=== PATIENT | female | born 1980 | race Caucasian/White ===

== ENCOUNTER → 2018-08-11 | Outpatient (CLI) | payer MEDICARE, OTHER ==
[~2018-08-11] MED LIST: ABILIFY10 MG PO; BENADRYL25 M1 PO; BENZTROPINE MESY2 MG PO; BYSTOLIC10 MG PO; BYSTOLIC5 MG PO; CARAFATE1 GM/10 ML PO; CLEOCIN HCL300 MG PO; CLONAZEPAM1 MG PO; COGENTIN1 MG/1 ML PO; DEXILANT60 MG PO; DIVALPROEX SOD250 MG; EFFEXOR XR150 MG PO; FENTANYL CITRATE/PF 100MCG/2 ML INJ ONE; FUROSEMIDE; GEODON80 MG PO; HALOPERIDOL1 MG PO; KLONOPIN1 MG PO; LACTATED RINGER'S 1,000 ML ONE; LAMICTAL XR200 MG PO; LATUDA40 MG PO; MIDAZOLAM HCL 5 MG/ML VIAL ONE; NAPROXEN250 MG PO; PANTOPRAZOLE SO40 MG PO; PREMARIN0.625 MG PO; PROPOFOL IV EMULSION 10 MG/ML 20 ML VIAL ONE; PROPRANOLOL HCL40 MG PO; PROVENTIL17 GM IH; PROZAC20 MG PO; REMERON30 MG PO; SODIUM CHLORIDE 0.9% 100 ML 100 ML ONE; TEMAZEPAM30 MG PO; THORAZINE; THORAZINE25 MG PO; TRAZODONE HCL300 MG PO; TRAZODONE HCL50 MG PO; TRILEPTAL300 MG PO; VITAMIN B PO; Z ATROVENT IH; Z LAMICTAL PO; Z.0.CYMBALTA60 MG PO; Z.0.GEODON20 MG PO; Z.0.KLONOPIN2 MG PO; Z.0.RESTORIL30 MG PO; Z.1.AMOXICILLIN500 M; [UNRECOGNIZED DRUG - OTHER] PO
--- NOTE | 2018-08-11 14:26 | Diagnostic Imaging Report ---
TECHNIQUE: Magnetic resonance imaging of the RIGHT SHOULDER was performed WITHOUT injected contrast. HISTORY: Sprain, limited motion COMPARISON: None available. FINDINGS: Some minimal artifacts due to partially limits evaluation. MUSCLES AND TENDONS: Rotator Cuff: Tendons: Supraspinatus and Infraspinatus: Focal low-grade articular sided partial-thickness tear of the anterior supraspinatus. No high-grade tear or complete tendon retraction. Teres Minor: Intact Subscapularis: Intact Muscles: No focal muscle atrophy. Biceps Tendon: The long head of the biceps tendon is intact and within the intertubercular groove. GLENOHUMERAL JOINT: Glenoid Labrum: Attenuation and complex tearing of the posterior superior labrum. Trace amount of fluid partially undercutting the labral-osseous junction at the posterior inferior glenoid. Articular Cartilage: Intermediate to high-grade erosion of the superior glenoid cartilage. Joint Fluid: No effusion. ACROMIOCLAVICULAR JOINT: Mild hypertrophic degenerative changes of the acromioclavicular joint. Synovitis and trace effusion. BONE: The acromion is unremarkable. The bone marrow signal is heterogeneous, compatible with red marrow conversion, no specific evidence of a focal bone marrow replacing abnormality. No acute fracture. SOFT TISSUES: Moderate volume of fluid and synovitis within the subacromial/subdeltoid bursa. IMPRESSION: 1. Subacromial/subdeltoid bursitis. 2. Acromioclavicular and glenohumeral degenerative changes, including degenerative tearing of the labrum. 3. Low-grade articular sided partial-thickness tearing of the supraspinatus tendon. Signed by: Dr. Edinson Walton D.O., M.M.M. on 08/11/2018 2:23 PM
--- NOTE | 2018-08-11 14:29 | Diagnostic Imaging Report ---
EXAMINATION: MRI of the lumbar spine without contrast HISTORY: Low back pain for last 3 years COMPARISON: Lumbar spine MRI and 09/13/2017 TECHNIQUE: Sagittal T1, T2, STIR; axial T2 and proton density. FINDINGS: It is assumed that there are 5 lumbar vertebrae. Curvature/Alignment: Normal lordosis. Vertebrae: No evidence of recent fracture, infection, or neoplasm. Conus: Normal, terminating at L1 Cauda equina: Unremarkable. Lower thoracic: Unremarkable. Paraspinal soft tissues: Unremarkable. Degenerative changes: L1-L2: Unremarkable. L2-L3: Unremarkable. L3-L4: Unremarkable. L4-L5: Persistent minimal disc bulge and facet arthrosis without stenosis. L5-S1: Unchanged tiny central disc protrusion with annular fissure and mild facet arthrosis. No stenoses. IMPRESSION: Unchanged minimal degenerative changes at L4-5 and L5-S1 without spinal canal or foraminal stenoses. No evidence of nerve root compression. Signed by: Dr. Jazmin Mike M.D. on 08/11/2018 2:25 PM
== END ==
LOC: OR 11:36
PROVIDERS: ATTEND Family Medicine Sports Medicine
DX: S43.491A Other sprain of right shoulder joint, initial encounter (principal); M75.41 Impingement syndrome of right shoulder; M47.27 Other spondylosis with radiculopathy, lumbosacral region
CPT/HCPCS: 72148; 73221; J2250; J2704; J7120

== ENCOUNTER → 2019-03-08 | Outpatient (CLI) | payer OTHER ==
[~2019-03-08] MED LIST changes: +LIDOCAINE HCL 2% LOCAL INJ 5 ML SDV VIAL INJ ONE; +MIDAZOLAM HCL 2 MG/2 ML VIAL ONE; -MIDAZOLAM HCL 5 MG/ML VIAL ONE; -PROPOFOL IV EMULSION 10 MG/ML 20 ML VIAL ONE; +PROPOFOL IV EMULSION 10 MG/ML 50 ML VIAL ONE; -SODIUM CHLORIDE 0.9% 100 ML 100 ML ONE
--- NOTE | 2019-03-08 15:10 | Diagnostic Imaging Report ---
TECHNIQUE: Magnetic resonance imaging of the RIGHT KNEE was performed WITHOUT injected contrast. HISTORY: EFFUSION/PAIN/CONTUSION/SPRAIN , fall, twisted, pain COMPARISON: None available. FINDINGS: LIGAMENTS AND TENDONS: ACL: Intact, minimal intrasubstance degeneration of the distal ligament. PCL: Intact Collateral ligaments: Intact Iliotibial band: Unremarkable Popliteal tendon: Intact Extensor mechanism: Intact JOINT: Menisci: Medial: Intrasubstance degeneration of the anterior horn near the tibial insertion. Lateral: Intact Articular Cartilage: Medial Compartment: No focal defect. Lateral Compartment: No focal defect. Patellofemoral Compartment: No focal defect. Joint Fluid: Trace effusion and minimally distended lobulated Carranza's cyst. BONES: No focal or infiltrative bone marrow replacing abnormality. No acute fracture. SOFT TISSUES: Mild medial and lateral nonspecific superficial soft tissue edema. IMPRESSION: 1. Trace effusion and minimally distended Carranza's cyst. 2. No acute internal derangement. Signed by: Dr. Edinson Walton D.O., M.M.M. on 03/08/2019 3:07 PM
--- NOTE | 2019-03-08 15:53 | Diagnostic Imaging Report ---
TECHNIQUE: Magnetic resonance imaging of the RIGHT ANKLE was performed WITHOUT injected contrast. Motion artifact partially limits sensitivity and specificity of the exam. HISTORY: EFFUSION/PAIN/CONTUSION/SPRAIN , fall COMPARISON: None available. FINDINGS: LIGAMENTS: Medial Complex: Intact Lateral Complex: Intact, including the tibiofibular ligaments. TENDONS: Medial: Intact Lateral: Complex partial tearing of the distal peroneus brevis tendon. Anterior: Intact Achilles: Intact BONES: No focal or infiltrative bone marrow replacing abnormality. No acute fracture or osteonecrosis. Varus configuration of the foot. Small plantar and moderate dorsal calcaneal enthesophytes. Focal edema within the lateral aspect of the lateral malleolus with a central subtle irregular linear hypointensity. JOINTS: Cartilage: No focal defect involving the tibiotalar joint. Other: Trace subtalar effusion. SOFT TISSUES: Moderate nonspecific superficial soft tissue edema, most notably the medial aspect of the ankle and the lateral aspect of the ankle. IMPRESSION: 1. Nondisplaced, incomplete, fracture of the lateral malleolus with adjacent bone marrow contusion. 2. Moderate nonspecific soft tissue edema. 3. Degenerative partial tearing of the distal peroneus brevis tendon. Signed by: Dr. Edinson Walton D.O., M.M.M. on 03/08/2019 3:50 PM
== END ==
LOC: MRI 02-13 13:40
PROVIDERS: ATTEND Family Medicine Sports Medicine
DX: M25.561 Pain in right knee (principal); M25.461 Effusion, right knee; S80.01XA Contusion of right knee, initial encounter; S83.8X1A Sprain of other specified parts of right knee, initial encounter; S93.421A Sprain of deltoid ligament of right ankle, initial encounter; S93.411A Sprain of calcaneofibular ligament of right ankle, initial encounter
CPT/HCPCS: 73721 ×2; J2001; J2250; J2704; J7121

== ENCOUNTER → 2019-03-16 | Day surgery (SDC) | payer MEDICARE, OTHER ==
[2019-03-15 16:48] LABS: BASOPHILS % 0.5 % (0.0-1.0); EOSINOPHILS # (AUTO) 0.1 (0.0-0.4); EOSINOPHILS % 1.7 % (0.0-6.0); HEMATOCRIT 33.1 % (34.2-44.1); HEMOGLOBIN 10.7 g/dL (12.0-16.0); LYMPHOCYTES % 26.1 % (18.0-39.1); MEAN CORPUSCULAR HEMOGLOBIN 30.5 pg (28-32); MEAN CORPUSCULAR HGB CONC 32.3 g/dL (31-35); MEAN CORPUSCULAR VOLUME 94.3 fL (81-99); MONOCYTES # (AUTO) 0.6 (0.2-0.8); MONOCYTES % 8.3 % (4.4-11.3); NEUTROPHILS # (AUTO) 4.8 (2.1-6.9); PLATELET COUNT 292 x10e3/uL (140-360); RED BLOOD COUNT 3.51 x10e6/uL (3.6-5.1); RED CELL DISTRIBUTION WIDTH 13.2 % (11.7-14.4)
[2019-03-15 17:05] LABS: ANION GAP 13.6 mmol/L (8-16); BLOOD UREA NITROGEN 6 mg/dL (7-26); BUN/CREATININE RATIO 7 (6-25); CALCIUM 9.1 mg/dL (8.4-10.2); CARBON DIOXIDE 27 mmol/L (22-29); CHLORIDE 103 mmol/L (98-107); CREATININE, SERUM 0.82 mg/dL (0.57-1.11); EST GLOMERULAR FILTRATION RATE > 60 ML/MIN (60-); GLUCOSE 89 mg/dL (74-118); POTASSIUM 3.6 mmol/L (3.5-5.1); SODIUM 140 mmol/L (136-145)
[~2019-03-16] MED LIST changes: +BUPIVACAINE HCL 0.5% INJ 30 ML VIAL INJ ONE; +CEFAZOLIN SOD 1 GM/NS 50ML 50 ML IV ONE; +DEXAMETHASONE SOD PHOS INJ 4 MG/ML VIAL ONE; +GEODON60 MG PO; +HYDROMORPHONE 2MG/ML 2 MG/ML ML ONE; -LACTATED RINGER'S 1,000 ML ONE; +LASIX20 MG PO; +METOCLOPRAMIDE HCL 10 MG/2ML VIAL ONE; +MORPHINE SULFATE INJ 4 MG/ML INJ 1ML ONE; +ONDANSETRON HCL INJ 2MG/ML 2ML 2 MG/ML VIAL ONE; +PROPOFOL IV EMULSION 10 MG/ML 20 ML VIAL ONE; -PROPOFOL IV EMULSION 10 MG/ML 50 ML VIAL ONE; +SEVOFLURANE INHAL SOLN 250 ML PEN BTL ONE; +TEGRETOL200 MG PO; +TYLENOL WITH C1 EACH PO
--- OUTSIDE RECORDS SUMMARY | 2019-03-16 05:10 | XMS REPORT | Clinical Summary ---
Author Author [facility] Organization [facility] Address Unknown Phone Unavailable Care Team Providers Care Feeder Catcher Tobacco Name Role Phone Davon Villalobos MD PCP Allergies Comments Active Allergy Reactions Severity Noted Date Sumatriptan Succinate Palpitations Low 11/10/2016 Iodine Anaphylaxis High 10/12/2018 Nsaids (Non-Steroidal 08/24/2018 Anti-Inflammatory Drug) Sumatriptan Palpitations Low 09/17/2015 Tolmetin Hives 11/10/2016 Ketorolac Hives 11/10/2016 Pt has tolerated morphine before per Tramadol Anaphylaxis High 09/17/2015 Makes migraine worse Zolmitriptan Other (See 05/10/2017 Comments) Medications End Date Status Medication Sig Dispensed Refills Start Date Active pantoprazole (PROTONIX) TK 1 T PO 0 40 MG EC tablet BID 6 Active FLUoxetine (PROzac) 20 MG Take 20 mg by 0 capsule mouth daily. Active PREMARIN 0.625 mg tablet TK 1 T PO QD 10 7 Active clonAZEPAM (KlonoPIN) 1 Take 1 mg by 0 MG tablet mouth 3 (three) times a day as needed for seizures. Active traZODone (DESYREL) 100 Take by mouth 0 MG tablet nightly. Active ziprasidone (GEODON) 80 Take 120 mg 0 MG capsule by mouth nightly. Active ibuprofen (ADVIL,MOTRIN) Take 1 tablet 30 tablet 0 600 MG tablet (600 mg 8 total) by mouth every 6 (six) hours as needed for mild pain for up to 30 doses. Active ipratropium-albuterol Take 3 mL by 0 (DUO-NEB) 0.5-2.5 mg/3 mL nebulization nebulizer every 6 (six) hours as needed for wheezing. Active levalbuterol (XOPENEX) Take 1 ampule 0 1.25 mg/3 mL nebulizer by solution nebulization every 8 (eight) hours. 01/26/2019 Discontinued OXcarbazepine (TRILEPTAL) Take 600 mg 0 600 MG tablet by mouth 2 (two) times a day. 05/05/2018 promethazine (PHENERGAN) Take 1 tablet 24 tablet 0 25 MG tablet (25 mg total) 8 by mouth every 6 (six) hours as needed for nausea or vomiting for up to 3 days. 07/13/2018 promethazine (PHENERGAN) Take 1 tablet 6 tablet 0 25 MG tablet (25 mg total) 8 by mouth every 6 (six) hours as needed for nausea or vomiting for up to 30 days. 07/16/2018 acetaminophen-codeine Take 1-2 15 tablet 0 (TYLENOL WITH CODEINE #3) tablets by 8 300-30 mg per tablet mouth every 6 (six) hours as needed for moderate pain for up to 10 days. 08/05/2018 methocarbamol (ROBAXIN) Take 1 tablet 20 tablet 0 500 MG tablet (500 mg 8 total) by mouth 2 (two) times a day for 30 days. 09/08/2018 acetaminophen-codeine Take 1-2 15 tablet 0 (TYLENOL WITH CODEINE #3) tablets by 8 300-30 mg per tablet mouth every 6 (six) hours as needed for moderate pain for up to 15 days. 09/29/2018 ciprofloxacin (CIPRO) 500 Take 1 tablet 14 tablet 0 MG tablet (500 mg 8 total) by mouth 2 (two) times a day for 7 days. 09/22/2018 Discontinued phenazopyridine Take 1 tablet 6 tablet 0 (PYRIDIUM) 200 MG tablet (200 mg 8 total) by mouth 3 (three) times a day for 3 days. 10/02/2018 cephalexin (KEFLEX) 500 Take 1 40 capsule 0 MG capsule capsule (500 8 mg total) by mouth 4 (four) times a day for 10 days. 09/25/2018 phenazopyridine Take 1 tablet 6 tablet 0 (PYRIDIUM) 200 MG tablet (200 mg 8 total) by mouth 3 (three) times a day for 3 days. 10/19/2018 clindamycin (CLEOCIN) 150 Take 2 42 capsule 0 MG capsule capsules (300 9 mg total) by mouth 3 (three) times a day for 7 days. 11/13/2018 methocarbamol (ROBAXIN) Take 1 tablet 20 tablet 0 500 MG tablet (500 mg 9 total) by mouth 2 (two) times a day for 10 days. 01/28/2019 Discontinued methocarbamol (ROBAXIN) Take 1 tablet 20 tablet 0 500 MG tablet (500 mg 9 total) by mouth 2 (two) times a day for 30 days. 01/05/2019 clindamycin (CLEOCIN HCL) Take 1 30 capsule 0 300 MG capsule capsule (300 9 mg total) by mouth 3 (three) times a day for 10 days. 01/08/2019 dicyclomine (BENTYL) 20 Take 1 tablet 20 tablet 0 mg tablet (20 mg total) 9 by mouth every 6 (six) hours for 5 days. 01/08/2019 promethazine (PHENERGAN) Take 1 tablet 20 tablet 0 25 MG tablet (25 mg total) 9 by mouth every 6 (six) hours as needed for nausea or vomiting for up to 5 days. 01/28/2019 Discontinued doxycycline (VIBRAMYCIN) Take 1 20 capsule 0 100 MG capsule capsule (100 9 mg total) by mouth 2 (two) times a day for 10 days. 01/28/2019 Discontinued oseltamivir (TAMIFLU) 75 Take 1 10 capsule 0 MG capsule capsule (75 9 mg total) by mouth every 12 (twelve) hours for 5 days. 01/28/2019 Discontinued predniSONE (DELTASONE) 50 Take 1 tablet 4 tablet 0 mg tablet (50 mg total) 9 by mouth daily for 4 days. 02/02/2019 codeine-guaifenesin Take 5 mL by 118 mL 0 (GUAIFENESIN AC) 10-100 mouth 4 9 mg/5 mL liquid (four) times a day as needed for cough for up to 5 days. 02/01/2019 predniSONE (DELTASONE) 20 Take 2 8 tablet 0 mg tablet tablets (40 9 mg total) by mouth daily for 4 days. 02/02/2019 acetaminophen-codeine Take 1 tablet 14 tablet 0 (TYLENOL WITH CODEINE #3) by mouth 9 300-30 mg per tablet every 4 (four) hours as needed for moderate pain for up to 5 days. 03/07/2019 fluticasone Inhale 1 30 each 0 furoate-vilanterol (BREO inhalations 9 ELLIPTA) 100-25 mcg/dose once daily blister with device for 30 days. powder for inhalation 02/10/2019 methylPREDNISolone follow 21 tablet 0 (MEDROL, TACHO,) 4 mg package 9 tablet directions 02/10/2019 levoFLOXacin (LEVAQUIN) Take 1 tablet 5 tablet 0 750 MG tablet (750 mg 9 total) by mouth daily for 5 days. 02/05/2019 Discontinued guaiFENesin (ROBITUSSIN) Take 10 mL 473 mL 0 100 mg/5 mL syrup (200 mg 9 total) by mouth 3 (three) times a day as needed for cough for up to 10 days. 02/10/2019 HYDROcodone-acetaminophen Take 1 tablet 15 tablet 0 (NORCO) 5-325 mg per by mouth 9 tablet every 8 (eight) hours as needed for moderate pain for up to 5 days. Max Daily Amount: 3 tablets 02/15/2019 guaiFENesin (ROBITUSSIN) Take 10 mL 473 mL 0 100 mg/5 mL syrup (200 mg 9 total) by mouth 3 (three) times a day as needed for cough for up to 10 days. 02/22/2019 clindamycin (CLEOCIN HCL) Take 1 21 capsule 0 300 MG capsule capsule (300 9 mg total) by mouth 3 (three) times a day for 7 days. 03/11/2019 predniSONE (DELTASONE) 20 Take 2 10 tablet 0 mg tablet tablets (40 9 mg total) by mouth daily for 5 days. 03/11/2019 acetaminophen-codeine Take 1 tablet 12 tablet 0 (TYLENOL WITH CODEINE #3) by mouth 9 300-30 mg per tablet every 6 (six) hours as needed for moderate pain for up to 5 days. 03/13/2019 sulfamethoxazole-trimetho Take 1 tablet 14 tablet 0 prim (BACTRIM DS) 800-160 by mouth 2 9 mg per tablet (two) times a day for 7 days. smx-tmp DS (BACTRIM) 800-160 mg tabs (1tab q12 D10) Active Problems Problem Noted Date Exacerbation of asthma 01/25/2019 Intractable headache 05/14/2017 Chronic pain of left knee 11/10/2016 Resolved Problems Problem Noted Date Resolved Date Shortness of breath 02/04/2019 02/05/2019 Encounters Care Team Description Date Type Specialty Gabriel Dotson MD COPD exacerbation (HCC) (Primary Dx); Shortness of breath; Pleurisy 03/06/2019 Emergency Emergency Medicine Ziyad Maria DO Bilateral lower extremity edema (Primary Dx) 03/01/2019 Emergency Emergency Medicine - 03/02/2019 Zehra Fung MD Costochondritis (Primary Dx); Drug-seeking behavior; Malingering 02/25/2019 Emergency Emergency Medicine - 02/26/2019 Gabriel Barth MD Flank pain (Primary Dx); Drug-seeking behavior 02/21/2019 Emergency Emergency Medicine - 02/22/2019 Danny Dotson DO Eloped from emergency department (Primary Dx) 02/17/2019 Emergency Emergency Medicine Ziyad Maria DO Reichl, Erik Andrew, MD Abscess of axilla (Primary Dx) 02/15/2019 Emergency Emergency Medicine BenniePastor lema Jr., MD Contusion of right foot, initial encounter (Primary Dx); Sprain of right ankle, unspecified ligament, initial encounter 02/13/2019 Emergency Emergency Medicine Edvin Palacios MD Neela, Rekha Srinivas, MD Abouelseoud, Tanseem Hamad Mohamed A, MD Shortness of breath (Primary Dx); Moderate persistent asthma with exacerbation 02/04/2019 Emergency General Internal Medicine - 02/05/2019 Gabriel Barth MD Eloped from emergency department (Primary Dx) 01/31/2019 Emergency Emergency Medicine Sukumar Alvarez MD Abouelseoud, Tanseem Hamad Mohamed A, MD Bavare, Arusha Amod, MD Exacerbation of asthma, unspecified asthma severity, unspecified whether persistent (Primary Dx); Multifocal pneumonia; SOB (shortness of breath); Chronic pain of left knee 01/25/2019 [facility] General Internal Medicine - Encounter 01/28/2019 Pastor Avery Jr., MD Fever, unspecified fever cause (Primary Dx); Cough; Viral illness; Bronchitis 01/21/2019 Emergency Emergency Medicine Dorian Espinal Jr., MD Sprain of right ankle, unspecified ligament, initial encounter (Primary Dx) 01/12/2019 Emergency Emergency Medicine Orlando Schulz MD Generalized abdominal pain (Primary Dx) 01/05/2019 Emergency Emergency Medicine Masoud Moreno MD Gastroenteritis (Primary Dx) 01/03/2019 Emergency Emergency Medicine Miles Minor MD Contusion of hip and thigh, left, subsequent encounter (Primary Dx); Back contusion, left, initial encounter 12/27/2018 Emergency Emergency Medicine 12/27/2018 Travel Larisa Sifuentes MD Contusion of hip, unspecified laterality, initial encounter (Primary Dx); Hip sprain, left, initial encounter; Abrasion; Cellulitis, unspecified cellulitis site 12/26/2018 Emergency Emergency Medicine 12/26/2018 Travel Dorian Espinal Jr., MD Back strain, initial encounter (Primary Dx) 11/03/2018 Emergency Emergency Medicine Sukumar Alvarez MD Dacryocystitis, acute, right (Primary Dx) 10/12/2018 Emergency Emergency Medicine Zehra Fung MD Pyelonephritis (Primary Dx) 09/23/2018 Emergency Emergency Medicine 09/23/2018 Travel Gabriel Barth MD Urinary retention (Primary Dx) 09/22/2018 Emergency Emergency Medicine Ziyad Maria DO Flank pain (Primary Dx) 09/20/2018 Emergency Emergency Medicine Elías Vang II, [facility] Larisa Sifuentes MD Contusion of left foot, initial encounter (Primary Dx) 08/30/2018 Emergency Emergency Medicine 08/30/2018 Emergency Emergency Medicine Larisa Sifuentes MD Chest pain, unspecified type (Primary Dx); Dyspnea, unspecified type 08/25/2018 Emergency Emergency Medicine Zehra Fung MD Left flank pain, chronic (Primary Dx) 08/24/2018 Emergency Emergency Medicine Dorian Espinal Jr., MD Acute left lower quadrant pain (Primary Dx) 08/21/2018 Emergency Emergency Medicine Sukumar Alvarez MD Abdominal pain, unspecified abdominal location (Primary Dx) 08/08/2018 Emergency Emergency Medicine Zehra Fung MD Fall, initial encounter (Primary Dx); Hematoma of frontal scalp, initial encounter 07/10/2018 Emergency Emergency Medicine Lc Parry, Fall, initial encounter (Primary Dx); Shoulder strain, right, initial encounter 07/06/2018 Emergency Emergency Medicine Fernando Gutierrez MD Flank pain (Primary Dx); Bilateral back pain, unspecified back location, unspecified chronicity 07/05/2018 Emergency Emergency Medicine - 07/06/2018 Gabriel Dotson MD Dysuria (Primary Dx) 06/12/2018 Emergency Emergency Medicine - 06/13/2018 Fernando Gutierrez MD Left ankle pain, unspecified chronicity (Primary Dx) 05/16/2018 Emergency Emergency Medicine Ziyad Maria DO Left foot pain (Primary Dx) 05/03/2018 Emergency Emergency Medicine - 05/04/2018 Elías Vang II, FNP Nwachukwu, Ernest Chukwuemeka Jr., MD Foot pain, left (Primary Dx) 05/01/2018 Emergency Emergency Medicine - 05/02/2018 Sukumar Alvarez MD Post-op pain (Primary Dx) 05/01/2018 Emergency Emergency Medicine Sukumar Alvarez MD Post-operative pain (Primary Dx) 04/30/2018 Emergency Emergency Medicine Elías Vang II, FNP Zhang, Zhou, MD Foot sprain, left, initial encounter (Primary Dx) 03/31/2018 Emergency Emergency Medicine after 03/15/2018 Immunizations Name Dates Previously Given Next Due Pneumococcal 01/27/2019 Polysaccharide Family History Medical History Relation Name Comments Stroke Father Liver disease Mother Heart disease Paternal Grandmother Relation Name Status Comments Father Mother Paternal Grandmother Social History Date Tobacco Use Types Packs/Day Years Used Current Every Day Smoker Cigarettes 0.25 Smokeless Tobacco: Never Used Alcohol Use Drinks/Week oz/Week Comments No Sex Assigned at Date Recorded Not on file Industry Job Start Date Occupation Not on file Not on file Not on file Travel End Travel History Travel Start No recent travel history available. Last Filed Vital Signs Time Taken Vital Sign Reading 03/06/2019 8:12 AM CDT Blood Pressure 120/79 03/06/2019 9:12 AM CDT Pulse 88 03/06/2019 8:12 AM CDT Temperature 36.2 C (97.1 F) 03/06/2019 9:12 AM CDT Respiratory Rate 18 03/06/2019 9:16 AM CDT Oxygen Saturation 100% - Inhaled Oxygen - Concentration 03/06/2019 8:15 AM CDT Weight 108 kg (238 lb) 03/06/2019 8:15 AM CDT Height 170.2 cm (5' 7") 03/06/2019 8:15 AM CDT Body Mass Index 37.28 Plan of Treatment Health Maintenance Due Date Last Done Comments INFLUENZA VACCINE 04/26/2019 Procedures Comments Procedure Name Priority Date/Time Associated Diagnosis VENOUS BLOOD GAS STAT 03/06/2019 8:51 AM CDT ESTIMATED GFR STAT 03/06/2019 8:51 AM CDT B NATRIURETIC PEPTIDE STAT 03/06/2019 8:51 AM CDT TROPONIN STAT 03/06/2019 8:51 AM CDT COMPREHENSIVE METABOLIC STAT 03/06/2019 PANEL 8:51 AM CDT HC COMPLETE BLD COUNT STAT 03/06/2019 W/AUTO DIFF 8:51 AM CDT XR CHEST 1 VW STAT 03/06/2019 8:43 AM CDT ECG ED PRELIMINARY Routine 03/06/2019 INTERPRETATION 8:25 AM CDT ECG 12-LEAD STAT 03/06/2019 8:13 AM CDT ESTIMATED GFR STAT 03/01/2019 11:09 PM CDT PARTIAL THROMBOPLASTIN STAT 03/01/2019 TIME (PTT) 11:09 PM CDT PROTHROMBIN TIME WITH INR STAT 03/01/2019 11:09 PM CDT B NATRIURETIC PEPTIDE STAT 03/01/2019 11:09 PM CDT COMPREHENSIVE METABOLIC STAT 03/01/2019 PANEL 11:09 PM CDT HC COMPLETE BLD COUNT STAT 03/01/2019 W/AUTO DIFF 11:09 PM CDT US DUPLEX VENOUS LOWER STAT 03/01/2019 EXTREMITY BILATERAL 10:43 PM CDT ECG 12-LEAD STAT 02/25/2019 9:53 PM CDT XR CHEST 2 VW STAT 02/25/2019 9:51 PM CDT ESTIMATED GFR STAT 02/25/2019 9:33 PM CDT B NATRIURETIC PEPTIDE STAT 02/25/2019 9:33 PM CDT TROPONIN STAT 02/25/2019 9:33 PM CDT COMPREHENSIVE METABOLIC STAT 02/25/2019 PANEL 9:33 PM CDT HC COMPLETE BLD COUNT STAT 02/25/2019 W/AUTO DIFF 9:33 PM CDT ECG ED PRELIMINARY Routine 02/25/2019 INTERPRETATION 9:27 PM CDT HCG QUALITATIVE, SERUM STAT 02/21/2019 SCREEN 11:15 PM CDT ESTIMATED GFR STAT 02/21/2019 11:15 PM CDT LIPASE LEVEL STAT 02/21/2019 11:15 PM CDT COMPREHENSIVE METABOLIC STAT 02/21/2019 PANEL 11:15 PM CDT HC COMPLETE BLD COUNT STAT 02/21/2019 W/AUTO DIFF 11:15 PM CDT URINALYSIS SCREEN AND STAT 02/21/2019 MICROSCOPY, WITH REFLEX 10:38 PM CDT TO CULTURE URINE CULTURE STAT 02/21/2019 10:[address] RENAL STONE PROTOCOL STAT 02/21/2019 10:35 PM CDT INCISION AND DRAINAGE Routine 02/15/2019 7:43 PM CDT XR FOOT 3+ VW RIGHT STAT 02/13/2019 5:54 PM CDT XR ANKLE 3+ VW RIGHT STAT 02/13/2019 5:54 PM CDT POC GLUCOSE Routine 02/05/2019 6:06 AM CDT LACTIC ACID LEVEL, SEPSIS Routine 02/05/2019 - NOW AND REPEAT 2X EVERY 3:22 AM CDT 3 HOURS ESTIMATED GFR Routine 02/05/2019 3:22 AM CDT BASIC METABOLIC PANEL Routine 02/05/2019 3:22 AM CDT HC COMPLETE BLD COUNT Routine 02/05/2019 W/AUTO DIFF 3:22 AM CDT RESPIRATORY PATHOGEN Routine 02/05/2019 PANEL 12:11 AM CDT TROPONIN Timed 02/04/2019 11:33 PM CDT LACTIC ACID LEVEL, SEPSIS Timed 02/04/2019 - NOW AND REPEAT 2X EVERY 11:33 PM CDT 3 HOURS POC GLUCOSE Routine 02/04/2019 8:09 PM CDT TROPONIN Timed 02/04/2019 7:09 PM CDT LACTIC ACID LEVEL, SEPSIS Timed 02/04/2019 - NOW AND REPEAT 2X EVERY 7:09 PM CDT 3 HOURS URINE CULTURE Routine 02/04/2019 5:00 PM CDT GRAM STAIN Routine 02/04/2019 5:00 PM CDT URINALYSIS SCREEN AND Routine 02/04/2019 MICROSCOPY, WITH REFLEX 4:47 PM CDT TO CULTURE HCG QUALITATIVE, URINE Routine 02/04/2019 SCREEN 4:47 PM CDT XR CHEST 1 VW PORTABLE STAT 02/04/2019 3:47 PM CDT ESTIMATED GFR STAT 02/04/2019 3:40 PM CDT B NATRIURETIC PEPTIDE STAT 02/04/2019 3:40 PM CDT TROPONIN STAT 02/04/2019 3:40 PM CDT LIPASE LEVEL STAT 02/04/2019 3:40 PM CDT LACTIC ACID LEVEL, SEPSIS STAT 02/04/2019 - NOW AND REPEAT 2X EVERY 3:40 PM CDT 3 HOURS HEPATIC FUNCTION PANEL STAT 02/04/2019 3:40 PM CDT BASIC METABOLIC PANEL STAT 02/04/2019 3:40 PM CDT HC COMPLETE BLD COUNT STAT 02/04/2019 W/AUTO DIFF 3:40 PM CDT BLOOD CULTURE, AEROBIC & Routine 02/04/2019 ANAEROBIC 3:40 PM CDT BLOOD CULTURE, AEROBIC & Routine 02/04/2019 ANAEROBIC 3:30 PM CDT ECG 12-LEAD STAT 02/04/2019 3:26 PM CDT ECG ED PRELIMINARY Routine 02/04/2019 INTERPRETATION 3:15 PM CDT POC GLUCOSE Routine 01/28/2019 10:56 AM CDT POC GLUCOSE Routine 01/28/2019 6:15 AM CDT ESTIMATED GFR Routine 01/28/2019 5:18 AM CDT BASIC METABOLIC PANEL Routine 01/28/2019 5:18 AM CDT HC COMPLETE BLD COUNT Routine 01/28/2019 W/AUTO DIFF 5:18 AM CDT POC GLUCOSE Routine 01/27/2019 8:23 PM CDT POC GLUCOSE Routine 01/27/2019 4:13 PM CDT POC GLUCOSE Routine 01/27/2019 11:31 AM CDT POC GLUCOSE Routine 01/27/2019 6:15 AM CDT ESTIMATED GFR Routine 01/27/2019 5:49 AM CDT BASIC METABOLIC PANEL Routine 01/27/2019 5:49 AM CDT PROTHROMBIN TIME WITH INR Routine 01/27/2019 5:49 AM CDT HC COMPLETE BLD COUNT Routine 01/27/2019 W/AUTO DIFF 5:49 AM CDT POC GLUCOSE Routine 01/26/2019 8:42 PM CDT POC GLUCOSE Routine 01/26/2019 7:16 PM CDT POC GLUCOSE Routine 01/26/2019 4:52 PM CDT POC GLUCOSE Routine 01/26/2019 11:45 AM CDT HEMOGLOBIN A1C Routine 01/26/2019 6:56 AM CDT TROPONIN Timed 01/26/2019 6:56 AM CDT TROPONIN Timed 01/26/2019 3:08 AM CDT ESTIMATED GFR STAT 01/25/2019 10:33 PM CDT B NATRIURETIC PEPTIDE STAT 01/25/2019 10:33 PM CDT TROPONIN STAT 01/25/2019 10:33 PM CDT HC COMPLETE BLD COUNT STAT 01/25/2019 W/AUTO DIFF 10:33 PM CDT BASIC METABOLIC PANEL STAT 01/25/2019 10:33 PM CDT XR CHEST 1 VW PORTABLE STAT 01/25/2019 10:25 PM CDT OK CRITICAL CARE, E/M Routine 01/25/2019 30-74 MINUTES 9:40 PM CDT GRAM STAIN Routine 01/21/2019 8:23 AM CDT URINE CULTURE Routine 01/21/2019 8:23 AM CDT STREP SCREEN CULTURE STAT 01/21/2019 8:00 AM CDT HCG QUALITATIVE, URINE Routine 01/21/2019 SCREEN 7:59 AM CDT URINALYSIS SCREEN AND Routine 01/21/2019 MICROSCOPY, WITH REFLEX 7:59 AM CDT TO CULTURE GROUP A STREP, RAPID Routine 01/21/2019 ANTIGEN 7:31 AM CDT ESTIMATED GFR STAT 01/21/2019 7:15 AM CDT CBC HEMOGRAM STAT 01/21/2019 7:15 AM CDT BASIC METABOLIC PANEL STAT 01/21/2019 7:15 AM CDT XR CHEST 2 VW STAT 01/21/2019 6:11 AM CDT RESPIRATORY PATHOGEN Routine 01/21/2019 PANEL 5:30 AM CDT INFLUENZA ANTIGEN TEST, Routine 01/21/2019 REFLEX NEGATIVE TO RPP 5:30 AM CDT XR ANKLE 3+ VW RIGHT STAT 01/12/2019 7:22 PM CDT XR FOOT 3+ VW RIGHT STAT 01/12/2019 7:[address] ABDOMEN PELVIS WO STAT 01/03/2019 CONTRAST 5:54 PM CDT RESPIRATORY PATHOGEN Routine 01/03/2019 PANEL 4:42 PM CDT INFLUENZA ANTIGEN TEST, Routine 01/03/2019 REFLEX NEGATIVE TO RPP 4:42 PM CDT GRAM STAIN Routine 01/03/2019 4:36 PM CDT URINE CULTURE Routine 01/03/2019 4:36 PM CDT ESTIMATED GFR STAT 01/03/2019 3:20 PM CDT HCG QUALITATIVE, SERUM STAT 01/03/2019 SCREEN 3:20 PM CDT LIPASE LEVEL STAT 01/03/2019 3:20 PM CDT HEPATIC FUNCTION PANEL STAT 01/03/2019 3:20 PM CDT BASIC METABOLIC PANEL STAT 01/03/2019 3:20 PM CDT HC COMPLETE BLD COUNT STAT 01/03/2019 W/AUTO DIFF 3:20 PM CDT URINALYSIS SCREEN AND Routine 01/03/2019 MICROSCOPY, WITH REFLEX 2:11 PM CDT TO CULTURE HCG QUALITATIVE, URINE Routine 01/03/2019 SCREEN 2:11 PM CDT XR HIPS BILATERAL AP STAT 12/26/2018 LATERAL W AP PELVIS 9:50 AM CDT URINALYSIS SCREEN AND STAT 09/23/2018 MICROSCOPY, WITH REFLEX 1:40 AM TWISTER TENDER TO CULTURE GRAM STAIN STAT 09/23/2018 1:40 AM TWISTER TENDER URINE CULTURE STAT 09/23/2018 1:40 AM TWISTER TENDER ESTIMATED GFR STAT 09/23/2018 1:30 AM TWISTER TENDER COMPREHENSIVE METABOLIC STAT 09/23/2018 PANEL 1:30 AM TWISTER TENDER HC COMPLETE BLD COUNT STAT 09/23/2018 W/AUTO DIFF 1:30 AM TWISTER TENDER LACTIC ACID LEVEL, SEPSIS Timed 09/22/2018 - NOW AND REPEAT 2X EVERY 3:56 AM TWISTER TENDER 3 HOURS XR CHEST 1 VW PORTABLE STAT 09/22/2018 3:[address] ABDOMEN PELVIS W STAT 09/22/2018 CONTRAST 2:27 AM TWISTER TENDER BLOOD CULTURE, AEROBIC & Routine 09/22/2018 ANAEROBIC 2:13 AM TWISTER TENDER BLOOD CULTURE, AEROBIC & Routine 09/22/2018 ANAEROBIC 2:04 AM TWISTER TENDER HCG QUALITATIVE, URINE STAT 09/22/2018 SCREEN 1:27 AM TWISTER TENDER URINALYSIS SCREEN AND STAT 09/22/2018 MICROSCOPY, WITH REFLEX 1:27 AM TWISTER TENDER TO CULTURE URINE CULTURE STAT 09/22/2018 1:27 AM TWISTER TENDER ESTIMATED GFR STAT 09/22/2018 1:14 AM TWISTER TENDER LIPASE LEVEL STAT 09/22/2018 1:14 AM TWISTER TENDER LACTIC ACID LEVEL, SEPSIS STAT 09/22/2018 - NOW AND REPEAT 2X EVERY 1:14 AM TWISTER TENDER 3 HOURS COMPREHENSIVE METABOLIC STAT 09/22/2018 PANEL 1:14 AM TWISTER TENDER PARTIAL THROMBOPLASTIN STAT 09/22/2018 TIME (PTT) 1:14 AM TWISTER TENDER PROTHROMBIN TIME WITH INR STAT 09/22/2018 1:14 AM TWISTER TENDER HC COMPLETE BLD COUNT STAT 09/22/2018 W/AUTO DIFF 1:14 AM TWISTER TENDER ESTIMATED GFR STAT 09/20/2018 6:08 PM TWISTER TENDER LIPASE LEVEL STAT 09/20/2018 6:08 PM TWISTER TENDER COMPREHENSIVE METABOLIC STAT 09/20/2018 PANEL 6:08 PM TWISTER TENDER HC COMPLETE BLD COUNT STAT 09/20/2018 W/AUTO DIFF 6:08 PM TWISTER TENDER XR FOOT 3+ VW LEFT STAT 08/30/2018 8:50 PM TWISTER TENDER ECG ED PRELIMINARY Routine 08/25/2018 INTERPRETATION 12:54 PM TWISTER TENDER XR CHEST 2 VW STAT 08/25/2018 11:58 AM TWISTER TENDER ESTIMATED GFR STAT 08/25/2018 11:42 AM TWISTER TENDER B NATRIURETIC PEPTIDE STAT 08/25/2018 11:42 AM TWISTER TENDER TROPONIN STAT 08/25/2018 11:42 AM TWISTER TENDER COMPREHENSIVE METABOLIC STAT 08/25/2018 PANEL 11:42 AM TWISTER TENDER HC COMPLETE BLD COUNT STAT 08/25/2018 W/AUTO DIFF 11:42 AM TWISTER TENDER ECG 12-LEAD STAT 08/25/2018 11:[address] RENAL STONE PROTOCOL STAT 08/24/2018 3:11 AM TWISTER TENDER HCG QUALITATIVE, URINE STAT 08/24/2018 SCREEN 2:28 AM TWISTER TENDER URINALYSIS SCREEN AND STAT 08/24/2018 MICROSCOPY, WITH REFLEX 2:28 AM TWISTER TENDER TO CULTURE GRAM STAIN STAT 08/24/2018 2:28 AM TWISTER TENDER URINE CULTURE STAT 08/24/2018 2:28 AM TWISTER TENDER ESTIMATED GFR STAT 08/24/2018 1:23 AM TWISTER TENDER LIPASE LEVEL STAT 08/24/2018 1:23 AM TWISTER TENDER COMPREHENSIVE METABOLIC STAT 08/24/2018 PANEL 1:23 AM TWISTER TENDER HC COMPLETE BLD COUNT STAT 08/24/2018 W/AUTO DIFF 1:23 AM TWISTER TENDER URINALYSIS SCREEN AND Routine 08/21/2018 MICROSCOPY, WITH REFLEX 1:48 AM TWISTER TENDER TO CULTURE GRAM STAIN Routine 08/21/2018 1:48 AM TWISTER TENDER URINE CULTURE Routine 08/21/2018 1:48 AM TWISTER TENDER ESTIMATED GFR STAT 08/21/2018 12:53 AM TWISTER TENDER LIPASE LEVEL STAT 08/21/2018 12:53 AM TWISTER TENDER LACTIC ACID LEVEL, SEPSIS STAT 08/21/2018 - NOW AND REPEAT 2X EVERY 12:53 AM TWISTER TENDER 3 HOURS COMPREHENSIVE METABOLIC STAT 08/21/2018 PANEL 12:53 AM TWISTER TENDER HC COMPLETE BLD COUNT STAT 08/21/2018 W/AUTO DIFF 12:53 AM TWISTER TENDER HCG QUALITATIVE, URINE STAT 08/08/2018 SCREEN 8:24 PM TWISTER TENDER URINALYSIS SCREEN AND STAT 08/08/2018 MICROSCOPY, WITH REFLEX 8:24 PM TWISTER TENDER TO CULTURE CT HEAD WO CONTRAST STAT 07/10/2018 11:[address] MAXILLOFACIAL WO STAT 07/10/2018 CONTRAST 11:07 PM CDT ECG ED PRELIMINARY Routine 07/06/2018 INTERPRETATION 9:55 PM CDT XR SHOULDER 2+ VW RIGHT STAT 07/06/2018 9:39 PM CDT ESTIMATED GFR STAT 07/06/2018 9:01 PM CDT B NATRIURETIC PEPTIDE STAT 07/06/2018 9:01 PM CDT TROPONIN STAT 07/06/2018 9:01 PM CDT COMPREHENSIVE METABOLIC STAT 07/06/2018 PANEL 9:01 PM CDT HC COMPLETE BLD COUNT STAT 07/06/2018 W/AUTO DIFF 9:01 PM CDT ECG 12-LEAD STAT 07/06/2018 8:37 PM CDT HCG QUALITATIVE, URINE STAT 07/05/2018 SCREEN 9:38 PM CDT URINALYSIS SCREEN AND STAT 07/05/2018 MICROSCOPY, WITH REFLEX 9:38 PM CDT TO CULTURE URINE CULTURE STAT 07/05/2018 9:38 PM CDT ESTIMATED GFR STAT 07/05/2018 9:08 PM CDT LIPASE LEVEL STAT 07/05/2018 9:08 PM CDT COMPREHENSIVE METABOLIC STAT 07/05/2018 PANEL 9:08 PM CDT HC COMPLETE BLD COUNT STAT 07/05/2018 W/AUTO DIFF 9:[address] RENAL STONE PROTOCOL STAT 06/12/2018 11:37 PM CDT GC BY PROBETEC Routine 06/12/2018 11:25 PM CDT CHLAMYDIA BY PROBETEC Routine 06/12/2018 11:25 PM CDT WET PREP Routine 06/12/2018 11:25 PM CDT ESTIMATED GFR STAT 06/12/2018 10:59 PM CDT HC COMPLETE BLD COUNT STAT 06/12/2018 W/AUTO DIFF 10:59 PM CDT BASIC METABOLIC PANEL STAT 06/12/2018 10:59 PM CDT HCG QUALITATIVE, URINE Routine 06/12/2018 SCREEN 9:53 PM CDT URINALYSIS SCREEN AND Routine 06/12/2018 MICROSCOPY, WITH REFLEX 9:53 PM CDT TO CULTURE XR FOOT 3+ VW LEFT STAT 05/03/2018 11:28 PM CDT OK APPLY LOWER LEG SPLINT Routine 05/03/2018 10:54 PM CDT OK APPLY LOWER LEG SPLINT Routine 05/01/2018 11:32 PM CDT SPLINT APPLICATION Routine 04/30/2018 4:26 AM CDT XR FOOT 3+ VW LEFT STAT 03/31/2018 9:41 PM CDT OK APPLY LOWER LEG SPLINT Routine 03/31/2018 9:27 PM CDT after 03/15/2018 Results * Estimated GFR (03/06/2019 8:51 AM CDT) Only the most recent of 20 results within the time period is included. [facility] Estimated GFR 71 mL/min/1.73 m2 [place] Comment: [place] [facility] G1 >=90 Normal or high G2 60-89Mildly decreased [id number] Mildly to moderately decreased [id number] Moderately to severely decreased G4 15-29Severely decreased G5 <15Kidney failure The eGFR was calculated using the Chronic Kidney Disease Epidemiology Collaboration (CKD-EPI) equation. Interpretation is based on recommendations of the National Kidney Foundation-Kidney Disease Outcomes Quality Initiative (NKF-KDOQI) published in 2014. Specimen Plasma specimen Performing Organization Address City/[facility]/Zipcode Phone Number [facility] DEPARTMENT OF [address] [place] [address] PATHOLOGY AND [employer] [facility] [address] [place] [address] HOSPITAL * Troponin (03/06/2019 8:51 AM CDT) Only the most recent of 10 results within the time period is included. [facility] Troponin <0.006 0.000 - 0.040 ng/mL [place] Comment: [facility] changed methodology effective: HOSPITAL 01/30/2019 at 10:00 am The new method has a 99th percentile cutoff of 0.040 ng/mL Specimen Plasma specimen Performing Organization Address City/[facility]/Zipcode Phone Number [facility] DEPARTMENT OF [address] [place] [address] PATHOLOGY AND [employer] MEDICINE [place] [id number] * CBC with platelet and differential (03/06/2019 8:51 AM CDT) Only the most recent of 19 results within the time period is included. WBC 4.3 4.2 - 11.0 k/uL [facility] RBC 3.66 (L) 4.04 - 5.86 m/uL [facility] HGB 11.1 (L) 11.5 - 15.3 g/dL [facility] HCT 35.9 34.0 - 45.0 % [facility] MCV 98.1 (H) 80.0 - 98.0 fL [facility] MCH 30.3 27.0 - 34.0 pg [facility] MCHC 30.9 (L) 31.5 - 36.5 g/dL [facility] RDW - SD 47.0 37.0 - 51.0 fL [facility] MPV 9.8 7.4 - 10.4 fL [facility] Platelet count 222 150 - 400 k/uL [facility] Nucleated RBC 0.00 /100 WBC [facility] Neutrophils 50.2 36.0 - 66.0 % [facility] Lymphocytes 38.1 24.0 - 44.0 % [facility] Monocytes 8.2 (H) 0.0 - 6.0 % [facility] Eosinophils 2.8 0.0 - 6.0 % [facility] Basophils 0.5 0.0 - 1.2 % [facility] Immature 0.2 0.0 - 1.0 % [place] granulocytes [facility] Specimen Blood Performing Organization Address City/State/Zipcode Phone Number [facility] DEPARTMENT OF [address] [place] [address] PATHOLOGY AND GENOMIC MEDICINE [facility] [address] * B natriuretic peptide (03/06/2019 8:51 AM CDT) Only the most recent of 7 results within the time period is included. BNP 25 0 - 100 pg/mL [facility] Specimen Blood Performing Organization Address City/State/Zipcode Phone Number [facility] DEPARTMENT OF [address] [place] [address] PATHOLOGY AND GENOMIC MEDICINE [facility] [address] * Venous blood gas (03/06/2019 8:51 AM CDT) Log Driver LAUREN [facility] Collection site RAC [facility] O2 therapy [place] [facility] pH, venous 7.304 (L) 7.320 - 7.420 units [facility] pCO2, venous 48.9 45.0 - 51.0 mmHg [facility] pO2, venous 34.0 25.0 - 40.0 mmHg [facility] O2 saturation, 64.6 40.0 - 70.0 % [place] venous [facility] Base excess, -2.1 (L) -2.0 - 2.0 mEq/L [place] venous [facility] Bicarbonate 24.3 21.0 - 28.0 mEq/L [facility] O2 content 9.5 VOL% [facility] FiO2, inspired 21.0 % [place] O2% [facility] Carboxyhemoglob 5.9 (H) 0.0 - 1.4 % [place] in Comment: [place] Reference Ranges: [facility] Non smoker: 0.0 - 2.0% Smoker: 2.1 - 5.0% Heavy smoker: 5.1 - 9% Methemoglobin 1.6 (H) 0.0 - 1.0 % [facility] Hemoglobin, 11.3 (L) 12.0 - 16.0 g/dL [place] blood gas [facility] Specimen Blood Performing Organization Address City/[facility]/Zipcode Phone Number [facility] DEPARTMENT OF [address] [place] [phone] PATHOLOGY AND GENOMIC MEDICINE [facility] [address] * Comprehensive metabolic panel (03/06/2019 8:51 AM CDT) Only the most recent of 12 results within the time period is included. Sodium 140 135 - 150 mEq/L [facility] Potassium 3.3 (L) 3.5 - 5.0 mEq/L [facility] Chloride 106 98 - 112 mEq/L [facility] CO2 23 (L) 24 - 31 mmol/L [facility] Anion gap 11@ANIO 7 - 15 mEq/L [facility] BUN 5 (L) 7 - 18 mg/dL [facility] Creatinine 1.00 (H) 0.50 - 0.90 mg/dL [facility] Glucose 155 (H) 65 - 100 mg/dL [facility] Calcium 9.7 8.3 - 10.2 mg/dL [facility] Protein 6.3 6.3 - 8.3 g/dL [facility] Albumin 3.2 (L) 3.5 - 5.0 g/dL [facility] A/G ratio 1.0 0.7 - 3.8 [facility] Alkaline 83 0 - 104 U/L [place] phosphatase [facility] AST 21 10 - 35 U/L [facility] ALT 25 5 - 50 U/L [facility] Total bilirubin <0.3 0.2 - 1.2 mg/dL [facility] Specimen Plasma specimen Performing Organization Address City/State/Zipcode Phone Number [facility] DEPARTMENT OF [address] [place] [address] PATHOLOGY AND GENOMIC MEDICINE [facility] [address] * XR Chest 1 Vw (03/06/2019 8:43 AM CDT) Specimen Narrative Performed At EXAMINATION:XR CHEST 1 VW HM [facility] CLINICAL HISTORY:Shortness of breath COMPARISON:02/25/2019 IMPRESSION: 1. The lungs are clear of acute infiltrate, consolidation, or pleural effusion. 2. The cardiac silhouette is not enlarged. Pulmonary vasculature is within normal limits. 3. The visualized osseous structures are intact. [facility]-[id number] Procedure Note Hm Interface, Radiology Results Incoming - 03/06/2019 8:48 AM CDT EXAMINATION: XR CHEST 1 VW CLINICAL HISTORY: Shortness of breath COMPARISON: 02/25/2019 IMPRESSION: 1. The lungs are clear of acute infiltrate, consolidation, or pleural effusion. 2. The cardiac silhouette is not enlarged. Pulmonary vasculature is within normal limits. 3. The visualized osseous structures are intact. [facility]-[id number] Performing Organization Address City/[facility] Center[facility] Phone Number [facility] [address] [place] [address] * ECG ED Preliminary Interpretation - Not an Order (03/06/2019 8:25 AM CDT) Only the most recent of 5 results within the time period is included. Narrative Performed At Gabriel Dotson MD 03/06/2019 10:21 AM ECG ED Preliminary Interpretation - Not an Order Performed by: Gabriel Dotson MD Authorized by: Gabriel Dotson MD ECG reviewed by ED Physician in the absence of a senior recruiter: yes Interpretation: Interpretation: abnormal Rate: ECG rate:101 ECG rate assessment: tachycardic Rhythm: Rhythm: sinus tachycardia QRS: QRS axis:Normal Conduction: Conduction: normal T waves: T waves: flattening Flattening:V4, V5 and V6 * ECG 12 lead (03/06/2019 8:13 AM CDT) Only the most recent of 5 results within the time period is included. Ventricular 101 [facility] rate Atrial rate 101 [facility] M[facility] OK interval 182 [facility] QRSD interval 84 [facility] QT interval 344 [facility] QTC interval 446 [facility] P axis 1 56 [facility] QRS axis 1 28 [facility] T wave axis 41 [facility] EKG impression Sinus tachycardia-Nonspecific [facility] MUSE T wave abnormality-Abnormal ECG-In automated comparison with ECG of 25-FEB-2019 21:53,-ST no longer elevated in Inferior leads-Nonspecific T wave abnormality, worse in Anterolateral leads- Specimen Narrative Performed At Performing Organization Address City/[facility]/Zipcode Phone Number [facility] [employer] [address] [place] [address] * Partial thromboplastin time, activated (03/01/2019 11:09 PM CDT) Only the most recent of 2 results within the time period is included. PTT 30.9 23.0 - 36.0 sec [place] Comment: KAY GARCIA PTT therapeutic range for SHANELL unfractionated heparin is HOSPITAL 61.0-112.0 seconds which corresponds to Anti-Xa 0.3-0.7 U/ml. Note:Change in Panic Value The PTT Panic Value is changing from 110 sec. to 100 sec. due to new instrumentation and reagents. Correlation studies have been performed to validate this result. Specimen Blood Performing Organization Address City/[facility]/Zipcode Phone Number [address] * Prothrombin time with INR (03/01/2019 11:09 PM CDT) Only the most recent of 3 results within the time period is included. Prothrombin 12.5 11.5 - 14.5 sec [place] time [facility] INR 0.96 [place] Comment: KAY GARCIA For patients on anticoagulant SHANELL therapy, reference ranges HOSPITAL below: Indication: INR Value Treatment of Venous Thrombosis, 2.0-3.0 pulmonary emboli, or prophylaxis of a venous thrombosis, or systemic emboli. High dose, high risk patients 3.0-4.5 with mechanical valves. NOTE:INR values over 3.0 are sometimes associated with gastrointestinal hemorrhage, especially values over 4.0. Specimen Blood Performing Organization Address City/State/Zipcode Phone Number [facility] OF [address] [place] [phone] PATHOLOGY [facility] MEDICINE [address] * Us duplex venous lower extremity (03/01/2019 10:43 PM CDT) Specimen Narrative Performed At EXAMINATION:US DUPLEX VENOUS LOWER EXTREMITY BILATERAL HM [facility] CLINICAL HISTORY: Leg swelling or painDVT suspected COMPARISON:None. TECHNIQUE:Grayscale, color Doppler, and spectral waveform analysis of the bilateral lower extremity deep venous systems was performed. The bilateral common femoral, superficial femoral, proximal deep femoral, greater saphenous, and popliteal veins were evaluated. The calf vessels were also evaluated. FINDINGS: The bilateral common femoral, profunda, superficial femoral, and popliteal veins are compressible. They demonstrate normal venous waveforms and response to augmentation. There is flow in the visualized calf veins. There is no evidence of a popliteal or Carranza's cyst. IMPRESSION: Negative bilateral lower extremity venous Doppler examination. There is no evidence of deep venous thrombosis. [id number] Procedure Note Interface, Radiology Results Incoming - 03/01/2019 11:35 PM CDT EXAMINATION: US DUPLEX VENOUS LOWER EXTREMITY BILATERAL CLINICAL HISTORY: Leg swelling or pain DVT suspected COMPARISON: None. TECHNIQUE: Grayscale, color Doppler, and spectral waveform analysis of the bilateral lower extremity deep venous systems was performed. The bilateral common femoral, superficial femoral, proximal deep femoral, greater saphenous, and popliteal veins were evaluated. The calf vessels were also evaluated. FINDINGS: The bilateral common femoral, profunda, superficial femoral, and popliteal veins are compressible. They demonstrate normal venous waveforms and response to augmentation. There is flow in the visualized calf veins. There is no evidence of a popliteal or Carranza's cyst. IMPRESSION: Negative bilateral lower extremity venous Doppler examination. There is no evidence of deep venous thrombosis. [id number] Performing Organization Address City/State/Zipcode Phone Number [facility] [address] [place] [address] * XR Chest 2 Vw (02/25/2019 9:51 PM CDT) Only the most recent of 3 results within the time period is included. Specimen Narrative Performed At EXAMINATION:XR CHEST 2 [facility]W [facility] CLINICAL HISTORY: chest pain COMPARISON:02/04/2019. FINDINGS: Two views of the chest demonstrate normal cardiomediastinal silhouette. Pulmonary vasculature is within normal limits. Both lungs are clear. No pleural disease is identified. Regional osseous structures is unremarkable. IMPRESSION: No radiographic evidence of acute cardiopulmonary process or active disease of the chest. [id number] Procedure Note Interface, Radiology Results Incoming - 02/25/2019 10:02 PM CDT EXAMINATION: XR CHEST 2 VW CLINICAL HISTORY: chest pain COMPARISON: 02/04/2019. FINDINGS: Two views of the chest demonstrate normal cardiomediastinal silhouette. Pulmonary vasculature is within normal limits. Both lungs are clear. No pleural disease is identified. Regional osseous structures is unremarkable. IMPRESSION: No radiographic evidence of acute cardiopulmonary process or active disease of the chest. [id number] Performing Organization Address City/State/Zipcode Phone Number [place] [address] [place] [address] * hCG qualitative, serum screen (02/21/2019 11:15 PM CDT) Only the most recent of 2 results within the time period is included. [facility] hCG Negative [place] qualitative, Comment: [facility] serum The manufacturers stated [facility] sensitivity of HcG test for HOSPITAL serum is >/=10 mIU/ml and urine is >/=20mIU/ml. Specimen Blood Performing Organization Address City/[facility]/[place] [address] PATHOLOGY AND [facility] MEDICINE [address] * Lipase level (02/21/2019 11:15 PM CDT) Only the most recent of 8 results within the time period is included. [facility] Lipase 19 13 - 60 U/L [facility] Specimen Plasma specimen Performing Organization Address City/[facility] Centercode [place] [address] PATHOLOGY AND [facility] MEDICINE [address] * Urinalysis screen and microscopy, with reflex to culture (02/21/2019 10:38 PM CDT) Only the most recent of 11 results within the time period is included. Pathologist [facility] Specimen site Clean catch [facility] Color, UA Yellow [facility] Appearance, UA Clear [facility] Specific 1.017 1.001 - 1.035 [place] gravity, [facility] pH, UA 5.0 5.0 - 8.5 [facility] Protein, UA Negative Negative [facility] Glucose, UA Negative Negative [facility] Ketones, UA Negative Negative [facility] Bilirubin, UA Negative Negative [facility] Blood, UA Negative Negative [facility] Nitrite, UA Negative Negative [facility] Urobilinogen, Negative <2.0 [facility] Leukocyte Negative Negative [place] esterase, UA [facility] Epithelial Many /HPF [place] cells, UA [facility] WBC, UA 2 0 - 5 /HPF [facility] RBC, UA 3 0 - 5 /HPF [facility] Bacteria, UA None seen None seen [facility] Yeast, UA None seen [facility] Yeast with None seen [place] [facility] Specimen Urine Performing Organization Address City/[facility] Centercode [place] [address] PATHOLOGY AND GENOMIC MEDICINE [address] * Urine culture (02/21/2019 10:38 PM CDT) Only the most recent of 9 results within the time period is included. Urine culture SEE COMMENTComment: [place] Bacteriuria screen negative. [facility] Specimen Urine Performing Organization Address City/[facility] [place]ercode [place] [address] PATHOLOGY AND GENOMIC MEDICINE [address] * CT Renal Stone Protocol (02/21/2019 10:35 PM CDT) Only the most recent of 3 results within the time period is included. Specimen Narrative Performed At Examination:CT RENAL STONE PROTOCOL [facility] Clinical History: right flank pain Comparison: None. Findings: CT scans are performed using radiation dose reduction techniques.Technical factors are evaluated and adjusted to ensure appropriate moderation of exposure.Automated dose management technology is applied to adjust radiation exposure while achieving a diagnostic quality image. CT imaging was performed with iterative reconstruction techniques and/or automated exposure control to reduce radiation dose. CT scan of abdomen and pelvis was performed without intravenous contrast. The liver, spleen, pancreas, and adrenal glands are unremarkable. The patient is status post cholecystectomy. The patient is status post gastric surgery. The kidneys are within normal limits without hydronephrosis or urinary calculus. The appendix is not visualized. No bowel thickening or fat stranding is seen. No bowel dilatation is seen. No free air or fluid is seen. Urinary bladder is unremarkable. The visualized lung bases are clear. IMPRESSION: 1. No acute abnormality identified in the abdomen or pelvis. [facility]-[id number] Procedure Note Interface, Radiology Results Incoming - 02/21/2019 10:47 PM CDT Examination: CT RENAL STONE PROTOCOL Clinical History: right flank pain Comparison: None. Findings: CT scans are performed using radiation dose reduction techniques. Technical factors are evaluated and adjusted to ensure appropriate moderation of exposure. Automated dose management technology is applied to adjust radiation exposure while achieving a diagnostic quality image. CT imaging was performed with iterative reconstruction techniques and/or automated exposure control to reduce radiation dose. CT scan of abdomen and pelvis was performed without intravenous contrast. The liver, spleen, pancreas, and adrenal glands are unremarkable. The patient is status post cholecystectomy. The patient is status post gastric surgery. The kidneys are within normal limits without hydronephrosis or urinary calculus. The appendix is not visualized. No bowel thickening or fat stranding is seen. No bowel dilatation is seen. No free air or fluid is seen. Urinary bladder is unremarkable. The visualized lung bases are clear. IMPRESSION: 1. No acute abnormality identified in the abdomen or pelvis. [facility]-[id number] Performing Organization Address City/State/Zipcode Phone Number [facility] [address] [place] [address] * XR Foot 3+ Vw Right (02/13/2019 5:54 PM CDT) Only the most recent of 2 results within the time period is included. Specimen Narrative Performed At EXAMINATION:XR FOOT 3VW RIGHT [facility] CLINICAL HISTORY:traumafall COMPARISON:None available at this time. IMPRESSION: 1. No fracture, malalignment, or osseous destructive lesion of the right foot. 2. Joint spaces are maintained. No significant degenerative changes. 3. Soft tissues are unremarkable. [facility]-[id number] Procedure Note Interface, Radiology Results Incoming - 02/13/2019 6:00 PM CDT EXAMINATION: XR FOOT 3 VW RIGHT CLINICAL HISTORY: trauma fall COMPARISON: None available at this time. IMPRESSION: 1. No fracture, malalignment, or osseous destructive lesion of the right foot. 2. Joint spaces are maintained. No significant degenerative changes. 3. Soft tissues are unremarkable. [id number] Performing Organization Address City/[facility]/Zipcode Phone Number [facility] [address] [place] [address] * XR Ankle 3+ Vw Right (02/13/2019 5:54 PM CDT) Only the most recent of 2 results within the time period is included. Specimen Narrative Performed At EXAMINATION:XR ANKLE 3VW RIGHT [facility] CLINICAL HISTORY:Ankle paininitial exam COMPARISON:None available at this time. IMPRESSION: No fracture or dislocation. Soft tissues are unremarkable. [facility]-[id number] Procedure Note Hm Interface, Radiology Results Incoming - 02/13/2019 6:01 PM CDT EXAMINATION: XR ANKLE 3 VW RIGHT CLINICAL HISTORY: Ankle pain initial exam COMPARISON: None available at this time. IMPRESSION: No fracture or dislocation. Soft tissues are unremarkable. [facility]-[id number] Performing Organization Address [facility] Centercode Phone Number [facility] [address] [place] [address] * POC glucose (02/05/2019 6:06 AM CDT) Only the most recent of 12 results within the time period is included. POC glucose 149 (H) 65 - 100 mg/dL [place] Comment: [facility] Meter ID: [id number] [facility] Log Driver: [facility] Specimen Performing Organization Address City/[facility]/Zipcode Phone Number [facility] DEPARTMENT OF [facility] [place] [address] [place] [address] PATHOLOGY AND GENOMIC MEDICINE [place] [address] [address] * Lactic acid level, SEPSIS - Now and repeat 2x every 3 hours (02/05/2019 3:22 AM CDT) Only the most recent of 7 results within the time period is included. Lactic acid 2.0 0.5 - 2.2 mmol/L [facility] Specimen Plasma specimen Performing Organization Address City/[facility]/Zipcode Phone Number [facility] DEPARTMENT [place] [address] [address] PATHOLOGY AND GENOMIC MEDICINE [place] [address] [address] * Basic metabolic panel (02/05/2019 3:22 AM CDT) Only the most recent of 8 results within the time period is included. Pathologist [facility] Sodium 141 135 - 150 mEq/L [facility] Potassium 4.1 3.5 - 5.0 mEq/L [facility] Chloride 102 98 - 112 mEq/L [facility] CO2 31 24 - 31 mmol/L [facility] Anion gap 8@ANIO 7 - 15 mEq/L [facility] BUN 9 7 - 18 mg/dL [facility] Creatinine 0.60 0.50 - 0.90 mg/dL [facility] Glucose 163 (H) 65 - 100 mg/dL [facility] Calcium 9.1 8.3 - 10.2 mg/dL [facility] Specimen Plasma specimen Performing Organization Address City/State/Zipcode Phone Number [facility] DEPARTMENT OF [facility] [place] [address] PATHOLOGY AND GENOMIC MEDICINE [address] * Respiratory pathogen panel (02/05/2019 12:11 AM CDT) Only the most recent of 3 results within the time period is included. Pathologist [facility] Respiratory Positive for [place] pathogen panel Rhinovirus/Enterovirus [facility] Negative for all other pathogens tested: Negative for Adenovirus Negative for Coronavirus HKU1 Negative for Coronavirus NL63 Negative for Coronavirus 229E Negative for Coronavirus OC43 Negative for Human Metapneumovirus Negative for Influenza A Negative for Influenza A/H1 Negative for Influenza A/H3 Negative for Influenza A/H1-2009 Negative for Influenza B Negative for Parainfluenza Virus 1 Negative for Parainfluenza Virus 2 Negative for Parainfluenza Virus 3 Negative for Parainfluenza Virus 4 Negative for Respiratory Syncytial Virus Negative for Bordetella pertussis Negative for Chlamydophila pneumoniae Negative for Mycoplasma pneumoniae This real-time PCR assay detects the presence of nucleic acids (RNA or DNA) for the respiratory pathogens listed. A result of "Not-detected" does not exclude the possibility of the presence of one or more pathogens at concentrations less than the detectable limits of the assa (A) Comment: Specimen Information Specimen Source: Nares Specimen Site: Left Specimen Nares - Left Performing Organization Address [facility]/Zipcode Phone Number [facility] DEPARTMENT OF [address] [place] [address] PATHOLOGY AND GENOMIC MEDICINE [place] [facility] * Gram stain (02/04/2019 5:00 PM CDT) Only the most recent of 6 results within the time period is included. Gram stain No WBC's or organisms seen. [place] result Comment: [facility] Specimen Information HOSPITAL Specimen Source: Urine Specimen Site: Clean catch Specimen Urine Performing Organization Address [facility]/Zipcode Phone Number [facility] DEPARTMENT OF [address] [place] [address] PATHOLOGY AND GENOMIC MEDICINE [place] [facility] * hCG qualitative, urine screen (02/04/2019 4:47 PM CDT) Only the most recent of 8 results within the time period is included. hCG Negative Negative [place] qualitative, Comment: KAY GARCIA urine The manufacturers stated [facility] sensitivity of HcG test for HOSPITAL serum is >/=10 mIU/ml and urine is >/=20mIU/ml. Specimen Urine Performing Organization Address [facility] Phone Number [facility] DEPARTMENT OF [address] [place] [address] PATHOLOGY AND GENOMIC MEDICINE [place] [facility] [address] [facility] [address] * XR Chest 1 Vw Portable (02/04/2019 3:47 PM CDT) Only the most recent of 3 results within the time period is included. Specimen Narrative Performed At EXAMINATION:XR CHEST 1 VW PORTABLE [facility] CLINICAL HISTORY:SOB COMPARISON:January 25 IMPRESSION: The lungs are clear. No nodules or infiltrates present. The heart is not enlarged. The regional skeletalstructures are within normal limits. [facility]-[id number] Procedure Note Hm Interface, Radiology Results Incoming - 02/04/2019 3:51 PM CDT EXAMINATION: XR CHEST 1 VW PORTABLE CLINICAL HISTORY: SOB COMPARISON: January 25 IMPRESSION: The lungs are clear. No nodules or infiltrates present. The heart is not enlarged. The regional skeletal structures are within normal limits. [facility]-[id number] Performing Organization Address City/State/Zipcode Phone Number [facility] [address] [place] [address] * Blood culture, aerobic & anaerobic (02/04/2019 3:40 PM CDT) Only the most recent of 4 results within the time period is included. Pathologist [facility] Blood culture No growth after 5 days of [place] isolate incubation. [facility] Comment: HOSPITAL Specimen Information Specimen Source: Blood Specimen Site: left ac Specimen Blood Performing Organization Address City/[facility]/Zipcode Phone Number [facility] DEPARTMENT OF [address] [place] [address] PATHOLOGY AND GENOMIC MEDICINE [address] * Hepatic function panel (02/04/2019 3:40 PM CDT) Only the most recent of 2 results within the time period is included. Pathologist [facility] Albumin 2.9 (L) 3.5 - 5.0 g/dL [facility] Total bilirubin <0.3 0.2 - 1.2 mg/dL [facility] Bilirubin <0.2 0.0 - 0.4 mg/dL [place] direct [facility] Alkaline 61 0 - 104 U/L [place] phosphatase [facility] Protein 6.4 6.3 - 8.3 g/dL [facility] ALT 22 5 - 50 U/L [facility] AST 19 10 - 35 U/L [facility] Specimen Plasma specimen Performing Organization Address City/[facility]/Zipcode Phone Number [facility] DEPARTMENT OF [address] [place] [address] PATHOLOGY AND GENOMIC MEDICINE [place] [address] [facility] [address]. [address] * Hemoglobin A1c (01/26/2019 6:56 AM CDT) Hemoglobin A1C 5.8 (H) 4.0 - 5.6 % [place] Comment: [facility] HbA1c cutoffs for diagnosing [facility] diabetes: HOSPITAL 4.0% - 5.6%=normal 5.7% - 6.4%=increased risk for diabetes (prediabetes) >=6.5%=diabetes Goals for glycemic control (ADA 2016) < 7.0%Target for non adults with diabetes. More or less stringent targets may be appropriate for individual patients. <7.5% Target for Children and adolescents with type 1 diabetes. Specimen Blood Performing Organization Address City/State/Zipcode Phone Number [facility] DEPARTMENT OF [address] [address] PATHOLOGY AND GENOMIC MEDICINE [place] KAY GARCIA [address] * CRITICAL CARE (01/25/2019 9:40 PM CDT) Narrative Performed At Sukumar Alvarez MD 01/26/20191:19 AM Critical Care Performed by: Sukumar Alvarez MD Authorized by: Sukumar Alvarez MD Critical care provider statement: Critical care time (minutes):33 Critical care start time:01/25/2019 9:40 PM Critical care end time:01/25/2019 11:48 PM Critical care time was exclusive of:Separately billable procedures and treating other patients Critical care was necessary to treat or prevent imminent or life-threatening deterioration of the following conditions:Respiratory failure Critical care was time spent personally by me on the following activities:Development of treatment plan with patient or surrogate, discussions with primary provider, evaluation of patient's response to treatment, examination of patient, obtaining history from patient or surrogate, re-evaluation of patient's condition, pulse oximetry, ordering and review of radiographic studies, ordering and review of laboratory studies, ordering and performing treatments and interventions and review of old charts Hay 'yes' if you are taking over critical care for this patient from another provider.: no * Strep screen culture (01/21/2019 8:00 AM CDT) Strep screen No beta hemolytic Streptococci [place] culture isolate isolated [facility] Comment: HOSPITAL Specimen Information Specimen Source: Throat Specimen Site: Not otherwise specified Specimen Throat - Not otherwise specified Performing Organization Address City/State/Zipcode Phone Number [facility] DEPARTMENT [address] [place] [address] PATHOLOGY AND GENOMIC MEDICINE [place] [facility] [address] * Group A strep, rapid antigen (01/21/2019 7:31 AM CDT) Pathologist Luiz Group A strep, Negative for Group A [place] rapid antigen Streptococcus antigen. All [place] GARCIA result negative Group A [facility] Streptococcus antigen [facility] are confirmed by culture. Comment: Specimen Information Specimen Source: Throat Specimen Site: Not otherwise specified Specimen Throat - Not otherwise specified Performing Organization Address City/[facility] Centercode Phone Number [facility] OF [address] [place] [address] PATHOLOGY AND [place] [id number] [facility]. [address] * CBC hemogram (01/21/2019 7:15 AM CDT) Pathologist [facility] WBC 6.8 4.2 - 11.0 k/uL [facility] RBC 3.63 (L) 4.04 - 5.86 m/uL [facility] HGB 11.4 (L) 11.5 - 15.3 g/dL [facility] HCT 35.3 34.0 - 45.0 % [facility] MCV 97.2 80.0 - 98.0 fL [facility] MCH 31.4 27.0 - 34.0 pg [facility] MCHC 32.3 31.5 - 36.5 g/dL [facility] RDW - SD 48.5 37.0 - 51.0 fL [facility] MPV 9.6 7.4 - 10.4 fL [facility] Platelet count 216 150 - 400 k/uL [facility] Nucleated RBC 0.00 /100 WBC [facility] Specimen Blood Performing Organization Address City/[facility] Centercomd Phone Number [facility] [address] [facility] [place] [id number] [place] [address] * Influenza antigen test, reflex negative to RPP (01/21/2019 5:30 AM CDT) Only the most recent of 2 results within the time period is included. Pathologist [facility] Influenza Negative for Influenza A/B [place] antigen [facility] Comment: [facility] Specimen Information HOSPITAL Specimen Source: Nares Specimen Site: Left Specimen Nares - Left Performing Organization Address [facility] Phone Number [facility] DEPARTMENT OF [address] [place] [address] PATHOLOGY AND GENOMIC MEDICINE [facility] [address] [place] [address] [facility] * CT Abdomen Pelvis Wo Contrast (01/03/2019 5:54 PM CDT) Specimen Narrative Performed At EXAMINATION: [facility] CT ABDOMEN PELVIS WO CONTRAST CLINICAL HISTORY: abd painhx of abdominal surgeries TECHNIQUE: An emergency study was performed at [address] images were acquired using low-dose technique with iterative reconstructions and/or automatic exposure control to reduce radiation dose. Multiple axial images of the abdomen and pelvis were obtained without intravenous contrast. Oral contrast was not given. Sagittal and coronal computerized reformatted images were also obtained. COMPARISON: CT scan of the abdomen and pelvis, obtained on 09/14/2018. ABDOMEN: Skeletal structures are within normal limits.Visualized portions of the chest are normal. Solid organ evaluation is compromised without intravenous contrast. Allowing for this, the liver, spleen, pancreas and biliary ducts are normal. The gallbladder is surgically absent.The adrenal glands and kidneys are normal.The abdominal aorta and inferior vena cava are normal. There is no retroperitoneal adenopathy.Postoperative changes from sleeve gastrectomy are seen.Small bowel is not dilated.The appendix is not discretely identified. A clip is in the expected location of the appendix. Colon is normal. PELVIS: The bladder is collapsed. Ureters are normal.Uterus and ovaries are not seen.There are no masses or fluid collections. IMPRESSION: No acute findings. 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 [id number] Procedure Note Interface, Radiology Results Incoming - 01/03/2019 6:06 PM CDT EXAMINATION: CT ABDOMEN PELVIS WO CONTRAST CLINICAL HISTORY: abd pain hx of abdominal surgeries TECHNIQUE: An emergency study was performed at [address] images were acquired using low-dose technique with iterative reconstructions and/or automatic exposure control to reduce radiation dose. Multiple axial images of the abdomen and pelvis were obtained without intravenous contrast. Oral contrast was not given. Sagittal and coronal computerized reformatted images were also obtained. COMPARISON: CT scan of the abdomen and pelvis, obtained on 09/14/2018. ABDOMEN: Skeletal structures are within normal limits. Visualized portions of the chest are normal. Solid organ evaluation is compromised without intravenous contrast. Allowing for this, the liver, spleen, pancreas and biliary ducts are normal. The gallbladder is surgically absent. The adrenal glands and kidneys are normal. The abdominal aorta and inferior vena cava are normal. There is no retroperitoneal adenopathy. Postoperative changes from sleeve gastrectomy are seen. Small bowel is not dilated. The appendix is not discretely identified. A clip is in the expected location of the appendix. Colon is normal. PELVIS: The bladder is collapsed. Ureters are normal. Uterus and ovaries are not seen. There are no masses or fluid collections. IMPRESSION: No acute findings. 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 [id number] Performing Organization Address City/State/Zipcode Phone Number [facility] [address] [place] [address] * XR Hips Bilateral Ap Lateral W Ap Pelvis (12/26/2018 9:50 AM CDT) Specimen Narrative Performed At EXAMINATION:XR HIPS BILATERAL AP LATERAL W AP PELVIS [facility] CLINICAL HISTORY:hip pain after fall COMPARISON:None. TECHNIQUE: 3 views were performed consisting of an AP pelvis, AP and frog's view of the LEFT hip. FINDINGS: No gross acute fracturing, dislocation, bone destruction, or periosteal reaction is noted. If the patient's symptoms persist or deteriorate, a follow-up radiograph in 10 days time is recommended, if clinically indicated. IMPRESSION: 1. There is no acute fracture or subluxation. 2. There are no osseous lesions present. RIGHT HIP: AP and frog-leg views of the right hip are submitted. There is no evidence of any acute fracture or subluxation. There are no osseous lesions present. The bony alignment is maintained. If the patient's symptoms persist or deteriorate, a follow-up radiograph in 10 days time is recommended, if clinically indicated. IMPRESSION: 1. There is no acute fracture or subluxation. [id number] Procedure Note Interface, Radiology Results Incoming - 12/26/2018 10:00 AM CDT EXAMINATION: XR HIPS BILATERAL AP LATERAL W AP PELVIS CLINICAL HISTORY: hip pain after fall COMPARISON: None. TECHNIQUE: 3 views were performed consisting of an AP pelvis, AP and frog's view of the LEFT hip. FINDINGS: No gross acute fracturing, dislocation, bone destruction, or periosteal reaction is noted. If the patient's symptoms persist or deteriorate, a follow-up radiograph in 10 days time is recommended, if clinically indicated. IMPRESSION: 1. There is no acute fracture or subluxation. 2. There are no osseous lesions present. RIGHT HIP: AP and frog-leg views of the right hip are submitted. There is no evidence of any acute fracture or subluxation. There are no osseous lesions present. The bony alignment is maintained. If the patient's symptoms persist or deteriorate, a follow-up radiograph in 10 days time is recommended, if clinically indicated. IMPRESSION: 1. There is no acute fracture or subluxation. [facility]-[id number] Performing Organization Address City/State/Zipcode Phone Number [facility] [address] [place] [address] * CT Abdomen Pelvis W Contrast (09/22/2018 2:27 AM TWISTER TENDER) Specimen Narrative Performed At CT ABDOMEN PELVIS W CONTRAST [facility] CLINICAL INDICATION:lower abd pain TECHNIQUE: Multidetector CT of the abdomen and pelvis was performed following intravenous administration of iodinated contrast with multiplanar reformats. CT scans are performed using radiation dose reduction techniques (iterative reconstruction and/or automated exposure control). Technical factors are evaluated and adjusted to ensure appropriate moderation of exposure. Automated dose management technology is applied to adjust radiation exposure while achieving a diagnostic quality image. COMPARISON:CT 08/24/2018. FINDINGS: Lung bases:Dependent subsegmental atelectasis/scarring. Liver:Normal. Gallbladder and biliary:The gallbladder is absent. Clips within the gallbladder fossa. Common bile duct is not dilated. Pancreas:Mildly atrophic with fatty replacement. Spleen:Normal. Gastrointestinal:Duodenal diverticulum. Postsurgical changes of the stomach. Large and small bowel are normal in caliber. Appendix is not visualized, apparently surgically absent. No focal inflammatory changes within the right lower quadrant of the abdomen. Adrenals:Normal. Kidneys and ureters:No mass or hydronephrosis. Urinary bladder:Decompressed with Lester catheter present. Tiny focus of gas in nondependent urinary bladder. Lymph nodes:No enlarged lymph nodes in the abdomen or pelvis. Peritoneum:No ascites or free air. Vascular:Mild atherosclerotic changes of the abdominal aorta and major branch vessels. Reproductive organs:Uterus is absent. Unremarkable adnexae. Abdominal wall:Unremarkable. Bones:No acute osseous abnormalities. IMPRESSION: Negative CT for acute pathology within the abdomen and pelvis. [facility]-[id number] Procedure Note Interface, Radiology Results Incoming - 09/22/2018 2:[address] ABDOMEN PELVIS W CONTRAST CLINICAL INDICATION: lower abd pain TECHNIQUE: Multidetector CT of the abdomen and pelvis was performed following intravenous administration of iodinated contrast with multiplanar reformats. CT scans are performed using radiation dose reduction techniques (iterative reconstruction and/or automated exposure control). Technical factors are evaluated and adjusted to ensure appropriate moderation of exposure. Automated dose management technology is applied to adjust radiation exposure while achieving a diagnostic quality image. COMPARISON: CT 08/24/2018. FINDINGS: Lung bases: Dependent subsegmental atelectasis/scarring. Liver: Normal. Gallbladder and biliary: The gallbladder is absent. Clips within the gallbladder fossa. Common bile duct is not dilated. Pancreas: Mildly atrophic with fatty replacement. Spleen: Normal. Gastrointestinal: Duodenal diverticulum. Postsurgical changes of the stomach. Large and small bowel are normal in caliber. Appendix is not visualized, apparently surgically absent. No focal inflammatory changes within the right lower quadrant of the abdomen. Adrenals: Normal. Kidneys and ureters: No mass or hydronephrosis. Urinary bladder: Decompressed with Lester catheter present. Tiny focus of gas in nondependent urinary bladder. Lymph nodes: No enlarged lymph nodes in the abdomen or pelvis. Peritoneum: No ascites or free air. Vascular: Mild atherosclerotic changes of the abdominal aorta and major branch vessels. Reproductive organs: Uterus is absent. Unremarkable adnexae. Abdominal wall: Unremarkable. Bones: No acute osseous abnormalities. IMPRESSION: Negative CT for acute pathology within the abdomen and pelvis. [facility]-[id number] Performing Organization Address City/State/Zipcode Phone Number [facility] [address] [place] [address] * XR Foot 3+ Vw Left (08/30/2018 8:50 PM TWISTER TENDER) Only the most recent of 3 results within the time period is included. Specimen Narrative Performed At EXAMINATION:XR FOOT 3VW LEFT [facility] CLINICAL HISTORY:pain COMPARISON:To previous examination from 05/03/2018. IMPRESSION: 1.There is no evidence of acute left foot fracture or dislocation. There are no radiopaque foreign bodies. 2.There are no focal bony erosions or periostitis. Internal fixation anchor is noted in the navicular. [facility]-[id number] Procedure Note Interface, Radiology Results Incoming - 08/30/2018 9:07 PM TWISTER TENDER EXAMINATION: XR FOOT 3 VW LEFT CLINICAL HISTORY: pain COMPARISON: To previous examination from 05/03/2018. IMPRESSION: 1. There is no evidence of acute left foot fracture or dislocation. There are no radiopaque foreign bodies. 2. There are no focal bony erosions or periostitis. Internal fixation anchor is noted in the navicular. [facility]-[id number] Performing Organization Address City/State/Zipcode Phone Number [facility] [address] [place] [address] * CT Head Wo Contrast (07/10/2018 11:07 PM CDT) Specimen Narrative Performed At EXAM: CT HEAD WO CONTRAST [facility] CLINICAL HISTORY: headache s p fall TECHNIQUE: Noncontrast enhanced images of the brain were obtained from the skull base to the vertex. Both soft tissue and bone reconstruction algorithms were performed. CT scans are performed using radiation dose reduction techniques (iterative reconstruction and/or automated exposure control). Technical factors are evaluated and adjusted to ensure appropriate moderation of exposure. Automated dose management technology is applied to adjust radiation exposure while achieving a diagnostic quality image. COMPARISON:None. FINDINGS: The fajardo-white matter differentiation is preserved and without evidence of acute territorial infarction. There is no evidence for acute intracranial hemorrhage, mass, mass effect, hydrocephalus, or extra-axial fluid collection. Orbits are unremarkable.Paranasal sinuses are clear.Mastoid air cells are normally pneumatized.Osseous structures are intact. IMPRESSION: No CT evidence for acute intracranial abnormality. [facility]-[id number] Procedure Note Hm Interface, Radiology Results Incoming - 07/10/2018 11:14 PM CDT EXAM: CT HEAD WO CONTRAST CLINICAL HISTORY: headache s p fall TECHNIQUE: Noncontrast enhanced images of the brain were obtained from the skull base to the vertex. Both soft tissue and bone reconstruction algorithms were performed. CT scans are performed using radiation dose reduction techniques (iterative reconstruction and/or automated exposure control). Technical factors are evaluated and adjusted to ensure appropriate moderation of exposure. Automated dose management technology is applied to adjust radiation exposure while achieving a diagnostic quality image. COMPARISON: None. FINDINGS: The fajardo-white matter differentiation is preserved and without evidence of acute territorial infarction. There is no evidence for acute intracranial hemorrhage, mass, mass effect, hydrocephalus, or extra-axial fluid collection. Orbits are unremarkable. Paranasal sinuses are clear. Mastoid air cells are normally pneumatized. Osseous structures are intact. IMPRESSION: No CT evidence for acute intracranial abnormality. [facility]-[id number] Performing Organization Address [facility] Centercomd Phone Number [facility] [address] [place] [address] * CT Maxillofacial Wo Contrast (07/10/2018 11:07 PM CDT) Specimen Narrative Performed At EXAMINATION:CT MAXILLOFACIAL WO CONTRAST [facility] CT IMAGING WAS PERFORMED WITH ITERATIVE RECONSTRUCTION TECHNIQUE AND/OR AUTOMATED EXPOSURE CONTROL TO REDUCE RADIATION DOSE. CLINICAL HISTORY:eye pain COMPARISON:None. FINDINGS: 1. There is no intraocular or intraorbital abnormality demonstrated. 2.There is minimal mucosal thickening in the maxillary sinus on the right. There is mild mucosal thickening in the frontal sinus on the left. Otherwise the paranasal sinuses are clear. The mastoids are clear. 3.There is a nose ring on the right side. IMPRESSION: No significant abnormality. [facility]-[id number] Procedure Note Interface, Radiology Results Incoming - 07/10/2018 11:17 PM CDT EXAMINATION: CT MAXILLOFACIAL WO CONTRAST CT IMAGING WAS PERFORMED WITH ITERATIVE RECONSTRUCTION TECHNIQUE AND/OR AUTOMATED EXPOSURE CONTROL TO REDUCE RADIATION DOSE. CLINICAL HISTORY: eye pain COMPARISON: None. FINDINGS: 1. There is no intraocular or intraorbital abnormality demonstrated. 2. There is minimal mucosal thickening in the maxillary sinus on the right. There is mild mucosal thickening in the frontal sinus on the left. Otherwise the paranasal sinuses are clear. The mastoids are clear. 3. There is a nose ring on the right side. IMPRESSION: No significant abnormality. [facility]-[id number] Performing Organization Address [facility] Centercom[facility] Phone Number [facility] [address] [place] [address] * XR Shoulder 2+ Vw Right (07/06/2018 9:39 PM CDT) Specimen Narrative Performed At Examination: XR SHOULDER 2VW RIGHT [facility] Clinical history: Shoulder paininitial exam Comparison: None Impression: 1. No fracture or acute osseous pathology is identified. 2. AC and glenohumeral relationships are within normal limits. [facility]-[id number] Procedure Note Interface, Radiology Results Incoming - 07/06/2018 9:47 PM CDT Examination: XR SHOULDER 2 VW RIGHT Clinical history: Shoulder pain initial exam Comparison: None Impression: 1. No fracture or acute osseous pathology is identified. 2. AC and glenohumeral relationships are within normal limits. [id number] Performing Organization Address City/State/Zipcode Phone Number [address] [address] * GC By ProbeTe (06/12/2018 11:25 PM CDT) GC, [employer]be[employer] Negative for Neisseria [facility] DEPARTMENT gonorrhoeae. OF PATHOLOGY Comment: AND GENOMIC Specimen Information MEDICINE Specimen Source: Cervical Specimen Site: Other Specimen Cervical - Other- Detailed Description Required Performing Organization Address City/State/Zipcode Phone Number [facility] DEPARTMENT OF [address] [place] [phone] PATHOLOGY AND GENOMIC MEDICINE * Chlamydia by ProbeTe (06/12/2018 11:25 PM CDT) Pathologist [facility] Chlamydia, Negative for Chlamydia [facility] DEPARTMENT [employer] trachomatis. OF PATHOLOGY Comment: AND GENOMIC Specimen Information MEDICINE Specimen Source: Cervical Specimen Site: Other Specimen Cervical - Other- Detailed Description Required Performing Organization Address City/State/Zipcode Phone Number [facility] DEPARTMENT OF [address] [place] [phone] PATHOLOGY AND GENOMIC MEDICINE * Wet prep (06/12/2018 11:25 PM CDT) Pathologist [facility] Wet prep result No Trichomonas vaginalis or [facility] DEPARTMENT budding yeast seen OF PATHOLOGY No Clue cells seen AND GENOMIC Comment: MEDICINE Specimen Information Specimen Source: Vaginal Specimen Site: Other Specimen Vaginal - Other- Detailed Description Required Performing Organization Address City/State/Zipcode Phone Number [facility] DEPARTMENT OF [address] [place] [address] PATHOLOGY AND GENOMIC MEDICINE * SPLINT APPLICATION (05/03/2018 10:54 PM CDT) Narrative Performed At Ziyad Maria DO 05/04/20185:59 AM Splint Application Performed by: ELÍAS VANG II Authorized by: ZIYAD MARIA Consent: Consent obtained:Verbal Consent given by:Patient Risks discussed:Discoloration, pain, numbness and swelling Alternatives discussed:No treatment Pre-procedure details: Sensation:Normal Skin color:Normal Procedure details: Laterality:Left Location:Foot Splint type:Short leg Supplies:Cotton padding, Ortho-Glass and elastic bandage Post-procedure details: Pain:Improved Sensation:Normal Skin color:Normal Patient tolerance of procedure:Tolerated well, no immediate complications * SPLINT APPLICATION (05/01/2018 11:32 PM CDT) Narrative Performed At DWAYNE Zavaleta II 05/02/20182:21 AM Splint Application Performed by: ELÍAS VANG II Authorized by: ELÍAS VANG II Consent: Consent obtained:Verbal Consent given by:Patient Risks discussed:Discoloration, numbness, pain and swelling Alternatives discussed:No treatment Pre-procedure details: Sensation:Normal Skin color:Normal Procedure details: Laterality:Left Location:Foot Splint type:Short leg Supplies:Cotton padding, Ortho-Glass and elastic bandage Post-procedure details: Pain:Improved Sensation:Normal Skin color:Normal Patient tolerance of procedure:Tolerated well, no immediate complications * SPLINT APPLICATION (04/30/2018 4:26 AM CDT) Narrative Performed At Sukumar Alvarez MD 04/30/20185:58 AM Splint Application Performed by: LEFTY [place] Authorized by: LEFTY [place] Consent: Consent obtained:Verbal Consent given by:Patient Risks discussed:Discoloration, numbness, pain and swelling Alternatives discussed:No treatment Pre-procedure details: Sensation:Normal Skin color:[place] Procedure details: Laterality:Left Location:Leg Leg:L lower leg Cast type:Short leg Supplies:Ortho-Glass, adhesive tape, elastic bandage and cotton padding Post-procedure details: Pain:Improved Sensation:Normal Skin color:[place] Patient tolerance of procedure:Tolerated well, no immediate complications * SPLINT APPLICATION (03/31/2018 9:27 PM CDT) Narrative Performed At MYRANDA Zavaleta IIP 03/31/2018 11:43 PM Splint Application Performed by: ELÍAS VANG II Authorized by: ELÍAS VANG II Consent: Consent obtained:Verbal Consent given by:Patient Risks discussed:Discoloration, numbness, pain and swelling Alternatives discussed:No treatment Pre-procedure details: Sensation:Normal Skin color:Normal Procedure details: Laterality:Left Location:Foot Splint type:Short leg Supplies:Ortho-Glass, elastic bandage and cotton padding Post-procedure details: Pain:Improved Sensation:Normal Skin color:Normal Patient tolerance of procedure:Tolerated well, no immediate complications after 03/15/2018 Insurance Type Payer Benefit Subscriber ID Effective Phone Address Plan / Dates Group HMO C MEDICARE C DUAL xxxxxxxxx 2016- COMPLETE Present [facility] Medicaid MEDICAID MEDICAID xxxxxxxxx 2015- Present Advance Directives Patient has advance care planning documents, and code status on file. For more i nformation, please contact: Jose Alfredo Youngblood [address] [place] [address] Date Inactivated Comments Code Status Date Activated 01/28/2019 3:40 PM Full Code 01/25/2019 11:58 PM Code Status decision reached by: Patient
--- OUTSIDE RECORDS SUMMARY | 2019-03-16 05:16 | XMS REPORT | Continuity of Care Document ---
Author Author Sharyn [facility] Interface Address Unknown Phone Unavailable Problems Problem Status Onset Date Classification Date Reported Comments Source Discharge Diagnosis: Headache 07/28/2014 07/30/2014 [facility] MIGRAINE Active 07/28/2014 [facility] Discharge Diagnosis: Tremor 07/11/2014 07/14/2014 [facility] Discharge Diagnosis: Adverse drug reaction 07/11/2014 07/14/2014 [facility] POSSIBLE ALLERGIC REACTION Active 07/10/2014 [facility] HEADACHE, LOWER BACK PAIN Active 07/02/2014 [facility] Discharge Diagnosis: Acute lower urinary tract infection 06/05/2014 06/08/2014 [facility] HEADACHE Active 06/05/2014 [facility] Discharge Diagnosis: Concussion 05/31/2014 06/03/2014 [facility] SLIP/FALL/BACK PAIN Active 05/31/2014 [facility] Discharge Diagnosis: Acute back pain 04/24/2014 04/27/2014 [facility] BACK PAIN Active 04/24/2014 [facility] Discharge Diagnosis: Ankle sprain 04/19/2014 04/22/2014 [facility] ANKLE PAIN OR INJURY Active 04/19/2014 [facility] Discharge Diagnosis: Nausea & vomiting 04/08/2014 04/11/2014 [facility] Discharge Diagnosis: Migraine 04/08/2014 04/11/2014 [facility] Discharge Diagnosis: Bronchitis 04/08/2014 04/11/2014 [facility] CONGESTION Active 04/08/2014 [facility] Discharge Diagnosis: Constipation 03/14/2014 03/17/2014 [facility] Discharge Diagnosis: Post-operative pain 03/14/2014 03/17/2014 [facility] Discharge Diagnosis: Abdominal pain 03/14/2014 03/17/2014 [facility] [place] INCISION SITE PAIN Active 03/14/2014 [facility] NAUSEA AND VOMITTING Active 03/06/2014 [facility] [place] HERNIA Active 02/26/2014 [facility] 278.01 Active 02/25/2014 [facility] EPIGASTRIC PAIN, VOMITING Active 02/25/2014 [facility] [place] POST GASTRIC SLEEVE NUTC FOLLOW UP Active 02/25/2014 [facility] VOMITING BLOOD Active 02/23/2014 [facility] [place] Discharge Diagnosis: Hematemesis 02/23/2014 02/25/2014 [facility] [place] Discharge Diagnosis: Phlebitis 02/17/2014 02/20/2014 [facility] ARM PAIN SP IV Active 02/17/2014 [facility] INTRACTABLE VOMITING Active 02/11/2014 [facility] ABDOMINAL PAIN Active 02/11/2014 [facility] Discharge Diagnosis: Chest pain with minimal risk of acute coronary syndrome 02/03/2014 02/05/2014 [facility] Discharge Diagnosis: Paresthesia 02/03/2014 02/05/2014 [facility] CHEST PAIN Active 02/03/2014 [facility] Discharge Diagnosis: non cardiac chest pain 01/23/2014 01/26/2014 [facility] Discharge Diagnosis: abdominal pain/vomitying/diarrhea 12/15/2013 12/17/2013 [facility] ABD PAIN Active 12/14/2013 [facility] Final: Thoracic or Lumbosacral Neuritis or Radiculitis, Unspecified 11/19/2013 11/23/2013 [facility] Discharge Diagnosis: lumbar radiculopathy 11/14/2013 11/23/2013 [facility] FEVER Active 08/09/2013 [facility] 536.3 ATONIA, STOMACH Active 06/04/2013 [facility] DYSPHAGIA Active 05/14/2013 [facility] [place] RT SIDE ABD PAIN Active 05/01/2013 [facility] MORBID OBESITY Active 12/20/2012 [facility] BREAST MASTITIS Active 11/18/2012 [facility] BREAST PAIN Active 11/18/2012 [facility] FLANK PAIN Active 11/09/2012 [facility] Abdominal pain Active 02/09/2010 Problem 05/17/2013 [facility] [place] Vomiting Active 02/09/2010 Problem 05/17/2013 [facility] [place] Abdominal pain Active 02/09/2010 Problem 07/30/2014 [facility] [place] Vomiting Active 02/09/2010 Problem 07/30/2014 [facility] REFLUX Active 09/26/2000 [facility] [place] UNK Active 09/26/2000 [facility] [place] Anxiety Resolved Problem 05/17/2013 [facility] [place] Bipolar Active Problem 05/17/2013 [facility] [place] Bipolar disorder Active Problem 05/17/2013 [facility] [place] Breast infection<sup>1</sup> Active Problem 05/17/2013 1Admitted to Patient's hospital 2 weeks ago for Left breast infection. [facility] [place] Cholesterol level Resolved Problem 05/17/2013 [facility] [place] Cyst of breast<sup>2</sup> Active Problem 05/17/2013 2left sided x2 [facility] [place] Depression Active Problem 05/17/2013 [facility] [place] FH: Osteoarthritis Active Problem 05/17/2013 [facility] [place] Fibromyalgia Active Problem 05/17/2013 [facility] [place] Hysterectomy Resolved Problem 05/17/2013 [facility] [place] Low back pain Active Problem 05/17/2013 [facility] [place] Partial hysterectomy Active Problem 05/17/2013 [facility] [place] Urinary retention Active Problem 05/17/2013 [facility] [place] Anxiety Resolved Problem 07/30/2014 [facility] [place] Bipolar Active Problem 07/30/2014 [facility] [place] Bipolar disorder Active Problem 07/30/2014 [facility] [place] Breast infection<sup>1</sup> Active Problem 07/30/2014 1Admitted to Patient's hospital 2 weeks ago for Left breast infection. [facility] [place] Cholesterol level Resolved Problem 07/30/2014 [facility] [place] Cyst of breast<sup>2</sup> Active Problem 07/30/2014 2left sided x2 [facility] [place] Depression Active Problem 07/30/2014 [facility] [place] FH: Osteoarthritis Active Problem 07/30/2014 [facility] [place] Fibromyalgia Active Problem 07/30/2014 [facility] [place] Hysterectomy Resolved Problem 07/30/2014 [facility] [place] Low back pain Active Problem 07/30/2014 [facility] [place] Osteoarthritis Resolved Problem 07/30/2014 [facility] [place],[facility] Partial hysterectomy Active Problem 07/30/2014 [facility] [place] Urinary retention Active Problem 07/30/2014 [facility] [place] Osteoarthritis Resolved Problem 12/17/2013 [facility] Final: Abdominal Pain, Other Specified Site; Multiple Sites 11/23/2013 [facility] Final: Nausea with Vomiting 11/23/2013 [facility] Final: DIARRHEA 11/23/2013 [facility] Final: Fever, Unspecified 11/23/2013 [facility] Final: Unspecified Essential Hypertension 11/23/2013 [facility] Final: Bipolar Disorder, Unspecified 11/23/2013 [facility] Final: Esophageal Reflux 11/23/2013 [facility] Final: Tobacco Use Disorder 11/23/2013 [facility] Chronic pain disorder Active Problem 05/13/2018 Cecy Najam Fibromyalgia Active Problem 05/13/2018 Cecyblaze Rush 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 Active Problem 05/13/2018 Cecy Namulu Meniscus, medial, derangement, left Active Problem 05/13/2018 Cecy Namulu Inflammatory arthritis Active Problem 05/13/2018 [facility]bl[facility] Chronic fatigue Active Problem 05/13/2018 Cecy Namulu Right knee pain Active Diagnosis 01/06/2018 Cecy Naaysham Right anterior shoulder pain Active Diagnosis 01/06/2018 Cecy Naaysham Anti-cardiolipin antibody positive Active Diagnosis 01/06/2018 Cecy Namulu Left medial knee pain Active Diagnosis 01/06/2018 Cecy Naaysham Counseling NOS Active Diagnosis 01/06/2018 Cecy Naaysham Rheumatoid factor positive Active Diagnosis 01/06/2018 Cecy Naaysham Nausea Active Diagnosis 01/14/2017 Cecy Namulu Swelling of left knee joint Active Diagnosis 11/30/2017 Cecy Naaysham Stiffness of left knee Active Diagnosis 11/30/2017 Cecy Najam Pain in left knee Active Diagnosis 11/30/2017 Cecy Naaysham Stiffness of knee joint, right Active Diagnosis 11/29/2017 Cecy Namulu Effusion of knee joint right Active Diagnosis 11/29/2017 Cecy Naaysham Pain, joint, hand, right Active Diagnosis 07/26/2015 Cecy Najam Pain, joint, hand, left Active Diagnosis 07/26/2015 [facility]yblaze Rush Monocytosis Active Diagnosis 08/31/2016 Cecyblaze Rush Pain, joint, multiple sites Active Diagnosis 08/31/2016 Cecyblaez Saersm CELLULITIS NOS Active [facility] VOMITING ALONE Active [facility] ADMINISTRTVE ENCOUNT NOS Active [facility] [place] Medications Medication Details Route Status Patient Instructions Ordering Provider Order Date Source Folic Acid 1 tablet Orally Active 1 mg Orally Once a day [place] 04/19/2018 Cecy Rush Enbrel SureClick 1 ml Subcutaneous Active 50 MG/ML Subcutaneous Once a week Najam 12/28/2017 Cecy Rush Celecoxib 1 capsule with food Orally Active 200 MG Orally Twice a day Najam 12/20/2017 Cecy Rush Nabumetone 1 tab(s) with food as needed Orally Active 750 MG Orally bid [place] 11/24/2017 Cecy Rush Nalfon 1 tab(s) with food as needed Orally Active 400 MG Orally Twice a day [facility] 11/21/2017 Cecy Rush Folic Acid 1 tablet Orally Active 1 mg Orally Once a day [facility] 11/15/2017 Cecy Rush Methotrexate 4 tabs Orally Active 2.5 mg Orally Once a week [facility] 11/15/2017 Cecy Rush Zorvolex 1 tab(s) with food as needed Orally Active 35 MG Orally Twice a day [facility] 11/15/2017 Cecy Rush Promethazine HCl 1 tablet as needed Orally Active 25 MG Orally every 12 hrs for nausea [facility] 02/12/2017 Cecy Rush Naproxen 1 tablet as needed Orally Active 500 MG Orally every 12 hrs prn with food [facility] 01/13/2017 Cecy Rush Hydroxychloroquine Sulfate 2 tabs Orally Active 200 MG Orally Once a day [facility] 01/13/2017 Cecy Rush Naproxen 1 tablet as needed Orally Active 500 MG Orally every 12 hrs prn with food [facility] 01/13/2017 Cecy Rush Hydroxychloroquine Sulfate 2 tabs Orally Active 200 MG Orally Once a day [facility] 01/09/2017 Cecyblaze Rush Promethazine HCl 1 tablet as needed Orally Active 25 MG Orally every 12 hrs for nausea [facility] 11/09/2016 Cecy Rush Hydroxychloroquine Sulfate 2 tabs Orally Active 200 MG Orally Once a day [facility] 10/19/2016 Cecy Rush Plaquenil 1 tablet with food or milk Orally Active 200 MG Orally 2 tabs once daily [facility] 07/25/2015 Cecyblaze Rush Tylenol/Codeine #4 1 tablet as needed Orally Active 300-60 MG Orally every 6 hrs [facility] 07/01/2015 Cecyblaze Rush Nabumetone 1 tablet Orally Active 750 MG Orally Twice a day as needed [facility] 06/17/2015 [facility]blaze [facility] Acetaminophen 300 MG / butalbital 50 MG / Caffeine 40 MG Oral Capsule [Fioricet] 1-2 cap, PO, Q6H, Headache, # 30 cap, 0 Refill(s) Active 07/28/2014 [facility] Acetaminophen 300 MG / butalbital 50 MG / Caffeine 40 MG Oral Capsule [Fioricet] 2 tab, Route: PO, Dosing Weight 80.909, kg, ONCE, Start date: 07/28/14 16:32:00, Stop date: 07/28/14 16:32:00 Inactive 07/28/2014 [facility] Sodium Chloride 0.154 MEQ/ML Injectable Solution 1,000 mL, 1,000 ml/hr, Infuse Over: 1 hr, Route: IV, ONCE, Priority: STAT, Dosing Weight 80.909 kg, Start date: 07/28/14 15:48:00, Duration: 1 doses or times, Stop date: 07/28/14 15:48:00 Inactive 07/28/2014 [facility] Diphenhydramine 25 mg, Route: IVP, ONCE, Dosing Weight 80.909, kg, Priority: STAT, Start date: 07/28/14 15:48:00, Stop date: 07/28/14 15:48:00 Inactive 07/28/2014 [facility] Metoclopramide 10 mg, Route: IVP, Drug form: INJ, ONCE, Dosing Weight 80.909, kg, Priority: STAT, Start date: 07/28/14 15:47:00, Stop date: 07/28/14 15:47:00 Inactive 07/28/2014 [facility] Dexamethasone 8 mg, Route: IVP, ONCE, Dosing Weight 80.909, kg, Priority: STAT, Start date: 07/28/14 15:47:00, Stop date: 07/28/14 15:47:00 Inactive 07/28/2014 [facility] Diazepam 5 MG Oral Tablet [Valium] 5 mg=1 tab, PO, QID, tremor, # 10 tab, 0 Refill(s) Active 07/11/2014 [facility] Morphine 4 mg, Route: IM, ONCE, Dosing Weight 80.909, kg, Priority: STAT, Start date: 07/11/14 2:06:00, Stop date: 07/11/14 2:06:00 Inactive 07/11/2014 [facility] Ativan 1 mg, 0.5 mL, Route: IVP, Drug form: INJ, ONCE, Dosing Weight 80.909, kg, Priority: STAT, Start date: 07/11/14 1:27:00, Stop date: 07/11/14 1:27:00Notes: (Same as: Ativan) Inactive 07/11/2014 [facility] Zofran ODT 4 mg, 1 tab, Route: PO, Drug form: TABDIS, ONCE, Dosing Weight 80.909, kg, Priority: STAT, Start date: 07/11/14 0:31:00, Stop date: 07/11/14 0:31:00Notes: (Same as: Zofran ODT) Inactive 07/11/2014 [facility] Acetaminophen 325 MG / Hydrocodone Bitartrate 5 MG Oral Tablet [Otterbe[place] 5/325] 1 tab, Route: PO, Drug Form: TAB, Dosing Weight 80.909, kg, ONCE, Start date: 07/11/14 0:31:00, Stop date: 07/11/14 0:31:00Notes: (Same as: [place] 325/5) Do not exceed 4gm/day of acetaminophen. Inactive 07/11/2014 [facility] Sulfamethoxazole 800 MG / Trimethoprim 160 MG Oral Tablet [Bactrim] 1 tab, PO, BID, # 6 tab, 0 Refill(s) Active 06/05/2014 [facility] Phenergan 12.5 mg, Route: IVPB, ONCE, Dosing Weight 77.273, kg, Priority: STAT, Start date: 06/05/14 12:29:00, Stop date: 06/05/14 12:29:00 Inactive 06/05/2014 [facility] Morphine 4 mg, Route: IVP, ONCE, Dosing Weight 77.273, kg, Priority: STAT, Start date: 06/05/14 11:58:00, Stop date: 06/05/14 11:58:00 Inactive 06/05/2014 [facility] Prochlorperazine 10 mg, Route: IVP, ONCE, Dosing Weight 77.273, kg, Priority: STAT, Start date: 06/05/14 11:58:00, Stop date: 06/05/14 11:58:00 Inactive 06/05/2014 [facility] Sodium Chloride 0.154 MEQ/ML Injectable Solution 1,000 mL, Rate: 75 ml/hr, Infuse over: 13.3 hr, Route: IV, Dosing Weight 77.273 kg, Total Volume: 1,000, Priority: STAT, Start date: 06/05/14 11:58:00, Duration: 1 doses or times, Stop date: 06/06/14 1:15:00 Inactive 06/05/2014 [facility] Acetaminophen 325 MG Oral Tablet [Tylenol] 325 mg=1 tab, PO, Q4H, Pain, # 20 tab, 0 Refill(s) Active 05/31/2014 [facility] Ondansetron 4 MG Oral Tablet [Zofran] 4 mg=1 tab, PO, BID, # 10 tab, 0 Refill(s) Active 05/31/2014 [facility] Zofran ODT 4 mg, 1 tab, Route: PO, Drug form: TABDIS, ONCE, Dosing Weight 78.182, kg, Priority: STAT, Start date: 05/31/14 17:53:00, Stop date: 05/31/14 17:53:00Notes: (Same as: Zofran ODT) Inactive 05/31/2014 [facility] Acetaminophen 325 MG / Hydrocodone Bitartrate 7.5 MG Oral Tablet [[place]terbe[place] 7.5/325] 1 tab, Route: PO, Drug Form: TAB, Dosing Weight 78.182, kg, ONCE, STAT, Start date: 05/31/14 17:53:00, Stop date: 05/31/14 17:53:00Notes: Same as [place] 325-7.5mg Do not exceed 4gm/day of acetaminophen. Inactive 05/31/2014 [facility] diazepam 10 mg oral tablet 10 mg=1 tab, PO, TID, Anxiety, # 3 tab, 0 Refill(s) Active 04/24/2014 [facility] Acetaminophen 325 MG / Hydrocodone Bitartrate 5 MG Oral Tablet [Otterbein 5/325] 1 tab, PO, TID, for pain, # 10 tab, 0 Refill(s) Active 04/24/2014 [facility] Acetaminophen 325 MG / Hydrocodone Bitartrate 10 MG Oral Tablet 1 tab, Route: PO, Dosing Weight 82.273, kg, ONCE, STAT, Start date: 04/24/14 14:47:00, Stop date: 04/24/14 14:47:00 Inactive 04/24/2014 [facility] Sodium Chloride 0.154 MEQ/ML Injectable Solution 1,000 mL, 1,000 ml/hr, Infuse Over: 1 hr, Route: IV, ONCE, Priority: STAT, Dosing Weight 82.273 kg, Start date: 04/24/14 13:22:00, Duration: 1 doses or times, Stop date: 04/24/14 13:22:00 Inactive 04/24/2014 [facility] Diazepam 10 mg, Route: PO, ONCE, Dosing Weight 82.273, kg, Priority: STAT, Start date: 04/24/14 13:22:00, Stop date: 04/24/14 13:22:00 Inactive 04/24/2014 [facility] Hydromorphone 1 mg, Route: IVP, ONCE, Dosing Weight 82.273, kg, Priority: STAT, Start date: 04/24/14 13:21:00, Stop date: 04/24/14 13:21:00 Inactive 04/24/2014 [facility] tramadol hydrochloride 50 MG Oral Tablet [Ultram] 1 - 2 tabs, PO, Q4-6H, as needed for pain, # 12 tab, 0 Refill(s) Active 04/19/2014 [facility] Acetaminophen 325 MG / Hydrocodone Bitartrate 5 MG Oral Tablet [Otterbein 5/325] 1 tab, Route: PO, Dosing Weight 82.273, kg, ONCE, Start date: 04/19/14 17:22:00, Stop date: 04/19/14 17:22:00 Inactive 04/19/2014 [facility] tramadol hydrochloride 50 MG Oral Tablet [Ultram] 1 tab, Route: PO, Drug form: TAB, ONCE, Dosing Weight 82.273, kg, Start date: 04/19/14 16:35:00, Stop date: 04/19/14 16:35:00 Inactive 04/19/2014 [facility] Ondansetron 4 MG Disintegrating Tablet [Zofran] 4 mg=1 tab, PO, BID, Nausea and Vomiting, Dissolve tab under tongue, # 10 tab, 0 Refill(s)Special Instructions: Dissolve tab under tongue Active 04/09/2014 [facility] Sodium Chloride 0.154 MEQ/ML Injectable Solution 1,000 mL, 1,000 ml/hr, Infuse Over: 1 hr, Route: IV, ONCE, Priority: STAT, Dosing Weight 82.727 kg, Start date: 04/08/14 20:37:00, Duration: 1 doses or times, Stop date: 04/08/14 20:37:00 Inactive 04/09/2014 [facility] Benadryl 12.5 mg, Route: IVP, ONCE, Dosing Weight 82.727, kg, Priority: STAT, Start date: 04/08/14 20:37:00, Stop date: 04/08/14 20:37:00 Inactive 04/09/2014 [facility] Reglan 10 mg, Route: IVP, ONCE, Dosing Weight 82.727, kg, Priority: STAT, Start date: 04/08/14 20:37:00, Stop date: 04/08/14 20:37:00 Inactive 04/09/2014 [facility] Albuterol 0.09 MG/ACTUAT Inhalant Solution 1 puff, INHALATION, QID, wheezing, # 1 ea, 0 Refill(s) Active 04/09/2014 [facility] {6 (Azithromycin 250 MG Oral Tablet [Zithromax]) } Pack [Z-PAKS] 250 mg, PO, Daily, Take 2 tablets by mouth the first day then 1 tablet by mouth days 2-5, # 6 tab, 0 Refill(s)Special Instructions: Take 2 tablets by mouth the first day then 1 tablet by mouth days 2-5 Active 04/09/2014 [facility] Albuterol 0.833 MG/ML / Ipratropium [place] 0.167 MG/ML Inhalant Solution [DuoNeb] 3 ml, Route: INHALATION, Drug Form: SOLN, Dosing Weight 82.727, kg, PRN, PRN Respiratory Protocol, Start date: 04/08/14 19:44:00, Duration: 30 day, Stop date: 05/08/14 19:43:00Notes: (Same as: Duoneb) No Longer Active 04/09/2014 [facility] Zofran ODT 4 mg, Route: PO, Drug form: TABDIS, ONCE, Dosing Weight 82.727, kg, Priority: STAT, Start date: 04/08/14 19:44:00, Stop date: 04/08/14 19:44:00 Inactive 04/09/2014 [facility] Acetaminophen 21.7 MG/ML / Hydrocodone Bitartrate 0.5 MG/ML Oral Solution 15 mL, Route: PO, Drug Form: SOLN, Dosing Weight 82.727, kg, ONCE, STAT, Start date: 04/08/14 19:44:00, Stop date: 04/08/14 19:44:00 Inactive 04/09/2014 [facility] Sodium Chloride 0.154 MEQ/ML Injectable Solution 1,000 mL, 1,000 ml/hr, Infuse Over: 1 hr, Route: IV, 1,000, Drug form: INJ, ONCE, Priority: STAT, Dosing Weight 84.545 kg, Start date: 03/14/14 20:45:00, Duration: 1 doses or times, Stop date: 03/14/14 20:45:00 Inactive 03/15/2014 [facility] Zofran 4 mg, 2 mL, Route: IVP, Drug form: INJ, ONCE, Dosing Weight 84.545, kg, Priority: STAT, Start date: 03/14/14 20:45:00, Stop date: 03/14/14 20:45:00Notes: (Same as: Zofran) Inactive 03/15/2014 [facility] Morphine 4 mg, 2 mL, Route: IVP, Drug form: INJ, ONCE, Dosing Weight 84.545, kg, Priority: STAT, Start date: 03/14/14 20:45:00, Stop date: 03/14/14 20:45:00Notes: (Same as:MORPhine Sulfate) Inactive 03/15/2014 [facility] Acetaminophen 21.7 MG/ML / Hydrocodone Bitartrate 0.5 MG/ML Oral Solution 15 ml, PO, Q4H, Pain, # 240 mL, 0 Refill(s) Active 03/10/2014 [facility] [place] Dilaudid 0.5 mg, 0.5 mL, Route: IV, Drug form: INJ, Q4H, Dosing Weight 87.5, kg, PRN Pain, Start date: 03/10/14 8:21:00, Duration: 30 day, Stop date: 04/09/14 8:20:00Notes: Same as: Dilaudid Inactive 03/10/2014 [facility] [place] 72 HR Fentanyl 0.025 MG/HR Transdermal Patch 1 patch, Route: TOP, Drug Form: ERFILM, Dosing Weight 87.5, kg, Q72H, Start date: 03/09/14 10:00:00, Duration: 30 day, Stop date: 04/05/14 10:00:00Notes: (Same as: Duragesic) Check for product integrity. Apply to intact skin "Remove old patch before application of new patch" No Longer Active 03/09/2014 [facility] [place] Dilaudid 0.5 mg, 0.25 mL, Route: IV, Drug form: INJ, ONCE, Dosing Weight 87.5, kg, PRN Pain, Start date: 03/09/14 9:16:00, Stop date: 04/08/14 9:15:00Notes: (Same as: Dilaudid) Inactive 03/09/2014 [facility] [place] Enoxaparin 30 mg, 0.3 mL, Route: SUB-Q, Drug form: INJ, [id number], Dosing Weight 87.5, kg, Start date: 03/09/14 1:45:00, Duration: 30 day, Stop date: 04/07/14 13:45:00Notes: (Same as: Lovenox) No Longer Active 03/09/2014 [facility] [place] Ofirmev 1,000 mg, 100 mL, Route: IV, Drug form: INJ, Q6H, Dosing Weight 87.5, kg, for > or=50 kg, Start date: 03/08/14 18:00:00, Duration: 30 day, Stop date: 04/07/14 12:00:00Notes: Infuse over 15 minutes Do not exceed 4gm/day of acetaminophen No Longer Active 03/08/2014 [facility] [place] Hydromorphone 6 mg, 30 mL, Route: IV, [employer] HELPER Dose: 0.2 mg, [employer] HEL[employer] Lockout: 8 minutes, 4 Hour Limit (In MG): 5, Drug Form: INJ, Continuous, Start date: 03/08/14 14:00:00, Duration: 30 day, Stop date: 04/07/14 13:59:00 No Longer Active 03/08/2014 [facility] [place] Lactated Ringers IV 1,000 mL 1,000 mL, Rate: 80 ml/hr, Infuse over: 12.5 hr, Route: IV, Dosing Weight 87.5 kg, Total Volume: 1,000, Priority: STAT, Start date: 03/08/14 13:42:00, Duration: 30 day, Stop date: 04/07/14 13:41:00 No Longer Active 03/08/2014 [facility] [place] Acetaminophen 33.3 MG/ML / Hydrocodone Bitartrate 0.5 MG/ML Oral Solution [Lortab 7.5/500] 15 ml, Route: PO, Drug Form: SOLN, Dosing Weight 87.5, kg, Q4H, PRN Pain, Start date: 03/08/14 13:42:00, Duration: 30 day, Stop date: 04/07/14 13:41:00Notes: Do not exceed 4gm/day of acetaminophen. (Same as: [place]ter[place]in 325/7.5) No Longer Active 03/08/2014 [facility] Promethazine 12.5 mg, 0.5 mL, Route: IM, Drug form: INJ, Q4H, Dosing Weight 87.5, kg, PRN Nausea & Vomiting, Start date: 03/08/14 13:42:00, Duration: 30 day, Stop date: 04/07/14 13:41:00Notes: Do not give IV push. (Same as: Phenergan) No Longer Active 03/08/2014 [facility] Ondansetron 4 mg, 2 mL, Route: IVP, Drug form: INJ, Q12H, Dosing Weight 87.5, kg, PRN Nausea & Vomiting, Start date: 03/08/14 13:42:00, Duration: 30 day, Stop date: 04/07/14 13:41:00Notes: (Same as: Zofran) No Longer Active 03/08/2014 [facility] [place] Calcium Chloride 0.0014 MEQ/ML / Potassium Chloride 0.004 MEQ/ML / Sodium Chloride 0.103 MEQ/ML / Sodium Lactate 0.028 MEQ/ML Injectable Solution 1,000 mL, Rate: 125 ml/hr, Infuse over: 8 hr, Route: IV, Dosing Weight 87.5 kg, Total Volume: 1,000, Start date: 03/08/14 13:42:00, Duration: 30 day, Stop date: 04/07/14 13:41:00 No Longer Active 03/08/2014 [facility] [place] Acetaminophen 650 mg, 1 supp, Route: NV, Drug form: SUPP, Q4H, Dosing Weight 87.5, kg, PRN For Temp > 100.4 F, Start date: 03/08/14 13:42:00, Duration: 30 day, Stop date: 04/07/14 13:41:00Notes: Max pnisobuefqrcu=9554 mg/day (4 gm/day). (Same as: Tylenol) No Longer Active 03/08/2014 [facility] [place] Albuterol 0.09 MG/ACTUAT Inhalant Solution 2 puff, Route: INHALER, Drug Form: AERO/A, Dosing Weight 87.5, kg, Q5Min, PRN Wheezing, Start date: 03/08/14 7:35:00, Duration: 4 doses or times, Stop date: Limited # of timesNotes: Same as: Ventolin HFA Inactive 03/08/2014 [facility] [place] Albuterol 0.83 MG/ML Inhalant Solution 2.49 mg, 3 mL, Route: NEB, Drug form: SOLN, PRN, Dosing Weight 87.5, kg, PRN Respiratory Protocol, Start date: 03/08/14 7:35:00, Duration: 30 day, Stop date: 04/07/14 7:34:00Notes: SEE RT DOCUMENTATION (Same as: Proventil) Inactive 03/08/2014 [facility] [place] Ondansetron 4 mg, 2 mL, Route: IVP, Drug form: INJ, ONCE, Dosing Weight 87.5, kg, PRN Nausea & Vomiting, Start date: 03/08/14 7:35:00Notes: (Same as: Zofran) Inactive 03/08/2014 [facility] [place] Midazolam 1 mg, 1 mL, Route: IVP, Drug form: INJ, Q5Min, Dosing Weight 87.5, kg, PRN Anxiety, Start date: 03/08/14 7:35:00, Duration: 2 doses or times, Stop date: Limited # of timesNotes: (Same as: Versed) Inactive 03/08/2014 [facility] [place] Dexamethasone 4 mg, 1 mL, Route: IVP, Drug form: INJ, ONCE, Dosing Weight 87.5, kg, PRN Nausea & Vomiting, Start date: 03/08/14 7:35:00Notes: Concentration: 4mg/ml Inactive 03/08/2014 [facility] [place] Promethazine 6.25 mg, 0.25 mL, Route: IVPB, ONCE, Dosing Weight 87.5, kg, PRN Nausea & Vomiting, Start date: 03/08/14 7:35:00Notes: Do not give IV push. (Same as: Phenergan) Inactive 03/08/2014 [facility] [place] Hydromorphone 0.5 mg, 0.25 mL, Route: IVP, Drug form: INJ, Q5Min, Dosing Weight 87.5, kg, PRN Pain Score 7-10, Start date: 03/08/14 7:35:00, Duration: 4 doses or times, Stop date: Limited # of timesNotes: (Same as: Dilaudid) Inactive 03/08/2014 [facility] [place] Morphine 2 mg, 1 mL, Route: IVP, Drug form: INJ, Q5Min, Dosing Weight 87.5, kg, PRN Pain Score 4-6, Start date: 03/08/14 7:35:00, Duration: 5 doses or times, Stop date: Limited # of timesNotes: (Same as:MORPh ine Sulfate) Inactive 03/08/2014 [facility] [place] Fentanyl 25 microgram, 0.5 mL, Route: IVP, Drug form: INJ, Q5Min, Dosing Weight 87.5, kg, PRN Pain Score 4-6, Start date: 03/08/14 7:35:00, Duration: 4 doses or times, Stop date: Limited # of timesNotes: (Same as: Sublimaze) Preservative free. Inactive 03/08/2014 [facility] [place] Naloxone 0.04 mg, 0.1 mL, Route: IVP, Drug form: INJ, Q2MIN, Dosing Weight 87.5, kg, PRN Narcotic Reversal, Start date: 03/08/14 7:35:00, Duration: 8 doses or times, Stop date: Limited # of timesNotes: Same as Narcan Inactive 03/08/2014 [facility] [place] Meperidine 12.5 mg, 0.25 mL, Route: IVP, Drug form: INJ, Q30Min, Dosing Weight 87.5, kg, PRN Other -See Comment, For shivering, Start date: 03/08/14 7:35:00, Duration: 2 doses or times, Stop date: Limited # of timesNotes: (Same As: Demerol) Inactive 03/08/2014 [facility] [place] Racepinephrine 11.25 mg, 0.5 mL, Route: NEB, Drug Form: SOLN, Dosing Weight 87.5, kg, PRN, PRN Shortness of breath, Start date: 03/08/14 7:35:00, Duration: 30 day, Stop date: 04/07/14 7:34:00Notes: (racepinephrine *2.25% inh 0.5ml SOLN) (Same as:S2) Inactive 03/08/2014 [facility] [place] Diphenhydramine 12.5 mg, 0.25 mL, Route: IVP, Drug form: INJ, Q6H, Dosing Weight 87.5, kg, PRN Itching, Start date: 03/08/14 7:35:00, Duration: 30 day, Stop date: 04/07/14 7:34:00Notes: (Same as: Benadryl) Inactive 03/08/2014 [facility] [place] Ephedrine 5 mg, 0.1 mL, Route: IVP, Drug form: INJ, Q5Min, Dosing Weight 87.5, kg, PRN Low Blood Pressure, Start date: 03/08/14 7:35:00, Duration: 30 day, Stop date: 04/07/14 7:34:00Notes: (Same as: ePHEDrine Sulfate) Inactive 03/08/2014 [facility] [place] Glycopyrrolate 0.2 mg, 1 mL, Route: IVP, Drug form: INJ, Q5Min, Dosing Weight 87.5, kg, PRN Bradycardia, Start date: 03/08/14 7:35:00, Duration: 3 doses or times, Stop date: Limited # of timesNotes: (Same as: Dre garzon) Inactive 03/08/2014 [facility] [place] Sodium Chloride 0.154 MEQ/ML Injectable Solution 1,000 mL, Rate: 125 ml/hr, Infuse over: 8 hr, Route: IV, Dosing Weight 87.5 kg, Total Volume: 1,000, Start date: 03/08/14 7:35:00, Duration: 30 day, Stop date: 04/07/14 7:34:00 Inactive 03/08/2014 [facility] [place] Labetalol 10 mg, 2 mL, Route: IVP, Drug form: INJ, Q5Min, Dosing Weight 87.5, kg, PRN Elevated BP, Start date: 03/08/14 7:35:00, Duration: 5 doses or times, Stop date: Limited # of timesNotes: (Same as: Normod yne Trandate) Push over 2 minutes Give bolus over 2-3 minutes. Inactive 03/08/2014 [facility] [place] Hydralazine 10 mg, 0.5 mL, Route: IVP, Drug form: INJ, Q20Min, Dosing Weight 87.5, kg, PRN Elevated BP, Start date: 03/08/14 7:35:00, Duration: 2 doses or times, Stop date: Limited # of timesNotes: (Same as: Apr esoline) Push over 5 minutes Inactive 03/08/2014 [facility] [place] Acetaminophen 1,000 mg, 100 mL, Route: IVPB, Drug form: INJ, ONCE, Dosing Weight 87.5, kg, PRN Pain Score 1-3, Start date: 03/08/14 7:35:00, Duration: 1 doses or times, Stop date: Limited # of timesNotes: Infuse over 15 minutes Do not exceed 4gm/day of acetaminophen Inactive 03/08/2014 [facility] [place] ceFAZolin 2 gm, 100 mL, Route: IVPB, Drug form: INJ, PRE OP, Start date: 03/07/14 15:00:00, Duration: 1 doses or timesNotes: Same as: Ancef No Longer Active 03/07/2014 [facility] [place] Acetaminophen 21.7 MG/ML / Hydrocodone Bitartrate 0.5 MG/ML Oral Solution 15 ml, Route: PO, Drug Form: SOLN, Dosing Weight 87.5, kg, Q4H, PRN Pain, Start date: 03/07/14 14:53:00, Duration: 30 day, Stop date: 04/06/14 14:52:00Notes: Do not exceed 4gm/day of acetaminophen. (Same as: Otterbein 325/7.5) No Longer Active 03/07/2014 [facility] [place] Ondansetron 4 mg, 2 mL, Route: IVP, Drug form: INJ, Q6H, Dosing Weight 87.5, kg, PRN Nausea & Vomiting, Start date: 03/07/14 14:51:00, Duration: 30 day, Stop date: 04/06/14 14:50:00Notes: (Same as: Zofran) No Longer Active 03/07/2014 [facility] [place] Promethazine 12.5 mg, 0.5 mL, Route: IVPB, Q4H, Dosing Weight 87.5, kg, PRN Nausea & Vomiting, Start date: 03/07/14 14:51:00, Duration: 30 day, Stop date: 04/06/14 14:50:00Notes: Do not give IV push. (Same as: Tejas patel) No Longer Active 03/07/2014 [facility] [place] Calcium Chloride 0.0014 MEQ/ML / Potassium Chloride 0.004 MEQ/ML / Sodium Chloride 0.103 MEQ/ML / Sodium Lactate 0.028 MEQ/ML Injectable Solution 1,000 mL, Rate: 125 ml/hr, Infuse over: 8 hr, Route: IV, Dosing Weight 87.5 kg, Total Volume: 1,000, Start date: 03/07/14 14:51:00, Duration: 30 day, Stop date: 04/06/14 14:50:00 No Longer Active 03/07/2014 [facility] [place] Acetaminophen 21.7 MG/ML / Hydrocodone Bitartrate 0.5 MG/ML Oral Solution 15 ml, Route: PO, Drug Form: SOLN, Dosing Weight 87.5, kg, Q4H, PRN Pain, Start date: 03/07/14 14:30:00, Duration: 30 day, Stop date: 04/06/14 14:29:00Notes: Do not exceed 4gm/day of acetaminophen. (Same as: Otter[place]in 325/7.5) Inactive 03/07/2014 [facility] [place] ceFAZolin 2 gm, 100 mL, Route: IVPB, Drug form: INJ, PRE OP, Start date: 03/07/14 13:00:00, Duration: 1 doses or times, Stop date: 03/07/14 18:00:00Notes: Same as: Ancef Inactive 03/07/2014 [facility] [place] Hydromorphone 1 mg, Route: IVP, ONCE, Dosing Weight 85.909, kg, Priority: STAT, Start date: 02/25/14 20:28:00, Stop date: 02/25/14 20:28:00 Inactive 02/26/2014 [facility] [place] GI cocktail 30 mL, Route: PO, Dosing Weight 85.909, kg, ONCE, STAT, Start date: 02/25/14 20:28:00, Stop date: 02/25/14 20:28:00 Inactive 02/26/2014 [facility] [place] pantoprazole 40 mg, Route: IVP, ONCE, Dosing Weight 85.909, kg, Priority: STAT, Start date: 02/25/14 20:28:00, Stop date: 02/25/14 20:28:00 Inactive 02/26/2014 [facility] [place] Saline Flush 0.9% 5 mL, Route: IVP, Drug Form: INJ, Dosing Weight 85.909, kg, PRN, PRN Line Flush, Start date: 02/25/14 19:26:00, Duration: 24 hr, Stop date: 02/26/14 19:25:00Notes: (Same as: BD Posiflush) No Longer Active 02/26/2014 [facility] [place] Sodium Chloride 0.154 MEQ/ML Injectable Solution 1,000 mL, 1000 ml/hr, Infuse Over: 1 hr, Route: IV, 1,000, Drug form: INJ, ONCE, Priority: STAT, Dosing Weight 85.909 kg, Start date: 02/25/14 19:26:00, Duration: 1 doses or times, Stop date: 02/25/14 19:26:00 Inactive 02/26/2014 [facility] [place] pantoprazole 40 MG Enteric Coated Tablet [Protonix] 40 mg=1 tab, PO, BID, # 30 tab, 0 Refill(s) Active 02/24/2014 [facility] [place] Sucralfate 100 MG/ML Oral Suspension [Carafate] 1 gm=10 ml, PO, QID-Before Meals, # 400 ml, 0 Refill(s) Active 02/24/2014 [facility] [place] Dicyclomine Hydrochloride 20 MG Oral Tablet [Bentyl] 20 mg=1 tab, PO, QID, as needed for pain, # 20 tab, 0 Refill(s) Active 02/24/2014 [facility] [place] Sodium Chloride 0.154 MEQ/ML Injectable Solution 1,000 mL, 1,000 ml/hr, Infuse Over: 1 hr, Route: IV, ONCE, Priority: STAT, Dosing Weight 81.818 kg, Start date: 02/23/14 18:16:00, Duration: 1 doses or times, Stop date: 02/23/14 18:16:00 Inactive 02/23/2014 [facility] [place] Dilaudid 1 mg, 1 mL, Route: IV, Drug form: INJ, ONCE, Dosing Weight 81.818, kg, Start date: 02/23/14 17:01:00, Stop date: 02/23/14 17:01:00Notes: Same as: Dilaudid Inactive 02/23/2014 [facility] [place] Sodium Chloride 0.154 MEQ/ML Injectable Solution 1,000 mL, 1,000 ml/hr, Infuse Over: 1 hr, Route: IV, ONCE, Priority: STAT, Dosing Weight 81.818 kg, Start date: 02/23/14 15:33:00, Duration: 1 doses or times, Stop date: 02/23/14 15:33:00 Inactive 02/23/2014 [facility] [place] Ondansetron 4 mg, Route: IVP, ONCE, Dosing Weight 81.818, kg, Priority: STAT, Start date: 02/23/14 15:27:00, Stop date: 02/23/14 15:27:00 Inactive 02/23/2014 [facility] [place] Morphine 4 mg, Route: IVP, ONCE, Dosing Weight 81.818, kg, Priority: STAT, Start date: 02/23/14 15:27:00, Stop date: 02/23/14 15:27:00 Inactive 02/23/2014 [facility] [place] chlorproMAZINE 200 mg oral tablet 0 Refill(s) Active 02/23/2014 [facility] [place] Lurasidone Hydrochloride 40 MG Oral Tablet [Latuda] 0 Refill(s) Active 02/23/2014 [facility] [place] traZODONE 150 mg oral tablet, extended release 0 Refill(s) Active 02/23/2014 [facility] [place] Sodium Chloride 0.9% (titrate) 250 mL 250 mL, Rate: [employer] for use with blood product administration., Dosing Weight 81.818, kg, Route: IV, Total Volume: 250, Priority: Routine, Start Date: 02/23/14 15:15:00, Duration: 30 day, Stop date: 03/25/14 15:14:00, Replace Every: 24 hr Inactive 02/23/2014 [facility] [place] Saline Flush 0.9% 5 mL, Route: IVP, Drug Form: INJ, Dosing Weight 81.818, kg, PRN, PRN Line Flush, Start date: 02/23/14 15:15:00, Duration: 30 day, Stop date: 03/25/14 15:14:00Notes: (Same as: BD Posiflush) Inactive 02/23/2014 [facility] [place] Tramadol 100 mg, 2 tab, Route: PO, Drug form: TAB, ONCE, Dosing Weight 86.364, kg, > 50 kg, Priority: STAT, Start date: 02/17/14 19:15:00, Stop date: 02/17/14 19:15:00Notes: Not to exceed 400mg/day. (Same As: Ultram) Inactive 02/18/2014 [facility] Acetaminophen 325 MG / Hydrocodone Bitartrate 10 MG Oral Tablet 1 tab, Route: PO, Drug Form: TAB, Dosing Weight 86.364, kg, ONCE, STAT, Start date: 02/17/14 17:36:00, Stop date: 02/17/14 17:36:00Notes: Do not exceed 4gm/day of acetaminophen. (Same as: Otterbein 325/10) Inactive 02/17/2014 [facility] Culturelle HS 80 mg, 1 cap, Route: PO, Drug Form: CAP, Dosing Weight 90.909, kg, [id number], Start date: 02/15/14 14:00:00, Duration: 30 day, Stop date: 03/17/14 2:00:00Notes: Same as Culturelle No Longer Active 02/15/2014 [facility] Protonix 40 mg, 1 tab, Route: PO, Drug form: ECTAB, Before Dinner, Start date: 02/13/14 17:32:00, Duration: 30 day, Stop date: 03/15/14 16:30:00Notes: Tablet should not be chewed or crushed. (Same as: Protonix) No Longer Active 02/13/2014 [facility] Levsin 0.125 mg, 1 tab, Route: PO, Drug form: TAB, QID, Dosing Weight 90.909, kg, PRN Spasm, Start date: 02/13/14 13:54:00, Duration: 30 day, Stop date: 03/15/14 13:53:00 No Longer Active 02/13/2014 [facility] Flumazenil 0.1 mg, 1 mL, Route: IVP, Drug form: INJ, Q5Min, Dosing Weight 90.909, kg, PRN Other -See Comment, Start date: 02/13/14 13:50:00, Duration: 30 day, Stop date: 03/15/14 13:49:00Notes: (Same as: Shara con) No Longer Active 02/13/2014 [facility] Naloxone 0.1 mg, 0.25 mL, Route: IVP, Drug form: INJ, Q2MIN, Dosing Weight 90.909, kg, PRN Narcotic Reversal, Start date: 02/13/14 13:50:00, Duration: 4 doses or times, Stop date: Limited # of timesNotes: Same as Narcan No Longer Active 02/13/2014 [facility] Sodium Chloride 0.154 MEQ/ML Injectable Solution 500 mL, 500 ml/hr, Infuse Over: 1 hr, Route: IV, 500, Drug form: INJ, ONCE, Dosing Weight 90.909 kg, Start date: 02/13/14 12:26:00, Stop date: 02/13/14 12:26:00, Bolus Inactive 02/13/2014 [facility] Sucralfate 100 MG/ML Oral Suspension [Carafate] 1 gm, 10 mL, Route: PO, Drug form: SUSP, QID-Before Meals, Dosing Weight 90.909, kg, Start date: 02/12/14 16:30:00, Duration: 30 day, Stop date: 03/14/14 11:30:00Notes: Enteral feeds may interfere with the absorption of this medication. Shake well. Take 1 hr before or 2 hrs after antacids, dairy pdt, minerals & meals. (Same As: Carafate) No Longer Active 02/12/2014 [facility] pantoprazole 40 mg, 1 pkt, Route: GT, Drug form: GRAN/REC, Before Dinner, Dosing Weight 90.909, kg, Start date: 02/12/14 16:30:00, Duration: 30 day, Stop date: 03/13/14 16:30:00Notes: Same as: Protonix Mix in 5 mL apple juice or applesauce for oral & 10mL apple juice for NG tube No Longer Active 02/12/2014 [facility] Levsin SL 0.125 mg, 1 tab, Route: SL, Drug form: TAB, Q4H, Dosing Weight 90.909, kg, PRN Pain, Start date: 02/12/14 12:24:00, Duration: 30 day, Stop date: 03/14/14 12:23:00Notes: (Same as: Levsin) Take 30 min before meal No Longer Active 02/12/2014 [facility] Dilaudid 0.5 mg, 0.5 mL, Route: IV, Drug form: INJ, Q4H, Dosing Weight 86.818, kg, Start date: 02/12/14 0:00:00, Duration: 30 day, Stop date: 03/13/14 20:00:00 No Longer Active 02/12/2014 [facility] Temazepam 30 mg, 2 cap, Route: PO, Drug form: CAP, Bedtime, Dosing Weight 90.909, kg, Start date: 02/11/14 22:00:00, Duration: 30 day, Stop date: 03/13/14 21:00:00Notes: (Same As: Restoril) No Longer Active 02/12/2014 [facility] Trazodone 300 mg, 3 tab, Route: PO, Drug form: TAB, Bedtime, Dosing Weight 90.909, kg, Start date: 02/11/14 22:00:00, Duration: 30 day, Stop date: 03/13/14 21:00:00Notes: (Same As: Desyrel) No Longer Active 02/12/2014 [facility] Geodon 160 mg, 2 cap, Route: PO, Drug form: CAP, Bedtime, Dosing Weight 90.909, kg, Start date: 02/11/14 22:00:00, Duration: 30 day, Stop date: 03/13/14 21:00:00Notes: (Same As: Geodon) No Longer Active 02/12/2014 [facility] Cogentin 0.5 mg, 1 tab, Route: PO, Drug form: TAB, Bedtime, Dosing Weight 90.909, kg, Start date: 02/11/14 22:00:00, Duration: 30 day, Stop date: 03/13/14 21:00:00Notes: (Same As: Cogentin) No Longer Active 02/12/2014 [facility] Dilaudid 1 mg, 1 mL, Route: IV, Drug form: INJ, Q4H, Dosing Weight 90.909, kg, PRN Pain, Start date: 02/11/14 21:43:00, Duration: 30 day, Stop date: 03/13/14 21:42:00 No Longer Active 02/12/2014 [facility] Esomeprazole 40 MG Enteric Coated Capsule [Nexium] 40 mg=1 cap, PO, BID, 0 Refill(s) Active 02/12/2014 [facility] Phenergan 25 mg, 1 mL, Route: IVPB, Q6H, Dosing Weight 86.818, kg, Priority: STAT, Start date: 02/11/14 20:39:00, Duration: 30 day, Stop date: 03/13/14 15:00:00Notes: Do not give IV push. (Same as: Phenergan) No Longer Active 02/12/2014 [facility] Sodium Chloride 0.154 MEQ/ML Injectable Solution 1,000 mL, Rate: 125 ml/hr, Infuse over: 8 hr, Route: IV, Dosing Weight 86.818 kg, Total Volume: 1,000, Start date: 02/11/14 20:39:00, Duration: 30 day, Stop date: 03/13/14 20:38:00 No Longer Active 02/12/2014 [facility] Saline Flush 0.9% 5 ml, Route: IVP, Drug Form: INJ, Dosing Weight 86.818, kg, PRN, PRN Line Flush, Start date: 02/11/14 20:39:00, Duration: 30 day, Stop date: 03/13/14 20:38:00Notes: (Same as: BD Posiflush) No Longer Active 02/12/2014 [facility] Dilaudid 0.5 mg, 0.5 mL, Route: IV, Drug form: INJ, ONCE, Dosing Weight 86.818, kg, Start date: 02/11/14 19:33:00, Stop date: 02/11/14 19:33:00 Inactive 02/12/2014 [facility] Phenergan 25 mg, Route: IVPB, ONCE, Dosing Weight 86.818, kg, Priority: STAT, Start date: 02/11/14 17:15:00, Stop date: 02/11/14 17:15:00 Inactive 02/11/2014 [facility] Dilaudid 0.5 mg, Route: IV, ONCE, Dosing Weight 86.818, kg, Start date: 02/11/14 16:42:00, Stop date: 02/11/14 16:42:00 Inactive 02/11/2014 [facility] Phenergan 25 mg, Route: IVPB, ONCE, Dosing Weight 86.818, kg, Priority: STAT, Start date: 02/11/14 15:33:00, Stop date: 02/11/14 15:33:00 Inactive 02/11/2014 [facility] Reglan 10 mg, Route: IVP, Drug form: INJ, ONCE, Dosing Weight 86.818, kg, Priority: STAT, Start date: 02/11/14 14:47:00, Stop date: 02/11/14 14:47:00 Inactive 02/11/2014 [facility] Morphine 4 mg, Route: IVP, Drug form: INJ, ONCE, Dosing Weight 86.818, kg, Priority: STAT, Start date: 02/11/14 14:46:00, Stop date: 02/11/14 14:46:00 Inactive 02/11/2014 [facility] Sodium Chloride 0.154 MEQ/ML Injectable Solution 1,000 mL, 1,000 ml/hr, Infuse Over: 1 hr, Route: IV, ONCE, Priority: STAT, Dosing Weight 86.818 kg, Start date: 02/11/14 14:46:00, Duration: 1 doses or times, Stop date: 02/11/14 14:46:00 Inactive 02/11/2014 [facility] tramadol hydrochloride 50 MG Oral Tablet 50 mg=1 tab, PO, Q6H, Pain, # 5 tab, 0 Refill(s) Active 02/04/2014 [facility] Dilaudid 0.5 mg, 0.5 mL, Route: IV, Drug form: INJ, ONCE, Dosing Weight 86.818, kg, Start date: 02/03/14 20:06:00, Stop date: 02/03/14 20:06:00 Inactive 02/04/2014 [facility] Ativan 1 mg, 0.5 mL, Route: IVP, Drug form: INJ, ONCE, Dosing Weight 86.818, kg, Priority: STAT, Start date: 02/03/14 18:36:00, Stop date: 02/03/14 18:36:00Notes: (Same as: Ativan) Inactive 02/03/2014 [facility] Saline Flush 0.9% 5 mL, Route: IVP, Drug Form: INJ, Dosing Weight 86.818, kg, Q8H, PRN Line Flush, Start date: 02/03/14 18:35:00, Duration: 30 day, Stop date: 03/05/14 18:34:00, Administer at least once every 8 hoursSpecial Instructions: Administer at least once every 8 hoursNotes: (Same as: BD Posiflush) Inactive 02/03/2014 [facility] Aspirin / Calcium Carbonate 324 mg, 4 tab, Route: PO, Drug form: CHEWTAB, ONCE, Dosing Weight 86.818, kg, Priority: STAT, Start date: 02/03/14 18:35:00, Stop date: 02/03/14 18:35:00Notes: Take with food. Inactive 02/03/2014 [facility] pantoprazole 40 mg oral enteric coated tablet 40 mg=1 tab, PO, Daily, # 30 tab, 0 Refill(s) Active 01/24/2014 [facility] Sucralfate 1000 MG Oral Tablet [Carafate] 1 gm=1 tab, PO, QID-Before Meals, # 120 tab, 0 Refill(s) Active 01/24/2014 [facility] Phenergan 12.5 mg, Route: IVPB, ONCE, Dosing Weight 88.636, kg, Priority: STAT, Start date: 01/23/14 21:54:00, Stop date: 01/23/14 21:54:00 Inactive 01/24/2014 [facility] Morphine 4 mg, Route: IVP, Drug form: INJ, ONCE, Dosing Weight 88.636, kg, Priority: STAT, Start date: 01/23/14 21:54:00, Stop date: 01/23/14 21:54:00 Inactive 01/24/2014 [facility] Nitroglycerin 0.4 mg, 1 tab, Route: SL, Drug form: TAB, Q5Min, Dosing Weight 88.636, kg, Start date: 01/23/14 21:15:00, Duration: 30 day, Stop date: 02/22/14 21:10:00Notes: (Same as:Nitroquick, Nitrostat) "Do Not Crush" Sublingual tablet No Longer Active 01/24/2014 [facility] Acetaminophen 325 MG / Hydrocodone Bitartrate 10 MG Oral Tablet [Otterbein 10/325] 1 tab, Route: PO, Dosing Weight 88.636, kg, ONCE, Start date: 01/23/14 21:08:00, Stop date: 01/23/14 21:08:00 Inactive 01/24/2014 [facility] Zofran 4 mg, Route: IVP, Drug form: INJ, ONCE, Dosing Weight 88.636, kg, Priority: STAT, Start date: 01/23/14 21:06:00, Stop date: 01/23/14 21:06:00 Inactive 01/24/2014 [facility] Acetaminophen 325 MG / Hydrocodone Bitartrate 10 MG Oral Tablet [Otterbein 10/325] 1 tab, PO, Q6H, as needed for pain, # 16 tab, 0 Refill(s) Active 12/15/2013 [facility] Promethazine Hydrochloride 25 MG Oral Tablet [Phenergan] 25 mg=1 tab, PO, Q4H, Nausea, # 15 tab, 0 Refill(s) Active 12/15/2013 [facility] Metronidazole 500 MG Oral Tablet [Flagyl] 500 mg=1 tab, PO, Q6H, # 40 tab, 0 Refill(s) Active 12/15/2013 [facility] ciprofloxacin 750 mg oral tablet 750 mg=1 tab, PO, Q12H, # 20 tab, 0 Refill(s) Active 12/15/2013 [facility] Hydromorphone 0.5 mg, Route: IVP, ONCE, Dosing Weight 86.364, kg, Priority: STAT, Start date: 12/15/13 4:41:00, Stop date: 12/15/13 4:41:00 Inactive 12/15/2013 [facility] Ondansetron 4 mg, 2 mL, Route: IVP, Drug form: INJ, ONCE, Dosing Weight 86.364, kg, Priority: STAT, Start date: 12/15/13 3:09:00, Stop date: 12/15/13 3:09:00(Same as: Zofran) Inactive 12/15/2013 [facility] Hydromorphone 1 mg, 1 mL, Route: IVP, Drug form: INJ, ONCE, Dosing Weight 86.364, kg, PRN as needed for pain, Priority: STAT, Start date: 12/15/13 3:09:00 Inactive 12/15/2013 [facility] Sodium Chloride 0.9% (Bolus) IV 1,000 mL 1,000 mL, Rate: 1,000 ml/hr, Infuse over: 1 hr, Route: IV, Dosing Weight 86.364 kg, Total Volume: 1,000, Priority: STAT, Start date: 12/15/13 3:09:00, Duration: 1 doses or times, Stop date: 12/15/13 4:08:00, Bolus DoseBolus Dose Inactive 12/15/2013 [facility] Levsin 0.125 mg, Route: PO, ONCE, Dosing Weight 86.364, kg, Start date: 12/15/13 2:51:00, Stop date: 12/15/13 2:51:00 Inactive 12/15/2013 [facility] Cyclobenzaprine hydrochloride 10 MG Oral Tablet [Flexeril] 10 mg=1 tab, PO, TID, for spasm, # 30 tab, 0 Refill(s) Active 11/14/2013 [facility] tramadol hydrochloride 50 MG Oral Tablet [Ultram] 50 mg=1 tab, PO, Q4H, pain, # 20 tab, 0 Refill(s) Active 11/14/2013 [facility] Acetaminophen 325 MG / Hydrocodone Bitartrate 5 MG Oral Tablet [Otterbein 5/325] 1 tab, Route: PO, Dosing Weight 83.636, kg, ONCE, Start date: 11/14/13 1:50:00, Stop date: 11/14/13 1:50:00 Inactive 11/14/2013 [facility] Zofran 4 mg, Route: IVP, Drug form: INJ, ONCE, Dosing Weight 83.636, kg, Priority: STAT, Start date: 11/13/13 23:22:00, Stop date: 11/13/13 23:22:00 In[facility] 11/14/2013 [facility] [facility] Morph[facility] 4 mg, Route: IVP, ONCE, Dosing Weight 83.636, kg, Priority: STAT, Start date: 11/13/13 23:22:00, Stop date: 11/13/13 23:22:00 Inactive 11/14/2013 [facility] Sodium Chloride 0.9% (Bolus) IV 1000 mL 1,000 mL, Rate: 1,000 ml/hr, Infuse over: 1 hr, Route: IV, Dosing Weight 83.636 kg, Total Volume: 1,000, Priority: STAT, Start date: 11/13/13 23:22:00, Duration: 1 doses or times, Stop date: 11/14/13 0:21:00, Bolus DoseBolus Dose Inactive 11/14/2013 [facility] Tylenol 650 mg, Route: PO, ONCE, Dosing Weight 86.364, kg, Priority: STAT, Start date: 08/12/13 17:50:00, Stop date: 08/12/13 17:50:00 Inactive [facility] 08/12/2013 [facility] Proventil HFA 90 mcg/inh inhalation aerosol with adapter 1-2 puffs inhaled, INHALATION, QID, PRN, with spacer and mask, 1 unit, for wheezing, Substitution Allowed, Maintenance, AEROwith spacer and mask Active [facility] 08/12/2013 [facility] Otterbein 5/325 oral tablet 1-2 tab, PO, Q4-6H, PRN, 14 tab, Pain, Substitution Allowed, Maintenance Active [facility] 08/12/2013 [facility] Zofran ODT 4 mg oral tablet, disintegrating 4 mg, 1 tab, PO, BID, PRN, Dissolve tab under tongue, 10 tab, Nausea and Vomiting, Substitution AllowedDissolve tab under tongue Active [facility] 08/12/2013 [facility] Levaquin 750 mg oral tablet 750 mg, 1 tab, PO, Q24H, 5 tab, Substitution Allowed, TAB Active [facility] 08/12/2013 [facility] azithromycin 250 mg oral tablet 1 gm, 4 tab, Route: PO, Drug form: TAB, ONCE, Dosing Weight 86.364, kg, Start date: 08/12/13 15:54:00, Stop date: 08/12/13 15:54:00Take 1 hour before or 2 hours after meals. (Same As: Zithromax) Inactive [facility] 08/12/2013 [facility] ceftriaxone + Sodium Chloride 0.9% IV 100 mL 1 gm, Route: IVPB, Drug form: PDR/INJ, ONCE, Dosing Weight 86.364, kg, Priority: STAT, Start date: 08/12/13 13:57:00, Stop date: 08/12/13 13:57:00(Same As: Rocephin). Use with 100ml NS mini-bag PLUS and infuse over 30 min Inactive [facility] 08/12/2013 [facility] Zithromax 500 mg oral tablet 1 gm, 1 pkt, Route: PO, Drug form: PCKT, ONCE, Dosing Weight 86.364, kg, Start date: 08/12/13 13:57:00, Stop date: 08/12/13 13:57:00(Same As: Zithromax) Take 1 hour before or 2 hours after meal Inactive [facility] 08/12/2013 [facility] DuoNeb inhalation solution 3 ml, Route: INHALATION, Drug Form: SOLN, Dosing Weight 86.364, kg, ONCE, Start date: 08/12/13 13:55:00, Stop date: 08/12/13 13:55:00(Same as: Duoneb) Inactive [facility] 08/12/2013 [facility] morphine Sulfate 4 mg, 2 mL, Route: IVP, Drug form: INJ, ONCE, Dosing Weight 86.364, kg, Priority: STAT, Start date: 08/12/13 13:55:00, Stop date: 08/12/13 13:55:00(Same as:MORPhine Sulfate) Inactive [facility] 08/12/2013 [facility] Zofran 4 mg, 2 mL, Route: IVP, Drug form: INJ, ONCE, Dosing Weight 86.364, kg, Priority: STAT, Start date: 08/12/13 13:55:00, Stop date: 08/12/13 13:55:00(Same as: Zofran) Inactive [facility] 08/12/2013 [facility] Sodium Chloride 0.9% (Bolus) IV 1,000 mL 1,000 mL, Rate: 1000 ml/hr, Infuse over: 1 hr, Route: IV, Dosing Weight 86.364 kg, Total Volume: 1,000, Priority: STAT, Start date: 08/12/13 13:54:00, Duration: 1 doses or times, Stop date: 08/12/13 14:53:00, Bolus DoseBolus Dose Inactive [facility] 08/12/2013 [facility] Tylenol 650 mg, Route: PO, ONCE, Dosing Weight 86.364, kg, Priority: STAT, Start date: 08/12/13 12:16:00, Stop date: 08/12/13 12:16:00 Inactive [place] 08/12/2013 [facility] temazepam 30 mg, PO, Bedtime, Substitution Allowed PO Active 05/15/2013 [facility] [place] Lamictal 200 mg oral tablet 200 mg, 1 tab, PO, Daily, Substitution Allowed PO Active 05/15/2013 [facility] [place] ONAbotulinumtoxinA Route: IM, Drug form: INJ, ONCALL, Start date: 05/15/13 7:00:00, Stop date: 05/15/13 23:00:00 IM No Longer Active [place] 05/15/2013 [facility] [place] enoxaparin 40 mg, 0.4 mL, Route: SUB-Q, Drug form: INJ, [id number], Dosing Weight 104, kg, Start date: 11/21/12 14:00:00, Duration: 30 day, Stop date: 12/20/12 14:00:00 SUB-Q No Longer Active [place] 11/21/2012 [facility] Otterbein 5/325 oral tablet 1-2 tab, PO, Q4-6H, PRN, 20 tab, 0, 0, Pain, Substitution Allowed, Maintenance PO Active [facility] 11/21/2012 [facility] clindamycin 300 mg oral capsule 300 mg, 1 cap, PO, TID, 21 cap, Substitution Allowed PO Active [place] 11/21/2012 [facility] morphine Sulfate 3 mg, 1.5 mL, Route: IV, Drug form: INJ, Q3H, Dosing Weight 104, kg, PRN as needed for pain, Start date: 11/20/12 12:54:00, Duration: 30 day, Stop date: 12/20/12 12:53:00 IV No Longer Active [place] 11/20/2012 [facility] ziprasidone 160 mg, Route: PO, Drug form: CAP, Daily, Dosing Weight 104, kg, Start date: 11/20/12 9:00:00, Duration: 30 day, Stop date: 12/19/12 9:00:00 PO No Longer Active [place] 11/20/2012 [facility] venlafaxine 150 mg, 2 cap, Route: PO, Drug form: ERCAP, Daily, Dosing Weight 104, kg, Start date: 11/20/12 9:00:00, Duration: 30 day, Stop date: 12/19/12 9:00:00 PO No Longer Active [place] 11/20/2012 [facility] benztropine 2 mg, 2 tab, Route: PO, Drug form: TAB, BID, Dosing Weight 104, kg, Start date: 11/20/12 9:00:00, Duration: 30 day, Stop date: 12/19/12 17:00:00 PO No Longer Active [place] 11/20/2012 [facility] lamotrigine 200 mg oral tablet, extended release 200 mg, 1 tab, Route: PO, Drug form: ERTAB, Daily, Dosing Weight 104, kg, Start date: 11/20/12 9:00:00, Duration: 30 day, Stop date: 12/19/12 9:00:00 PO No Longer Active [place] 11/20/2012 [facility] Cymbalta 60 mg, Route: PO, Drug form: DRC, BID, Dosing Weight 104, kg, Start date: 11/20/12 9:00:00, Duration: 30 day, Stop date: 12/19/12 17:00:00 PO No Longer Active [place] 11/20/2012 [facility] Dexilant 60 mg, Route: PO, Drug form: DRC, Daily, Dosing Weight 104, kg, Start date: 11/20/12 9:00:00, Duration: 30 day, Stop date: 12/19/12 9:00:00 PO No Longer Active [place] 11/20/2012 [facility] Premarin 0.625 mg, 1 tab, Route: PO, Drug form: TAB, Daily, Dosing Weight 104, kg, Start date: 11/20/12 9:00:00, Duration: 30 day, Stop date: 12/19/12 9:00:00 PO No Longer Active [place] 11/20/2012 [facility] Klonopin 2 mg, Route: PO, TID, Dosing Weight 104, kg, Start date: 11/20/12 9:00:00, Duration: 30 day, Stop date: 12/19/12 17:00:00 PO No Longer Active [place] 11/20/2012 [facility] clonazepam 1 mg, 2 tab, Route: PO, Drug form: TAB, BID, Dosing Weight 104, kg, Start date: 11/20/12 9:00:00, Duration: 30 day, Stop date: 12/19/12 17:00:00 PO No Longer Active [place] 11/20/2012 [facility] pt own lamotrigine extended release pt own lamotrigine extended release, 200 mg, Drug form: MISC, Route: PO, Daily, 11/20/12 9:00:00, Duration: 30 day, Stop date: 12/19/12 9:00:00 PO No Longer Active [place] 11/20/2012 [facility] Protonix 40 mg, 1 tab, Route: PO, Drug form: ECTAB, Before Breakfast, Start date: 11/20/12 6:30:00, Duration: 30 day, Stop date: 12/19/12 6:30:00 PO No Longer Active [place] 11/20/2012 [facility] have [facility] verify & bar-code pt own lamotrigine 200mg ERT have [facility] verify & bar-code pt own lamotrigine 200mg ERT, 1 attn notice, Drug form: MISC, Route: MISC, QSHIFT, 11/20/12 0:00:00, Duration: 30 day, Stop date: 12/19/12 16:00:00 MISC No Longer Active [place] 11/20/2012 [facility] Geodon 160 mg, 2 cap, Route: PO, Drug form: CAP, Bedtime, Dosing Weight 104, kg, Start date: 11/19/12 21:00:00, Duration: 30 day, Stop date: 12/18/12 21:00:00 PO No Longer Active [place] 11/20/2012 [facility] temazepam 30 mg, 2 cap, Route: PO, Drug form: CAP, Bedtime, Dosing Weight 104, kg, Start date: 11/19/12 21:00:00, Duration: 30 day, Stop date: 12/18/12 21:00:00 PO No Longer Active [place] 11/20/2012 [facility] Cogentin 0.5 mg, 1 tab, Route: PO, Drug form: TAB, Bedtime, Dosing Weight 104, kg, Start date: 11/19/12 21:00:00, Duration: 30 day, Stop date: 12/18/12 21:00:00 PO No Longer Active [place] 11/20/2012 [facility] acetaminophen-hydrocodone 325 mg-5 mg oral tablet 1 tab, Route: PO, Drug Form: TAB, Q4H, PRN Breakthrough Pain, Start date: 11/19/12 16:32:00, Duration: 30 day, Stop date: 12/19/12 16:31:00 PO No Longer Active [place] 11/19/2012 [facility] clindamycin + Sodium Chloride 0.9% IV 100 mL 900 mg, 6 mL, Route: IVPB, [id number], Dosing Weight 104, kg, Start date: 11/19/12 9:00:00, Duration: 30 day, Stop date: 12/19/12 1:00:00 IVPB No Longer Active [facility] 11/19/2012 [facility] Saline Flush 0.9% 5 ml, Route: IVP, Drug Form: INJ, Dosing Weight 104.545, kg, PRN, PRN Line Flush, Start date: 11/19/12 2:56:00, Duration: 30 day, Stop date: 12/19/12 3:55:00 IVP No Longer Active [facility] 11/19/2012 [facility] acetaminophen 650 mg, 2 tab, Route: PO, Drug form: TAB, Q4H, Dosing Weight 104.545, kg, PRN Pain/Fever, Start date: 11/19/12 2:56:00, Duration: 30 day, Stop date: 12/19/12 2:55:00 PO No Longer Active [facility] 11/19/2012 [facility] morphine Sulfate 2 mg, 1 mL, Route: IVP, Drug form: INJ, Q3H, Dosing Weight 104.545, kg, PRN Pain Score 4-6, Start date: 11/19/12 2:56:00, Duration: 30 day, Stop date: 12/19/12 2:55:00 IVP No Longer Active [place] [facility] 11/19/2012 [facility] ondansetron 4 mg, 2 mL, Route: IVP, Drug form: INJ, Q6H, Dosing Weight 104.545, kg, PRN Nausea & Vomiting, Start date: 11/19/12 2:56:00, Duration: 30 day, Stop date: 12/19/12 2:55:00 IVP No Longer Active [facility] 11/19/2012 [facility] Nasonex 50 mcg/inh nasal spray 2 spray, NASAL, Daily, PRN for allergy symptoms, 17 gm, Substitute Allowed, SPRY NASAL Active 11/19/2012 [facility] benztropine 2 mg oral tablet 2 mg, 1 tab, PO, BID, 180 tab, Substitution Allowed, TAB PO Active 11/19/2012 [facility] lamotrigine 200 mg oral tablet, extended release 200 mg, 1 tab, PO, Daily, 30 tab, Substitution Allowed, ERTAB PO Active 11/19/2012 [facility] ziprasidone 80 mg oral capsule 160 mg, 2 cap, PO, Daily, 180 cap, Substitution Allowed, CAP PO Active 11/19/2012 [facility] venlafaxine 150 mg oral tablet, extended release 150 mg, 1 tab, PO, Daily, 30 tab, Substitution Allowed, ERTAB PO Active 11/19/2012 [facility] Premarin 0.625 mg oral tablet 0.625 mg, 1 tab, PO, Daily, 90 tab, Substitution Allowed, TAB PO Active 11/19/2012 [facility] Dexilant 60 mg oral delayed release capsule 60 mg, 1 cap, PO, Daily, Substitution Allowed PO Active 11/19/2012 [facility] clonazepam 1 mg oral tablet 1 mg, 1 tab, PO, BID, Substitution Allowed, TAB PO Active 11/19/2012 [facility] Vicodin 5/500 oral tablet 1 tab, PO, Q4H, PRN, 20 tab, for pain, Substitution Allowed, Maintenance, TAB PO Active [place] 11/19/2012 [facility] clindamycin 150 mg oral capsule 150 mg, 1 cap, PO, Q6H, 40 cap, Substitution Allowed PO No Longer Active [facility] 11/19/2012 [facility] ondansetron 4 mg, 2 mL, Route: IVP, Drug form: INJ, ONCE, Dosing Weight 104.545, kg, Priority: STAT, Start date: 11/18/12 23:11:00, Stop date: 11/18/12 23:11:00 IVP No Longer Active [place] 11/19/2012 [facility] morphine Sulfate 4 mg, 2 mL, Route: IVP, Drug form: INJ, ONCE, Dosing Weight 104.545, kg, Priority: STAT, Start date: 11/18/12 23:11:00, Stop date: 11/18/12 23:11:00 IVP No Longer Active [place] 11/19/2012 [facility] clindamycin + Sodium Chloride 0.9% IV 100 mL 900 mg, 6 mL, Route: IVPB, ONCE, Dosing Weight 104.545, kg, Priority: STAT, Start date: 11/18/12 23:11:00, Stop date: 11/18/12 23:11:00 IVPB No Longer Active [place] 11/19/2012 [facility] Klonopin 1 tablet Orally Active 0.5 MG Orally Three times a day Najam Cecy Najam Hydroxychloroquine Sulfate 2 tabs Orally Active 200 MG Orally Once a day Najam Cecy Najam Trileptal not defined Orally Active 300 MG Orally Najam Cecy Najam Trazodone HCl 1 tablet at bedtime as needed Orally Active 50 MG Orally Once a day Najam Cecy Najam Protonix 1 tablet Orally Active 40 MG Orally Twice a day Najam Cecy Najam Depakote 1 tab in AM, 2 tabs in PM Orally Active 250 MG Orally Twice a day Najam Cecy Najam Geodon 1 capsule with food Orally Active 80 MG Orally Twice a day Najam Cecy Najam Prozac 1 capsule in the morning Orally Active 20 MG Orally Once a day Najam Cecy Najam Methotrexate 4 tabs Orally Active 2.5 mg Orally Once a week Najam Cecy Najam Klonopin 1 tablet Orally Active 0.5 MG Orally Three times a day Najam Cecy Najam Protonix 1 tablet Orally Active 40 MG Orally Twice a day Najam Cecy Najam Prozac 1 capsule in the morning Orally Active 20 MG Orally Once a day Najam Cecy Najam Depakote 1 tab in AM, 2 tabs in PM Orally Active 250 MG Orally Twice a day Najam Cecy Najam Trazodone HCl 1 tablet at bedtime as needed Orally Active 50 MG Orally Once a day Najam Cecy Najam Geodon 1 capsule with food Orally Active 80 MG Orally Twice a day Najam Cecy Najam Enbrel SureClick 1 ml Subcutaneous Active 50 MG/ML Subcutaneous Once a week Najam Cecy Najam Folic Acid 1 tablet Orally Active 1 mg Orally Once a day Najam Cecy Najam Celecoxib 1 capsule with food Orally Active 200 MG Orally Twice a day Najam Cecy Najam Otterbein 1 tablet as needed Orally Active 10-325 MG Orally every 6 hrs Najam Cecy Najam Tylenol/Codeine #4 1 tablet as needed Orally Active 300-60 MG Orally every 6 hrs Najam Cecy Najam Lamictal 2 tablets Orally Active 100 MG Orally daily Najam Cecy Najam Hydroxychloroquine Sulfate 2 tabs Orally Active 200 MG Orally Once a day Victor Manuel Rush Thorazine 1 tab Oral Active Oral Victor Manuel Rush Prozac 1 capsule in the morning Orally Active 40 MG Orally Once a day Victor Manuel Rush Klonopin 1 tablet Orally Active 1 mg Orally daily Victor Manuel Rush Promethazine HCl 1 tablet as needed Orally Active 25 MG Orally every 12 hrs for nausea Victor Manuel Rush Allergies, Adverse Reactions, Alerts Substance Category Reaction Severity Reaction type Status Date Reported Comments Source tramadol Adverse Reaction Info Not Available Adverse Reaction Active 01/04/2018 Cecy Rush imitrex Adverse Reaction Info Not Available Adverse Reaction Active 01/04/2018 Cecy Rush toradol Adverse Reaction Info Not Available Adverse Reaction Active 01/04/2018 Cecy Rush motrin Adverse Reaction Info Not Available Adverse Reaction Active 01/04/2018 Cecy Rush Imitrex Assertion Drug allergy Active [facility] Motrin Assertion Drug allergy Active [facility] Toradol Assertion Drug allergy Active [facility] Zomig Assertion Drug allergy Active [facility] Food Seafood<sup>1</sup> Assertion Medium Food allergy Active 1PATIENT STATES SHE BREAKS OUT [facility] Immunizations Immunization Date Given Site Status Last Updated Comments Source Results Order Name Results Value Reference Range Date Interpretation Comments Source CARDIAC ENZYMES CK MB Index null 0.0 - 2.5 06/05/2014 [facility] CARDIAC ENZYMES Total CK 171 unit/L 12 - 191 06/05/2014 [facility] CARDIAC ENZYMES CK MB null 0.5 - 3.6 06/05/2014 [facility] CARDIAC ENZYMES Troponin-I null 0.00 - 0.40 06/05/2014 [facility] CHEM PANEL Lipase Lvl 106 unit/L 73 - 393 06/05/2014 [facility] CHEM PANEL eGFR 127 mL/min/1.73m2 06/05/2014 1Result Comment: The eGFR is calculated using the CKD-EPI formula. In most young, healthy individuals the eGFR will be >90 mL/min/1.73m2. The eGFR declines with age. An eGFR of 60-89 may be normal in some populations, particularly the elderly, for whom the CKD-EPI formula has not been extensively validated. Use of the eGFR is not recommended in the following populations: Individuals with unstable creatinine concentrations, including patients and those with serious co-morbid conditions. Patients with extremes in muscle mass or diet. The data above are obtained from the National Kidney Disease Education Program (NKDEP) which additionally recommends that when the eGFR is used in patients with extremes of body mass index for purposes of drug dosing, the eGFR should be multiplied by the estimated BMI. [facility] CHEM PANEL A/G Ratio 1.1 0.7 - 1.6 06/05/2014 [facility] CHEM PANEL B/C Ratio 8 6 - 25 06/05/2014 [facility] CHEM PANEL Globulin 3.4 g/dL 2.0 - 4.0 06/05/2014 [facility] CHEM PANEL AGAP 12.0 meq/L 10.0 - 20.0 06/05/2014 [facility] CHEM PANEL Alk Phos 83 unit/L 39 - 136 06/05/2014 [facility] CHEM PANEL Bili Total 0.5 mg/dL 0.2 - 1.3 06/05/2014 [facility] CHEM PANEL Chloride Lvl 107 meq/L 95 - 109 06/05/2014 [facility] CHEM PANEL Creatinine Lvl 0.5 mg/dL 0.5 - 1.4 06/05/2014 [facility] CHEM PANEL Sodium Lvl 138 meq/L 135 - 145 06/05/2014 [facility] CHEM PANEL Calcium Lvl 9.4 mg/dL 8.5 - 10.5 06/05/2014 [facility] CHEM PANEL CO2 24 meq/L 24 - 32 06/05/2014 [facility] CHEM PANEL Potassium Lvl 5.0 meq/L 3.5 - 5.1 06/05/2014 [facility] CHEM PANEL BUN 4 mg/dL 7 - 22 06/05/2014 [facility] CHEM PANEL Glucose Lvl 89 mg/dL 70 - 99 06/05/2014 2Interpretive Data: Adult reference range values reflect the clinical guidelines of the [place] [employer]. [facility] CHEM PANEL AST 30 unit/L 0 - 37 06/05/2014 [facility] CHEM PANEL ALT 33 unit/L 0 - 65 06/05/2014 [facility] CHEM PANEL Total Protein 7.0 g/dL 6.4 - 8.4 06/05/2014 [facility] CHEM PANEL Albumin Lvl 3.6 g/dL 3.5 - 5.0 06/05/2014 [facility] CHEM PANEL Ammonia 37.0 umol/L <=45.0 uMol/L 06/05/2014 [facility] DRUG SCREEN UDS Note See Note 3 (06/05/14 12:15 PM) 06/05/2014 3Interpretive Data: Drugs reported as positive have not been confirmed by a second method and should be used for medical purposes only. To order confirmation, contact laboratory. note: Below are cut-off concentrations for all urine drugs of abuse performed in the laboratory. Some drugs listed in the table may not be included in this panel. Description Cut-off concentration Amphetamine 1000 ng/mL Barbiturates 200 ng/mL Benzodiazepines 300 ng/mL Cocaine metabolites 300 ng/mL Opiates 300 ng/mL Phencyclidine 25 ng/mL Propoxyphene 300 ng/mL Marijuana metabolites 50 ng/mL Methadone 300 ng/mL Urine alcohol 20 mg/dL [facility] DRUG SCREEN U Cannab Scr Negative *NA* (06/05/14 12:15 PM) Negative 06/05/2014 [facility] DRUG SCREEN U Phencyc Scr Negative *NA* (06/05/14 12:15 PM) Negative 06/05/2014 [facility] DRUG SCREEN U Opiate Scr Positive *ABN* (06/05/14 12:15 PM) Negative 06/05/2014 [facility] DRUG SCREEN U Amph Scr Negative *NA* (06/05/14 12:15 PM) Negative 06/05/2014 [facility] DRUG SCREEN U Cocaine Scr Negative *NA* (06/05/14 12:15 PM) Negative 06/05/2014 [facility] DRUG SCREEN U [place] Scr Negative *NA* (06/05/14 12:15 PM) Negative 06/05/2014 [facility] DRUG SCREEN U Benzodia Scr Negative *NA* (06/05/14 12:15 PM) Negative 06/05/2014 [facility] HEMATOLOGY Lymphocytes # 2.1 K/CMM 1.0 - 5.5 06/05/2014 [facility] HEMATOLOGY Segs-Bands # 8.1 K/CMM 1.5 - 8.1 06/05/2014 [facility] HEMATOLOGY Monocytes # 0.5 K/CMM 0.0 - 0.8 06/05/2014 [facility] HEMATOLOGY Eosinophils # 0.3 K/CMM 0.0 - 0.5 06/05/2014 [facility] Basophils # 0.1 K/CMM 0.0 - 0.2 06/05/2014 [facility] Lymphocytes 19.2 % 20.0 - 40.0 06/05/2014 [facility] Segs 73.0 % 45.0 - 75.0 06/05/2014 [facility] Monocytes 4.2 % 2.0 - 12.0 06/05/2014 [facility] Eosinophils 2.3 % 0.0 - 4.0 06/05/2014 [facility] Basophils 1.3 % 0.0 - 1.0 06/05/2014 [facility] PT 12.4 s 12.0 - 14.7 06/05/2014 [facility] INR 0.93 0.85 - 1.17 06/05/2014 4Interpretive Data: RECOMMENDED RANGES FOR PROTIME INR: 2.0-3.0 for most medical and surgical thromboembolic states. 2.5-3.5 for artificial heart valves and recurrent embolism. INR SHOULD BE USED ONLY FOR PATIENTS ON STABLE ANTICOAGULANT THERAPY. [facility] PTT 23.5 s 22.9 - 35.8 06/05/2014 5Interpretive Data: Heparin Therapeutic Range: 57 - 92 Seconds [facility] Platelet 251 K/CMM 133 - 450 06/05/2014 [facility] MPV 8.9 fL 7.4 - 10.4 06/05/2014 [facility] MCH 29.8 pg 27.0 - 31.0 06/05/2014 [facility] MCV 91.0 fL 80.0 - 98.0 06/05/2014 [facility] MCHC 32.7 g/dL 32.0 - 36.0 06/05/2014 [facility] RDW 15.8 % 11.5 - 14.5 06/05/2014 [facility] WBC 11.1 K/CMM 3.7 - 10.4 06/05/2014 [facility] RBC 4.13 M/CMM 4.20 - 5.40 06/05/2014 [facility] Hgb 12.3 g/dL 12.0 - 16.0 06/05/2014 [facility] Hct 37.6 % 36.0 - 48.0 06/05/2014 [facility] URINE AND STOOL UA Urobilinogen <=1.0 mg/dL 0.1 - 1.0 06/05/2014 [facility] URINE AND STOOL UA Color Ltyellow 06/05/2014 [facility] URINE AND STOOL UA Bacteria Occasional /HPF None Seen /HPF 06/05/2014 [facility] URINE AND STOOL UA Leuk Est Trace *ABN* (06/05/14 12:15 PM) Negative 06/05/2014 [facility] URINE AND STOOL UA RBC 1 /HPF 0 - 2 06/05/2014 [facility] URINE AND STOOL UA WBC 2 /HPF 0 - 5 06/05/2014 [facility] URINE AND STOOL UA Sq Epi Few /LPF Few /LPF 06/05/2014 [facility] URINE AND STOOL UA Ketones Negative mg/dL Negative mg/dL 06/05/2014 [facility] URINE AND STOOL UA Nitrite Positive *ABN* (06/05/14 12:15 PM) Negative 06/05/2014 [facility] URINE AND STOOL UA Blood Negative (06/05/14 12:15 PM) Negative 06/05/2014 [facility] URINE AND STOOL UA Bili Negative *NA* (06/05/14 12:15 PM) Negative 06/05/2014 [facility] URINE AND STOOL UA Glucose Negative mg/dL Negative mg/dL 06/05/2014 [facility] URINE AND STOOL UA Spec Grav 1.004 <=1.030 06/05/2014 [facility] URINE AND STOOL UA Turbidity Slight *ABN* (06/05/14 12:15 PM) Clear 06/05/2014 [facility] URINE AND STOOL UA Protein Negative mg/dL Negative mg/dL 06/05/2014 [facility] URINE AND STOOL UA pH 6.0 5.0 - 8.0 06/05/2014 [facility] URINE CHEM U Preg Negative (06/05/14 12:15 PM) Negative 06/05/2014 [facility] Brain Stroke wo contrast CT Brain Stroke wo contrast CT CT Head no contrast: COMPARISON: 02/03/2014 CLINICAL HX: Headache, dizziness TECHNIQUE: Contiguous transaxial images of the brain were performed without administration of IV contrast. FINDINGS: There is no evidence for parenchymal bleed, extra-axial collections, intracranial masses or midline shift. No displaced fractures of the calvarium or other significant bony abnormality is noted. The fajardo white matter differentiation is well preserved. No acute infarct is evident. The visualized paranasal sinuses and the mastoids are clear. IMPRESSION: No significant acute brain abnormality is noted. SL:[id number] 06/05/2014 - - Read by: Gonzalo Roblero MD Dictated Date/time: 06/05/14 11:46 Electronically Signed by: Gonzalo Roblero MD 06/05/14 12:03 FINAL REPORT [facility] Spine lumbar 2 or 3 views Spine lumbar 2 or 3 views Lumbar spine, 3 views: CLINICAL HISTORY: Backache 1. Mild lumbar spondylosis and facet arthrosis. 2. No acute fracture, dislocation, or focal osseous lesion is appreciated. 3. The paraspinal soft tissues are normal. SL:17 05/31/2014 - - Read by: Domingo Clayton MD Dictated Date/time: 05/31/14 18:34 Electronically Signed by: Domingo Clayton MD 05/31/14 18:37 FINAL REPORT [facility] Brain wo contrast CT Brain wo contrast CT EXAM: CT HEAD WITHOUT CONTRAST. DATE: May 31, 2014 04:55:59 PM INDICATION: Head trauma TECHNIQUE: Noncontrast axial imaging was obtained from the vertex to the skull base at 5 mm collimation. Axial images were reconstructed using a bone algorithm. COMPARISON: CT head 02/03/2014. FINDINGS: No acute intracranial hemorrhage or extraaxial collection is identified. Mild atrophy of bilateral frontal lobes is again seen, advanced for patient's age. The ventricles are normal in size.. No mass effect is seen. The fajardo-white matter interfaces are preserved. The included paranasal sinuses, mastoid air cells and auditory canals are clear. No skull fracture is seen. IMPRESSION: No acute intracranial abnormality. No significant interval change compared to 02/03/2014. SL: 13 05/31/2014 - - Read by: Cheryl Regalado MD Dictated Date/time: 05/31/14 16:57 Electronically Signed by: Cheryl Regalado MD 05/31/14 17:00 FINAL REPORT [facility] URINE AND STOOL UA Urobilinogen <=1.0 mg/dL 0.1 - 1.0 04/24/2014 [facility] URINE AND STOOL UA Color Ltyellow 04/24/2014 [facility] URINE AND STOOL UA RBC null 0 - 2 04/24/2014 [facility] URINE AND STOOL UA WBC null 0 - 5 04/24/2014 [facility] URINE AND STOOL UA Sq Epi Many /LPF Few /LPF 04/24/2014 [facility] URINE AND STOOL UA Leuk Est Negative (04/24/14 2:13 PM) Negative 04/24/2014 [facility] URINE AND STOOL UA pH 6.0 5.0 - 8.0 04/24/2014 [facility] URINE AND STOOL UA Spec Grav 1.004 <=1.030 04/24/2014 [facility] URINE AND STOOL UA Turbidity Slight *ABN* (04/24/14 2:13 PM) Clear 04/24/2014 [facility] URINE AND STOOL UA Ketones Negative mg/dL Negative mg/dL 04/24/2014 [facility] URINE AND STOOL UA Glucose Negative mg/dL Negative mg/dL 04/24/2014 [facility] URINE AND STOOL UA Bili Negative *NA* (04/24/14 2:13 PM) Negative 04/24/2014 [facility] URINE AND STOOL UA Protein Negative mg/dL Negative mg/dL 04/24/2014 [facility] URINE AND STOOL UA Blood Negative (04/24/14 2:13 PM) Negative 04/24/2014 [facility] URINE AND STOOL UA Nitrite Negative (04/24/14 2:13 PM) Negative 04/24/2014 [facility] URINE CHEM U Preg Negative (04/24/14 2:13 PM) Negative 04/24/2014 [facility] CARDIAC ENZYMES Total CK 64 unit/L 12 - 191 04/24/2014 [facility] CHEM PANEL B/C Ratio 7 6 - 25 04/24/2014 [facility] CHEM PANEL AGAP 9.9 meq/L 10.0 - 20.0 04/24/2014 [facility] CHEM PANEL Globulin 3.1 g/dL 2.0 - 4.0 04/24/2014 [facility] CHEM PANEL A/G Ratio 1.2 0.7 - 1.6 04/24/2014 [facility] CHEM PANEL eGFR 84 mL/min/1.73m2 04/24/2014 1Result Comment: The eGFR is calculated using the CKD-EPI formula. In most young, healthy individuals the eGFR will be >90 mL/min/1.73m2. The eGFR declines with age. An eGFR of 60-89 may be normal in some populations, particularly the elderly, for whom the CKD-EPI formula has not been extensively validated. Use of the eGFR is not recommended in the following populations: Individuals with unstable creatinine concentrations, including patients and those with serious co-morbid conditions. Patients with extremes in muscle mass or diet. The data above are obtained from the National Kidney Disease Education Program (NKDEP) which additionally recommends that when the eGFR is used in patients with extremes of body mass index for purposes of drug dosing, the eGFR should be multiplied by the estimated BMI. [facility] CHEM PANEL Bili Total 0.3 mg/dL 0.2 - 1.3 04/24/2014 [facility] CHEM PANEL Alk Phos 76 unit/L 39 - 136 04/24/2014 [facility] CHEM PANEL CO2 27 meq/L 24 - 32 04/24/2014 [facility] CHEM PANEL Total Protein 6.8 g/dL 6.4 - 8.4 04/24/2014 [facility] CHEM PANEL Chloride Lvl 107 meq/L 95 - 109 04/24/2014 [facility] CHEM PANEL Calcium Lvl 9.3 mg/dL 8.5 - 10.5 04/24/2014 [facility] CHEM PANEL Albumin Lvl 3.7 g/dL 3.5 - 5.0 04/24/2014 [facility] CHEM PANEL AST 16 unit/L 0 - 37 04/24/2014 [facility] CHEM PANEL ALT 18 unit/L 0 - 65 04/24/2014 [facility] CHEM PANEL Glucose Lvl 93 mg/dL 70 - 99 04/24/2014 2Interpretive Data: Adult reference range values reflect the clinical guidelines of the [place] [employer]. [facility] CHEM PANEL BUN 6 mg/dL 7 - 22 04/24/2014 [facility] CHEM PANEL Creatinine Lvl 0.9 mg/dL 0.5 - 1.4 04/24/2014 [facility] CHEM PANEL Sodium Lvl 140 meq/L 135 - 145 04/24/2014 [facility] CHEM PANEL Potassium Lvl 3.9 meq/L 3.5 - 5.1 04/24/2014 [facility] HEMATOLOGY Basophils # 0.1 K/CMM 0.0 - 0.2 04/24/2014 [facility] HEMATOLOGY Segs 74.2 % 45.0 - 75.0 04/24/2014 [facility] HEMATOLOGY Lymphocytes 19.4 % 20.0 - 40.0 04/24/2014 [facility] HEMATOLOGY Basophils 0.5 % 0.0 - 1.0 04/24/2014 [facility] HEMATOLOGY Eosinophils 1.7 % 0.0 - 4.0 04/24/2014 [facility] HEMATOLOGY Monocytes 4.2 % 2.0 - 12.0 04/24/2014 [facility] HEMATOLOGY Eosinophils # 0.2 K/CMM 0.0 - 0.5 04/24/2014 [facility] HEMATOLOGY Monocytes # 0.4 K/CMM 0.0 - 0.8 04/24/2014 [facility] Lymphocytes # 1.9 K/CMM 1.0 - 5.5 04/24/2014 [facility] Segs-Bands # 7.2 K/CMM 1.5 - 8.1 04/24/2014 [facility] Hct 36.9 % 36.0 - 48.0 04/24/2014 [facility] MPV 8.7 fL 7.4 - 10.4 04/24/2014 [facility] RDW 14.5 % 11.5 - 14.5 04/24/2014 [facility] Platelet 238 K/CMM 133 - 450 04/24/2014 [facility] RBC 4.18 M/CMM 4.20 - 5.40 04/24/2014 [facility] WBC 9.7 K/CMM 3.7 - 10.4 04/24/2014 [facility] MCH 30.2 pg 27.0 - 31.0 04/24/2014 [facility] MCV 88.3 fL 81.0 - 99.0 04/24/2014 [facility] MCHC 34.3 g/dL 32.0 - 36.0 04/24/2014 [facility] Hgb 12.6 g/dL 12.0 - 16.0 04/24/2014 [facility] Spine lumbar 2 or 3 views Spine lumbar 2 or 3 views Lumbar spine series 3 views: FINDINGS: Five non rib-bearing lumbar type vertebrae are identified. Minimal levoscoliosis of lumbar spine but the alignment is otherwise within normal limits. No evidence for acute fractures. The vertebral body heights and disc spaces are reasonably well-maintained. The SI joints demonstrate normal morphology. No significant degenerative change is noted. Multiple surgical clips are present in the region of the stomach suggesting prior bariatric surgery. Surgical clips in the right upper abdomen suggest previous cholecystectomy. IMPRESSION: No acute abnormality noted. No evidence for fracture or subluxation SL:13 04/24/2014 - - Read by: Gonzalo Roblero MD Dictated Date/time: 04/24/14 14:57 Electronically Signed by: Gonzalo Roblero MD 04/24/14 15:01 FINAL REPORT [facility] Knee series Knee series PROCEDURE: Left Knee series 3 views REASON FOR EXAM: Foot slipped out of flip flop, rolled left ankle. States left painfull anterior/lateral aspect CLINICAL INDICATION: Trauma COMPARISON: None. FINDINGS: Diffuse prepatellar soft tissue swelling is present. No significant suprapatellar joint effusion is present. No definite acute fracture or dislocation. SL: 04/19/2014 - - Read by: Sen Soni MD Dictated Date/time: 04/19/14 16:45 Electronically Signed by: Sen Soni MD 04/19/14 16:46 FINAL REPORT [facility] Ankle 3 views Ankle 3 views PROCEDURE: Left Ankle 3 views REASON FOR EXAM: Rolled left ankle today, foot slipped out of flip flop CLINICAL INDICATION: Trauma COMPARISON: None. FINDINGS: Diffuse soft tissue swelling about the ankle. No definite acute fracture or dislocation. Postoperative change within the navicular bone. Prominent posterior calcaneal enthesophyte is present. SL: 04/19/2014 - - Read by: Sen Soni MD Dictated Date/time: 04/19/14 16:45 Electronically Signed by: Sen Soni MD 04/19/14 16:45 FINAL REPORT [facility] URINE AND STOOL UA Urobilinogen <=1.0 mg/dL 0.1 - 1.0 04/09/2014 [facility] URINE AND STOOL UA Color Ltyellow 04/09/2014 [facility] URINE AND STOOL UA Mucus Few /LPF None Seen /LPF 04/09/2014 [facility] URINE AND STOOL UA WBC 11 /HPF 0 - 5 04/09/2014 [facility] URINE AND STOOL UA RBC 1 /HPF 0 - 2 04/09/2014 [facility] URINE AND STOOL UA Bacteria Occasional /HPF None Seen /HPF 04/09/2014 [facility] URINE AND STOOL UA Nitrite Negative (04/08/14 7:41 PM) Negative 04/09/2014 [facility] URINE AND STOOL UA Leuk Est Small *ABN* (04/08/14 7:41 PM) Negative 04/09/2014 [facility] URINE AND STOOL UA Protein Negative mg/dL Negative mg/dL 04/09/2014 [facility] URINE AND STOOL UA Bili Negative *NA* (04/08/14 7:41 PM) Negative 04/09/2014 [facility] URINE AND STOOL UA Blood Negative (04/08/14 7:41 PM) Negative 04/09/2014 [facility] URINE AND STOOL UA Sq Epi Many /LPF Few /LPF 04/09/2014 [facility] URINE AND STOOL UA Glucose Negative mg/dL Negative mg/dL 04/09/2014 [facility] URINE AND STOOL UA Ketones Negative mg/dL Negative mg/dL 04/09/2014 [facility] URINE AND STOOL UA pH 7.0 5.0 - 8.0 04/09/2014 [facility] URINE AND STOOL UA Spec Grav 1.008 <=1.030 04/09/2014 [facility] URINE AND STOOL UA Turbidity Slight *ABN* (04/08/14 7:41 PM) Clear 04/09/2014 [facility] CHEM PANEL Lipase Lvl 178 unit/L 73 - 393 04/08/2014 [facility] CHEM PANEL A/G Ratio 1.1 0.7 - 1.6 04/08/2014 [facility] CHEM PANEL Globulin 3.4 g/dL 2.0 - 4.0 04/08/2014 [facility] CHEM PANEL AGAP 11.3 meq/L 10.0 - 20.0 04/08/2014 [facility] CHEM PANEL B/C Ratio 6 6 - 25 04/08/2014 [facility] CHEM PANEL eGFR 84 mL/min/1.73m2 04/08/2014 1Result Comment: The eGFR is calculated using the CKD-EPI formula. In most young, healthy individuals the eGFR will be >90 mL/min/1.73m2. The eGFR declines with age. An eGFR of 60-89 may be normal in some populations, particularly the elderly, for whom the CKD-EPI formula has not been extensively validated. Use of the eGFR is not recommended in the following populations: Individuals with unstable creatinine concentrations, including patients and those with serious co-morbid conditions. Patients with extremes in muscle mass or diet. The data above are obtained from the National Kidney Disease Education Program (NKDEP) which additionally recommends that when the eGFR is used in patients with extremes of body mass index for purposes of drug dosing, the eGFR should be multiplied by the estimated BMI. [facility] CHEM PANEL Total Protein 7.0 g/dL 6.4 - 8.4 04/08/2014 [facility] CHEM PANEL AST 11 unit/L 0 - 37 04/08/2014 [facility] CHEM PANEL ALT 17 unit/L 0 - 65 04/08/2014 [facility] CHEM PANEL Albumin Lvl 3.6 g/dL 3.5 - 5.0 04/08/2014 [facility] CHEM PANEL Calcium Lvl 9.5 mg/dL 8.5 - 10.5 04/08/2014 [facility] CHEM PANEL Alk Phos 74 unit/L 39 - 136 04/08/2014 [facility] CHEM PANEL Bili Total 0.2 mg/dL 0.2 - 1.3 04/08/2014 [facility] CHEM PANEL CO2 25 meq/L 24 - 32 04/08/2014 [facility] CHEM PANEL Sodium Lvl 138 meq/L 135 - 145 04/08/2014 [facility] CHEM PANEL Potassium Lvl 3.3 meq/L 3.5 - 5.1 04/08/2014 [facility] CHEM PANEL Chloride Lvl 105 meq/L 95 - 109 04/08/2014 [facility] CHEM PANEL Glucose Lvl 88 mg/dL 70 - 99 04/08/2014 2Interpretive Data: Adult reference range values reflect the clinical guidelines of the [place] [employer]. [facility] CHEM PANEL BUN 5 mg/dL 7 - 22 04/08/2014 [facility] CHEM PANEL Creatinine Lvl 0.9 mg/dL 0.5 - 1.4 04/08/2014 [facility] CHEM PANEL Amylase Lvl 44 unit/L 25 - 115 04/08/2014 [facility] HEMATOLOGY MPV 8.2 fL 7.4 - 10.4 04/08/2014 [facility] HEMATOLOGY RDW 13.8 % 11.5 - 14.5 04/08/2014 [facility] Platelet 263 K/CMM 133 - 450 04/08/2014 [facility] MCHC 33.8 g/dL 32.0 - 36.0 04/08/2014 [facility] MCH 29.8 pg 27.0 - 31.0 04/08/2014 [facility] MCV 88.3 fL 81.0 - 99.0 04/08/2014 [facility] Hgb 12.4 g/dL 12.0 - 16.0 04/08/2014 [facility] Hct 36.8 % 36.0 - 48.0 04/08/2014 [facility] RBC 4.17 M/CMM 4.20 - 5.40 04/08/2014 [facility] WBC 7.2 K/CMM 3.7 - 10.4 04/08/2014 [facility] HEMATOLOGY Eosinophils # 0.2 K/CMM 0.0 - 0.5 04/08/2014 [facility] Basophils # 0.1 K/CMM 0.0 - 0.2 04/08/2014 [facility] Monocytes # 0.4 K/CMM 0.0 - 0.8 04/08/2014 [facility] HEMATOLOGY Segs-Bands # 4.1 K/CMM 1.5 - 8.1 04/08/2014 [facility] HEMATOLOGY Lymphocytes # 2.4 K/CMM 1.0 - 5.5 04/08/2014 [facility] HEMATOLOGY Basophils 1.2 % 0.0 - 1.0 04/08/2014 [facility] HEMATOLOGY Eosinophils 3.0 % 0.0 - 4.0 04/08/2014 [facility] HEMATOLOGY Monocytes 5.4 % 2.0 - 12.0 04/08/2014 [facility] HEMATOLOGY Segs 57.4 % 45.0 - 75.0 04/08/2014 [facility] Lymphocytes 33.0 % 20.0 - 40.0 04/08/2014 [facility] Chest 2 views Chest 2 views HISTORY: Chest pain and congestion. Chest 2 views. Comparison 11/14/2013. The lungs are clear. Heart size normal. No pleural effusion or pneumothorax. IMPRESSION: No acute finding SL:13 04/08/2014 - - Read by: Simba Cherry MD Dictated Date/time: 04/08/14 19:44 Electronically Signed by: Simba Cherry MD 04/08/14 19:44 FINAL REPORT [facility] CHEM PANEL Magnesium Lvl 1.8 mg/dL 1.8 - 2.4 03/15/2014 [facility] CHEM PANEL Lipase Lvl 107 unit/L 73 - 393 03/15/2014 [facility] CHEM PANEL Amylase Lvl 19 unit/L 25 - 115 03/15/2014 [facility] CHEM PANEL eGFR 84 mL/min/1.73m2 03/15/2014 1Result Comment: The eGFR is calculated using the CKD-EPI formula. In most young, healthy individuals the eGFR will be >90 mL/min/1.73m2. The eGFR declines with age. An eGFR of 60-89 may be normal in some populations, particularly the elderly, for whom the CKD-EPI formula has not been extensively validated. Use of the eGFR is not recommended in the following populations: Individuals with unstable creatinine concentrations, including patients and those with serious co-morbid conditions. Patients with extremes in muscle mass or diet. The data above are obtained from the National Kidney Disease Education Program (NKDEP) which additionally recommends that when the eGFR is used in patients with extremes of body mass index for purposes of drug dosing, the eGFR should be multiplied by the estimated BMI. [facility] CHEM PANEL Total Protein 5.6 g/dL 6.4 - 8.4 03/15/2014 [facility] CHEM PANEL Calcium Lvl 8.8 mg/dL 8.5 - 10.5 03/15/2014 [facility] CHEM PANEL Potassium Lvl 3.9 meq/L 3.5 - 5.1 03/15/2014 [facility] CHEM PANEL Chloride Lvl 106 meq/L 95 - 109 03/15/2014 [facility] CHEM PANEL Bili Total 0.2 mg/dL 0.2 - 1.3 03/15/2014 [facility] CHEM PANEL CO2 28 meq/L 24 - 32 03/15/2014 [facility] CHEM PANEL AST 8 unit/L 0 - 37 03/15/2014 [facility] CHEM PANEL Alk Phos 82 unit/L 39 - 136 03/15/2014 [facility] CHEM PANEL ALT 15 unit/L 0 - 65 03/15/2014 [facility] CHEM PANEL Albumin Lvl 2.8 g/dL 3.5 - 5.0 03/15/2014 [facility] CHEM PANEL BUN 5 mg/dL 7 - 22 03/15/2014 [facility] CHEM PANEL Glucose Lvl 91 mg/dL 70 - 99 03/15/2014 2Interpretive Data: Adult reference range values reflect the clinical guidelines of the [place] [employer]. [facility] CHEM PANEL Sodium Lvl 140 meq/L 135 - 145 03/15/2014 [facility] CHEM PANEL Creatinine Lvl 0.9 mg/dL 0.5 - 1.4 03/15/2014 [facility] CHEM PANEL B/C Ratio 6 6 - 25 03/15/2014 [facility] CHEM PANEL Globulin 2.8 g/dL 2.0 - 4.0 03/15/2014 [facility] CHEM PANEL A/G Ratio 1.0 0.7 - 1.6 03/15/2014 [facility] CHEM PANEL AGAP 9.9 meq/L 10.0 - 20.0 03/15/2014 [facility] HEMATOLOGY Segs 46.4 % 45.0 - 75.0 03/15/2014 [facility] HEMATOLOGY Eosinophils # 0.7 K/CMM 0.0 - 0.5 03/15/2014 [facility] HEMATOLOGY Lymphocytes # 2.2 K/CMM 1.0 - 5.5 03/15/2014 [facility] HEMATOLOGY Segs-Bands # 3.0 K/CMM 1.5 - 8.1 03/15/2014 [facility] HEMATOLOGY Basophils 0.6 % 0.0 - 1.0 03/15/2014 [facility] HEMATOLOGY Eosinophils 11.3 % 0.0 - 4.0 03/15/2014 [facility] HEMATOLOGY Monocytes 8.1 % 2.0 - 12.0 03/15/2014 [facility] HEMATOLOGY Lymphocytes 33.6 % 20.0 - 40.0 03/15/2014 [facility] Monocytes # 0.5 K/CMM 0.0 - 0.8 03/15/2014 [facility] HEMATOLOGY Platelet 241 K/CMM 133 - 450 03/15/2014 [facility] HEMATOLOGY RDW 13.4 % 11.5 - 14.5 03/15/2014 [facility] MPV 8.5 fL 7.4 - 10.4 03/15/2014 [facility] Hct 32.7 % 36.0 - 48.0 03/15/2014 [facility] WBC X 10x3 6.5 K/CMM 3.7 - 10.4 03/15/2014 [facility] MCHC 33.9 g/dL 32.0 - 36.0 03/15/2014 [facility] MCV 89.1 fL 81.0 - 99.0 03/15/2014 [facility] MCH 30.2 pg 27.0 - 31.0 03/15/2014 [facility] Hgb 11.1 g/dL 12.0 - 16.0 03/15/2014 [facility] RBC X 10x6 3.67 M/CMM 4.20 - 5.40 03/15/2014 [facility] URINE AND STOOL UA Urobilinogen <=1.0 mg/dL 0.1 - 1.0 03/15/2014 [facility] URINE AND STOOL UA Color Ltyellow 03/15/2014 [facility] URINE AND STOOL UA Nitrite Negative (03/14/14 9:32 PM) Negative 03/15/2014 [facility] URINE AND STOOL UA Blood Negative (03/14/14 9:32 PM) Negative 03/15/2014 [facility] URINE AND STOOL UA Ketones Negative mg/dL Negative mg/dL 03/15/2014 [facility] URINE AND STOOL UA Sq Epi Occasional /LPF Few /LPF 03/15/2014 [facility] URINE AND STOOL UA RBC null 0 - 2 03/15/2014 [facility] URINE AND STOOL UA Bili Negative *NA* (03/14/14 9:32 PM) Negative 03/15/2014 [facility] URINE AND STOOL UA WBC 1 /HPF 0 - 5 03/15/2014 [facility] URINE AND STOOL UA Leuk Est Negative (03/14/14 9:32 PM) Negative 03/15/2014 [facility] URINE AND STOOL UA Turbidity Clear (03/14/14 9:32 PM) Clear 03/15/2014 [facility] URINE AND STOOL UA Spec Grav 1.004 <=1.030 03/15/2014 [facility] URINE AND STOOL UA Protein Negative mg/dL Negative mg/dL 03/15/2014 [facility] URINE AND STOOL UA Glucose Negative mg/dL Negative mg/dL 03/15/2014 [facility] URINE AND STOOL UA pH 7.0 5.0 - 8.0 03/15/2014 [facility] Abdomen acute series comp w chest 1 view Abdomen acute series comp w chest 1 view PROCEDURE: Abdomen 3 views REASON FOR EXAM: See Clinic Indication CLINICAL INFORMATION Abdominal pain, acute COMPARISON: 02/2014 multiple x-rays. 01/2014. The lungs are clear. The heart and pulmonary vasculature are normal. There is no free air. Surgical clips are noted in the right upper quadrant and left upper quadrant with chain sutures. There is no small bowel obstruction. There is moderate constipation. The osseous structures are grossly normal. SL: 13 03/14/2014 - - Read by: Avni Ring MD Dictated Date/time: 03/14/14 21:17 Electronically Signed by: Avni Ring MD 03/14/14 21:18 FINAL REPORT [facility] ELECTROLYTES AGAP 9.6 meq/L 10.0 - 20.0 03/10/2014 [facility] [place] ELECTROLYTES CO2 28 meq/L 24 - 32 03/10/2014 [facility] [place] ELECTROLYTES BUN 5 mg/dL 7 - 22 03/10/2014 [facility] [place] ELECTROLYTES Glucose Lvl 76 mg/dL 70 - 99 03/10/2014 4Interpretive Data: Adult reference range values reflect the clinical guidelines of the [place] [employer]. [facility] [place] ELECTROLYTES eGFR 113 mL/min/1.73m2 03/10/2014 1Result Comment: The eGFR is calculated using the CKD-EPI formula. In most young, healthy individuals the eGFR will be >90 mL/min/1.73m2. The eGFR declines with age. An eGFR of 60-89 may be normal in some populations, particularly the elderly, for whom the CKD-EPI formula has not been extensively validated. Use of the eGFR is not recommended in the following populations: Individuals with unstable creatinine concentrations, including patients and those with serious co-morbid conditions. Patients with extremes in muscle mass or diet. The data above are obtained from the National Kidney Disease Education Program (NKDEP) which additionally recommends that when the eGFR is used in patients with extremes of body mass index for purposes of drug dosing, the eGFR should be multiplied by the estimated BMI. [facility] [place] ELECTROLYTES Sodium Lvl 141 meq/L 135 - 145 03/10/2014 [facility] [place] ELECTROLYTES Potassium Lvl 3.6 meq/L 3.5 - 5.1 03/10/2014 [facility] [place] ELECTROLYTES Creatinine Lvl 0.7 mg/dL 0.5 - 1.4 03/10/2014 [facility] [place] ELECTROLYTES Chloride Lvl 107 meq/L 95 - 109 03/10/2014 [facility] [place] ELECTROLYTES Calcium Lvl 8.3 mg/dL 8.5 - 10.5 03/10/2014 [facility] [place] HEMATOLOGY Basophils # 0.0 K/CMM 0.0 - 0.2 03/10/2014 [facility] [place] HEMATOLOGY Plt Morph Normal (03/10/14 4:13 AM) 03/10/2014 [facility] [place] HEMATOLOGY Basophils 0.3 % 0.0 - 1.0 03/10/2014 [facility] [place] HEMATOLOGY Segs 57.2 % 45.0 - 75.0 03/10/2014 [facility] [place] HEMATOLOGY RBC Morph Normal (03/10/14 4:13 AM) 03/10/2014 [facility] [place] HEMATOLOGY Monocytes # 0.4 K/CMM 0.0 - 0.8 03/10/2014 [facility] [place] HEMATOLOGY Eosinophils # 0.2 K/CMM 0.0 - 0.5 03/10/2014 [facility] [place] HEMATOLOGY Lymphocytes # 2.0 K/CMM 1.0 - 5.5 03/10/2014 [facility] Segs-Bands # 3.6 K/CMM 1.5 - 8.1 03/10/2014 [facility] [place] HEMATOLOGY Lymphocytes 31.8 % 20.0 - 40.0 03/10/2014 [facility] [place] HEMATOLOGY Eosinophils 3.7 % 0.0 - 4.0 03/10/2014 [facility] [place] HEMATOLOGY Monocytes 7.0 % 2.0 - 12.0 03/10/2014 [facility] [place] HEMATOLOGY MPV 8.6 fL 7.4 - 10.4 03/10/2014 [facility] MCH 29.2 pg 27.0 - 31.0 03/10/2014 [facility] [place] HEMATOLOGY RBC 3.33 M/CMM 4.20 - 5.40 03/10/2014 [facility] WBC 6.4 K/CMM 3.7 - 10.4 03/10/2014 [facility] Hgb 9.7 g/dL 12.0 - 16.0 03/10/2014 [facility] RDW 13.4 % 11.5 - 14.5 03/10/2014 [facility] MCHC 32.8 g/dL 32.0 - 36.0 03/10/2014 [facility] MCV 89.1 fL 81.0 - 99.0 03/10/2014 [facility] Hct 29.7 % 36.0 - 48.0 03/10/2014 [facility] Platelet 194 K/CMM 133 - 450 03/10/2014 [facility] [place] HEMATOLOGY INR 1.02 0.85 - 1.17 03/10/2014 7Interpretive Data: RECOMMENDED RANGES FOR PROTIME INR: 2.0-3.0 for most medical and surgical thromboembolic states. 2.5-3.5 for artificial heart valves and recurrent embolism. INR SHOULD BE USED ONLY FOR PATIENTS ON STABLE ANTICOAGULANT THERAPY. [facility] [place] HEMATOLOGY PT 13.3 s 12.0 - 14.7 03/10/2014 [facility] [facility] P[facility] 38.3 s 22.9 - 35.8 03/10/2014 10Interpretive Data: Heparin Therapeutic Range: 57 - 92 Seconds [facility] [place] CHEM PANEL BUN 6 mg/dL 7 - 22 03/09/2014 [facility] [place] CHEM PANEL Glucose Lvl 97 mg/dL 70 - 99 03/09/2014 5Interpretive Data: Adult reference range values reflect the clinical guidelines of the [place] [employer]. [facility] [place] CHEM PANEL CO2 25 meq/L 24 - 32 03/09/2014 [facility] [place] CHEM PANEL Calcium Lvl 8.8 mg/dL 8.5 - 10.5 03/09/2014 [facility] [place] CHEM PANEL Chloride Lvl 108 meq/L 95 - 109 03/09/2014 [facility] [place] CHEM PANEL Sodium Lvl 141 meq/L 135 - 145 03/09/2014 [facility] [place] CHEM PANEL Creatinine Lvl 0.7 mg/dL 0.5 - 1.4 03/09/2014 [facility] [place] CHEM PANEL eGFR 113 mL/min/1.73m2 03/09/2014 2Result Comment: The eGFR is calculated using the CKD-EPI formula. In most young, healthy individuals the eGFR will be >90 mL/min/1.73m2. The eGFR declines with age. An eGFR of 60-89 may be normal in some populations, particularly the elderly, for whom the CKD-EPI formula has not been extensively validated. Use of the eGFR is not recommended in the following populations: Individuals with unstable creatinine concentrations, including patients and those with serious co-morbid conditions. Patients with extremes in muscle mass or diet. The data above are obtained from the National Kidney Disease Education Program (NKDEP) which additionally recommends that when the eGFR is used in patients with extremes of body mass index for purposes of drug dosing, the eGFR should be multiplied by the estimated BMI. [facility] [place] CHEM PANEL Potassium Lvl 3.8 meq/L 3.5 - 5.1 03/09/2014 [facility] [place] CHEM PANEL AGAP 11.8 meq/L 10.0 - 20.0 03/09/2014 [facility] [place] HEMATOLOGY PTT 34.2 s 22.9 - 35.8 03/09/2014 11Interpretive Data: Heparin Therapeutic Range: 57 - 92 Seconds [facility] [place] HEMATOLOGY Hct 32.6 % 36.0 - 48.0 03/09/2014 [facility] [place] HEMATOLOGY MCV 89.9 fL 81.0 - 99.0 03/09/2014 [facility] [place] HEMATOLOGY MCH 29.3 pg 27.0 - 31.0 03/09/2014 [facility] [place] HEMATOLOGY Platelet 227 K/CMM 133 - 450 03/09/2014 [facility] [place] HEMATOLOGY MPV 8.4 fL 7.4 - 10.4 03/09/2014 [facility] [place] HEMATOLOGY MCHC 32.6 g/dL 32.0 - 36.0 03/09/2014 [facility] [place] HEMATOLOGY RDW 13.1 % 11.5 - 14.5 03/09/2014 [facility] [place] HEMATOLOGY RBC 3.63 M/CMM 4.20 - 5.40 03/09/2014 [facility] [place] HEMATOLOGY Hgb 10.6 g/dL 12.0 - 16.0 03/09/2014 [facility] [place] HEMATOLOGY WBC 12.7 K/CMM 3.7 - 10.4 03/09/2014 [facility] [place] HEMATOLOGY INR 1.06 0.85 - 1.17 03/09/2014 8Interpretive Data: RECOMMENDED RANGES FOR PROTIME INR: 2.0-3.0 for most medical and surgical thromboembolic states. 2.5-3.5 for artificial heart valves and recurrent embolism. INR SHOULD BE USED ONLY FOR PATIENTS ON STABLE ANTICOAGULANT THERAPY. [facility] [place] HEMATOLOGY PT 13.7 s 12.0 - 14.7 03/09/2014 [facility] [place] HEMATOLOGY Eosinophils # 0.0 K/CMM 0.0 - 0.5 03/09/2014 [facility] [place] HEMATOLOGY Lymphocytes # 1.7 K/CMM 1.0 - 5.5 03/09/2014 [facility] [place] HEMATOLOGY Monocytes # 0.7 K/CMM 0.0 - 0.8 03/09/2014 [facility] [place] HEMATOLOGY Basophils 0.2 % 0.0 - 1.0 03/09/2014 [facility] Segs-Bands # 10.3 K/CMM 1.5 - 8.1 03/09/2014 [facility] Eosinophils 0.0 % 0.0 - 4.0 03/09/2014 [facility] Monocytes 5.5 % 2.0 - 12.0 03/09/2014 [facility] [place] HEMATOLOGY Lymphocytes 13.2 % 20.0 - 40.0 03/09/2014 [facility] Segs 81.1 % 45.0 - 75.0 03/09/2014 [facility] RBC Morph Normal (03/09/14 4:33 AM) 03/09/2014 [facility] [place] HEMATOLOGY Plt Morph Normal (03/09/14 4:33 AM) 03/09/2014 [facility] [place] Stomach UGI (water soluble contrast) Stomach UGI (water soluble contrast) UPPER GI CLINICAL INDICATION: Gastric sleeve. COMMENTS: The patient is status post recent gastric sleeve procedure the drain left upper quadrant and status post cholecystectomy. Contrast is still seen within the descending colon possibly from February 23, 2014 CT exam. This would indicate probable constipation as there is not enlargement to suggest rectosigmoid obstruction. Water-soluble contrast was administered orally. Anatomy compatible with a gastric sleeve procedure is identified with normal passage of contrast from the esophagus through the gastric remnant and into the small bowel. There was no evidence of extravasation. Fluoroscopy time: 0.2 minutes IMPRESSION: 1. STATUS POST GASTRIC SLEEVE WITHOUT EVIDENCE OF EXTRAVASATION OR SIGNIFICANT OBSTRUCTION AT THE POSTSURGICAL SITE. 2. Contrast is noted within the descending colon possibly from February 23, 2014 exam. If no contrast has been given in the interim, this may represent constipation. 03/09/2014 - - Read by: Ronaldo Forbes MD Dictated Date/time: 03/09/14 08:59 Electronically Signed by: Ronaldo Forbes MD 03/09/14 09:07 FINAL REPORT [facility] [place] CHEM PANEL eGFR 96 mL/min/1.73m2 03/08/2014 3Result Comment: The eGFR is calculated using the CKD-EPI formula. In most young, healthy individuals the eGFR will be >90 mL/min/1.73m2. The eGFR declines with age. An eGFR of 60-89 may be normal in some populations, particularly the elderly, for whom the CKD-EPI formula has not been extensively validated. Use of the eGFR is not recommended in the following populations: Individuals with unstable creatinine concentrations, including patients and those with serious co-morbid conditions. Patients with extremes in muscle mass or diet. The data above are obtained from the National Kidney Disease Education Program (NKDEP) which additionally recommends that when the eGFR is used in patients with extremes of body mass index for purposes of drug dosing, the eGFR should be multiplied by the estimated BMI. [facility] [place] CHEM PANEL Creatinine Lvl 0.8 mg/dL 0.5 - 1.4 03/08/2014 [facility] [place] HEMATOLOGY Platelet 251 K/CMM 133 - 450 03/08/2014 [facility] [place] URINE CHEM U Preg Negative (03/07/14 8:50 PM) Negative 03/08/2014 [facility] [place] CHEM PANEL AST 10 unit/L 0 - 37 03/07/2014 [facility] [place] CHEM PANEL Albumin Lvl 3.0 g/dL 3.5 - 5.0 03/07/2014 [facility] [place] CHEM PANEL ALT 18 unit/L 0 - 65 03/07/2014 [facility] [place] CHEM PANEL Alk Phos 69 unit/L 39 - 136 03/07/2014 [facility] [place] CHEM PANEL Bili Total 0.2 mg/dL 0.2 - 1.3 03/07/2014 [facility] [place] CHEM PANEL BUN 3 mg/dL 7 - 22 03/07/2014 [facility] [place] CHEM PANEL CO2 27 meq/L 24 - 32 03/07/2014 [facility] [place] CHEM PANEL Total Protein 5.5 g/dL 6.4 - 8.4 03/07/2014 [facility] [place] CHEM PANEL Glucose Lvl 90 mg/dL 70 - 99 03/07/2014 6Interpretive Data: Adult reference range values reflect the clinical guidelines of the [place] [employer]. [facility] [place] CHEM PANEL Calcium Lvl 8.7 mg/dL 8.5 - 10.5 03/07/2014 [facility] [place] CHEM PANEL Chloride Lvl 109 meq/L 95 - 109 03/07/2014 [facility] [place] CHEM PANEL Potassium Lvl 3.7 meq/L 3.5 - 5.1 03/07/2014 [facility] [place] CHEM PANEL Sodium Lvl 141 meq/L 135 - 145 03/07/2014 [facility] [place] CHEM PANEL A/G Ratio 1.2 0.7 - 1.6 03/07/2014 [facility] [place] CHEM PANEL Globulin 2.5 g/dL 2.0 - 4.0 03/07/2014 [facility] [place] CHEM PANEL B/C Ratio 4 6 - 25 03/07/2014 [facility] [place] CHEM PANEL AGAP 8.7 meq/L 10.0 - 20.0 03/07/2014 [facility] [place] HEMATOLOGY Eosinophils 5.3 % 0.0 - 4.0 03/07/2014 [facility] [place] HEMATOLOGY Basophils 0.8 % 0.0 - 1.0 03/07/2014 [facility] [place] HEMATOLOGY Lymphocytes 37.2 % 20.0 - 40.0 03/07/2014 [facility] [place] HEMATOLOGY Segs 49.5 % 45.0 - 75.0 03/07/2014 [facility] [place] HEMATOLOGY Monocytes 7.2 % 2.0 - 12.0 03/07/2014 [facility] [place] HEMATOLOGY Monocytes # 0.5 K/CMM 0.0 - 0.8 03/07/2014 [facility] [place] HEMATOLOGY Lymphocytes # 2.4 K/CMM 1.0 - 5.5 03/07/2014 [facility] [place] HEMATOLOGY Segs-Bands # 3.2 K/CMM 1.5 - 8.1 03/07/2014 [facility] [place] HEMATOLOGY Basophils # 0.1 K/CMM 0.0 - 0.2 03/07/2014 [facility] [place] HEMATOLOGY Eosinophils # 0.3 K/CMM 0.0 - 0.5 03/07/2014 [facility] [place] HEMATOLOGY RDW 13.2 % 11.5 - 14.5 03/07/2014 [facility] [place] HEMATOLOGY MPV 8.9 fL 7.4 - 10.4 03/07/2014 [facility] [place] HEMATOLOGY WBC 6.4 K/CMM 3.7 - 10.4 03/07/2014 [facility] MCV 88.9 fL 81.0 - 99.0 03/07/2014 [facility] Hgb 11.7 g/dL 12.0 - 16.0 03/07/2014 [facility] Hct 34.5 % 36.0 - 48.0 03/07/2014 [facility] RBC 3.89 M/CMM 4.20 - 5.40 03/07/2014 [facility] MCH 30.0 pg 27.0 - 31.0 03/07/2014 [facility] MCHC 33.8 g/dL 32.0 - 36.0 03/07/2014 [facility] PT 12.6 s 12.0 - 14.7 03/07/2014 [facility] INR 0.95 0.85 - 1.17 03/07/2014 9Interpretive Data: RECOMMENDED RANGES FOR PROTIME INR: 2.0-3.0 for most medical and surgical thromboembolic states. 2.5-3.5 for artificial heart valves and recurrent embolism. INR SHOULD BE USED ONLY FOR PATIENTS ON STABLE ANTICOAGULANT THERAPY. [facility] PTT 36.5 s 22.9 - 35.8 03/07/2014 12Interpretive Data: Heparin Therapeutic Range: 57 - 92 Seconds [facility] [place] Chest 2 views Chest 2 views CLINICAL HISTORY: Coughing. : 1980. TECHNIQUE: PA and lateral views of the chest compared to january. Heart size is normal. Lungs are clear without consolidation or effusion. Cholecystectomy. IMPRESSION: 1. No active disease in the chest. 03/07/2014 - - Read by: Ravi Swartz MD Dictated Date/time: 03/07/14 15:15 Electronically Signed by: Ravi Swartz MD 03/07/14 15:15 FINAL REPORT [facility] [place] Abdomen 2 views Abdomen 2 views ABDOMINAL RADIOGRAPH 2 VIEWS INDICATION: Acute abdominal pain COMPARISON: None IMPRESSION: 1. Barium contrast is present within the large bowel. There is no bowel dilatation or evidence of pneumoperitoneum. 2. Cholecystectomy clips are in place. Postoperative changes are noted in the epigastric region. SL: 16 02/27/2014 - - Read by: Shahram Mallory MD Dictated Date/time: 02/27/14 00:17 Electronically Signed by: Shahram Mallory MD 02/27/14 00:19 FINAL REPORT [facility] PANEL Lipase Lvl 150 unit/L 73 - 393 02/26/2014 [facility] [place] CHEM PANEL eGFR 96 mL/min/1.73m2 02/26/2014 1Result Comment: The eGFR is calculated using the CKD-EPI formula. In most young, healthy individuals the eGFR will be >90 mL/min/1.73m2. The eGFR declines with age. An eGFR of 60-89 may be normal in some populations, particularly the elderly, for whom the CKD-EPI formula has not been extensively validated. Use of the eGFR is not recommended in the following populations: Individuals with unstable creatinine concentrations, including patients and those with serious co-morbid conditions. Patients with extremes in muscle mass or diet. The data above are obtained from the National Kidney Disease Education Program (NKDEP) which additionally recommends that when the eGFR is used in patients with extremes of body mass index for purposes of drug dosing, the eGFR should be multiplied by the estimated BMI. [facility] [place] CHEM PANEL Chloride Lvl 106 meq/L 95 - 109 02/26/2014 [facility] [place] CHEM PANEL Calcium Lvl 9.6 mg/dL 8.5 - 10.5 02/26/2014 [facility] [place] CHEM PANEL Potassium Lvl 3.4 meq/L 3.5 - 5.1 02/26/2014 [facility] [place] CHEM PANEL Creatinine Lvl 0.8 mg/dL 0.5 - 1.4 02/26/2014 [facility] [place] CHEM PANEL Sodium Lvl 140 meq/L 135 - 145 02/26/2014 [facility] [place] CHEM PANEL Bili Total 0.6 mg/dL 0.2 - 1.3 02/26/2014 [facility] [place] CHEM PANEL Alk Phos 68 unit/L 39 - 136 02/26/2014 [facility] [place] CHEM PANEL AST 6 unit/L 0 - 37 02/26/2014 [facility] [place] CHEM PANEL ALT 18 unit/L 0 - 65 02/26/2014 [facility] [place] CHEM PANEL Albumin Lvl 3.7 g/dL 3.5 - 5.0 02/26/2014 [facility] [place] CHEM PANEL Total Protein 6.6 g/dL 6.4 - 8.4 02/26/2014 [facility] [place] CHEM PANEL CO2 25 meq/L 24 - 32 02/26/2014 [facility] [place] CHEM PANEL BUN 6 mg/dL 7 - 22 02/26/2014 [facility] [place] CHEM PANEL Glucose Lvl 100 mg/dL 70 - 99 02/26/2014 2Interpretive Data: Adult reference range values reflect the clinical guidelines of the [place] [employer]. [facility] [place] CHEM PANEL B/C Ratio 8 6 - 25 02/26/2014 [facility] [place] CHEM PANEL AGAP 12.4 meq/L 10.0 - 20.0 02/26/2014 [facility] [place] CHEM PANEL A/G Ratio 1.3 0.7 - 1.6 02/26/2014 [facility] [place] CHEM PANEL Globulin 2.9 g/dL 2.0 - 4.0 02/26/2014 [facility] [place] HEMATOLOGY Hgb 11.6 g/dL 12.0 - 16.0 02/26/2014 [facility] [place] HEMATOLOGY Hct 34.6 % 36.0 - 48.0 02/26/2014 [facility] [place] HEMATOLOGY RBC 3.87 M/CMM 4.20 - 5.40 02/26/2014 [facility] [place] HEMATOLOGY MCV 89.4 fL 81.0 - 99.0 02/26/2014 [facility] [place] HEMATOLOGY MCH 30.1 pg 27.0 - 31.0 02/26/2014 [facility] [place] HEMATOLOGY RDW 13.4 % 11.5 - 14.5 02/26/2014 [facility] [place] HEMATOLOGY Platelet 274 K/CMM 133 - 450 02/26/2014 [facility] [place] HEMATOLOGY MCHC 33.7 g/dL 32.0 - 36.0 02/26/2014 [facility] [place] HEMATOLOGY MPV 8.7 fL 7.4 - 10.4 02/26/2014 [facility] [place] HEMATOLOGY WBC 7.6 K/CMM 3.7 - 10.4 02/26/2014 [facility] [place] HEMATOLOGY Lymphocytes 29.4 % 20.0 - 40.0 02/26/2014 [facility] [place] HEMATOLOGY Monocytes 4.8 % 2.0 - 12.0 02/26/2014 [facility] [place] HEMATOLOGY Lymphocytes # 2.2 K/CMM 1.0 - 5.5 02/26/2014 [facility] [place] HEMATOLOGY Basophils 0.5 % 0.0 - 1.0 02/26/2014 [facility] [place] HEMATOLOGY Eosinophils 2.8 % 0.0 - 4.0 02/26/2014 [facility] [place] HEMATOLOGY Segs-Bands # 4.7 K/CMM 1.5 - 8.1 02/26/2014 [facility] HEMATOLOGY Segs 62.5 % 45.0 - 75.0 02/26/2014 [facility] [place] HEMATOLOGY Monocytes # 0.4 K/CMM 0.0 - 0.8 02/26/2014 [facility] [place] HEMATOLOGY Eosinophils # 0.2 K/CMM 0.0 - 0.5 02/26/2014 [facility] [place] HEMATOLOGY Basophils # 0.0 K/CMM 0.0 - 0.2 02/26/2014 [facility] [place] URINE AND STOOL UA Blood Negative (02/25/14 8:40 PM) Negative 02/26/2014 [facility] [place] URINE AND STOOL UA Nitrite Negative (02/25/14 8:40 PM) Negative 02/26/2014 [facility] [place] URINE AND STOOL UA Leuk Est Negative (02/25/14 8:40 PM) Negative 02/26/2014 [facility] [place] URINE AND STOOL UA Bili Negative *NA* (02/25/14 8:40 PM) Negative 02/26/2014 [facility] [place] URINE AND STOOL UA Mucus Few /LPF None Seen /LPF 02/26/2014 [facility] [place] URINE AND STOOL UA Urobilinogen <=1.0 mg/dL 0.1 - 1.0 02/26/2014 [facility] [place] URINE AND STOOL UA Sq Epi Many /LPF Few /LPF 02/26/2014 [facility] [place] URINE AND STOOL UA WBC null 0 - 5 02/26/2014 [facility] [place] URINE AND STOOL UA RBC null 0 - 2 02/26/2014 [facility] [place] URINE AND STOOL UA Glucose Negative mg/dL Negative mg/dL 02/26/2014 [facility] [place] URINE AND STOOL UA Protein Negative mg/dL Negative mg/dL 02/26/2014 [facility] [place] URINE AND STOOL UA Ketones Negative mg/dL Negative mg/dL 02/26/2014 [facility] [place] URINE AND STOOL UA Spec Grav 1.010 <=1.030 02/26/2014 [facility] [place] URINE AND STOOL UA pH 6.5 5.0 - 8.0 02/26/2014 [facility] [place] URINE AND STOOL UA Color Yellow *NA* (02/25/14 8:40 PM) Yellow 02/26/2014 [facility] [place] URINE AND STOOL UA Turbidity Clear (02/25/14 8:40 PM) Clear 02/26/2014 [facility] [place] URINE AND STOOL Occult Bld Stl Negative (02/23/14 6:00 PM) Negative 02/23/2014 [facility] [place] BLOOD BANK RESULTS ABO/Rh A POS 02/23/2014 [facility] [place] BLOOD BANK RESULTS Antibody Scrn Negative (02/23/14 3:00 PM) 02/23/2014 [facility] CHEM PANEL eGFR 96 mL/min/1.73m2 02/23/2014 1Result Comment: The eGFR is calculated using the CKD-EPI formula. In most young, healthy individuals the eGFR will be >90 mL/min/1.73m2. The eGFR declines with age. An eGFR of 60-89 may be normal in some populations, particularly the elderly, for whom the CKD-EPI formula has not been extensively validated. Use of the eGFR is not recommended in the following populations: Individuals with unstable creatinine concentrations, including patients and those with serious co-morbid conditions. Patients with extremes in muscle mass or diet. The data above are obtained from the National Kidney Disease Education Program (NKDEP) which additionally recommends that when the eGFR is used in patients with extremes of body mass index for purposes of drug dosing, the eGFR should be multiplied by the estimated BMI. [facility] CHEM PANEL Creatinine Lvl 0.8 mg/dL 0.5 - 1.4 02/23/2014 [facility] CHEM PANEL Potassium Lvl 3.7 meq/L 3.5 - 5.1 02/23/2014 [facility] CHEM PANEL Sodium Lvl 140 meq/L 135 - 145 02/23/2014 [facility] CHEM PANEL Calcium Lvl 9.5 mg/dL 8.5 - 10.5 02/23/2014 [facility] CHEM PANEL Chloride Lvl 109 meq/L 95 - 109 02/23/2014 [facility] CHEM PANEL ALT 18 unit/L 0 - 65 02/23/2014 [facility] CHEM PANEL Total Protein 6.5 g/dL 6.4 - 8.4 02/23/2014 [facility] CHEM PANEL AST 9 unit/L 0 - 37 02/23/2014 [facility] CHEM PANEL Albumin Lvl 3.6 g/dL 3.5 - 5.0 02/23/2014 [facility] CHEM PANEL CO2 23 meq/L 24 - 32 02/23/2014 [facility] [place] CHEM PANEL BUN 6 mg/dL 7 - 22 02/23/2014 [facility] CHEM PANEL Glucose Lvl 102 mg/dL 70 - 99 02/23/2014 2Interpretive Data: Adult reference range values reflect the clinical guidelines of the [place] [employer]. [facility] [place] CHEM PANEL Bili Total 0.5 mg/dL 0.2 - 1.3 02/23/2014 [facility] [place] CHEM PANEL Alk Phos 74 unit/L 39 - 136 02/23/2014 [facility] [place] CHEM PANEL A/G Ratio 1.2 0.7 - 1.6 02/23/2014 [facility] [place] CHEM PANEL Globulin 2.9 g/dL 2.0 - 4.0 02/23/2014 [facility] [place] CHEM PANEL B/C Ratio 8 6 - 25 02/23/2014 [facility] [place] CHEM PANEL AGAP 11.7 meq/L 10.0 - 20.0 02/23/2014 [facility] [place] CHEM PANEL Lipase Lvl 170 unit/L 73 - 393 02/23/2014 [facility] [place] HEMATOLOGY PT 13.1 s 12.0 - 14.7 02/23/2014 [facility] [place] HEMATOLOGY INR 1.00 0.85 - 1.17 02/23/2014 3Interpretive Data: RECOMMENDED RANGES FOR PROTIME INR: 2.0-3.0 for most medical and surgical thromboembolic states. 2.5-3.5 for artificial heart valves and recurrent embolism. INR SHOULD BE USED ONLY FOR PATIENTS ON STABLE ANTICOAGULANT THERAPY. [facility] [place] HEMATOLOGY PTT 33.8 s 22.9 - 35.8 02/23/2014 4Interpretive Data: Heparin Therapeutic Range: 57 - 92 Seconds [facility] [place] HEMATOLOGY Platelet 255 K/CMM 133 - 450 02/23/2014 [facility] [place] HEMATOLOGY RDW 13.1 % 11.5 - 14.5 02/23/2014 [facility] [place] HEMATOLOGY MPV 8.8 fL 7.4 - 10.4 02/23/2014 [facility] [place] HEMATOLOGY Hct 35.7 % 36.0 - 48.0 02/23/2014 [facility] [place] HEMATOLOGY MCH 30.4 pg 27.0 - 31.0 02/23/2014 [facility] [place] HEMATOLOGY MCV 89.6 fL 81.0 - 99.0 02/23/2014 [facility] [place] HEMATOLOGY MCHC 33.9 g/dL 32.0 - 36.0 02/23/2014 [facility] [place] HEMATOLOGY WBC 9.5 K/CMM 3.7 - 10.4 02/23/2014 [facility] [place] HEMATOLOGY RBC 3.99 M/CMM 4.20 - 5.40 02/23/2014 [facility] [place] HEMATOLOGY Hgb 12.1 g/dL 12.0 - 16.0 02/23/2014 [facility] [place] HEMATOLOGY Eosinophils # 0.2 K/CMM 0.0 - 0.5 02/23/2014 [facility] [place] HEMATOLOGY Monocytes # 0.5 K/CMM 0.0 - 0.8 02/23/2014 [facility] [place] HEMATOLOGY Basophils # 0.0 K/CMM 0.0 - 0.2 02/23/2014 [facility] [place] HEMATOLOGY Lymphocytes # 1.8 K/CMM 1.0 - 5.5 02/23/2014 [facility] Segs-Bands # 7.0 K/CMM 1.5 - 8.1 02/23/2014 [facility] Basophils 0.3 % 0.0 - 1.0 02/23/2014 [facility] [place] HEMATOLOGY Eosinophils 2.0 % 0.0 - 4.0 02/23/2014 [facility] Lymphocytes 18.9 % 20.0 - 40.0 02/23/2014 [facility] Monocytes 5.2 % 2.0 - 12.0 02/23/2014 [facility] Segs 73.6 % 45.0 - 75.0 02/23/2014 [facility] [place] Abdomen/Pelvis w IV contrast CT Abdomen/Pelvis w IV contrast CT Clinical history: Abdominal pain, acute. Sex: F. : 1980. Technique: Axial scans through the abdomen and pelvis with gastrointestinal and intravenous contrast using 95 cc of omnipaque including multiplanar computer reformations. Total Dose (DLP): 1129 mGy-cm. Comparison exam 02/11/2014 Findings: Postop gastric bypass. Do not see any leak, free air or fluid collection. Other large and small bowel loops look normal. Sutures at the cecal tip presumably from appendectomy. No mass or fluid in the abdomen or pelvis. Mild fatty liver. Cholecystectomy. Normal bile ducts, pancreas, spleen, adrenal glands. Small right renal cyst lateral midpole cortex measuring 14 mm. Distal ureters and bladder are normal. Uterus surgically absent. No adnexal mass or free fluid in the pelvis. Left ovarian cyst versus hydrosalpinx suggested. Major vasculature are normal. Included lung bases are clear. Impression: 1. No acute CT findings in the abdomen or pelvis. Right renal cyst and left ovarian cysts or hydrosalpinx unchanged. 02/23/2014 - - Read by: Ravi Swartz MD Dictated Date/time: 02/23/14 17:11 Electronically Signed by: Ravi Swartz MD 02/23/14 17:18 FINAL REPORT [facility] [place] Ext Upper Venous Doppler Unilat US Ext Upper Venous Doppler Unil US REASON FOR EXAM: Pain, Limb. COMPARISON: None. FINDINGS: Venous ultrasound of the left upper extremity was performed with color flow and spectral Doppler analysis. Static images are submitted. Thrombus is demonstrated within a hand vein in the subcutaneous soft tissues at the location of a previous IV catheter. Flow is demonstrated in the internal jugular, subclavian, axillary, brachial, cephalic and basilic veins without demonstrable thrombus. IMPRESSION: 1. Thrombosis of a subcutaneous hand vein. 2. There is no additional sonographic evidence for thrombosis in the examined veins of the left upper extremity. SL: 14 02/17/2014 - - Read by: Reed Rai MD Dictated Date/time: 02/17/14 18:28 Electronically Signed by: Reed Rai MD 02/17/14 18:35 FINAL REPORT [facility] CHEM PANEL Magnesium Lvl 1.4 mg/dL 1.8 - 2.4 02/15/2014 [facility] ELECTROLYTES AGAP 14.2 meq/L 10.0 - 20.0 02/15/2014 [facility] ELECTROLYTES eGFR 74 mL/min/1.73m2 02/15/2014 1Result Comment: The eGFR is calculated using the CKD-EPI formula. In most young, healthy individuals the eGFR will be >90 mL/min/1.73m2. The eGFR declines with age. An eGFR of 60-89 may be normal in some populations, particularly the elderly, for whom the CKD-EPI formula has not been extensively validated. Use of the eGFR is not recommended in the following populations: Individuals with unstable creatinine concentrations, including patients and those with serious co-morbid conditions. Patients with extremes in muscle mass or diet. The data above are obtained from the National Kidney Disease Education Program (NKDEP) which additionally recommends that when the eGFR is used in patients with extremes of body mass index for purposes of drug dosing, the eGFR should be multiplied by the estimated BMI. [facility] ELECTROLYTES Calcium Lvl 8.9 mg/dL 8.5 - 10.5 02/15/2014 [facility] ELECTROLYTES Chloride Lvl 108 meq/L 95 - 109 02/15/2014 [facility] ELECTROLYTES CO2 24 meq/L 24 - 32 02/15/2014 [facility] ELECTROLYTES Potassium Lvl 3.2 meq/L 3.5 - 5.1 02/15/2014 [facility] ELECTROLYTES BUN 3 mg/dL 7 - 22 02/15/2014 [facility] ELECTROLYTES Creatinine Lvl 1.0 mg/dL 0.5 - 1.4 02/15/2014 [facility] ELECTROLYTES Sodium Lvl 143 meq/L 135 - 145 02/15/2014 [facility] ELECTROLYTES Glucose Lvl 110 mg/dL 70 - 99 02/15/2014 4Interpretive Data: Adult reference range values reflect the clinical guidelines of the [place] [employer]. [facility] MCHC 34.2 g/dL 32.0 - 36.0 02/15/2014 [facility] RDW 12.9 % 11.5 - 14.5 02/15/2014 [facility] MCH 31.1 pg 27.0 - 31.0 02/15/2014 [facility] MPV 8.3 fL 7.4 - 10.4 02/15/2014 [facility] Platelet 243 K/CMM 133 - 450 02/15/2014 [facility] HEMATOLOGY WBC 5.8 K/CMM 3.7 - 10.4 02/15/2014 [facility] HEMATOLOGY RBC 3.59 M/CMM 4.20 - 5.40 02/15/2014 [facility] MCV 91.0 fL 81.0 - 99.0 02/15/2014 [facility] Hgb 11.2 g/dL 12.0 - 16.0 02/15/2014 [facility] Hct 32.7 % 36.0 - 48.0 02/15/2014 [facility] HEMATOLOGY Basophils # 0.0 K/CMM 0.0 - 0.2 02/15/2014 [facility] HEMATOLOGY Eosinophils # 0.4 K/CMM 0.0 - 0.5 02/15/2014 [facility] HEMATOLOGY Segs-Bands # 3.1 K/CMM 1.5 - 8.1 02/15/2014 [facility] HEMATOLOGY Monocytes # 0.5 K/CMM 0.0 - 0.8 02/15/2014 [facility] HEMATOLOGY Lymphocytes # 1.7 K/CMM 1.0 - 5.5 02/15/2014 [facility] HEMATOLOGY Basophils 0.7 % 0.0 - 1.0 02/15/2014 [facility] HEMATOLOGY Eosinophils 7.6 % 0.0 - 4.0 02/15/2014 [facility] HEMATOLOGY Lymphocytes 30.1 % 20.0 - 40.0 02/15/2014 [facility] HEMATOLOGY Segs 53.7 % 45.0 - 75.0 02/15/2014 [facility] HEMATOLOGY Monocytes 7.9 % 2.0 - 12.0 02/15/2014 [facility] CHEM PANEL eGFR 96 mL/min/1.73m2 02/13/2014 2Result Comment: The eGFR is calculated using the CKD-EPI formula. In most young, healthy individuals the eGFR will be >90 mL/min/1.73m2. The eGFR declines with age. An eGFR of 60-89 may be normal in some populations, particularly the elderly, for whom the CKD-EPI formula has not been extensively validated. Use of the eGFR is not recommended in the following populations: Individuals with unstable creatinine concentrations, including patients and those with serious co-morbid conditions. Patients with extremes in muscle mass or diet. The data above are obtained from the National Kidney Disease Education Program (NKDEP) which additionally recommends that when the eGFR is used in patients with extremes of body mass index for purposes of drug dosing, the eGFR should be multiplied by the estimated BMI. [facility] CHEM PANEL Chloride Lvl 112 meq/L 95 - 109 02/13/2014 [facility] CHEM PANEL Potassium Lvl 3.9 meq/L 3.5 - 5.1 02/13/2014 [facility] CHEM PANEL Sodium Lvl 142 meq/L 135 - 145 02/13/2014 [facility] CHEM PANEL Creatinine Lvl 0.8 mg/dL 0.5 - 1.4 02/13/2014 [facility] CHEM PANEL Glucose Lvl 84 mg/dL 70 - 99 02/13/2014 5Interpretive Data: Adult reference range values reflect the clinical guidelines of the [place] [employer]. [facility] CHEM PANEL BUN 4 mg/dL 7 - 22 02/13/2014 [facility] CHEM PANEL Calcium Lvl 9.0 mg/dL 8.5 - 10.5 02/13/2014 [facility] CHEM PANEL CO2 22 meq/L 24 - 32 02/13/2014 [facility] CHEM PANEL AGAP 11.9 meq/L 10.0 - 20.0 02/13/2014 [facility] CHEM PANEL Magnesium Lvl 1.6 mg/dL 1.8 - 2.4 02/13/2014 [facility] HEMATOLOGY Basophils 0.7 % 0.0 - 1.0 02/13/2014 [facility] HEMATOLOGY Eosinophils 6.4 % 0.0 - 4.0 02/13/2014 [facility] HEMATOLOGY Monocytes # 0.4 K/CMM 0.0 - 0.8 02/13/2014 [facility] HEMATOLOGY Lymphocytes # 2.1 K/CMM 1.0 - 5.5 02/13/2014 [facility] HEMATOLOGY Segs-Bands # 2.1 K/CMM 1.5 - 8.1 02/13/2014 [facility] HEMATOLOGY Eosinophils # 0.3 K/CMM 0.0 - 0.5 02/13/2014 [facility] HEMATOLOGY Basophils # 0.0 K/CMM 0.0 - 0.2 02/13/2014 [facility] HEMATOLOGY Segs 43.3 % 45.0 - 75.0 02/13/2014 [facility] Lymphocytes 41.7 % 20.0 - 40.0 02/13/2014 [facility] Monocytes 7.9 % 2.0 - 12.0 02/13/2014 [facility] Platelet 256 K/CMM 133 - 450 02/13/2014 [facility] RDW 13.3 % 11.5 - 14.5 02/13/2014 [facility] MCHC 34.1 g/dL 32.0 - 36.0 02/13/2014 [facility] MPV 8.2 fL 7.4 - 10.4 02/13/2014 [facility] MCH 31.0 pg 27.0 - 31.0 02/13/2014 [facility] MCV 90.9 fL 81.0 - 99.0 02/13/2014 [facility] WBC 4.9 K/CMM 3.7 - 10.4 02/13/2014 [facility] Hgb 11.2 g/dL 12.0 - 16.0 02/13/2014 [facility] RBC 3.60 M/CMM 4.20 - 5.40 02/13/2014 [facility] HEMATOLOGY Hct 32.7 % 36.0 - 48.0 02/13/2014 [facility] IMMUNOLOGY CDC HIV 4th GEN Negative (02/12/14 4:57 AM) Negative 02/12/2014 [facility] URINE AND STOOL UA Color Ltyellow 02/11/2014 [facility] URINE AND STOOL UA Urobilinogen <=1.0 mg/dL 0.1 - 1.0 02/11/2014 [facility] URINE AND STOOL UA RBC 2 /HPF 0 - 2 02/11/2014 [facility] URINE AND STOOL UA WBC null 0 - 5 02/11/2014 [facility] URINE AND STOOL UA Blood Negative (02/11/14 2:50 PM) Negative 02/11/2014 [facility] URINE AND STOOL UA Sq Epi Many /LPF Few /LPF 02/11/2014 [facility] URINE AND STOOL UA Nitrite Negative (02/11/14 2:50 PM) Negative 02/11/2014 [facility] URINE AND STOOL UA Leuk Est Negative (02/11/14 2:50 PM) Negative 02/11/2014 [facility] URINE AND STOOL UA Bacteria Occasional /HPF None Seen /HPF 02/11/2014 [facility] URINE AND STOOL UA Turbidity Slight *ABN* (02/11/14 2:50 PM) Clear 02/11/2014 [facility] URINE AND STOOL UA Spec Grav 1.002 <=1.030 02/11/2014 [facility] URINE AND STOOL UA pH 6.0 5.0 - 8.0 02/11/2014 [facility] URINE AND STOOL UA Protein Negative mg/dL Negative mg/dL 02/11/2014 [facility] URINE AND STOOL UA Glucose Negative mg/dL Negative mg/dL 02/11/2014 [facility] URINE AND STOOL UA Ketones Negative mg/dL Negative mg/dL 02/11/2014 [facility] URINE AND STOOL UA Bili Negative *NA* (02/11/14 2:50 PM) Negative 02/11/2014 [facility] CHEM PANEL Lipase Lvl 70 unit/L 73 - 393 02/11/2014 [facility] CHEM PANEL A/G Ratio 0.9 0.7 - 1.6 02/11/2014 [facility] CHEM PANEL B/C Ratio 10 6 - 25 02/11/2014 [facility] CHEM PANEL Globulin 3.8 g/dL 2.0 - 4.0 02/11/2014 [facility] CHEM PANEL AGAP 12.8 meq/L 10.0 - 20.0 02/11/2014 [facility] CHEM PANEL eGFR 113 mL/min/1.73m2 02/11/2014 3Result Comment: The eGFR is calculated using the CKD-EPI formula. In most young, healthy individuals the eGFR will be >90 mL/min/1.73m2. The eGFR declines with age. An eGFR of 60-89 may be normal in some populations, particularly the elderly, for whom the CKD-EPI formula has not been extensively validated. Use of the eGFR is not recommended in the following populations: Individuals with unstable creatinine concentrations, including patients and those with serious co-morbid conditions. Patients with extremes in muscle mass or diet. The data above are obtained from the National Kidney Disease Education Program (NKDEP) which additionally recommends that when the eGFR is used in patients with extremes of body mass index for purposes of drug dosing, the eGFR should be multiplied by the estimated BMI. [facility] CHEM PANEL Albumin Lvl 3.4 g/dL 3.5 - 5.0 02/11/2014 [facility] CHEM PANEL ALT 25 unit/L 0 - 65 02/11/2014 [facility] CHEM PANEL CO2 25 meq/L 24 - 32 02/11/2014 [facility] CHEM PANEL Calcium Lvl 9.4 mg/dL 8.5 - 10.5 02/11/2014 [facility] CHEM PANEL Total Protein 7.2 g/dL 6.4 - 8.4 02/11/2014 [facility] CHEM PANEL AST 29 unit/L 0 - 37 02/11/2014 [facility] CHEM PANEL Alk Phos 77 unit/L 39 - 136 02/11/2014 [facility] CHEM PANEL Bili Total 0.4 mg/dL 0.2 - 1.3 02/11/2014 [facility] CHEM PANEL Sodium Lvl 137 meq/L 135 - 145 02/11/2014 [facility] CHEM PANEL Potassium Lvl 4.8 meq/L 3.5 - 5.1 02/11/2014 [facility] CHEM PANEL Chloride Lvl 104 meq/L 95 - 109 02/11/2014 [facility] CHEM PANEL BUN 7 mg/dL 7 - 22 02/11/2014 [facility] CHEM PANEL Creatinine Lvl 0.7 mg/dL 0.5 - 1.4 02/11/2014 [facility] CHEM PANEL Glucose Lvl 92 mg/dL 70 - 99 02/11/2014 6Interpretive Data: Adult reference range values reflect the clinical guidelines of the [place] [employer]. [facility] CHEM PANEL Amylase Lvl 30 unit/L 25 - 115 02/11/2014 [facility] ENDOCRINOLOGY S Preg Negative *NA* (02/11/14 2:00 PM) Negative 02/11/2014 [facility] HEMATOLOGY Monocytes # 0.4 K/CMM 0.0 - 0.8 02/11/2014 [facility] HEMATOLOGY Lymphocytes # 1.9 K/CMM 1.0 - 5.5 02/11/2014 [facility] Segs-Bands # 6.5 K/CMM 1.5 - 8.1 02/11/2014 [facility] Eosinophils 3.3 % 0.0 - 4.0 02/11/2014 [facility] Basophils 0.5 % 0.0 - 1.0 02/11/2014 [facility] Basophils # 0.1 K/CMM 0.0 - 0.2 02/11/2014 [facility] Eosinophils # 0.3 K/CMM 0.0 - 0.5 02/11/2014 [facility] Monocytes 4.7 % 2.0 - 12.0 02/11/2014 [facility] Segs 70.8 % 45.0 - 75.0 02/11/2014 [facility] Lymphocytes 20.7 % 20.0 - 40.0 02/11/2014 [facility] Platelet 328 K/CMM 133 - 450 02/11/2014 [facility] WBC 9.2 K/CMM 3.7 - 10.4 02/11/2014 [facility] MPV 8.7 fL 7.4 - 10.4 02/11/2014 [facility] Hgb 12.0 g/dL 12.0 - 16.0 02/11/2014 [facility] RBC 3.95 M/CMM 4.20 - 5.40 02/11/2014 [facility] MCH 30.5 pg 27.0 - 31.0 02/11/2014 [facility] MCV 92.5 fL 81.0 - 99.0 02/11/2014 [facility] RDW 13.4 % 11.5 - 14.5 02/11/2014 [facility] Hct 36.5 % 36.0 - 48.0 02/11/2014 [facility] MCHC 33.0 g/dL 32.0 - 36.0 02/11/2014 [facility] Abdomen/Pelvis w IV contrast CT Abdomen/Pelvis w IV contrast CT REASON FOR EXAM: Acute abdominal pain. COMPARISON: Abdomen and pelvic CT 11/13/2013. TECHNIQUE: Enhanced axial helical CT images of the abdomen and pelvis were performed with IV and oral contrast. Reformatted coronal and sagittal images were reviewed. ABDOMEN / PELVIC CT FINDINGS: The visualized lung bases are remarkable for dependent subsegmental atelectasis. The heart size is upper limits of normal. The gallbladder is surgically absent. Small focus of low attenuation in the medial segment of the left hepatic lobe adjacent to the falciform ligament likely focal fatty infiltration. There is a 1.2 cm right renal cortical lesion with Hounsfield unit measurement of 29 on the comparison unenhanced examination and 10 on the current examination likely a hyperdense cyst. Minimal focal cortical scarring in the mid to upper pole of the left kidney. No hydronephrosis or pyelonephritis. The pancreas, spleen and adrenal glands are unremarkable. There is a nonobstructive bowel gas pattern. Postsurgical changes of the stomach. There is no demonstrable bowel abnormality. The appendix is not seen. There is no free intraperitoneal air or ascites. The uterus is not seen and likely surgically absent. There are left ovarian cysts which are slightly more conspicuous from the comparison examination the largest measuring approximately 2 cm. The partially distended urinary bladder is unremarkable. The caliber of the abdominal aorta is within normal limits. There is no pathologic retroperitoneal lymphadenopathy. There is mild focal laxity of the mid anterior abdominal wall with anterior convexity at the level of the umbilicus without demonstrable defect to confirm a hernia. Mild degenerative changes of the spine. IMPRESSION: 1. Left ovarian cysts. Further evaluation may be obtained with a pelvic ultrasound. 2. Otherwise stable findings from the comparison examination. SL: 15 02/11/2014 - - Read by: Reed Rai MD Dictated Date/time: 02/11/14 17:40 Electronically Signed by: Reed Rai MD 02/11/14 18:08 FINAL REPORT [facility] URINE AND STOOL UA Bili Negative *NA* (02/03/14 8:59 PM) Negative 02/04/2014 [facility] URINE AND STOOL UA Turbidity Clear (02/03/14 8:59 PM) Clear 02/04/2014 [facility] URINE AND STOOL UA pH 6.0 5.0 - 8.0 02/04/2014 [facility] URINE AND STOOL UA Spec Grav <=1.005
*NA*
(02/03/14 8:59 PM) <=1.030 02/04/2014 [facility] URINE AND STOOL UA Color Yellow *NA* (02/03/14 8:59 PM) Yellow 02/04/2014 [facility] URINE AND STOOL UA Glucose Negative (02/03/14 8:59 PM) Negative 02/04/2014 [facility] URINE AND STOOL UA Ketones Negative *NA* (02/03/14 8:59 PM) Negative 02/04/2014 [facility] URINE AND STOOL UA Protein Negative (02/03/14 8:59 PM) Negative 02/04/2014 [facility] URINE AND STOOL UA Leuk Est Negative (02/03/14 8:59 PM) Negative 02/04/2014 [facility] URINE AND STOOL UA Nitrite Negative (02/03/14 8:59 PM) Negative 02/04/2014 [facility] URINE AND STOOL UA Blood Negative (02/03/14 8:59 PM) Negative 02/04/2014 [facility] URINE AND STOOL UA Urobilinogen 0.2 EU/dL 0.1 - 1.0 02/04/2014 [facility] URINE AND STOOL Micro? Performed (02/03/14 8:59 PM) 02/04/2014 [facility] URINE AND STOOL UA Sq Epi Few /LPF Few /LPF 02/04/2014 [facility] URINE AND STOOL UA WBC 0-2 /HPF 0 - 5 02/04/2014 [facility] URINE AND STOOL UA RBC 0-2 /HPF 0 - 2 02/04/2014 [facility] URINE AND STOOL UA Bacteria Few /HPF None Seen /HPF 02/04/2014 [facility] URINE CHEM U Preg Negative (02/03/14 8:59 PM) Negative 02/04/2014 [facility] CARDIAC ENZYMES CK MB Index 1.3 0.0 - 2.5 02/04/2014 [facility] CARDIAC ENZYMES BNP 9 pg/mL <=100 pg/mL 02/04/2014 3Interpretive Data: Elevated results are in line with increasing severity of congestive heart failure. Minor elevations between 100 and 300 may be seen with Myocardial Ischemia, Sodium retaining drugs, and compensated/treated heart failure. [facility] CARDIAC ENZYMES Troponin-I null 0.00 - 0.40 02/04/2014 [facility] CARDIAC ENZYMES Total CK 38 unit/L 12 - 191 02/04/2014 [facility] CARDIAC ENZYMES CK MB 0.5 ng/mL 0.5 - 3.6 02/04/2014 [facility] CHEM PANEL eGFR 96 mL/min/1.73m2 02/04/2014 1Result Comment: The eGFR is calculated using the CKD-EPI formula. In most young, healthy individuals the eGFR will be >90 mL/min/1.73m2. The eGFR declines with age. An eGFR of 60-89 may be normal in some populations, particularly the elderly, for whom the CKD-EPI formula has not been extensively validated. Use of the eGFR is not recommended in the following populations: Individuals with unstable creatinine concentrations, including patients and those with serious co-morbid conditions. Patients with extremes in muscle mass or diet. The data above are obtained from the National Kidney Disease Education Program (NKDEP) which additionally recommends that when the eGFR is used in patients with extremes of body mass index for purposes of drug dosing, the eGFR should be multiplied by the estimated BMI. [facility] CHEM PANEL Bili Total 0.2 mg/dL 0.2 - 1.3 02/04/2014 [facility] CHEM PANEL A/G Ratio 1.0 0.7 - 1.6 02/04/2014 [facility] CHEM PANEL Globulin 3.2 g/dL 2.0 - 4.0 02/04/2014 [facility] CHEM PANEL AGAP 10.0 meq/L 10.0 - 20.0 02/04/2014 [facility] CHEM PANEL Alk Phos 70 unit/L 39 - 136 02/04/2014 [facility] CHEM PANEL B/C Ratio 8 6 - 25 02/04/2014 [facility] CHEM PANEL Creatinine Lvl 0.8 mg/dL 0.5 - 1.4 02/04/2014 [facility] CHEM PANEL BUN 6 mg/dL 7 - 22 02/04/2014 [facility] CHEM PANEL Potassium Lvl 4.0 meq/L 3.5 - 5.1 02/04/2014 [facility] CHEM PANEL Sodium Lvl 140 meq/L 135 - 145 02/04/2014 [facility] CHEM PANEL Glucose Lvl 92 mg/dL 70 - 99 02/04/2014 2Interpretive Data: Adult reference range values reflect the clinical guidelines of the [place] [employer]. [facility] CHEM PANEL ALT 30 unit/L 0 - 65 02/04/2014 [facility] CHEM PANEL AST 14 unit/L 0 - 37 02/04/2014 [facility] CHEM PANEL CO2 26 meq/L 24 - 32 02/04/2014 [facility] CHEM PANEL Chloride Lvl 108 meq/L 95 - 109 02/04/2014 [facility] CHEM PANEL Albumin Lvl 3.2 g/dL 3.5 - 5.0 02/04/2014 [facility] CHEM PANEL Total Protein 6.4 g/dL 6.4 - 8.4 02/04/2014 [facility] CHEM PANEL Calcium Lvl 8.8 mg/dL 8.5 - 10.5 02/04/2014 [facility] CHEM PANEL Magnesium Lvl 1.7 mg/dL 1.8 - 2.4 02/04/2014 [facility] CHEM PANEL Phosphorus 3.7 mg/dL 2.5 - 4.5 02/04/2014 [facility] HEMATOLOGY Basophils # 0.1 K/CMM 0.0 - 0.2 02/04/2014 [facility] HEMATOLOGY Segs-Bands # 5.2 K/CMM 1.5 - 8.1 02/04/2014 [facility] HEMATOLOGY Basophils 0.7 % 0.0 - 1.0 02/04/2014 [facility] HEMATOLOGY Eosinophils 4.9 % 0.0 - 4.0 02/04/2014 [facility] HEMATOLOGY Monocytes 7.3 % 2.0 - 12.0 02/04/2014 [facility] HEMATOLOGY Lymphocytes 25.0 % 20.0 - 40.0 02/04/2014 [facility] HEMATOLOGY Eosinophils # 0.4 K/CMM 0.0 - 0.5 02/04/2014 [facility] HEMATOLOGY Monocytes # 0.6 K/CMM 0.0 - 0.8 02/04/2014 [facility] HEMATOLOGY Lymphocytes # 2.1 K/CMM 1.0 - 5.5 02/04/2014 [facility] Segs 62.1 % 45.0 - 75.0 02/04/2014 [facility] MCHC 33.5 g/dL 32.0 - 36.0 02/04/2014 [facility] HEMATOLOGY MCV 91.8 fL 81.0 - 99.0 02/04/2014 [facility] HEMATOLOGY RDW 12.7 % 11.5 - 14.5 02/04/2014 [facility] MCH 30.7 pg 27.0 - 31.0 02/04/2014 [facility] HEMATOLOGY MPV 8.5 fL 7.4 - 10.4 02/04/2014 [facility] HEMATOLOGY Platelet 285 K/CMM 133 - 450 02/04/2014 [facility] HEMATOLOGY Hgb 11.8 g/dL 12.0 - 16.0 02/04/2014 [facility] HEMATOLOGY WBC 8.3 K/CMM 3.7 - 10.4 02/04/2014 [facility] HEMATOLOGY Hct 35.2 % 36.0 - 48.0 02/04/2014 [facility] HEMATOLOGY RBC 3.83 M/CMM 4.20 - 5.40 02/04/2014 [facility] HEMATOLOGY INR 0.93 0.85 - 1.17 02/04/2014 4Interpretive Data: RECOMMENDED RANGES FOR PROTIME INR: 2.0-3.0 for most medical and surgical thromboembolic states. 2.5-3.5 for artificial heart valves and recurrent embolism. INR SHOULD BE USED ONLY FOR PATIENTS ON STABLE ANTICOAGULANT THERAPY. [facility] HEMATOLOGY PTT 32.8 s 22.9 - 35.8 02/04/2014 5Interpretive Data: Heparin Therapeutic Range: 57 - 92 Seconds [facility] HEMATOLOGY PT 12.4 s 12.0 - 14.7 02/04/2014 [facility] Brain wo contrast CT Brain wo contrast CT CRANIAL CT (without contrast) HISTORY: Weakness. TECHNIQUE: Helical CT images were obtained from the foramen magnum to the vertex without the use of intravenous contrast. The examination was performed from the emergency department. Comparison is made to 09/20/2010. FINDINGS: There is normal appearance of the ventricular system and extraventricular CSF spaces. There is no evidence of mass, midline shift, hemorrhage, extra-axial fluid collection, acute infarction, or other focal abnormal attenuation within the brain parenchyma. The calvarium is intact. The visualized sinuses and mastoids are clear. CONCLUSION: 1. Negative noncontrast cranial CT. Coding: Brain wo contrast CT CPT Code: 87604 SL: 13 Zenon Hoover M.D. 02/03/2014 - - Read by: Zenon Hoover MD Dictated Date/time: 02/03/14 20:53 Electronically Signed by: Zenon Hoover MD 02/03/14 20:55 FINAL REPORT [facility] Chest 1view Chest 1view CXR, portable (1 view) HISTORY: Chest pain Comparison is made to 01/23/2014. FINDINGS: The lungs are clear. The heart and pulmonary vasculature are within normal limits. There are no pleural effusions. The regional skeleton is unremarkable. CONCLUSION: 1. No active disease. Coding: Chest 1view CPT code: 72404 SL: 13 Zenon Hoover M.D. 02/03/2014 - - Read by: Zenon Hoover MD Dictated Date/time: 02/03/14 19:20 Electronically Signed by: Zenon Hoover MD 02/03/14 19:21 FINAL REPORT [facility] CARDIAC ENZYMES Total CK 47 unit/L 12 - 191 01/24/2014 [facility] CARDIAC ENZYMES Troponin-I null 0.00 - 0.40 01/24/2014 [facility] CHEM PANEL A/G Ratio 1.0 0.7 - 1.6 01/24/2014 [facility] CHEM PANEL B/C Ratio 12 6 - 25 01/24/2014 [facility] CHEM PANEL Globulin 3.3 g/dL 2.0 - 4.0 01/24/2014 [facility] CHEM PANEL AGAP 11.7 meq/L 10.0 - 20.0 01/24/2014 [facility] CHEM PANEL eGFR 96 mL/min/1.73m2 01/24/2014 1Result Comment: The eGFR is calculated using the CKD-EPI formula. In most young, healthy individuals the eGFR will be >90 mL/min/1.73m2. The eGFR declines with age. An eGFR of 60-89 may be normal in some populations, particularly the elderly, for whom the CKD-EPI formula has not been extensively validated. Use of the eGFR is not recommended in the following populations: Individuals with unstable creatinine concentrations, including patients and those with serious co-morbid conditions. Patients with extremes in muscle mass or diet. The data above are obtained from the National Kidney Disease Education Program (NKDEP) which additionally recommends that when the eGFR is used in patients with extremes of body mass index for purposes of drug dosing, the eGFR should be multiplied by the estimated BMI. [facility] CHEM PANEL Calcium Lvl 9.0 mg/dL 8.5 - 10.5 01/24/2014 [facility] CHEM PANEL Potassium Lvl 3.7 meq/L 3.5 - 5.1 01/24/2014 [facility] CHEM PANEL Chloride Lvl 106 meq/L 95 - 109 01/24/2014 [facility] CHEM PANEL CO2 25 meq/L 24 - 32 01/24/2014 [facility] CHEM PANEL Creatinine Lvl 0.8 mg/dL 0.5 - 1.4 01/24/2014 [facility] CHEM PANEL Glucose Lvl 90 mg/dL 70 - 99 01/24/2014 2Interpretive Data: Adult reference range values reflect the clinical guidelines of the [place] [employer]. [facility] CHEM PANEL BUN 10 mg/dL 7 - 22 01/24/2014 [facility] CHEM PANEL Sodium Lvl 139 meq/L 135 - 145 01/24/2014 [facility] CHEM PANEL Bili Total 0.2 mg/dL 0.2 - 1.3 01/24/2014 [facility] CHEM PANEL AST 16 unit/L 0 - 37 01/24/2014 [facility] CHEM PANEL Alk Phos 72 unit/L 39 - 136 01/24/2014 [facility] CHEM PANEL Albumin Lvl 3.3 g/dL 3.5 - 5.0 01/24/2014 [facility] CHEM PANEL ALT 22 unit/L 0 - 65 01/24/2014 [facility] CHEM PANEL Total Protein 6.6 g/dL 6.4 - 8.4 01/24/2014 [facility] HEMATOLOGY Segs 65.6 % 45.0 - 75.0 01/24/2014 [facility] HEMATOLOGY Lymphocytes # 2.2 K/CMM 1.0 - 5.5 01/24/2014 [facility] HEMATOLOGY Monocytes 5.8 % 2.0 - 12.0 01/24/2014 [facility] HEMATOLOGY Lymphocytes 23.3 % 20.0 - 40.0 01/24/2014 [facility] HEMATOLOGY Basophils 0.6 % 0.0 - 1.0 01/24/2014 [facility] HEMATOLOGY Segs-Bands # 6.1 K/CMM 1.5 - 8.1 01/24/2014 [facility] HEMATOLOGY Eosinophils 4.7 % 0.0 - 4.0 01/24/2014 [facility] HEMATOLOGY Monocytes # 0.5 K/CMM 0.0 - 0.8 01/24/2014 [facility] HEMATOLOGY Eosinophils # 0.4 K/CMM 0.0 - 0.5 01/24/2014 [facility] HEMATOLOGY Basophils # 0.1 K/CMM 0.0 - 0.2 01/24/2014 [facility] MPV 8.1 fL 7.4 - 10.4 01/24/2014 [facility] MCHC 34.1 g/dL 32.0 - 36.0 01/24/2014 [facility] HEMATOLOGY Hct 35.0 % 36.0 - 48.0 01/24/2014 [facility] HEMATOLOGY MCV 92.2 fL 81.0 - 99.0 01/24/2014 [facility] MCH 31.5 pg 27.0 - 31.0 01/24/2014 [facility] HEMATOLOGY RBC 3.79 M/CMM 4.20 - 5.40 01/24/2014 [facility] Hgb 11.9 g/dL 12.0 - 16.0 01/24/2014 [facility] HEMATOLOGY WBC 9.3 K/CMM 3.7 - 10.4 01/24/2014 [facility] HEMATOLOGY Platelet 283 K/CMM 133 - 450 01/24/2014 [facility] HEMATOLOGY RDW 13.2 % 11.5 - 14.5 01/24/2014 [facility] Chest 2 views Chest 2 views PROCEDURE: Chest 2 views REASON FOR EXAM: CHEST PAIN LEFT SIDE, SOB, VOMITING X 1 DAY. CLINICAL INDICATION: Chest pain COMPARISON: 07/2013. 02/2013. 12/2012 multiple x-rays. FINDINGS: There are no infiltrates, effusions or pneumothorax, the cardiomediastinal silhouette is normal. There is no free air under the diaphragm. The visualized osseous structures are normal for soft tissue technique. Overlying leads limit detail. SL: 12 01/23/2014 - - Read by: Avni Ring MD Dictated Date/time: 01/23/14 23:08 Electronically Signed by: Avni Ring MD 01/23/14 23:09 FINAL REPORT [facility] CHEM PANEL Lipase Lvl 148 unit/L 73 - 393 12/15/2013 [facility] CHEM PANEL eGFR 84 mL/min/1.73m2 12/15/2013 1Result Comment: The eGFR is calculated using the CKD-EPI formula. In most young, healthy individuals the eGFR will be >90 mL/min/1.73m2. The eGFR declines with age. An eGFR of 60-89 may be normal in some populations, particularly the elderly, for whom the CKD-EPI formula has not been extensively validated. Use of the eGFR is not recommended in the following populations: Individuals with unstable creatinine concentrations, including patients and those with serious co-morbid conditions. Patients with extremes in muscle mass or diet. The data above are obtained from the National Kidney Disease Education Program (NKDEP) which additionally recommends that when the eGFR is used in patients with extremes of body mass index for purposes of drug dosing, the eGFR should be multiplied by the estimated BMI. [facility] CHEM PANEL Albumin Lvl 3.4 g/dL 3.5 - 5.0 12/15/2013 [facility] CHEM PANEL Total Protein 6.9 g/dL 6.4 - 8.4 12/15/2013 [facility] CHEM PANEL Calcium Lvl 8.9 mg/dL 8.5 - 10.5 12/15/2013 [facility] CHEM PANEL CO2 24 meq/L 24 - 32 12/15/2013 [facility] CHEM PANEL ALANINE AMINOTRANSFERASE 18 unit/L 0 - 65 12/15/2013 [facility] CHEM PANEL Chloride Lvl 109 meq/L 95 - 109 12/15/2013 [facility] CHEM PANEL Sodium Lvl 140 meq/L 135 - 145 12/15/2013 [facility] CHEM PANEL Creatinine Lvl 0.9 mg/dL 0.5 - 1.4 12/15/2013 [facility] CHEM PANEL BUN 6 mg/dL 7 - 22 12/15/2013 [facility] CHEM PANEL Glucose Lvl 101 mg/dL 70 - 99 12/15/2013 2Interpretive Data: Adult reference range values reflect the clinical guidelines of the [place] [employer]. [facility] CHEM PANEL Potassium Lvl 3.5 meq/L 3.5 - 5.1 12/15/2013 [facility] CHEM PANEL Bili Total 0.2 mg/dL 0.2 - 1.3 12/15/2013 [facility] CHEM PANEL Alk Phos 70 unit/L 39 - 136 12/15/2013 [facility] CHEM PANEL ASPARTATE TRANSAMINASE 10 unit/L 0 - 37 12/15/2013 [facility] CHEM PANEL A/G Ratio 1.0 0.7 - 1.6 12/15/2013 [facility] CHEM PANEL Globulin 3.5 g/dL 2.0 - 4.0 12/15/2013 [facility] CHEM PANEL B/C Ratio 7 6 - 25 12/15/2013 [facility] CHEM PANEL AGAP 10.5 meq/L 10.0 - 20.0 12/15/2013 [facility] CHEM PANEL Amylase Lvl 31 unit/L 25 - 115 12/15/2013 [facility] HEMATOLOGY MPV 8.2 fL 7.4 - 10.4 12/15/2013 [facility] HEMATOLOGY Platelet 306 K/CMM 133 - 450 12/15/2013 [facility] HEMATOLOGY RDW 13.4 % 11.5 - 14.5 12/15/2013 [facility] HEMATOLOGY MCHC 34.3 g/dL 32.0 - 36.0 12/15/2013 [facility] HEMATOLOGY MCV 93.9 fL 81.0 - 99.0 12/15/2013 [facility] HEMATOLOGY Hct 35.1 % 36.0 - 48.0 12/15/2013 [facility] HEMATOLOGY Hgb 12.1 g/dL 12.0 - 16.0 12/15/2013 [facility] MCH 32.2 pg 27.0 - 31.0 12/15/2013 [facility] HEMATOLOGY RBC X 10x6 3.74 M/CMM 4.20 - 5.40 12/15/2013 [facility] HEMATOLOGY WBC X 10x3 8.3 K/CMM 3.7 - 10.4 12/15/2013 [facility] HEMATOLOGY Eosinophils # 0.3 K/CMM 0.0 - 0.5 12/15/2013 [facility] HEMATOLOGY Monocytes # 0.5 K/CMM 0.0 - 0.8 12/15/2013 [facility] HEMATOLOGY Basophils # 0.0 K/CMM 0.0 - 0.2 12/15/2013 [facility] HEMATOLOGY Segs-Bands # 5.1 K/CMM 1.5 - 8.1 12/15/2013 [facility] HEMATOLOGY Lymphocytes 28.0 % 20.0 - 40.0 12/15/2013 [facility] HEMATOLOGY Segs 62.2 % 45.0 - 75.0 12/15/2013 [facility] HEMATOLOGY Lymphocytes # 2.3 K/CMM 1.0 - 5.5 12/15/2013 [facility] HEMATOLOGY Monocytes 6.2 % 2.0 - 12.0 12/15/2013 [facility] HEMATOLOGY Basophils 0.4 % 0.0 - 1.0 12/15/2013 [facility] HEMATOLOGY Eosinophils 3.2 % 0.0 - 4.0 12/15/2013 [facility] URINE AND STOOL UA Urobilinogen <=1.0 mg/dL 0.1 - 1.0 12/15/2013 [facility] URINE AND STOOL UA Spec Grav 1.003 <=1.030 12/15/2013 [facility] URINE AND STOOL UA Turbidity Clear (12/14/2013 21:30:00 [place]) Clear 12/15/2013 [facility] URINE AND STOOL UA Color Ltyellow 12/15/2013 [facility] URINE AND STOOL UA Nitrite Negative (12/14/2013 21:30:00 [place]) Negative 12/15/2013 [facility] URINE AND STOOL UA Blood Negative (12/14/2013 21:30:00 [place]) Negative 12/15/2013 [facility] URINE AND STOOL UA Bacteria Occasional /HPF None Seen /HPF 12/15/2013 [facility] URINE AND STOOL UA RBC null 0 - 2 12/15/2013 [facility] URINE AND STOOL UA Ketones Negative mg/dL Negative mg/dL 12/15/2013 [facility] URINE AND STOOL UA Bili Negative *NA* (12/14/2013 21:30:00 [place]) Negative 12/15/2013 [facility] URINE AND STOOL UA Glucose Negative mg/dL Negative mg/dL 12/15/2013 [facility] URINE AND STOOL UA WBC 4 /HPF 0 - 5 12/15/2013 [facility] URINE AND STOOL UA Leuk Est Negative (12/14/2013 21:30:00 [place]) Negative 12/15/2013 [facility] URINE AND STOOL UA Sq Epi Many /LPF Few /LPF 12/15/2013 [facility] URINE AND STOOL UA pH 7.0 5.0 - 8.0 12/15/2013 [facility] URINE AND STOOL UA Protein Negative mg/dL Negative mg/dL 12/15/2013 [facility] URINE CHEM U Preg Negative (12/14/2013 21:30:00 [place]) Negative 12/15/2013 [facility] CHEM PANEL eGFR 84 mL/min/1.73m2 11/14/2013 1Result Comment: The eGFR is calculated using the CKD-EPI formula. In most young, healthy individuals the eGFR will be >90 mL/min/1.73m2. The eGFR declines with age. An eGFR of 60-89 may be normal in some populations, particularly the elderly, for whom the CKD-EPI formula has not been extensively validated. Use of the eGFR is not recommended in the following populations: Individuals with unstable creatinine concentrations, including patients and those with serious co-morbid conditions. Patients with extremes in muscle mass or diet. The data above are obtained from the National Kidney Disease Education Program (NKDEP) which additionally recommends that when the eGFR is used in patients with extremes of body mass index for purposes of drug dosing, the eGFR should be multiplied by the estimated BMI. [facility] CHEM PANEL ASPARTATE TRANSAMINASE 12 unit/L 0 - 37 11/14/2013 [facility] CHEM PANEL Bili Total 0.2 mg/dL 0.2 - 1.3 11/14/2013 [facility] CHEM PANEL Calcium Lvl 9.3 mg/dL 8.5 - 10.5 11/14/2013 [facility] CHEM PANEL Total Protein 7.5 g/dL 6.4 - 8.4 11/14/2013 [facility] CHEM PANEL Alk Phos 75 unit/L 39 - 136 11/14/2013 [facility] CHEM PANEL CO2 24 meq/L 24 - 32 11/14/2013 [facility] CHEM PANEL Potassium Lvl 3.8 meq/L 3.5 - 5.1 11/14/2013 [facility] CHEM PANEL Chloride Lvl 104 meq/L 95 - 109 11/14/2013 [facility] CHEM PANEL Sodium Lvl 138 meq/L 135 - 145 11/14/2013 [facility] CHEM PANEL Creatinine Lvl 0.9 mg/dL 0.5 - 1.4 11/14/2013 [facility] CHEM PANEL BUN 9 mg/dL 7 - 22 11/14/2013 [facility] CHEM PANEL Glucose Lvl 92 mg/dL 70 - 99 11/14/2013 2Interpretive Data: Adult reference range values reflect the clinical guidelines of the [place] [employer]. [facility] CHEM PANEL Albumin Lvl 3.8 g/dL 3.5 - 5.0 11/14/2013 [facility] CHEM PANEL ALANINE AMINOTRANSFERASE 33 unit/L 0 - 65 11/14/2013 [facility] CHEM PANEL AGAP 13.8 meq/L 10.0 - 20.0 11/14/2013 [facility] CHEM PANEL B/C Ratio 10 6 - 25 11/14/2013 [facility] CHEM PANEL Globulin 3.7 g/dL 2.0 - 4.0 11/14/2013 [facility] CHEM PANEL A/G Ratio 1.0 0.7 - 1.6 11/14/2013 [facility] HEMATOLOGY Monocytes 6.9 % 2.0 - 12.0 11/14/2013 [facility] HEMATOLOGY Lymphocytes 32.3 % 20.0 - 40.0 11/14/2013 [facility] HEMATOLOGY Segs 57.8 % 45.0 - 75.0 11/14/2013 [facility] HEMATOLOGY Segs-Bands # 5.6 K/CMM 1.5 - 8.1 11/14/2013 [facility] HEMATOLOGY Lymphocytes # 3.1 K/CMM 1.0 - 5.5 11/14/2013 [facility] HEMATOLOGY Basophils 0.7 % 0.0 - 1.0 11/14/2013 [facility] HEMATOLOGY Eosinophils 2.3 % 0.0 - 4.0 11/14/2013 [facility] HEMATOLOGY Basophils # 0.1 K/CMM 0.0 - 0.2 11/14/2013 [facility] HEMATOLOGY Eosinophils # 0.2 K/CMM 0.0 - 0.5 11/14/2013 [facility] HEMATOLOGY Monocytes # 0.7 K/CMM 0.0 - 0.8 11/14/2013 [facility] HEMATOLOGY RBC X 10x6 4.09 M/CMM 4.20 - 5.40 11/14/2013 [facility] HEMATOLOGY WBC X 10x3 9.7 K/CMM 3.7 - 10.4 11/14/2013 [facility] HEMATOLOGY Hct 38.9 % 36.0 - 48.0 11/14/2013 [facility] HEMATOLOGY Hgb 13.1 g/dL 12.0 - 16.0 11/14/2013 [facility] HEMATOLOGY MCH 32.1 pg 27.0 - 31.0 11/14/2013 [facility] HEMATOLOGY MCHC 33.8 g/dL 32.0 - 36.0 11/14/2013 [facility] HEMATOLOGY MCV 95.0 fL 81.0 - 99.0 11/14/2013 [facility] HEMATOLOGY RDW 13.6 % 11.5 - 14.5 11/14/2013 [facility] HEMATOLOGY Platelet 285 K/CMM 133 - 450 11/14/2013 [facility] HEMATOLOGY MPV 8.2 fL 7.4 - 10.4 11/14/2013 [facility] URINE AND STOOL UA Color Ltyellow 11/14/2013 [facility] URINE AND STOOL UA Urobilinogen <=1.0 mg/dL 0.1 - 1.0 11/14/2013 [facility] URINE AND STOOL UA Turbidity Clear (11/13/2013 20:58:00 [place]) Clear 11/14/2013 [facility] URINE AND STOOL UA pH 6.0 5.0 - 8.0 11/14/2013 [facility] URINE AND STOOL UA Spec Grav 1.003 <=1.030 11/14/2013 [facility] URINE AND STOOL UA Protein Negative mg/dL Negative mg/dL 11/14/2013 [facility] URINE AND STOOL UA Ketones Negative mg/dL Negative mg/dL 11/14/2013 [facility] URINE AND STOOL UA Glucose Negative mg/dL Negative mg/dL 11/14/2013 [facility] URINE AND STOOL UA Bili Negative *NA* (11/13/2013 20:58:00 [place]) Negative 11/14/2013 [facility] URINE AND STOOL UA Nitrite Negative (11/13/2013 20:58:00 [place]) Negative 11/14/2013 [facility] URINE AND STOOL UA Blood Negative (11/13/2013 20:58:00 [place]) Negative 11/14/2013 [facility] URINE AND STOOL UA RBC null 0 - 2 11/14/2013 [facility] URINE AND STOOL UA Leuk Est Negative (11/13/2013 20:58:00 [place]) Negative 11/14/2013 [facility] URINE AND STOOL UA WBC null 0 - 5 11/14/2013 [facility] URINE AND STOOL UA Sq Epi Moderate /LPF Few /LPF 11/14/2013 [facility] URINE CHEM U Preg Negative (11/13/2013 20:58:00 [place]) Negative 11/14/2013 [facility] Renal Stone CT Renal Stone CT I. CT SCAN of the ABDOMEN WITHOUT CONTRAST II. CT SCAN of the PELVIS WITHOUT CONTRAST (Renal stone protocol) HISTORY: Abdominal pain, Flank Pain The examination was performed from the emergency department. Comparison is made to 03/05/2013. Studies of 01/14/2013 and 12/09/[address] SCAN OF THE ABDOMEN WITHOUT CONTRAST (Renal stone protocol). Technique: Helical CT images at 5 mm intervals were obtained from the upper abdomen, just above the kidneys, to the iliac crests. Neither oral or intravenous contrast was administered (renal stone protocol). II. CT SCAN OF THE PELVIS WITHOUT CONTRAST (Renal stone protocol). Technique: Helical CT images at 5 mm intervals were obtained from the iliac crests to the pubic symphysis. Neither oral or intravenous contrast was administered. Sagittal and coronal reconstructions were provided. FINDINGS: There is no free intraperitoneal gas, abscess, focal inflammation, or other evidence of an acute intra-abdominal process. No urinary tract calculi are seen. There is no hydronephrosis. The kidneys are normal in size. Again noted is a very small (approximately 10 x 5 mm) focal lesion arising from the lateral aspect of the cortex of the mid-lower pole are region of the right kidney. Is essentially unchanged from November 2012 and therefore is presumably benign such as a small cyst with proteinaceous material or small stable presumably benign solid lesion. There are surgical clips in the right upper quadrant consistent with a prior cholecystectomy. There is no evidence of biliary ductal dilatation. The visualized portions of the liver and spleen, the pancreas, and adrenal glands are normal in appearance. Evaluation of the solid organs is limited due to lack of intravenous contrast. There are postoperative changes involving the stomach consistent with prior bariatric surgery. It appears a gastric sleeve has been performed. There is a moderate amount of fecal material within the colon (constipation). Small densities are noted in the medial aspect of the cecum in the expected location of the appendix. The appendix is not visualized. It is presumed the patient status post appendectomy. Please correlate with surgical history. The gastrointestinal structures are otherwise unremarkable. Evaluation of the gastrointestinal structures is limited due to lack of oral contrast. No ascites or fluid collections are seen. No mass or adenopathy is seen within the abdomen. There is a tiny umbilical hernia. There is no herniation of bowel. The uterus is not visualized. Presumably, the patient has had a prior hysterectomy. CONCLUSION: 1. No evidence of an acute intra-abdominal process. 2. No evidence of urinary tract calculi or hydronephrosis. 3. Small (on the order of 1 cm) focal exophytic lesion about the right kidney which is essentially stable from November 2010. Please see discussion above. 4. Status post cholecystectomy. 5. Apparent prior appendectomy. 6. Apparent prior hysterectomy. 7. Postoperative change involving the stomach consistent bariatric surgery. It appears the gastric sleeve procedure was performed. 8. Constipation. 9. Tiny umbilical hernia. Coding: Abdomen/Pelvis wo contrast CT SL: 12 Zenon Hoover M.D. 11/13/2013 - - Read by: Zenon Hoover Dictated Date/time: 11/14/13 01:24 Electronically Signed by: Zenon Hoover MD 11/14/13 01:33 FINAL REPORT [facility] VIRAL - SEROLOGY Influ A Negative (08/12/2013 16:18:48) Negative 08/12/2013 Normal [facility] VIRAL - SEROLOGY Influ B Negative 1 (08/12/2013 16:18:48) Negative 08/12/2013 Normal 1Interpretive Data: Influenza A&B Antigen: Due to the low sensitivity of this test a negative result does not exclude influenza virus infection. A diagnosis of influenza should be considered based on a patient's clinical presentation and empiric antiviral treatment should be considered, if indicated. If more conclusive testing is desired, follow-up confirmatory testing with either viral culture or PCR is warranted. [facility] CHEMISTRY Lactic Acid Lvl 1.0 mMol/L 0.5 - 2.2 08/12/2013 Normal [facility] CHEMISTRY eGFR 54 mL/min/1.73m2 08/12/2013 2Result Comment: The eGFR is calculated using the CKD-EPI formula. In most young, healthy individuals the eGFR will be >90 mL/min/1.73m2. The eGFR declines with age. An eGFR of 60-89 may be normal in some populations, particularly the elderly, for whom the CKD-EPI formula has not been extensively validated. Use of the eGFR is not recommended in the following populations: Individuals with unstable creatinine concentrations, including patients and those with serious co-morbid conditions. Patients with extremes in muscle mass or diet. The data above are obtained from the National Kidney Disease Education Program (NKDEP) which additionally recommends that when the eGFR is used in patients with extremes of body mass index for purposes of drug dosing, the eGFR should be multiplied by the estimated BMI. [facility] CHEMISTRY BUN 19 mg/dL 7 - 22 08/12/2013 Normal [facility] CHEMISTRY Glucose Lvl 99 mg/dL 70 - 99 08/12/2013 Normal 3Interpretive Data: Adult reference range values reflect the clinical guidelines of the [place] [employer]. [facility] CHEMISTRY Calcium Lvl 9.2 mg/dL 8.5 - 10.5 08/12/2013 Normal [facility] CHEMISTRY CO2 24 meq/L 24 - 32 08/12/2013 Normal [facility] CHEMISTRY Sodium Lvl 135 meq/L 135 - 145 08/12/2013 Normal [facility] CHEMISTRY Creatinine Lvl 1.3 mg/dL 0.5 - 1.4 08/12/2013 Normal [facility] CHEMISTRY Chloride Lvl 101 meq/L 95 - 109 08/12/2013 Normal [facility] CHEMISTRY Potassium Lvl 3.4 meq/L 3.5 - 5.1 08/12/2013 LOW [facility] CHEMISTRY Alk Phos 141 unit/L 39 - 136 08/12/2013 HI [facility] CHEMISTRY Albumin Lvl 2.9 g/dL 3.5 - 5.0 08/12/2013 LOW [facility] CHEMISTRY Total Protein 7.3 g/dL 6.4 - 8.4 08/12/2013 Normal [facility] CHEMISTRY ALANINE AMINOTRANSFERASE 26 unit/L 0 - 65 08/12/2013 Normal [facility] CHEMISTRY Bili Total 0.7 mg/dL 0.2 - 1.3 08/12/2013 Normal [facility] CHEMISTRY ASPARTATE TRANSAMINASE 9 unit/L 0 - 37 08/12/2013 Normal [facility] CHEMISTRY A/G Ratio 0.7 0.7 - 1.6 08/12/2013 Normal [facility] CHEMISTRY AGAP 13.4 meq/L 10.0 - 20.0 08/12/2013 Normal [facility] CHEMISTRY B/C Ratio 15 6 - 25 08/12/2013 Normal [facility] CHEMISTRY Globulin 4.4 g/dL 2.0 - 4.0 08/12/2013 HI [facility] HEMATOLOGY RBC Morph See Note (08/12/2013 14:40:00) 08/12/2013 Normal [facility] HEMATOLOGY Monocytes 4.0 % 2.0 - 12.0 08/12/2013 Normal [facility] HEMATOLOGY Lymphocytes 9.0 % 20.0 - 40.0 08/12/2013 LOW [facility] HEMATOLOGY Atypical Lymphs 0.0 % <=0.0 08/12/2013 Normal [facility] HEMATOLOGY Polychrom Slight (08/12/2013 14:40:00) None Seen 08/12/2013 Normal [facility] HEMATOLOGY Bands 4.0 % 0.0 - 11.0 08/12/2013 Normal [facility] HEMATOLOGY Segs 83.0 % 45.0 - 75.0 08/12/2013 [facility] HEMATOLOGY Monocytes # 0.6 K/CMM 0.0 - 0.8 08/12/2013 Normal [facility] HEMATOLOGY Segs-Bands # 13.4 K/CMM 1.5 - 8.1 08/12/2013 HI [facility] HEMATOLOGY Plt Morph Clumped (08/12/2013 14:40:00) 08/12/2013 Normal [facility] HEMATOLOGY Lymphocytes # 1.4 K/CMM 1.0 - 5.5 08/12/2013 Normal [facility] HEMATOLOGY MPV 7.7 fL 7.4 - 10.4 08/12/2013 Normal [facility] HEMATOLOGY Platelet 232 K/CMM 133 - 450 08/12/2013 Normal [facility] HEMATOLOGY RBC X 10x6 3.82 M/CMM 4.20 - 5.40 08/12/2013 LOW [facility] HEMATOLOGY MCH 31.9 pg 27.0 - 31.0 08/12/2013 [facility] HEMATOLOGY Hct 36.7 % 36.0 - 48.0 08/12/2013 Normal [facility] HEMATOLOGY MCV 95.9 fL 81.0 - 99.0 08/12/2013 Normal [facility] HEMATOLOGY Hgb 12.2 g/dL 12.0 - 16.0 08/12/2013 Normal [facility] HEMATOLOGY MCHC 33.3 g/dL 32.0 - 36.0 08/12/2013 Normal [facility] HEMATOLOGY RDW 14.3 % 11.5 - 14.5 08/12/2013 Normal [facility] HEMATOLOGY WBC X 10x3 15.4 K/CMM 3.7 - 10.4 08/12/2013 [facility] URINALYSIS UA Turbidity Marked *ABN* (08/12/2013 12:45:37) Clear 08/12/2013 ABN [facility] URINALYSIS UA Spec Grav 1.016 <=1.030 08/12/2013 Normal [facility] URINALYSIS UA Bili Negative *NA* (08/12/2013 12:45:37) Negative 08/12/2013 [facility] URINALYSIS UA Leuk Est Large *ABN* (08/12/2013 12:45:37) Negative 08/12/2013 ABN [facility] URINALYSIS UA Nitrite Positive *ABN* (08/12/2013 12:45:37) Negative 08/12/2013 ABN [facility] URINALYSIS UA Urobilinogen 4.0 mg/dL 0.1 - 1.0 08/12/2013 [place] [facility] URINALYSIS UA Blood Negative (08/12/2013 12:45:37) Negative 08/12/2013 Normal [facility] URINALYSIS UA WBC null 0 - 5 08/12/2013 HI [facility] URINALYSIS UA Sq Epi Many /LPF Few 08/12/2013 ABN [facility] URINALYSIS UA Ketones Negative mg/dL Negative 08/12/2013 [facility] URINALYSIS UA Glucose Negative mg/dL Negative 08/12/2013 [facility] URINALYSIS UA Protein 100 mg/dL Negative 08/12/2013 ABN [facility] URINALYSIS UA pH 5.0 5.0 - 8.0 08/12/2013 Normal [facility] URINALYSIS UA Bacteria Many /HPF None Seen 08/12/2013 ABN [facility] URINALYSIS UA RBC 3 /HPF 0 - 2 08/12/2013 HI [facility] URINALYSIS UA Color Autumn 08/12/2013 [facility] Chest 2 views Chest 2 views HISTORY: Fever and cough. Chest 2 views. Mild atelectasis is noted in the perihilar and lower lung zone regions. There is no pleural effusion. Heart and mediastinal silhouette normal. IMPRESSION: Mild atelectasis. Correlate clinically for superimposed pneumonia. SL: 14 08/12/2013 - - Read by: Simba Cherry Dictated Date/time: 08/12/13 14:36 Electronically Signed by: Simba Cherry MD 08/12/13 14:37 FINAL REPORT [facility] CHEMISTRY Ethanol Lvl <3.0 mg/dL <sup>4</sup>
(11/19/2012 00:15:01) <sup> </sup> 11/19/2012 Normal 4Interpretive Data: Negative Range: <3 mg/dL Toxic Range: >250 mg/dL [facility] CHEMISTRY Etoh (%) <0.003 % <sup>3</sup>
(11/19/2012 00:15:01) <sup> </sup> 11/19/2012 Normal 3Interpretive Data: Negative Range: <0.003% Toxic Range: >0.25% [facility] CHEMISTRY A/G Ratio 1.1 0.7 - 1.6 11/19/2012 Normal [facility] CHEMISTRY Globulin 3.4 g/dL 2.0 - 4.0 11/19/2012 Normal [facility] CHEMISTRY B/C Ratio 9 6 - 25 11/19/2012 Normal [facility] CHEMISTRY AGAP 11.8 meq/L 10.0 - 20.0 11/19/2012 Normal [facility] CHEMISTRY Bili Total 0.3 mg/dL 0.2 - 1.3 11/19/2012 Normal [facility] CHEMISTRY AST 11 unit/L 0 - 37 11/19/2012 Normal [facility] CHEMISTRY Total Protein 7.0 g/dL 6.4 - 8.4 11/19/2012 Normal [facility] CHEMISTRY BUN 8 mg/dL 7 - 22 11/19/2012 Normal [facility] CHEMISTRY ALT 26 unit/L 0 - 65 11/19/2012 Normal [facility] CHEMISTRY Alk Phos 85 unit/L 39 - 136 11/19/2012 Normal [facility] CHEMISTRY eGFR 84 mL/min/1.73m2 11/19/2012 NA 1Result Comment: The eGFR is calculated using the CKD-EPI formula. In most young, healthy individuals the eGFR will be >90 mL/min/1.73m2. The eGFR declines with age. An eGFR of 60-89 may be normal in some populations, particularly the elderly, for whom the CKD-EPI formula has not been extensively validated. Use of the eGFR is not recommended in the following populations: Individuals with unstable creatinine concentrations, including patients and those with serious co-morbid conditions. Patients with extremes in muscle mass or diet. The data above are obtained from the National Kidney Disease Education Program (NKDEP) which additionally recommends that when the eGFR is used in patients with extremes of body mass index for purposes of drug dosing, the eGFR should be multiplied by the estimated BMI. [facility] CHEMISTRY CO2 24 meq/L 24 - 32 11/19/2012 Normal [facility] CHEMISTRY Calcium Lvl 9.1 mg/dL 8.5 - 10.5 11/19/2012 Normal [facility] CHEMISTRY Albumin Lvl 3.6 g/dL 3.5 - 5.0 11/19/2012 Normal [facility] CHEMISTRY Potassium Lvl 3.8 meq/L 3.5 - 5.1 11/19/2012 Normal [facility] CHEMISTRY Chloride Lvl 109 meq/L 95 - 109 11/19/2012 Normal [facility] CHEMISTRY Glucose Lvl 97 mg/dL 70 - 99 11/19/2012 Normal 2Interpretive Data: Adult reference range values reflect the clinical guidelines of the [place] [employer]. [facility] CHEMISTRY Creatinine Lvl 0.9 mg/dL 0.5 - 1.4 11/19/2012 Normal [facility] CHEMISTRY Sodium Lvl 141 meq/L 135 - 145 11/19/2012 Normal [facility] HEMATOLOGY Basophils # 0.0 K/CMM 0.0 - 0.2 11/19/2012 Normal [facility] HEMATOLOGY Eosinophils # 0.2 K/CMM 0.0 - 0.5 11/19/2012 Normal [facility] HEMATOLOGY Segs 60.8 % 45.0 - 75.0 11/19/2012 Normal [facility] HEMATOLOGY Eosinophils 2.1 % 0.0 - 4.0 11/19/2012 Normal [facility] HEMATOLOGY Lymphocytes 29.5 % 20.0 - 40.0 11/19/2012 Normal [facility] HEMATOLOGY Plt Morph Normal (11/18/2012 23:22:00) 11/19/2012 Normal [facility] HEMATOLOGY Monocytes 7.3 % 2.0 - 12.0 11/19/2012 Normal [facility] HEMATOLOGY Segs-Bands # 6.0 K/CMM 1.5 - 8.1 11/19/2012 Normal [facility] HEMATOLOGY Lymphocytes # 2.9 K/CMM 1.0 - 5.5 11/19/2012 Normal [facility] HEMATOLOGY Basophils 0.3 % 0.0 - 1.0 11/19/2012 Normal [facility] HEMATOLOGY RBC Morph Normal (11/18/2012 23:22:00) 11/19/2012 Normal [facility] HEMATOLOGY Monocytes # 0.7 K/CMM 0.0 - 0.8 11/19/2012 Normal [facility] HEMATOLOGY PT 12.0 s 12.0 - 14.7 11/19/2012 Normal [facility] HEMATOLOGY INR 0.87 0.85 - 1.17 11/19/2012 Normal 5Interpretive Data: RECOMMENDED RANGES FOR PROTIME INR: 2.0-3.0 for most medical and surgical thromboembolic states. 2.5-3.5 for artificial heart valves and recurrent embolism. INR SHOULD BE USED ONLY FOR PATIENTS ON STABLE ANTICOAGULANT THERAPY. [facility] HEMATOLOGY Hgb 11.9 g/dL 12.0 - 16.0 11/19/2012 LOW [facility] HEMATOLOGY Hct 35.3 % 36.0 - 48.0 11/19/2012 LOW [facility] HEMATOLOGY MCV 93.3 fL 81.0 - 99.0 11/19/2012 Normal [facility] HEMATOLOGY MCH 31.3 pg 27.0 - 31.0 11/19/2012 HI [facility] HEMATOLOGY RBC 3.78 M/CMM 4.20 - 5.40 11/19/2012 LOW [facility] HEMATOLOGY WBC 9.9 K/CMM 3.7 - 10.4 11/19/2012 Normal [facility] HEMATOLOGY MPV 7.4 fL 7.4 - 10.4 11/19/2012 Normal [facility] HEMATOLOGY RDW 13.4 % 11.5 - 14.5 11/19/2012 Normal [facility] HEMATOLOGY MCHC 33.5 g/dL 32.0 - 36.0 11/19/2012 Normal [facility] HEMATOLOGY Platelet 310 K/CMM 133 - 450 11/19/2012 Normal [facility] Vital Signs Vital Sign Value Date Comments Source Height 66 01/04/2018 [facility] Diastolic (mm Hg) 80 01/04/2018 Cecy Najam Systolic (mm Hg) 128 01/04/2018 [facility] Naj[facility] Weight 185.6 01/04/2018 [facility] Najam Height 66 12/28/2017 Cecy Najam Diastolic (mm Hg) 80 12/28/2017 Cecy Najam Systolic (mm Hg) 116 12/28/2017 [facility] Naj[facility] Weight 184.6 12/28/2017 Cec[facility] Najam Height 66 12/20/2017 Cecy Najam Diastolic (mm Hg) 73 12/20/2017 Cecy Najam Systolic (mm Hg) 109 12/20/2017 [facility] Naj[facility] Weight 178 12/20/2017 [facility] Naj[facility] Height 66 11/24/2017 Cecy Najam Diastolic (mm Hg) 68 11/24/2017 Cecy Najam Systolic (mm Hg) 114 11/24/2017 [facility] Najam Weight 192 11/24/2017 [facility] Najam Height 66 11/23/2017 Cecy Najam Diastolic (mm Hg) 88 11/23/2017 Cecy Najam Systolic (mm Hg) 128 11/23/2017 [facility] N[facility] Weight 194.6 11/23/2017 [facility] Najam Height 66 11/17/2017 Cecy Najam Diastolic (mm Hg) 88 11/17/2017 Cecy Najam Systolic (mm Hg) 128 11/17/2017 [facility] N[facility] Weight 194.6 11/17/2017 [facility] Najam Height 66 11/15/2017 Cecy Najam Diastolic (mm Hg) 88 11/15/2017 Cecy Najam Systolic (mm Hg) 128 11/15/2017 [facility] Weight 194.6 11/15/2017 [facility] Najam Height 66 01/13/2017 Cecy Najam Diastolic (mm Hg) 74 01/13/2017 Cecy Najam Systolic (mm Hg) 104 01/13/2017 [facility] Najam Weight 190 01/13/2017 Cecy Najam Height 66 11/18/2016 Cecy Najam Diastolic (mm Hg) 70 11/18/2016 Cecy Najam Systolic (mm Hg) 103 11/18/2016 [facility] Weight 191.8 11/18/2016 [facility] Najam Height 66 11/09/2016 [facility] Najam Diastolic (mm Hg) 66 11/09/2016 Cecy Najam Systolic (mm Hg) 110 11/09/2016 [facility] Weight 197.3 11/09/2016 [facility] Najam Height 66 10/19/2016 Cec[facility] Najam Diastolic (mm Hg) 76 10/19/2016 [facility]y Najam Systolic (mm Hg) 119 10/19/2016 [facility] Weight 214.4 10/19/2016 [facility] N[facility]am Height 66 08/30/2016 [facility] Najam Diastolic (mm Hg) 86 08/30/2016 [facility] Najam Systolic (mm Hg) 131 08/30/2016 [facility] Weight 206.4 08/30/2016 [facility] Height 66 07/25/2015 [facility] Najam Diastolic (mm Hg) 81 07/25/2015 [facility] Systolic (mm Hg) 115 07/25/2015 [facility] Weight 185.2 07/25/2015 [facility] Temperature Oral (F) 97.7 F 07/28/2014 [facility] Heart Rate 72 07/28/2014 [facility] Respitory Rate 16 07/28/2014 [facility] Diastolic (mm Hg) 71 07/28/2014 [facility] Systolic (mm Hg) 111 07/28/2014 [facility] Weight 80.909 07/28/2014 [facility] BMI Calculated 28.79 07/28/2014 [facility] Height 167.64 cm 07/28/2014 [facility] Respitory Rate 18 07/28/2014 [facility] Heart Rate 60 07/28/2014 [facility] Temperature Oral (F) 98.6 F 07/28/2014 [facility] Diastolic (mm Hg) 70 07/28/2014 [facility] Systolic (mm Hg) 148 07/28/2014 [facility] Temperature Oral (F) 98.0 F 07/11/2014 [facility] Heart Rate 76 07/11/2014 [facility] Systolic (mm Hg) 109 07/11/2014 [facility] Respitory Rate 16 07/11/2014 [facility] Diastolic (mm Hg) 58 07/11/2014 [facility] Weight 80.909 07/11/2014 [facility] Temperature Oral (F) 97.9 F 07/11/2014 [facility] Systolic (mm Hg) 127 07/11/2014 [facility] Respitory Rate 20 07/11/2014 [facility] Heart Rate 107 07/11/2014 [facility] Diastolic (mm Hg) 84 07/11/2014 [facility] Weight 80 07/02/2014 [facility] BMI Calculated 28.47 07/02/2014 [facility] Height 167.64 cm 07/02/2014 [facility] Temperature Oral (F) 98.1 F 07/02/2014 [facility] Systolic (mm Hg) 104 07/02/2014 [facility] Diastolic (mm Hg) 65 07/02/2014 [facility] Respitory Rate 20 07/02/2014 [facility] Heart Rate 103 07/02/2014 [facility] Systolic (mm Hg) 110 06/05/2014 [facility] Heart Rate 68 06/05/2014 [facility] Diastolic (mm Hg) 70 06/05/2014 [facility] Respitory Rate 18 06/05/2014 [facility] Temperature Oral (F) 97.4 F 06/05/2014 [facility] Systolic (mm Hg) 107 06/05/2014 [facility] Diastolic (mm Hg) 60 06/05/2014 [facility] Temperature Oral (F) 97.4 F 06/05/2014 [facility] Heart Rate 70 06/05/2014 [facility] Respitory Rate 16 06/05/2014 [facility] Respitory Rate 18 06/05/2014 [facility] Heart Rate 73 06/05/2014 [facility] Diastolic (mm Hg) 74 06/05/2014 [facility] Systolic (mm Hg) 114 06/05/2014 [facility] Height 167.64 cm 06/05/2014 [facility] Weight 77.273 06/05/2014 [facility] BMI Calculated 27.5 06/05/2014 [facility] Temperature Oral (F) 97.3 F 06/05/2014 [facility] Height 167.64 cm 05/31/2014 [facility] BMI Calculated 27.82 05/31/2014 [facility] Weight 78.182 05/31/2014 [facility] Temperature Oral (F) 98.1 F 05/31/2014 [facility] Systolic (mm Hg) 117 05/31/2014 [facility] Heart Rate 97 05/31/2014 [facility] Diastolic (mm Hg) 67 05/31/2014 [facility] Respitory Rate 18 05/31/2014 [facility] Heart Rate 64 04/24/2014 [facility] Systolic (mm Hg) 123 04/24/2014 [facility] Temperature Oral (F) 98.4 F 04/24/2014 [facility] Respitory Rate 18 04/24/2014 [facility] Diastolic (mm Hg) 81 04/24/2014 [facility] Weight 82.273 04/24/2014 [facility] Height 167.64 cm 04/24/2014 [facility] BMI Calculated 29.28 04/24/2014 [facility] Respitory Rate 18 04/24/2014 [facility] Diastolic (mm Hg) 69 04/24/2014 [facility] Temperature Oral (F) 97.7 F 04/24/2014 [facility] Heart Rate 115 04/24/2014 [facility] Systolic (mm Hg) 103 04/24/2014 [facility] Heart Rate 62 04/19/2014 [facility] Respitory Rate 18 04/19/2014 [facility] Temperature Oral (F) 97.4 F 04/19/2014 [facility] Systolic (mm Hg) 118 04/19/2014 [facility] Diastolic (mm Hg) 78 04/19/2014 [facility] BMI Calculated 29.28 04/19/2014 [facility] Height 167.64 cm 04/19/2014 [facility] Weight 82.273 04/19/2014 [facility] Temperature Oral (F) 98.2 F 04/19/2014 [facility] Heart Rate 83 04/19/2014 [facility] Respitory Rate 18 04/19/2014 [facility] Diastolic (mm Hg) 70 04/19/2014 [facility] Systolic (mm Hg) 107 04/19/2014 [facility] Diastolic (mm Hg) 67 04/09/2014 [facility] Systolic (mm Hg) 106 04/09/2014 [facility] Respitory Rate 18 04/09/2014 [facility] Heart Rate 90 04/09/2014 [facility] Temperature Oral (F) 98.3 F 04/09/2014 [facility] Heart Rate 87 04/09/2014 [facility] Temperature Oral (F) 98.4 F 04/09/2014 [facility] Systolic (mm Hg) 101 04/09/2014 [facility] Respitory Rate 18 04/09/2014 [facility] Diastolic (mm Hg) 63 04/09/2014 [facility] Respitory Rate 16 04/09/2014 [facility] Heart Rate 110 04/08/2014 [facility] Diastolic (mm Hg) 92 04/08/2014 [facility] Systolic (mm Hg) 131 04/08/2014 [facility] BMI Calculated 29.44 04/08/2014 [facility] Weight 82.727 04/08/2014 [facility] Temperature Oral (F) 98.3 F 04/08/2014 [facility] Height 167.64 cm 04/08/2014 [facility] Diastolic (mm Hg) 72 03/15/2014 [facility] Heart Rate 72 03/15/2014 [facility] Temperature Oral (F) 97.9 F 03/15/2014 [facility] Respitory Rate 18 03/15/2014 [facility] Systolic (mm Hg) 122 03/15/2014 [facility] Temperature Oral (F) 97.8 F 03/15/2014 [facility] Systolic (mm Hg) 123 03/15/2014 [facility] Diastolic (mm Hg) 70 03/15/2014 [facility] Heart Rate 64 03/15/2014 [facility] Respitory Rate 20 03/15/2014 [facility] BMI Calculated 30.08 03/15/2014 [facility] Weight 84.545 03/15/2014 [facility] Height 167.64 cm 03/15/2014 [facility] Systolic (mm Hg) 97 03/15/2014 [facility] Diastolic (mm Hg) 65 03/15/2014 [facility] Heart Rate 92 03/15/2014 [facility] Respitory Rate 18 03/15/2014 [facility] Temperature Oral (F) 97.9 F 03/15/2014 [facility] Diastolic (mm Hg) 80 03/10/2014 [facility] [place] Respitory Rate 16 03/10/2014 [facility] [place] Heart Rate 63 03/10/2014 [facility] [place] Systolic (mm Hg) 120 03/10/2014 [facility] [place] Temperature Oral (F) 98.1 F 03/10/2014 [facility] [place] Diastolic (mm Hg) 80 03/10/2014 [facility] [place] Systolic (mm Hg) 120 03/10/2014 [facility] [place] Respitory Rate 18 03/10/2014 [facility] [place] Heart Rate 76 03/10/2014 [facility] [place] Temperature Oral (F) 98.1 F 03/10/2014 [facility] [place] Temperature Oral (F) 98.1 F 03/10/2014 [facility] [place] Heart Rate 58 03/10/2014 [facility] [place] Respitory Rate 18 03/10/2014 [facility] [place] Systolic (mm Hg) 119 03/10/2014 [facility] [place] Diastolic (mm Hg) 78 03/10/2014 [facility] [place] Weight 87.5 03/07/2014 [facility] [place] Height 167.64 cm 03/07/2014 [facility] [place] BMI Calculated 31.14 03/07/2014 [facility] [place] Systolic (mm Hg) 112 02/26/2014 [facility] [place] Heart Rate 88 02/26/2014 [facility] [place] Diastolic (mm Hg) 64 02/26/2014 [facility] [place] Respitory Rate 18 02/26/2014 [facility] [place] Weight 85.909 02/26/2014 [facility] [place] BMI Calculated 30.57 02/26/2014 [facility] [place] Height 167.64 cm 02/26/2014 [facility] [place] Temperature Oral (F) 98.1 F 02/26/2014 [facility] [place] Respitory Rate 18 02/26/2014 [facility] [place] Diastolic (mm Hg) 69 02/26/2014 [facility] [place] Heart Rate 98 02/26/2014 [facility] [place] Systolic (mm Hg) 110 02/26/2014 [facility] [place] Heart Rate 69 02/24/2014 [facility] [place] Temperature Oral (F) 98.0 F 02/24/2014 [facility] [place] Systolic (mm Hg) 106 02/24/2014 [facility] [place] Respitory Rate 20 02/24/2014 [facility] [place] Diastolic (mm Hg) 63 02/24/2014 [facility] [place] Respitory Rate 18 02/23/2014 [facility] [place] Diastolic (mm Hg) 74 02/23/2014 [facility] [place] Systolic (mm Hg) 119 02/23/2014 [facility] [place] Heart Rate 58 02/23/2014 [facility] [place] Temperature Oral (F) 97.8 F 02/23/2014 [facility] [place] Weight 81.818 02/23/2014 [facility] [place] Height 167.64 cm 02/23/2014 [facility] [place] BMI Calculated 29.11 02/23/2014 [facility] [place] Systolic (mm Hg) 91 02/23/2014 [facility] [place] Heart Rate 111 02/23/2014 [facility] [place] Diastolic (mm Hg) 61 02/23/2014 [facility] [place] Respitory Rate 22 02/23/2014 [facility] [place] Diastolic (mm Hg) 66 02/18/2014 [facility] Systolic (mm Hg) 118 02/18/2014 [facility] Respitory Rate 18 02/18/2014 [facility] Temperature Oral (F) 98.0 F 02/18/2014 [facility] Heart Rate 82 02/18/2014 [facility] Systolic (mm Hg) 115 02/17/2014 [facility] Respitory Rate 18 02/17/2014 [facility] Diastolic (mm Hg) 67 02/17/2014 [facility] Heart Rate 87 02/17/2014 [facility] Temperature Oral (F) 98.2 F 02/17/2014 [facility] BMI Calculated 30.73 02/17/2014 [facility] Weight 86.364 02/17/2014 [facility] Height 167.64 cm 02/17/2014 [facility] Temperature Oral (F) 97.6 F 02/17/2014 [facility] Respitory Rate 18 02/17/2014 [facility] Heart Rate 88 02/17/2014 [facility] Diastolic (mm Hg) 84 02/17/2014 [facility] Systolic (mm Hg) 120 02/17/2014 [facility] Diastolic (mm Hg) 90 02/16/2014 [facility] Heart Rate 80 02/16/2014 [facility] Temperature Oral (F) 98.1 F 02/16/2014 [facility] Respitory Rate 18 02/16/2014 [facility] Systolic (mm Hg) 133 02/16/2014 [facility] Diastolic (mm Hg) 79 02/16/2014 [facility] Systolic (mm Hg) 118 02/16/2014 [facility] Respitory Rate 18 02/16/2014 [facility] Heart Rate 77 02/16/2014 [facility] Temperature Oral (F) 97.9 F 02/16/2014 [facility] Diastolic (mm Hg) 79 02/16/2014 [facility] Systolic (mm Hg) 117 02/16/2014 [facility] Heart Rate 74 02/16/2014 [facility] Respitory Rate 18 02/16/2014 [facility] Temperature Oral (F) 97.7 F 02/16/2014 [facility] Height 167.64 cm 02/12/2014 [facility] Weight 90.909 02/12/2014 [facility] BMI Calculated 32.35 02/12/2014 [facility] BMI Calculated 30.89 02/11/2014 [facility] Weight 86.818 02/11/2014 [facility] Height 167.64 cm 02/11/2014 [facility] Temperature Oral (F) 97.5 F 02/04/2014 [facility] Diastolic (mm Hg) 72 02/04/2014 [facility] Systolic (mm Hg) 127 02/04/2014 [facility] Respitory Rate 21 02/04/2014 [facility] Diastolic (mm Hg) 74 02/04/2014 [facility] Systolic (mm Hg) 117 02/04/2014 [facility] Respitory Rate 12 02/04/2014 [facility] Weight 86.818 02/03/2014 [facility] Height 167.64 cm 02/03/2014 [facility] BMI Calculated 30.89 02/03/2014 [facility] Diastolic (mm Hg) 73 02/03/2014 [facility] Temperature Oral (F) 97.7 F 02/03/2014 [facility] Respitory Rate 18 02/03/2014 [facility] Heart Rate 95 02/03/2014 [facility] Systolic (mm Hg) 114 02/03/2014 [facility] Respitory Rate 15 01/24/2014 [facility] Systolic (mm Hg) 123 01/24/2014 [facility] Heart Rate 73 01/24/2014 [facility] Temperature Oral (F) 97.6 F 01/24/2014 [facility] Diastolic (mm Hg) 77 01/24/2014 [facility] Respitory Rate 17 01/24/2014 [facility] Diastolic (mm Hg) 77 01/24/2014 [facility] Systolic (mm Hg) 123 01/24/2014 [facility] Heart Rate 101 01/24/2014 [facility] Diastolic (mm Hg) 75 01/24/2014 [facility] Systolic (mm Hg) 109 01/24/2014 [facility] Respitory Rate 18 01/24/2014 [facility] Heart Rate 91 01/24/2014 [facility] Weight 88.636 01/24/2014 [facility] Temperature Oral (F) 97.7 F 01/24/2014 [facility] Diastolic (mm Hg) 68 12/15/2013 [facility] Temperature Oral (F) 98.2 F 12/15/2013 [facility] Systolic (mm Hg) 109 12/15/2013 [facility] Respitory Rate 20 12/15/2013 [facility] Diastolic (mm Hg) 68 12/15/2013 [facility] Temperature Oral (F) 98.2 F 12/15/2013 [facility] Systolic (mm Hg) 99 12/15/2013 [facility] Respitory Rate 21 12/15/2013 [facility] Systolic (mm Hg) 94 12/15/2013 [facility] Diastolic (mm Hg) 53 12/15/2013 [facility] Respitory Rate 21 12/15/2013 [facility] Temperature Oral (F) 98.2 F 12/15/2013 [facility] Weight 86.364 12/15/2013 [facility] Height 167.64 cm 12/15/2013 [facility] BMI Calculated 30.73 12/15/2013 [facility] Heart Rate 112 12/15/2013 [facility] Temperature Oral (F) 98.2 F 11/14/2013 [facility] Heart Rate 87 11/14/2013 [facility] Diastolic (mm Hg) 53 11/14/2013 [facility] Systolic (mm Hg) 99 11/14/2013 [facility] Respitory Rate 18 11/14/2013 [facility] Height 167.64 cm 11/14/2013 [facility] BMI Calculated 29.76 11/14/2013 [facility] Weight 83.636 11/14/2013 [facility] Heart Rate 110 11/14/2013 [facility] Systolic (mm Hg) 102 11/14/2013 [facility] Respitory Rate 18 11/14/2013 [facility] Diastolic (mm Hg) 73 11/14/2013 [facility] Temperature Oral (F) 98.4 F 11/14/2013 [facility] Heart Rate 99 08/12/2013 [facility] Respitory Rate 18 08/12/2013 [facility] Diastolic (mm Hg) 81 08/12/2013 [facility] Systolic (mm Hg) 136 08/12/2013 [facility] Temperature Oral (F) 100.9 F 08/12/2013 [facility] Respitory Rate 18 08/12/2013 [facility] Heart Rate 91 08/12/2013 [facility] Temperature Oral (F) 100.0 F 08/12/2013 [facility] Respitory Rate 18 08/12/2013 [facility] Heart Rate 99 08/12/2013 [facility] Weight 86.364 08/12/2013 [facility] Height 167.64 cm 08/12/2013 [facility] Diastolic (mm Hg) 66 08/12/2013 [facility] Systolic (mm Hg) 102 08/12/2013 [facility] Temperature Oral (F) 102.7 F 08/12/2013 [facility] Weight 93.182 05/15/2013 [facility] [place] Height 167.64 cm 05/15/2013 [facility] [place] Diastolic (mm Hg) 66 11/21/2012 [facility] Systolic (mm Hg) 105 11/21/2012 [facility] Respitory Rate 20 11/21/2012 [facility] Temperature Oral (F) 97.2 F 11/21/2012 [facility] Heart Rate 72 11/21/2012 [facility] Respitory Rate 20 11/21/2012 [facility] Systolic (mm Hg) 111 11/21/2012 [facility] Diastolic (mm Hg) 77 11/21/2012 [facility] Heart Rate 85 11/21/2012 [facility] Temperature Oral (F) 97.5 F 11/21/2012 [facility] Diastolic (mm Hg) 74 11/21/2012 [facility] Systolic (mm Hg) 112 11/21/2012 [facility] Respitory Rate 18 11/21/2012 [facility] Temperature Oral (F) 97.7 F 11/21/2012 [facility] Heart Rate 78 11/21/2012 [facility] Weight 104 11/19/2012 [facility] Height 172 cm 11/19/2012 [facility] Weight 104.545 11/19/2012 [facility] Height 172.72 cm 11/19/2012 [facility] Weight 104.545 11/19/2012 [facility] Encounters Location Location Details Encounter Type Encounter Number Reason For Visit Attending Provider ADM Date DC Date Status Source [facility] [place] [id number] 278.01 MICHAEL FADY 11/07/2012 Active [facility] Inpatient [id number] BREAST MASTITIS GABRIELLE MAXIMOS 11/19/2012 11/21/2012 Active [facility] [place] [id number] MORBID OBESITY MICHAEL FADY 01/01/2013 Active [facility] Emergency [id number] RT SIDE ABD PAIN AMANDEEP NORWOOD 05/01/2013 05/01/2013 Active [facility] BIANCA [id number] REED NGUYEN 05/15/2013 05/15/2013 Active [facility] Emergency [id number] HUGO SPIVEY 08/12/2013 08/12/2013 Active [facility] [id number] CHRISTSHELBY RICE 11/13/2013 11/14/2013 Active [facility] [id number] _MAPID:[id number] [facility] 11/14/2013 11/14/2013 [facility] [id number] _MAPID:[id number] Dennys Nicolasa 12/15/2013 12/15/2013 [facility] [id number] Amandeep Ck 01/24/2014 01/24/2014 [facility] [id number] Jasson Andrade 02/03/2014 02/04/2014 [facility] [id number] Walter Harp 02/11/2014 02/16/2014 [facility] [id number] Satya Minor 02/17/2014 02/18/2014 [facility] [id number] Nickolas Thakur 02/23/2014 02/24/2014 [facility] [id number] Fidel Peñaloza 02/26/2014 02/26/2014 [facility] Inpatient [id number] Reed Nguyen 03/07/2014 03/10/[address] [facility] [id number] Kody Rubio 03/14/2014 03/15/2014 [facility] [id number] Chandu Simpson 04/08/2014 04/09/2014 [facility] [id number] Sen Ventura 04/19/2014 04/19/2014 [facility] [id number] Jasson Andrade 04/24/2014 04/24/2014 [facility] [id number] Michell Sewell 05/31/2014 05/31/2014 [facility] [id number] Clary Soni 06/05/2014 06/05/2014 [facility] [id number] Kody Popat 07/02/2014 07/02/2014 [facility] [id number] Kody Popat 07/11/2014 07/11/2014 [facility] [id number] Mervin Crump 07/28/2014 07/28/2014 [facility] Right Wrist MRI [id number] 07/10/2015 07/10/2015 [facility] Right Wrist MRI [id number] 07/10/2015 07/10/2015 [facility] Right Wrist MRI [id number] 07/10/2015 07/10/2015 [facility] Right Wrist MRI [id number] 07/10/2015 07/10/2015 [facility] Right Wrist MRI [id number] 07/10/2015 07/10/2015 [facility] Right Wrist MRI [id number] 07/10/2015 07/10/2015 [facility] Right Wrist MRI [id number] 07/10/2015 07/10/2015 [facility] Right Wrist MRI [id number] 07/10/2015 07/10/2015 [facility] Right Wrist MRI [id number] 07/10/2015 07/10/2015 [facility] Right Wrist MRI [id number] 07/10/2015 07/10/2015 [facility] Rheumatology [facility] rt knee MRI [id number] 07/18/2015 07/18/2015 [facility] rt knee MRI [id number] 07/18/2015 07/18/2015 [facility] Rheumat[facility] rt knee MRI [id number] 07/18/2015 07/18/2015 [facility]umat[facility] rt knee MRI [id number] 07/18/2015 07/18/2015 [facility] rt knee MRI [id number] 07/18/2015 07/18/2015 [facility] rt knee MRI [id number] 07/18/2015 07/18/2015 [facility] rt knee MRI [id number] 07/18/2015 07/18/2015 [facility] rt knee MRI [id number] 07/18/2015 07/18/2015 [facility] Rheumatology [facility] rt knee MRI [id number] 07/18/2015 07/18/2015 [facility]umat[facility] rt knee MRI [id number] 07/18/2015 07/18/2015 [facility]umat[facility] Follow Up MRI Results [id number] 07/25/2015 07/25/2015 [facility] Rheumat[facility] Follow Up MRI Results [id number] 07/25/2015 07/25/2015 [facility] Follow Up MRI Results [id number] 07/25/2015 07/25/2015 [facility] Follow Up MRI Results [id number] 07/25/2015 07/25/2015 [facility] Follow Up MRI Results [id number] 07/25/2015 07/25/2015 [facility] Follow Up MRI Results [id number] 07/25/2015 07/25/2015 [facility] Follow Up MRI Results [id number] 07/25/2015 07/25/2015 [facility] Follow Up MRI Results [id number] 07/25/2015 07/25/2015 [facility] Follow Up MRI Results [id number] 07/25/2015 07/25/2015 [facility] Follow Up MRI Results [id number] 07/25/2015 07/25/2015 [facility] F/U [id number] 08/30/2016 08/30/2016 [facility] F/U [id number] 08/30/2016 08/30/2016 [facility] F/U [id number] 08/30/2016 08/30/2016 [facility] F/U [id number] 08/30/2016 08/30/2016 [facility] [id number] 08/30/2016 [facility]30[facility] [id number] 08/30/2016 08/30/2016 [facility]U [id number] 08/30/2016 08/30/2016 [facility] F/U [id number] 08/30/2016 08/30/2016 [facility] F/U [id number] 08/30/2016 08/30/2016 [facility] lab results [id number] 10/18/2016 10/18/2016 [facility] lab results [id number] 10/18/2016 10/18/2016 Cec[facility] Rhe[facility]ology Clinic lab results [id number] 10/18/2016 10/18/2016 [facility] lab results [id number] 10/18/2016 10/18/2016 [facility] lab results [id number] 10/18/2016 10/18/2016 [facility] lab results [id number] 10/18/2016 10/18/2016 [facility] lab results [id number] 10/18/2016 10/18/2016 [facility] lab results [id number] 10/18/2016 10/18/2016 [facility] Unknown [id number] 10/19/2016 10/19/2016 [facility] Unknown [id number] 10/19/2016 10/19/2016 [facility] Unknown [id number] 10/19/2016 10/19/2016 [facility] Unknown [id number] 10/19/2016 10/19/2016 [facility] Unknown [id number] 10/19/2016 10/19/2016 [facility] Unknown [id number] 10/19/2016 10/19/2016 [facility] Unknown [id number] 10/19/2016 10/19/2016 [facility] Unknown [id number] 10/19/2016 10/19/2016 [facility] LETTER\\BLOOD WORK RESULTS - needs direction [id number] 10/20/2016 10/20/2016 [facility] LETTER\\BLOOD WORK RESULTS - needs direction [id number] 10/20/2016 10/20/2016 [facility] LETTER\\BLOOD WORK RESULTS - needs direction [id number] 10/20/2016 10/20/2016 [facility] LETTER\\BLOOD WORK RESULTS - needs direction [id number] 10/20/2016 10/20/2016 [facility] LETTER\\BLOOD WORK RESULTS - needs direction [id number] 10/20/2016 10/20/2016 [facility] LETTER\\BLOOD WORK RESULTS - needs direction [id number] 10/20/2016 10/20/2016 [facility] Rheumatology [facility] medication not working [id number] 11/09/2016 11/09/2016 [facility] medication not working [id number] 11/09/2016 11/09/2016 [facility] Rheumat[facility] medication not working [id number] 11/09/2016 11/09/2016 [facility] medication not working [id number] 11/09/2016 11/09/2016 [facility] Rheumatology [facility] medication not working [id number] 11/09/2016 11/09/2016 [facility] Rheumatology [facility] MEDICATION - FYI [id number] 11/10/2016 11/10/2016 [facility] Rheumat[facility] MEDICATION - FYI [id number] 11/10/2016 11/10/2016 [facility] Rheumat[facility] MEDICATION - FYI [id number] 11/10/2016 11/10/2016 [facility] Rheumat[facility] MEDICATION - FYI [id number] 11/10/2016 11/10/2016 [facility] MRI CD REQUEST [id number] 11/10/2016 11/10/2016 [facility] MRI CD REQUEST [id number] 11/10/2016 11/10/2016 [facility] MRI CD REQUEST [id number] 11/10/2016 11/10/2016 [facility] PT ORDER REQUEST [id number] 11/11/2016 11/11/2016 [facility] PT ORDER REQUEST [id number] 11/11/2016 11/11/2016 [facility] discuss worsening symptoms [id number] 11/18/2016 11/18/2016 [facility] Outpatient [id number] 536.3 ATONIA, STOMACH REED PRIMOMO Cancel [facility] Preadmit [id number] MORBID OBESITY MICHAEL SHRESTHA Active [facility] Procedures Procedure Code Date Perfomer Comments Source Emergency department visit for the evaluation and management of a patient, which requires these 3 link components within the constraints imposed by the urgency of the patient's clinical condition and/or mental status: A comprehensive history; A comprehensi 61206 11/13/2013 [facility] Injection or Infusion of Other Therapeutic or Prophylactic Substance 99.29 11/13/2013 [facility] Intravenous infusion, hydration; each additional hour (List separately in addition to code for primary procedure) 39235 11/13/2013 [facility] Therapeutic, prophylactic, or diagnostic injection (specify substance or drug); each additional sequential intravenous push of a new substance/drug (List separately in addition to code for primary procedure) 05831 11/13/2013 [facility] Therapeutic, prophylactic, or diagnostic injection (specify substance or drug); intravenous push, single or initial substance/drug 01558 11/13/2013 [facility] Laparoscopic sleeve gastrectomy [id number] 01/09/2013 [facility] [place] Abdominal hysterectomy [id number] 09/26/2008 [facility] [place] Appendectomy [id number] [facility] Cholecystectomy [id number] [facility] Hysterectomy [id number] [facility] Hernia repair [id number] [facility]
--- OUTSIDE RECORDS SUMMARY | 2019-03-16 05:16 | XMS REPORT | CCD ---
Author Author Auto Generated Organization [facility] Address Unknown Phone Unavailable Care Team Providers Care Wet End Helper Name Role Phone Nate Salguero CP Allergies, Adverse Reactions, Alerts Substance Reaction Status Imitrex Active Motrin Active Toradol Active Zomig Active Problem List Condition Effective Dates Status Abdominal pain 02/09/2010 Active Anxiety Active Bipolar Resolved Bipolar disorder Active Breast infection1 Resolved Cyst of breast2 Active Depression Active FH: Osteoarthritis Active Fibromyalgia Active Hysterectomy Resolved Low back pain Active Partial hysterectomy Active Urinary retention Active Vomiting 02/09/2010 Active 1Admitted to Patient's hospital 2 weeks ago for Left breast infection. 2left sided x2 Medications Medication Instructions Start Date End Date Status clindamycin + Sodium 900 mg, 6 mL, Route: IVPB, [id number], 11/19/2012 11/21/2012 Discontinued Chloride 0.9% IV 100 Dosing Weight 104, kg, Start date: mL 11/19/12 9:00:00, Duration: 30 day, Stop date: 12/19/12 1:00:00 ziprasidone 160 mg, Route: PO, Drug form: CAP, 11/20/2012 11/19/2012 Canceled Daily, Dosing Weight 104, kg, Start date: 11/20/12 9:00:00, Duration: 30 day, Stop date: 12/19/12 9:00:00 Geodon 160 mg, 2 cap, Route: PO, Drug 11/19/2012 11/21/2012 Discontinued form: CAP, Bedtime, Dosing Weight 104, kg, Start date: 11/19/12 21:00:00, Duration: 30 day, Stop date: 12/18/12 21:00:00 venlafaxine 150 mg, 2 cap, Route: PO, Drug 11/20/2012 11/21/2012 Discontinued form: ERCAP, Daily, Dosing Weight 104, kg, Start date: 11/20/12 9:00:00, Duration: 30 day, Stop date: 12/19/12 9:00:00 temazepam 30 mg, 2 cap, Route: PO, Drug form: 11/19/2012 11/21/2012 Discontinued CAP, Bedtime, Dosing Weight 104, kg, Start date: 11/19/12 21:00:00, Duration: 30 day, Stop date: 12/18/12 21:00:00 Cogentin 0.5 mg, 1 tab, Route: PO, Drug 11/19/2012 11/21/2012 Discontinued form: TAB, Bedtime, Dosing Weight 104, kg, Start date: 11/19/12 21:00:00, Duration: 30 day, Stop date: 12/18/12 21:00:00 benztropine 2 mg, 2 tab, Route: PO, Drug form: 11/20/2012 11/21/2012 Discontinued TAB, BID, Dosing Weight 104, kg, Start date: 11/20/12 9:00:00, Duration: 30 day, Stop date: 12/19/12 17:00:00 enoxaparin 40 mg, 0.4 mL, Route: SUB-Q, Drug 11/21/2012 11/21/2012 Discontinued form: INJ, [id number], Dosing Weight 104, kg, Start date: 11/21/12 14:00:00, Duration: 30 day, Stop date: 12/20/12 14:00:00 Nasonex 50 mcg/inh 2 spray, NASAL, Daily, PRN for 11/19/2012 Ordered nasal spray allergy symptoms, 17 gm, Substitute Allowed, SPRY benztropine 2 mg 2 mg, 1 tab, PO, BID, 180 tab, 11/19/2012 Ordered oral tablet Substitution Allowed, TAB lamotrigine 200 mg 200 mg, 1 tab, PO, Daily, 30 tab, 11/19/2012 Ordered oral tablet, Substitution Allowed, ERTAB extended release ziprasidone 80 mg 160 mg, 2 cap, PO, Daily, 180 cap, 11/19/2012 Ordered oral capsule Substitution Allowed, CAP venlafaxine 150 mg 150 mg, 1 tab, PO, Daily, 30 tab, 11/19/2012 Ordered oral tablet, Substitution Allowed, ERTAB extended release Premarin 0.625 mg 0.625 mg, 1 tab, PO, Daily, 90 tab, 11/19/2012 Ordered oral tablet Substitution Allowed, TAB Dexilant 60 mg oral 60 mg, 1 cap, PO, Daily, 11/19/2012 Ordered delayed release Substitution Allowed capsule lamotrigine 200 mg 200 mg, 1 tab, Route: PO, Drug 11/20/2012 11/19/2012 Deleted oral tablet, form: ERTAB, Daily, Dosing Weight extended release 104, kg, Start date: 11/20/12 9:00:00, Duration: 30 day, Stop date: 12/19/12 9:00:00 Cymbalta 60 mg, Route: PO, Drug form: DRC, 11/20/2012 11/19/2012 Canceled BID, Dosing Weight 104, kg, Start date: 11/20/12 9:00:00, Duration: 30 day, Stop date: 12/19/12 17:00:00 Dexilant 60 mg, Route: PO, Drug form: DRKatheryn, 11/20/2012 11/19/2012 Deleted Daily, Dosing Weight 104, kg, Start date: 11/20/12 9:00:00, Duration: 30 day, Stop date: 12/19/12 9:00:00 Premarin 0.625 mg, 1 tab, Route: PO, Drug 11/20/2012 11/21/2012 Discontinued form: TAB, Daily, Dosing Weight 104, kg, Start date: 11/20/12 9:00:00, Duration: 30 day, Stop date: 12/19/12 9:00:00 Klonopin 2 mg, Route: PO, TID, Dosing Weight 11/20/2012 11/19/2012 Canceled 104, kg, Start date: 11/20/12 9:00:00, Duration: 30 day, Stop date: 12/19/12 17:00:00 clonazepam 1 mg, 2 tab, Route: PO, Drug form: 11/20/2012 11/21/2012 Discontinued TAB, BID, Dosing Weight 104, kg, Start date: 11/20/12 9:00:00, Duration: 30 day, Stop date: 12/19/12 17:00:00 acetaminophen-hydroc 1 tab, Route: PO, Drug Form: TAB, 11/19/2012 11/21/2012 Discontinued odone 325 mg-5 mg Q4H, PRN Breakthrough Pain, Start oral tablet date: 11/19/12 16:32:00, Duration: 30 day, Stop date: 12/19/12 16:31:00 Protonix 40 mg, 1 tab, Route: PO, Drug form: 11/20/2012 11/21/2012 Discontinued ECTAB, Before Breakfast, Start date: 11/20/12 6:30:00, Duration: 30 day, Stop date: 12/19/12 6:30:00 have RPh verify & have RPh verify & bar-code pt own 11/20/2012 11/21/2012 Discontinued bar-code pt own lamotrigine 200mg ERT, 1 attn lamotrigine 200mg notice, Drug form: MISC, Route: ERT MISC, QSHIFT, 11/20/12 0:00:00, Duration: 30 day, Stop date: 12/19/12 16:00:00 Saline Flush 0.9% 5 ml, Route: IVP, Drug Form: INJ, 11/19/2012 11/21/2012 Discontinued Dosing Weight 104.545, kg, PRN, PRN Line Flush, Start date: 11/19/12 2:56:00, Duration: 30 day, Stop date: 12/19/12 3:55:00 acetaminophen 650 mg, 2 tab, Route: PO, Drug 11/19/2012 11/21/2012 Discontinued form: TAB, Q4H, Dosing Weight 104.545, kg, PRN Pain/Fever, Start date: 11/19/12 2:56:00, Duration: 30 day, Stop date: 12/19/12 2:55:00 morphine Sulfate 2 mg, 1 mL, Route: IVP, Drug form: 11/19/2012 11/20/2012 Discontinued INJ, Q3H, Dosing Weight 104.545, kg, PRN Pain Score 4-6, Start date: 11/19/12 2:56:00, Duration: 30 day, Stop date: 12/19/12 2:55:00 ondansetron 4 mg, 2 mL, Route: IVP, Drug form: 11/19/2012 11/21/2012 Discontinued INJ, Q6H, Dosing Weight 104.545, kg, PRN Nausea & Vomiting, Start date: 11/19/12 2:56:00, Duration: 30 day, Stop date: 12/19/12 2:55:00 clonazepam 1 mg oral 1 mg, 1 tab, PO, BID, Substitution 11/19/2012 Ordered tablet Allowed, TAB pt own lamotrigine pt own lamotrigine extended 11/20/2012 11/21/2012 Discontinued extended release release, 200 mg, Drug form: [facility] [place], Route: PO, Daily, 11/20/12 9:00:00, Duration: 30 day, Stop date: 12/19/12 9:00:00 [place] 5/325 oral 1-2 tab, PO, Q4-6H, PRN, 20 tab, 0, 11/21/2012 11/26/2012 Ordered tablet 0, Pain, Substitution Allowed, Maintenance clindamycin 300 mg 300 mg, 1 cap, PO, TID, 21 cap, 11/21/2012 Ordered oral capsule Substitution Allowed morphine Sulfate 3 mg, 1.5 mL, Route: IV, Drug form: 11/20/2012 11/21/2012 Discontinued INJ, Q3H, Dosing Weight 104, kg, PRN as needed for pain, Start date: 11/20/12 12:54:00, Duration: 30 day, Stop date: 12/20/12 12:53:00 Vicodin 5/500 oral 1 tab, PO, Q4H, PRN, 20 tab, for 11/19/2012 Ordered tablet pain, Substitution Allowed, Maintenance, TAB ondansetron 4 mg, 2 mL, Route: IVP, Drug form: 11/18/2012 11/18/2012 Completed INJ, ONCE, Dosing Weight 104.545, kg, Priority: STAT, Start date: 11/18/12 23:11:00, Stop date: 11/18/12 23:11:00 morphine Sulfate 4 mg, 2 mL, Route: IVP, Drug form: 11/18/2012 11/18/2012 Completed INJ, ONCE, Dosing Weight 104.545, kg, Priority: STAT, Start date: 11/18/12 23:11:00, Stop date: 11/18/12 23:11:00 clindamycin + Sodium 900 mg, 6 mL, Route: IVPB, ONCE, 11/18/2012 11/18/2012 Completed Chloride 0.9% IV 100 Dosing Weight 104.545, kg, mL Priority: STAT, Start date: 11/18/12 23:11:00, Stop date: 11/18/12 23:11:00 clindamycin 150 mg 150 mg, 1 cap, PO, Q6H, 40 cap, 11/19/2012 11/21/2012 Discontinued oral capsule Substitution Allowed Vital Signs Most recent to oldest [Reference Range]: 1 2 3 Height 172 cm (11/19/2012 03:26:00) 172.72 cm (11/19/2012 02:57:00) Temperature Oral [96.4-99.1 DegF] 97.2 DegF (11/21/2012 12:00:00) 97.5 DegF (11/21/2012 08:00:00) 97.7 DegF (11/21/2012 04:00:00) Systolic Blood Pressure [90-140 mmHg] 105 mmHg (11/21/2012 12:00:00) 111 mmHg (11/21/2012 08:00:00) 112 mmHg (11/21/2012 04:00:00) Diastolic Blood Pressure [60-90 mmHg] 66 mmHg (11/21/2012 12:00:00) 77 mmHg (11/21/2012 08:00:00) 74 mmHg (11/21/2012 04:00:00) Respiratory Rate [14-20 BRMIN] 20 BRMIN (11/21/2012 12:00:00) 20 BRMIN (11/21/2012 08:00:00) 18 BRMIN (11/21/2012 04:00:00) Peripheral Pulse Rate [60-100 bpm] 72 bpm (11/21/2012 12:00:00) 85 bpm (11/21/2012 08:00:00) 78 bpm (11/21/2012 04:00:00) Weight 104 kg (11/19/2012 03:26:00) 104.545 kg (11/19/2012 02:57:00) 104.545 kg (11/18/2012 22:04:00) Results CHEMISTRY Most recent to oldest [Reference Range]: 1 Sodium Lvl [135-145 mEq/L] 141 mEq/L (11/18/2012 23:22:00) Potassium Lvl [3.5-5.1 mEq/L] 3.8 mEq/L (11/18/2012 23:22:00) Chloride Lvl [95-109 mEq/L] 109 mEq/L (11/18/2012:22:00) CO2 [24-32 mEq/L] 24 mEq/L (11/18/2012::00) AGAP [10.0-20.0 mEq/L] 11.8 mEq/L (11/18/2012:00) Creatinine Lvl [0.5-1.4 mg/dL] 0.9 mg/dL (11/18/2012::00) eGFR 84 mL/min/1.73m2 1 *NA* (11/18/2012::00) BUN [7-22 mg/dL] 8 mg/dL (11/18/2012:00) B/C Ratio [6-25] 9 (11/18/2012::00) Glucose Lvl [70-99 mg/dL] 97 mg/dL 2 (11/18/2012::00) Total Protein [6.4-8.4 g/dL] 7.0 g/dL (11/18/2012:00) Albumin Lvl [3.5-5.0 g/dL] 3.6 g/dL (11/18/2012::00) Globulin [2.0-4.0 g/dL] 3.4 g/dL (11/18/2012:00) A/G Ratio [0.7-1.6] 1.1 (11/18/2012::00) Calcium Lvl [8.5-10.5 mg/dL] 9.1 mg/dL (11/18/2012:00) ALT [0-65 unit/L] 26 unit/L (11/18/2012::00) AST [0-37 unit/L] 11 unit/L (11/18/2012:00) Alk Phos [39-136 unit/L] 85 unit/L (11/18/2012:00) Bili Total [0.2-1.3 mg/dL] 0.3 mg/dL (11/18/2012::00) Etoh (%) <0.003 % 3 (11/19/2012 00:15:01) Ethanol Lvl <3.0 mg/dL 4 (11/19/2012 00:15:01) 1Result Comment: The eGFR is calculated using [...] from the National Kidney Disease Education Program ( NKDEP) which additionally recommends that when the eGFR is used in patients with extremes of body mass index for purposes of drug dosing, the eGFR should be mul tiplied by the estimated BMI. 2Interpretive Data: Adult reference range values reflect the clinical guidelines of the [place] [employer]. 3Interpretive Data: Negative Range: <0.003% Toxic Range: >0.25% 4Interpretive Data: Negative Range: <3 mg/dL Toxic Range: >250 mg/dL HEMATOLOGY Most recent to oldest [Reference Range]: 1 WBC [3.7-10.4 K/CMM] 9.9 K/CMM (11/18/2012 23:22:00) RBC [4.20-5.40 M/CMM] 3.78 M/CMM *LOW* (11/18/2012 23:22:00) Hgb [12.0-16.0 g/dL] 11.9 g/dL *LOW* (11/18/2012 23:22:00) Hct [36.0-48.0 %] 35.3 % *LOW* (11/18/2012 23:22:00) MCV [81.0-99.0 fL] 93.3 fL (11/18/2012 23:22:00) MCH [27.0-31.0 pg] 31.3 pg *HI* (11/18/2012 23:22:00) MCHC [32.0-36.0 g/dL] 33.5 g/dL (11/18/2012 23:22:00) RDW [11.5-14.5 %] 13.4 % (11/18/2012 23:22:00) Platelet [133-450 K/CMM] 310 K/CMM (11/18/2012 23:22:00) MPV [7.4-10.4 fL] 7.4 fL (11/18/2012 23:22:00) Segs [45.0-75.0 %] 60.8 % (11/18/2012 23:22:00) Lymphocytes [20.0-40.0 %] 29.5 % (11/18/2012 23:22:00) Monocytes [2.0-12.0 %] 7.3 % (11/18/2012 23:22:00) Eosinophils [0.0-4.0 %] 2.1 % (11/18/2012:22:00) Basophils [0.0-1.0 %] 0.3 % (11/18/2012 23:22:00) Segs-Bands # [1.5-8.1 K/CMM] 6.0 K/CMM (11/18/2012 23:22:00) Lymphocytes # [1.0-5.5 K/CMM] 2.9 K/CMM (11/18/2012 23:22:00) Monocytes # [0.0-0.8 K/CMM] 0.7 K/CMM (11/18/2012 23:22:00) Eosinophils # [0.0-0.5 K/CMM] 0.2 K/CMM (11/18/2012 23:22:00) Basophils # [0.0-0.2 K/CMM] 0.0 K/CMM (11/18/2012 23:22:00) RBC Morph Normal (11/18/2012 23:22:00) Plt Morph Normal (11/18/2012 23:22:00) PT [12.0-14.7 seconds] 12.0 seconds (11/18/2012 23:22:00) INR [0.85-1.17] 0.87 5 (11/18/2012 23:22:00) 5Interpretive Data: RECOMMENDED RANGES FOR PROTIME INR: 2.0-3.0 for most medical and surgical thromboembolic states. 2.5-3.5 for artificial heart valves and recurrent embolism. INR SHOULD BE USED ONLY FOR PATIENTS ON STABLE ANTICOAGULANT THERAPY. Procedures Procedures Date Related Diagnosis Appendectomy Cholecystectomy Hysterectomy
--- OUTSIDE RECORDS SUMMARY | 2019-03-16 05:17 | XMS REPORT | CCD ---
Author Author Auto Generated Organization [facility] Address Unknown Phone Unavailable Care Team Providers Care Tubing Oiler Name Role Phone Heydi Marroquin CP Allergies, Adverse Reactions, Alerts Substance Reaction Status Imitrex Active Motrin Active Toradol Active Zomig Active Problem List Condition Effective Dates Status Abdominal pain 02/09/2010 Active Anxiety Resolved Anxiety Active Bipolar Active Bipolar disorder Active Breast infection1 Active Cholesterol level Resolved Cyst of breast2 Active Depression Active Depression Active FH: Osteoarthritis Active Fibromyalgia Active Hysterectomy Resolved Low back pain Active Osteoarthritis Resolved Partial hysterectomy Active Urinary retention Active Vomiting 02/09/2010 Active 1Admitted to Patient's hospital 2 weeks ago for Left breast infection. 2left sided x2 Medications Medication Instructions Start Date End Date Status azithromycin 250 mg 1 gm, 4 tab, Route: PO, Drug form: 08/12/2013 08/12/2013 Completed oral tablet TAB, ONCE, Dosing Weight 86.364, kg, Start date: 08/12/13 15:54:00, Stop date: 08/12/13 15:54:00Take 1 hour before or 2 hours after meals.(Same As: Zithromax) DuoNeb inhalation 3 ml, Route: INHALATION, Drug Form: 08/12/2013 08/12/2013 Completed solution SOLN, Dosing Weight 86.364, kg, ONCE, Start date: 08/12/13 13:55:00, Stop date: 08/12/13 13:55:00(Same as: Duoneb) morphine Sulfate 4 mg, 2 mL, Route: IVP, Drug form: 08/12/2013 08/12/2013 Completed INJ, ONCE, Dosing Weight 86.364, kg, Priority: STAT, Start date: 08/12/13 13:55:00, Stop date: 08/12/13 13:55:00(Same as:MORPhine Sulfate) Zofran 4 mg, 2 mL, Route: IVP, Drug form: 08/12/2013 08/12/2013 Completed INJ, ONCE, Dosing Weight 86.364, kg, Priority: STAT, Start date: 08/12/13 13:55:00, Stop date: 08/12/13 13:55:00(Same as: Zofran) Sodium Chloride 0.9% 1,000 mL, Rate: 1000 ml/hr, Infuse 08/12/2013 08/12/2013 Completed (Bolus) IV 1,000 mL over: 1 hr, Route: IV, Dosing Weight 86.364 kg, Total Volume: 1,000, Priority: STAT, Start date: 08/12/13 13:54:00, Duration: 1 doses or times, Stop date: 08/12/13 14:53:00, Bolus Dose Bolus Dose Tylenol 650 mg, Route: PO, ONCE, Dosing 08/12/2013 08/12/2013 Completed Weight 86.364, kg, Priority: STAT, Start date: 08/12/13 17:50:00, Stop date: 08/12/13 17:50:00 Proventil HFA 90 1-2 puffs inhaled, INHALATION, QID, 08/12/2013 Ordered mcg/inh inhalation PRN, with spacer and mask, 1 unit, aerosol with adapter for wheezing, Substitution Allowed, Maintenance, AERO with spacer and mask [place] 5/325 oral 1-2 tab, PO, Q4-6H, PRN, 14 tab, 08/12/2013 Ordered tablet Pain, Substitution Allowed, Maintenance Zofran ODT 4 mg oral 4 mg, 1 tab, PO, BID, PRN, Dissolve 08/12/2013 Ordered tablet, tab under tongue, 10 tab, Nausea disintegrating and Vomiting, Substitution Allowed Dissolve tab under tongue Tylenol 650 mg, Route: PO, ONCE, Dosing 08/12/2013 08/12/2013 Completed Weight 86.364, kg, Priority: STAT, Start date: 08/12/13 12:16:00, Stop date: 08/12/13 12:16:00 Levaquin 750 mg oral 750 mg, 1 tab, PO, Q24H, 5 tab, 08/12/2013 08/17/2013 Ordered tablet Substitution Allowed, TAB ceftriaxone + Sodium 1 gm, Route: IVPB, Drug form: 08/12/2013 08/12/2013 Completed Chloride 0.9% IV 100 PDR/INJ, ONCE, Dosing Weight mL 86.364, kg, Priority: STAT, Start date: 08/12/13 13:57:00, Stop date: 08/12/13 13:57:00(Same As: Rocephin). Use with 100ml NS mini-bag PLUS and infuse over 30 min Zithromax 500 mg 1 gm, 1 pkt, Route: PO, Drug form: 08/12/2013 08/12/2013 Deleted oral tablet PCKT, ONCE, Dosing Weight 86.364, kg, Start date: 08/12/13 13:57:00, Stop date: 08/12/13 13:57:00(Same As: Zithromax) Take 1 hour before or 2 hours after meal Vital Signs Most recent to oldest [Reference Range]: 1 2 3 Height 167.64 cm (08/12/2013 12:13:00) Temperature Oral [96.4-99.1 DegF] 100.9 DegF *HI* (08/12/2013 17:30:00) 100.0 DegF *HI* (08/12/2013 13:45:00) 102.7 DegF *HI* (08/12/2013 12:13:00) Systolic Blood Pressure [90-140 mmHg] 136 mmHg (08/12/2013 17:30:00) 102 mmHg (08/12/2013 12:13:00) Diastolic Blood Pressure [60-90 mmHg] 81 mmHg (08/12/2013 17:30:00) 66 mmHg (08/12/2013 12:13:00) Respiratory Rate [14-20 BRMIN] 18 BRMIN (08/12/2013 17:30:00) 18 BRMIN (08/12/2013 16:15:00) 18 BRMIN (08/12/2013 13:45:00) Peripheral Pulse Rate [60-100 bpm] 99 bpm (08/12/2013 17:30:00) 91 bpm (08/12/2013 16:15:00) 99 bpm (08/12/2013 13:45:00) Weight 86.364 kg (08/12/2013 12:13:00) Results URINALYSIS Most recent to oldest [Reference Range]: 1 UA Turbidity [Clear] Marked *ABN* (08/12/2013 12:45:37) UA Color Autumn *NA* (08/12/2013 12:45:37) UA pH [5.0-8.0] 5.0 (08/12/2013 12:45:37) UA Spec Grav [<=1.030] 1.016 (08/12/2013 12:45:37) UA Glucose [Negative mg/dL] Negative mg/dL *NA* (08/12/2013 12:45:37) UA Blood [Negative] Negative (08/12/2013 12:45:37) UA Ketones [Negative mg/dL] Negative mg/dL *NA* (08/12/2013 12:45:37) UA Protein [Negative mg/dL] 100 mg/dL *ABN* (08/12/2013 12:45:37) UA Urobilinogen [0.1-1.0 mg/dL] 4.0 mg/dL *HI* (08/12/2013 12:45:37) UA Bili [Negative] Negative *NA* (08/12/2013 12:45:37) UA Leuk Est [Negative] Large *ABN* (08/12/2013 12:45:37) UA Nitrite [Negative] Positive *ABN* (08/12/2013 12:45:37) UA WBC [0-5 /HPF] >182 /HPF *HI* (08/12/2013 12:45:37) UA RBC [0-2 /HPF] 3 /HPF *HI* (08/12/2013 12:45:37) UA Bacteria [None Seen /HPF] Many /HPF *ABN* (08/12/2013 12:45:37) UA Sq Epi [Few /LPF] Many /LPF *ABN* (08/12/2013 12:45:37) VIRAL - SEROLOGY Most recent to oldest [Reference Range]: 1 Influ A [Negative] Negative (08/12/2013 16:18:48) Influ B [Negative] Negative 1 (08/12/2013 16:18:48) 1Interpretive Data: Influenza A&B Antigen: Due to the low sensitivity of this test a negative result does not exclude influ chava virus infection. A diagnosis of influenza should be considered based on a p atient's clinical presentation and empiric antiviral treatment should be conside red, if indicated. If more conclusive testing is desired, follow-up confirmatory testing with either viral culture or PCR is warranted. CHEMISTRY Most recent to oldest [Reference Range]: 1 Sodium Lvl [135-145 mEq/L] 135 mEq/L (08/12/2013:40:00) Potassium Lvl [3.5-5.1 mEq/L] 3.4 mEq/L *LOW* (08/12/2013:40:00) Chloride Lvl [95-109 mEq/L] 101 mEq/L (08/12/2013:40:00) CO2 [24-32 mEq/L] 24 mEq/L (08/12/2013:40:00) AGAP [10.0-20.0 mEq/L] 13.4 mEq/L (08/12/2013:40:00) Creatinine Lvl [0.5-1.4 mg/dL] 1.3 mg/dL (08/12/2013:40:00) eGFR 54 mL/min/1.73m2 2 *NA* (08/12/201340:00) BUN [7-22 mg/dL] 19 mg/dL (08/12/2013:40:00) B/C Ratio [6-25] 15 (08/12/2013:40:00) Glucose Lvl [70-99 mg/dL] 99 mg/dL 3 (08/12/2013:40:00) Total Protein [6.4-8.4 g/dL] 7.3 g/dL (08/12/2013:40:00) Albumin Lvl [3.5-5.0 g/dL] 2.9 g/dL *LOW* (08/12/201340:00) Globulin [2.0-4.0 g/dL] 4.4 g/dL *HI* (08/12/2013:40:00) A/G Ratio [0.7-1.6] 0.7 (08/12/2013:40:00) Calcium Lvl [8.5-10.5 mg/dL] 9.2 mg/dL (08/12/2013:40:00) ALT [0-65 unit/L] 26 unit/L (08/12/2013:40:00) AST [0-37 unit/L] 9 unit/L (08/12/2013:40:00) Alk Phos [39-136 unit/L] 141 unit/L *HI* (08/12/2013) Bili Total [0.2-1.3 mg/dL] 0.7 mg/dL (08/12/201340:00) Lactic Acid Lvl [0.5-2.2 mMol/L] 1.0 mMol/L (08/12/201340:) 2Result Comment: The eGFR is calculated using [...] be mul tiplied by the estimated BMI. 3Interpretive Data: Adult reference range values reflect the clinical guidelines of the [place] [employer]. HEMATOLOGY Most recent to oldest [Reference Range]: 1 WBC [3.7-10.4 K/CMM] 15.4 K/CMM *HI* (08/12/201340:) RBC [4.20-5.40 M/CMM] 3.82 M/CMM *LOW* (08/12/2013) Hgb [12.0-16.0 g/dL] 12.2 g/dL (08/12/2013:) Hct [36.0-48.0 %] 36.7 % (08/12/201340) MCV [81.0-99.0 fL] 95.9 fL (08/12/201340:) MCH [27.0-31.0 pg] 31.9 pg *HI* (08/12/2013 14:40:00) MCHC [32.0-36.0 g/dL] 33.3 g/dL (08/12/2013 14:40:00) RDW [11.5-14.5 %] 14.3 % (08/12/2013 14:40:00) Platelet [133-450 K/CMM] 232 K/CMM (08/12/2013 14:40:00) MPV [7.4-10.4 fL] 7.7 fL (08/12/2013 14:40:00) Segs [45.0-75.0 %] 83.0 % *HI* (08/12/2013 14:40:00) Bands [0.0-11.0 %] 4.0 % (08/12/2013 14:40:00) Lymphocytes [20.0-40.0 %] 9.0 % *LOW* (08/12/2013 14:40:00) Atypical Lymphs [<=0.0 %] 0.0 % (08/12/2013 14:40:00) Monocytes [2.0-12.0 %] 4.0 % (08/12/2013 14:40:00) Segs-Bands # [1.5-8.1 K/CMM] 13.4 K/CMM *HI* (08/12/2013 14:40:00) Lymphocytes # [1.0-5.5 K/CMM] 1.4 K/CMM (08/12/2013 14:40:00) Monocytes # [0.0-0.8 K/CMM] 0.6 K/CMM (08/12/2013 14:40:00) RBC Morph See Note (08/12/2013 14:40:00) Polychrom [None Seen] Slight (08/12/2013 14:40:00) Plt Morph Clumped (08/12/2013 14:40:00) Microbiology Reports PROCEDURE:Culture: Blood STATUS: Order in Progress BODY SITE: Right Antecubital COLLECTED DATE/TIME: 08/12/2013 14:55:00 SOURCE: Blood FREE TEXT SOURCE: PRELIMINARY REPORTS Preliminary Report No Growth At 1 Day Preliminary Report No Growth; Holding PROCEDURE:Culture: Blood STATUS: Order in Progress BODY SITE: Right Antecubital COLLECTED DATE/TIME: 08/12/2013 14:40:00 SOURCE: Blood FREE TEXT SOURCE: PRELIMINARY REPORTS Preliminary Report No Growth; Holding Preliminary Report No Growth At 1 Day PROCEDURE:Culture: Urine STATUS: Auth (Verified) BODY SITE: COLLECTED DATE/TIME: 08/12/2013 12:45:00 SOURCE: Urine, Clean Catch FREE TEXT SOURCE: FINAL REPORTS Final Report >100,000 CFU/mL Escherichia coli PRELIMINARY REPORTS Preliminary Report >100,000 CFU/mL Gram Negative Rods, Lactose Fermenters Identification And Sensitivity Pending SUSCEPTIBILITY REPORT Escherichia coli Antibiotic Vitek Dilution Vitek Interpretation Amikacin Susceptible Ampicillin Resistant Ampicillin/Sulbactam Resistant Cefazolin Susceptible Cefepime Susceptible Ceftriaxone Susceptible Cefuroxime Intermediate ESBL Confirmation Negative Gentamicin Susceptible Levofloxacin Susceptible Meropenem Susceptible Nitrofurantoin Susceptible Piperacillin/Tazobactam Susceptible Tetracycline Susceptible Tobramycin Susceptible Trimethoprim/Sulfamethoxazole Resistant
--- OUTSIDE RECORDS SUMMARY | 2019-03-16 05:17 | XMS REPORT | Summary of Care ---
Author Organization Unknown Address Unknown Phone Unavailable Encounter Dates Location Diagnoses Discharge Providers Disposition 11/13/2013 [facility] Discharge Home Annette [facility] Diagnosis: 11/14/2013 [id number] [place] lumbar [address] radiculopathy Final: Thoracic or Lumbosacral Neuritis or Radiculitis, Unspecified Final: Abdominal Pain, Other Specified Site; Multiple Sites Final: Nausea with Vomiting Final: DIARRHEA Final: Fever, Unspecified Final: Unspecified Essential Hypertension Final: Bipolar Disorder, Unspecified Final: Esophageal Reflux Final: Tobacco Use Disorder Reason for Visit FLANK PAIN Vital Signs Most recent to 1 2 oldest [Reference Range]: Height 167.64 cm (11/13/2013 20:40:00 [facility] Temperature Oral 98.2 DegF 98.4 DegF [96.4-99.1 DegF] (11/14/2013 02:16:00 [facility]) (11/13/2013 20:40:00 [facility]) Systolic Blood 99 mmHg 102 mmHg Pressure [90-140 (11/14/2013 02:16:00 [facility]) (11/13/2013 20:40:00 [facility]) mmHg] Diastolic Blood 53 mmHg 73 mmHg Pressure [60-90 *LOW* (11/13/2013 20:40:00 [facility] mmHg] (11/14/2013 02:16:00 [facility]) Respiratory Rate 18 BRMIN 18 BRMIN [14-20 BRMIN] (11/14/2013 02:16:00 [facility]) (11/13/2013 20:40:00 [facility]) Peripheral Pulse 87 bpm 110 bpm Rate [60-100 bpm] (11/14/2013 02:16:00 [facility]) *HI* (11/13/2013 20:40:00 [facility]) Weight 83.636 kg (11/13/2013 20:40:00 [facility]) Body Mass Index 29.76 m2 (11/13/2013 20:40:00 [facility]) Problem List Condition Effective Dates Status Health Status Informant Abdominal 02/09/2010 Active pain(Confirmed) Anxiety(Confirmed) Resolved Anxiety(Confirmed) Active Bipolar(Confirmed) Active Bipolar Active disorder(Confirmed) Breast Active infection(Confirmed) 1 Cholesterol Resolved level(Confirmed) Cyst of Active breast(Confirmed)2 Depression(Confirmed Active ) Depression(Confirmed Active ) FH: Active Osteoarthritis(Confi rmed) Fibromyalgia(Confirm Active ed) Hysterectomy(Confirm Resolved ed) Low back Active pain(Confirmed) Osteoarthritis(Confi Resolved rmed) Partial Active hysterectomy(Confirm ed) Urinary Active retention(Confirmed) Vomiting(Confirmed) 02/09/2010 Active 1Admitted to Patient's hospital 2 weeks ago for Left breast infection. 2left sided x2 Allergies, Adverse Reactions, Alerts Status Substance Reaction Severity Active Imitrex Active Motrin Active Toradol Active Zomig Medications Medication Instructions Start Date Stop Date Status Flexeril 10 mg oral 10 mg=1 tab, PO, TID, for spasm, # 11/14/2013 Ordered tablet 30 tab, 0 Refill(s) morphine Sulfate 4 mg, Route: IVP, ONCE, Dosing 11/13/2013 11/13/2013 Completed Weight 83.636, kg, Priority: STAT, Start date: 11/13/13 23:22:00, Stop date: 11/13/13 23:22:00 [place] 5/325 oral 1 tab, Route: PO, Dosing Weight 11/14/2013 11/14/2013 Completed tablet 83.636, kg, ONCE, Start date: 11/14/13 1:50:00, Stop date: 11/14/13 1:50:00 Sodium Chloride 0.9% 1,000 mL, Rate: 1,000 ml/hr, Infuse 11/13/2013 11/13/2013 Completed (Bolus) IV 1000 mL over: 1 hr, Route: IV, Dosing Weight 83.636 kg, Total Volume: 1,000, Priority: STAT, Start date: 11/13/13 23:22:00, Duration: 1 doses or times, Stop date: 11/14/13 0:21:00, Bolus Dose Bolus Dose Ultram 50 mg oral 50 mg=1 tab, PO, Q4H, pain, # 20 11/14/2013 Ordered tablet tab, 0 Refill(s) Zofran 4 mg, Route: IVP, Drug form: INJ, 11/13/2013 11/13/2013 Completed ONCE, Dosing Weight 83.636, kg, Priority: STAT, Start date: 11/13/13 23:22:00, Stop date: 11/13/13 23:22:00 Results ELECTROLYTES Most recent to 1 oldest [Reference Range]: Sodium Lvl [135-145 138 mEq/L mEq/L] (11/13/2013 22:09:00 [facility]) Potassium Lvl 3.8 mEq/L [3.5-5.1 mEq/L] (11/13/2013 22:09:00 [facility]) Chloride Lvl [95-109 104 mEq/L mEq/L] (11/13/2013:09:00 [facility]) CO2 [24-32 mEq/L] 24 mEq/L (11/13/2013 22:09:00 [facility]) AGAP [10.0-20.0 13.8 mEq/L mEq/L] (11/13/2013 22:09:00 [facility]) CHEM PANEL Most recent to 1 oldest [Reference Range]: Creatinine Lvl 0.9 mg/dL [0.5-1.4 mg/dL] (11/13/2013 22:09:00 [facility]) eGFR 84 mL/min/1.73m2 1 *NA* (11/13/2013 22:09:00 [facility]) BUN [7-22 mg/dL] 9 mg/dL (11/13/2013:09:00 [facility]) B/C Ratio [6-25] 10 (11/13/2013 22:09:00 [facility]) Glucose Lvl [70-99 92 mg/dL 2 mg/dL] (11/13/2013 22:09:00 [facility]) Total Protein 7.5 g/dL [6.4-8.4 g/dL] (11/13/2013 22:09:00 [facility]) Albumin Lvl [3.5-5.0 3.8 g/dL g/dL] (11/13/2013 22:09:00 [facility]) Globulin [2.0-4.0 3.7 g/dL g/dL] (11/13/2013 22:09:00 [facility]) A/G Ratio [0.7-1.6] 1.0 (11/13/2013 22:09:00 [facility]) Calcium Lvl 9.3 mg/dL [8.5-10.5 mg/dL] (11/13/2013 22:09:00 [facility]) ALT [0-65 unit/L] 33 unit/L (11/13/2013 22:09:00 [facility]) AST [0-37 unit/L] 12 unit/L (11/13/2013 22:09:00 [facility]) Alk Phos [39-136 75 unit/L unit/L] (11/13/2013 22:09:00 [facility]) Bili Total [0.2-1.3 0.2 mg/dL mg/dL] (11/13/2013 22:09:00 [facility]) 1Result Comment: The eGFR is calculated using [...] values reflect the clinical guidelines of the [place] [employer]. URINE CHEM Most recent to 1 oldest [Reference Range]: U Preg [Negative] Negative (11/13/2013 20:58:00 [facility]) URINE AND STOOL Most recent to 1 oldest [Reference Range]: UA Turbidity [Clear] Clear ([facility]2013 [facility] U[facility] Color Ltyellow *NA* (11/13/2013 [facility] UA pH [5.0-8.0] 6.0 (11/13/2013 20:58:00 [facility]) UA Spec Grav 1.003 [<=1.030] (11/13/2013 20:58:00 [facility]) UA Glucose [Negative Negative mg/dL mg/dL] *NA* (11/13/2013 20:58:00 [facility]) UA Blood [Negative] Negative (11/13/2013 20:58:00 [facility]) UA Ketones [Negative Negative mg/dL mg/dL] *NA* (11/13/2013 20:58:00 [facility]) UA Protein [Negative Negative mg/dL mg/dL] (11/13/2013 20:58:00 [facility]) UA Urobilinogen <=1.0 mg/dL [0.1-1.0 mg/dL] *NA* (11/13/2013 20:58:00 [facility]) UA Bili [Negative] Negative *NA* (11/13/2013 20:58:00 [facility]) UA Leuk Est Negative [Negative] (11/13/2013 20:58:00 [facility]) UA Nitrite Negative [Negative] (11/13/2013 20:58:00 [facility]) UA WBC [0-5 /HPF] <1 /HPF (11/13/2013 20:58:00 [facility]) UA RBC [0-2 /HPF] <1 /HPF (11/13/2013 20:58:00 [facility]) UA Sq Epi [Few /LPF] Moderate /LPF *ABN* (11/13/2013 20:58:00 [facility]) HEMATOLOGY Most recent to 1 oldest [Reference Range]: WBC [3.7-10.4 K/CMM] 9.7 K/CMM (11/13/2013 22:09:00 [facility]) RBC [4.20-5.40 4.09 M/CMM M/CMM] *LOW* (11/13/2013 22:09:00 [facility]) Hgb [12.0-16.0 g/dL] 13.1 g/dL (11/13/2013 22:09:00 [facility]) Hct [36.0-48.0 %] 38.9 % (11/13/2013 22:09:00 [facility]) MCV [81.0-99.0 fL] 95.0 fL (11/13/2013:09:00 [facility]) MCH [27.0-31.0 pg] 32.1 pg *HI* (11/13/2013:09:00 [facility]) MCHC [32.0-36.0 33.8 g/dL g/dL] (11/13/2013:09:00 [facility]) RDW [11.5-14.5 %] 13.6 % (11/13/2013:09:00 [facility]) Platelet [133-450 285 K/CMM K/CMM] (11/13/2013:09:00 [facility]) MPV [7.4-10.4 fL] 8.2 fL (11/13/2013:09: [facility]) Segs [45.0-75.0 %] 57.8 % (11/13/2013:09:00 [facility]) Lymphocytes 32.3 % [20.0-40.0 %] (11/13/2013:09:00 [facility]) Monocytes [2.0-12.0 6.9 % %] (11/13/2013:09:00 [facility]) Eosinophils [0.0-4.0 2.3 % %] (11/13/2013:09:00 [facility]) Basophils [0.0-1.0 0.7 % %] (11/13/2013:09:00 [facility]) Segs-Bands # 5.6 K/CMM [1.5-8.1 K/CMM] (11/13/2013:09:00 [facility]) Lymphocytes # 3.1 K/CMM [1.0-5.5 K/CMM] (11/13/2013:09:00 [facility]) Monocytes # [0.0-0.8 0.7 K/CMM K/CMM] (11/13/2013 22:09:00 [facility]) Eosinophils # 0.2 K/CMM [0.0-0.5 K/CMM] (11/13/2013 22:09:00 [facility]) Basophils # [0.0-0.2 0.1 K/CMM K/CMM] (11/13/2013 22:09:00 [facility]) Medications Administered During Your Visit No data available for this section Immunizations No data available for this section Procedures Procedure Type Body Site Date of Procedure Related Diagnosis Emergency department visit for the evaluation and management of a patient, which requires these 3 link components within the constraints imposed by the urgency of the patient's clinical condition and/or mental status: A comprehensive history; A comprehensi 11/13/2013 00:00:00 [facility] Injection or Infusion of Other Therapeutic or Prophylactic Substance 11/13/2013 00:00:00 [facility] Intravenous infusion, hydration; each additional hour (List separately in addition to code for primary procedure) 11/13/2013 00:00:00 [facility] Therapeutic, prophylactic, or diagnostic injection (specify substance or drug); each additional sequential intravenous push of a new substance/drug (List separately in addition to code for primary procedure) 11/13/2013 00:00:00 [facility] Therapeutic, prophylactic, or diagnostic injection (specify substance or drug); intravenous push, single or initial substance/drug 11/13/2013 00:00:00 [facility] Social History Social History Type Response Smoking Status Use: Current every day smoker. Type: Cigarettes. Tobacco smoke exposure: None. Did the Patient Smoke Cigarettes Anytime During the Last 365 Days? Yes. Cessation Counseling Provided? No.
--- OUTSIDE RECORDS SUMMARY | 2019-03-16 05:17 | XMS REPORT | CCD ---
Author Author Auto Generated Organization [facility] Address Unknown Phone Unavailable Care Team Providers Care Systems Tester Name Role Phone Kiko Nielsen RP Allergies, Adverse Reactions, Alerts Substance Reaction Status [...] Medication Instructions Start Date End Date Status temazepam 30 mg, PO, Bedtime, Substitution 05/15/2013 Ordered Allowed ONAbotulinumtoxinA Route: IM, Drug form: INJ, ONCALL, 05/15/2013 05/15/2013 Discontinued Start date: 05/15/13 7:00:00, Stop date: 05/15/13 23:00:00 Lamictal 200 mg oral 200 mg, 1 tab, PO, Daily, 05/15/2013 Ordered tablet Substitution Allowed Vital Signs Most recent to oldest [Reference Range]: 1 Height 167.64 cm (05/15/2013 07:01:00) Weight 93.182 kg (05/15/2013 07:01:00)
--- OUTSIDE RECORDS SUMMARY | 2019-03-16 05:17 | XMS REPORT | Summary of Care ---
Author Organization Unknown Address Unknown Phone Unavailable Encounter Dates Location Diagnoses Discharge Providers Disposition 12/14/2013 [facility] Discharge Home [facility] Diagnosis: 12/15/2013 [id number] [place] [address] pain/vomitying/ diarrhea Reason for Visit ABD PAIN Vital Signs 1 2 3 Most recent to oldest [Reference Range]: 167.64 cm (12/14/2013 22:02:00 [facility]) Height 98.2 DegF (12/15/2013 05:22:00 [facility]) 98.2 DegF (12/15/2013 04:46:00 [facility]) 98.2 DegF (12/15/2013 01:40:00 [facility]) Temperature Oral [96.4-99.1 DegF] 109 mmHg (12/15/2013 05:22:00 [facility]) 99 mmHg (12/15/2013 04:46:00 [facility]) 94 mmHg (12/15/2013 04:00:00 [facility]) Systolic Blood Pressure [90-140 mmHg] 68 mmHg (12/15/2013 05:22:00 [facility]) 68 mmHg (12/15/2013 04:46:00 [facility]) 53 mmHg *LOW* (12/15/2013 04:00:00 [facility]) Diastolic Blood Pressure [60-90 mmHg] 20 BRMIN (12/15/2013 05:22:00 [facility]) 21 BRMIN *HI* (12/15/2013 04:46:00 [facility]) 21 BRMIN *HI* (12/15/2013 04:00:00 [facility]) Respiratory Rate [14-20 BRMIN] 112 bpm *HI* (12/14/2013 22:02:00 [facility]) Peripheral Pulse Rate [60-100 bpm] 86.364 kg (12/14/2013 22:02:00 [facility]) Weight 30.73 m2 (12/14/2013 22:02:00 [facility]) Body Mass Index Problem List Condition Effective Dates Status Health [...] Medication Instructions Start Date Stop Date Status ciprofloxacin 750 mg 750 mg=1 tab, PO, Q12H, # 20 tab, 0 12/15/2013 12/25/2013 Ordered oral tablet Refill(s) Flagyl 500 mg oral 500 mg=1 tab, PO, Q6H, # 40 tab, 0 12/15/2013 Ordered tablet Refill(s) hydromorphone 1 mg, 1 mL, Route: IVP, Drug form: 12/15/2013 12/15/2013 Completed INJ, ONCE, Dosing Weight 86.364, kg, PRN as needed for pain, Priority: STAT, Start date: 12/15/13 3:09:00 hydromorphone 0.5 mg, Route: IVP, ONCE, Dosing 12/15/2013 12/15/2013 Completed Weight 86.364, kg, Priority: STAT, Start date: 12/15/13 4:41:00, Stop date: 12/15/13 4:41:00 Levsin 0.125 mg, Route: PO, ONCE, Dosing 12/15/2013 12/15/2013 Completed Weight 86.364, kg, Start date: 12/15/13 2:51:00, Stop date: 12/15/13 2:51:00 [place] 10/325 oral 1 tab, PO, Q6H, as needed for pain, 12/15/2013 Ordered tablet # 16 tab, 0 Refill(s) ondansetron 4 mg, 2 mL, Route: IVP, Drug form: 12/15/2013 12/15/2013 Completed INJ, ONCE, Dosing Weight 86.364, kg, Priority: STAT, Start date: 12/15/13 3:09:00, Stop date: 12/15/13 3:09:00 (Same as: Zofran) Phenergan 25 mg oral 25 mg=1 tab, PO, Q4H, Nausea, # 15 12/15/2013 Ordered tablet tab, 0 Refill(s) Sodium Chloride 0.9% 1,000 mL, Rate: 1,000 ml/hr, Infuse 12/15/2013 12/15/2013 Completed (Bolus) IV 1,000 mL over: 1 hr, Route: IV, Dosing Weight 86.364 kg, Total Volume: 1,000, Priority: STAT, Start date: 12/15/13 3:09:00, Duration: 1 doses or times, Stop date: 12/15/13 4:08:00, Bolus Dose Bolus Dose Results ELECTROLYTES Most recent to 1 oldest [Reference Range]: Sodium Lvl [135-145 140 mEq/L mEq/L] (12/14/2013 22:56:00 [facility]) Potassium Lvl 3.5 mEq/L [3.5-5.1 mEq/L] (12/14/2013 22:56:00 [facility]) Chloride Lvl [95-109 109 mEq/L mEq/L] (12/14/2013 22:56:00 [facility]) CO2 [24-32 mEq/L] 24 mEq/L (12/14/2013 22:56:00 [facility]) AGAP [10.0-20.0 10.5 mEq/L mEq/L] (12/14/2013 22:56:00 [facility]) CHEM PANEL Most recent to 1 oldest [Reference Range]: Creatinine Lvl 0.9 mg/dL [0.5-1.4 mg/dL] (12/14/2013 22:56:00 [facility]) eGFR 84 mL/min/1.73m2 1 *NA* (12/14/2013 22:56:00 [facility]) BUN [7-22 mg/dL] 6 mg/dL *LOW* (12/14/2013 22:56:00 [facility] B/C Ratio [6-25] 7 (12/14/2013 [facility] Glucose Lvl [70-99 101 mg/dL 2 mg/dL] *HI* (12/14/2013 [facility]:56:[facility] Total Protein 6.9 g/dL [6.4-8.4 g/dL] (12/14/2013 22:56:00 [facility]) Albumin Lvl [3.5-5.0 3.4 g/dL g/dL] *LOW* (12/14/2013 22:56:00 [facility]) Globulin [2.0-4.0 3.5 g/dL g/dL] (12/14/2013 22:56:00 [facility]) A/G Ratio [0.7-1.6] 1.0 (12/14/2013 22:56:00 [facility]) Calcium Lvl 8.9 mg/dL [8.5-10.5 mg/dL] (12/14/2013 22:56:00 [facility]) ALT [0-65 unit/L] 18 unit/L (12/14/2013 22:56:00 [facility]) AST [0-37 unit/L] 10 unit/L (12/14/2013 [facility] Alk Phos [39-136 70 unit/L unit/L] (12/14/2013 22:56:00 [facility]) Bili Total [0.2-1.3 0.2 mg/dL mg/dL] (12/14/2013 22:56:00 [facility] Amylase Lvl [25-115 31 unit/L unit/L] (12/14/2013 [facility] Lipase Lvl [73-393 148 unit/L unit/L] (12/14/2013 [facility]:56:00 [facility] 1Result Comment: The eGFR is calculated using [...] values reflect the clinical guidelines of the [place] [employer]. URINE CHEM Most recent to 1 oldest [Reference Range]: U Preg [Negative] Negative (12/14/2013 21:30:00 [facility]) URINE AND STOOL Most recent to 1 oldest [Reference Range]: UA Turbidity [Clear] Clear (12/14/2013 21:30:00 [facility]) UA Color Ltyellow *NA* (12/14/2013 21:30:00 [facility]) UA pH [5.0-8.0] 7.0 (12/14/2013 21:30:00 [facility]) UA Spec Grav 1.003 [<=1.030] (12/14/2013 21:30:00 [facility]) UA Glucose [Negative Negative mg/dL mg/dL] *NA* (12/14/2013 21:30:00 [facility]) UA Blood [Negative] Negative (12/14/2013 21:30:00 [facility]) UA Ketones [Negative Negative mg/dL mg/dL] *NA* (12/14/2013 21:30:00 [facility]) UA Protein [Negative Negative mg/dL mg/dL] (12/14/2013 21:30:00 [facility]) UA Urobilinogen <=1.0 mg/dL [0.1-1.0 mg/dL] *NA* (12/14/2013 21:30:00 [facility]) UA Bili [Negative] Negative *NA* (12/14/2013 21:30:00 [facility]) UA Leuk Est Negative [Negative] (12/14/2013 21:30:00 [facility]) UA Nitrite Negative [Negative] (12/14/2013 21:30:00 [facility]) UA WBC [0-5 /HPF] 4 /HPF (12/14/2013 21:30:00 [facility]) UA RBC [0-2 /HPF] <1 /HPF (12/14/2013 21:30:00 [facility]) UA Bacteria [None Occasional /HPF Seen /HPF] *NA* (12/14/2013 21:30:00 [facility]) UA Sq Epi [Few /LPF] Many /LPF *ABN* (12/14/2013 21:30:00 [facility]) HEMATOLOGY Most recent to 1 oldest [Reference Range]: WBC [3.7-10.4 K/CMM] 8.3 K/CMM (12/14/2013 22:56:00 [facility]) RBC [4.20-5.40 3.74 M/CMM M/CMM] *LOW* (12/14/2013 22:56:00 [facility]) Hgb [12.0-16.0 g/dL] 12.1 g/dL (12/14/2013 22:56:00 [facility]) Hct [36.0-48.0 %] 35.1 % *LOW* (12/14/2013 22:56:00 [facility]) MCV [81.0-99.0 fL] 93.9 fL (12/14/2013 22:56:00 [facility]) MCH [27.0-31.0 pg] 32.2 pg *HI* (12/14/2013 22:56:00 [facility]) MCHC [32.0-36.0 34.3 g/dL g/dL] (12/14/2013 22:56:00 [facility]) RDW [11.5-14.5 %] 13.4 % (12/14/2013 22:56:00 [facility]) Platelet [133-450 306 K/CMM K/CMM] (12/14/2013 22:56:00 [facility]) MPV [7.4-10.4 fL] 8.2 fL (12/14/2013 22:56:00 [facility]) Segs [45.0-75.0 %] 62.2 % (12/14/2013 22:56:00 [facility]) Lymphocytes 28.0 % [20.0-40.0 %] (12/14/2013 22:56:00 [facility] Monocytes [2.0-12.0 6.2 % %] (12/14/2013 22:56:00 [facility]) Eosinophils [0.0-4.0 3.2 % %] (12/14/2013 22:56:00 [facility]) Basophils [0.0-1.0 0.4 % %] (12/14/2013 22:56:00 [facility]) Segs-Bands # 5.1 K/CMM [1.5-8.1 K/CMM] (12/14/2013 22:56:00 [facility]) Lymphocytes # 2.3 K/CMM [1.0-5.5 K/CMM] (12/14/2013 22:56:00 [facility]) Monocytes # [0.0-0.8 0.5 K/CMM K/CMM] (12/14/2013 22:56:00 [facility]) Eosinophils # 0.3 K/CMM [0.0-0.5 K/CMM] (12/14/2013 22:56:00 [facility]) Basophils # [0.0-0.2 0.0 K/CMM K/CMM] (12/14/2013 22:56:00 [facility] Medications Administered During Your Visit No data available for this section Immunizations No data available for this section Social History Social History Type Response Smoking Status Use: Current every day smoker. Type: Cigarettes. Tobacco smoke exposure: None. Did the Patient Smoke Cigarettes Anytime During the Last 365 Days? Yes. Cessation Counseling Provided? No.
--- OUTSIDE RECORDS SUMMARY | 2019-03-16 05:18 | XMS REPORT | Summary of Care ---
Author Organization Unknown Address Unknown Phone Unavailable Encounter TRISTEN Chi(TALIA) [id number] Date(s): 02/23/14 - 02/23/[address] Discharge Diagnosis: Hematemesis Discharge Diagnosis: Abdominal pain Discharge Disposition: Home Physician Attending: Nickolas Thakur MD Reason for Visit VOMITING BLOOD Vital Signs 1 2 3 Most recent to oldest [Reference Range]: 167.64 cm (02/23/14 2:38 PM) Height 98.0 DegF (02/23/14 7:28 PM) 97.8 DegF (02/23/14 2:38 PM) Temperature Oral [96.4-99.1 DegF] 106 mmHg (02/23/14 7:28 PM) 119 mmHg (02/23/14 5:23 PM) 91 mmHg (02/23/14 2:38 PM) Systolic Blood Pressure [90-140 mmHg] 63 mmHg (02/23/14 7:28 PM) 74 mmHg (02/23/14 5:23 PM) 61 mmHg (02/23/14 2:38 PM) Diastolic Blood Pressure [60-90 mmHg] 20 BRMIN (02/23/14 7:28 PM) 18 BRMIN (02/23/14 5:23 PM) 22 BRMIN *HI* (02/23/14 2:38 PM) Respiratory Rate [14-20 BRMIN] 69 bpm (02/23/14 7:28 PM) 58 bpm *LOW* (02/23/14 5:23 PM) 111 bpm *HI* (02/23/14 2:38 PM) Peripheral Pulse Rate [60-100 bpm] 81.818 kg (02/23/14 2:38 PM) Weight 29.11 m2 (02/23/14 2:38 PM) Body Mass Index Problem List Condition Effective Dates Status Health Status Informant Abdominal 02/09/10 Active pain(Confirmed) Anxiety(Confirmed) Resolved Anxiety(Confirmed) Active Bipolar(Confirmed) Active Bipolar Active disorder(Confirmed) Breast Active infection(Confirmed) 1 Cholesterol Resolved level(Confirmed) Cyst of Active breast(Confirmed)2 Depression(Confirmed Active ) Depression(Confirmed Active ) FH: Active Osteoarthritis(Confi rmed) Fibromyalgia(Confirm Active ed) Hysterectomy(Confirm Resolved ed) Low back Active pain(Confirmed) Osteoarthritis(Confi Resolved rmed) Partial Active hysterectomy(Confirm ed) Urinary Active retention(Confirmed) Vomiting(Confirmed) 02/09/10 Active 1Admitted to Patient's hospital 2 weeks ago for Left breast infection. 2left sided x2 Allergies, Adverse Reactions, Alerts Substance Reaction Severity Status Imitrex Active Motrin Active Toradol Active Zomig Active Medications Bentyl 20 mg oral tablet 20 mg=1 tab, PO, QID, as needed for pain, # 20 tab, 0 Refill(s) Start Date: 02/23/14 Status: Ordered Carafate 1 g/10 mL oral suspension 1 gm=10 ml, PO, QID-Before Meals, # 400 ml, 0 Refill(s) Start Date: 02/23/14 Stop Date: 03/05/14 Status: Ordered chlorproMAZINE 200 mg oral tablet 0 Refill(s) Start Date: 02/23/14 Status: Ordered Dilaudid 1 mg, 1 mL, Route: IV, Drug form: INJ, ONCE, Dosing Weight 81.818, kg, Start gokul e: 02/23/14 17:01:00, Stop date: 02/23/14 17:01:00 Notes: Same as: Dilaudid Start Date: 02/23/14 Stop Date: 02/23/14 Status: Completed Latuda 40 mg oral tablet 0 Refill(s) Start Date: 02/23/14 Status: Ordered morphine Sulfate 4 mg, Route: IVP, ONCE, Dosing Weight 81.818, kg, Priority: STAT, Start date: 15:27:00, Stop date: 02/23/14 15:27:00 Start Date: 02/23/14 Stop Date: 02/23/14 Status: Completed ondansetron 4 mg, Route: IVP, ONCE, Dosing Weight 81.818, kg, Priority: STAT, Start date: 15:27:00, Stop date: 02/23/14 15:27:00 Start Date: 02/23/14 Stop Date: 02/23/14 Status: Completed Protonix 40 mg oral enteric coated tablet 40 mg=1 tab, PO, BID, # 30 tab, 0 Refill(s) Start Date: 02/23/14 Status: Ordered Saline Flush 0.9% 5 mL, Route: IVP, Drug Form: INJ, Dosing Weight 81.818, kg, PRN, PRN Line Flush, Start date: 02/23/14 15:15:00, Duration: 30 day, Stop date: 03/25/14 15:14:00 Notes: (Same as: BD Posiflush) Start Date: 02/23/14 Stop Date: 02/23/14 Status: Discontinued Sodium Chloride 0.9% (Bolus) IV - - 1,000 mL, 1,000 ml/hr, Infuse Over: 1 hr, Route: IV, ONCE, Priority: STAT, Dosin g Weight 81.818 kg, Start date: 02/23/14 18:16:00, Duration: 1 doses or times, S top date: 02/23/14 18:16:00 Start Date: 02/23/14 Stop Date: 02/23/14 Status: Completed Sodium Chloride 0.9% (Bolus) IV - - 1,000 mL, 1,000 ml/hr, Infuse Over: 1 hr, Route: IV, ONCE, Priority: STAT, Dosin g Weight 81.818 kg, Start date: 02/23/14 15:33:00, Duration: 1 doses or times, S top date: 02/23/14 15:33:00 Start Date: 02/23/14 Stop Date: 02/23/14 Status: Completed Sodium Chloride 0.9% (titrate) 250 mL 250 mL, Rate: [employer] for use with blood product administration., Dosing Weight 81.818, kg, Route: IV, Total Volume: 250, Priority: Routine, Start Date: 4 15:15:00, Duration: 30 day, Stop date: 03/25/14 15:14:00, Replace Every: 24 hr Start Date: 02/23/14 Stop Date: 02/23/14 Status: Discontinued traZODONE 150 mg oral tablet, extended release 0 Refill(s) Start Date: 02/23/14 Status: Ordered Results BLOOD BANK RESULTS Most recent to 1 oldest [Reference Range]: ABO/Rh A POS *Unknown* (02/23/14 3:00 PM) Antibody Scrn Negative (02/23/14 3:00 PM) ELECTROLYTES Most recent to 1 oldest [Reference Range]: Sodium Lvl [135-145 140 mEq/L mEq/L] (02/23/14 3:00 PM) Potassium Lvl 3.7 mEq/L [3.5-5.1 mEq/L] (02/23/14 3:00 PM) Chloride Lvl [95-109 109 mEq/L mEq/L] (02/23/14 3:00 PM) CO2 [24-32 mEq/L] 23 mEq/L *LOW* (02/23/14 3:00 PM) AGAP [10.0-20.0 11.7 mEq/L mEq/L] (02/23/14 3:00 PM) CHEM PANEL Most recent to 1 oldest [Reference Range]: Creatinine Lvl 0.8 mg/dL [0.5-1.4 mg/dL] (02/23/14 3:00 PM) eGFR 96 mL/min/1.73m2 1 *NA* (02/23/14 3:00 PM) BUN [7-22 mg/dL] 6 mg/dL *LOW* (02/23/14 3:00 PM) B/C Ratio [6-25] 8 (02/23/14 3:00 PM) Glucose Lvl [70-99 102 mg/dL 2 mg/dL] *HI* (02/23/14 3:00 PM) Total Protein 6.5 g/dL [6.4-8.4 g/dL] (02/23/14 3:00 PM) Albumin Lvl [3.5-5.0 3.6 g/dL g/dL] (02/23/14 3:00 PM) Globulin [2.0-4.0 2.9 g/dL g/dL] (02/23/14 3:00 PM) A/G Ratio [0.7-1.6] 1.2 (02/23/14 3:00 PM) Calcium Lvl 9.5 mg/dL [8.5-10.5 mg/dL] (02/23/14 3:00 PM) ALT [0-65 unit/L] 18 unit/L (02/23/14 3:00 PM) AST [0-37 unit/L] 9 unit/L (02/23/14 3:00 PM) Alk Phos [39-136 74 unit/L unit/L] (02/23/14 3:00 PM) Bili Total [0.2-1.3 0.5 mg/dL mg/dL] (02/23/14 3:00 PM) Lipase Lvl [73-393 170 unit/L unit/L] (02/23/14 3:00 PM) 1Result Comment: The eGFR is calculated using [...] values reflect the clinical guidelines of the [place] [employer]. URINE AND STOOL Most recent to 1 oldest [Reference Range]: Occult Bld Stl Negative [Negative] (02/23/14 6:00 PM) HEMATOLOGY Most recent to 1 oldest [Reference Range]: WBC [3.7-10.4 K/CMM] 9.5 K/CMM (02/23/14 3:00 PM) RBC [4.20-5.40 3.99 M/CMM M/CMM] *LOW* (02/23/14 3:00 PM) Hgb [12.0-16.0 g/dL] 12.1 g/dL (02/23/14 3:00 PM) Hct [36.0-48.0 %] 35.7 % *LOW* (5/31/14 3:00 PM) MCV [81.0-99.0 fL] 89.6 fL (02/23/14 3:00 PM) MCH [27.0-31.0 pg] 30.4 pg (02/23/14 3:00 PM) MCHC [32.0-36.0 33.9 g/dL g/dL] (02/23/14 3:00 PM) RDW [11.5-14.5 %] 13.1 % (02/23/14 3:00 PM) Platelet [133-450 255 K/CMM K/CMM] (02/23/14 3:00 PM) MPV [7.4-10.4 fL] 8.8 fL (02/23/14 3:00 PM) Segs [45.0-75.0 %] 73.6 % (02/23/14 3:00 PM) Lymphocytes 18.9 % [20.0-40.0 %] *LOW* (02/23/14 3:00 PM) Monocytes [2.0-12.0 5.2 % %] (02/23/14 3:00 PM) Eosinophils [0.0-4.0 2.0 % %] (02/23/14 3:00 PM) Basophils [0.0-1.0 0.3 % %] (02/23/14 3:00 PM) Segs-Bands # 7.0 K/CMM [1.5-8.1 K/CMM] (02/23/14 3:00 PM) Lymphocytes # 1.8 K/CMM [1.0-5.5 K/CMM] (02/23/14 3:00 PM) Monocytes # [0.0-0.8 0.5 K/CMM K/CMM] (02/23/14 3:00 PM) Eosinophils # 0.2 K/CMM [0.0-0.5 K/CMM] (02/23/14 3:00 PM) Basophils # [0.0-0.2 0.0 K/CMM K/CMM] (02/23/14 3:00 PM) PT [12.0-14.7 13.1 seconds seconds] (02/23/14 3:00 PM) INR [0.85-1.17] 1.00 3 (02/23/14 3:00 PM) PTT [22.9-35.8 33.8 seconds 4 seconds] (02/23/14 3:00 PM) 3Interpretive Data: RECOMMENDED RANGES FOR PROTIME INR: 2.0-3.0 for most medical and surgical thromboembolic states. 2.5-3.5 for artificial heart valves and recurrent embolism. INR SHOULD BE USED ONLY FOR PATIENTS ON STABLE ANTICOAGULANT THERAPY. 4Interpretive Data: Heparin Therapeutic Range: 57 - 92 Seconds Medications Administered During Your Visit No data available for this section Immunizations No data available for this section Social History Social History Type Response Alcohol Use: Never, Has alcohol use interfered with work or home life? No, Do you ever drink more than intended? No, Has anyone been hurt or at risk by your drinking? No, Ready to change: No, Concerns about alcohol use in household: No Smoking Status Current every day smoker, Type: Cigarettes, Exposure to Tobacco Smoke Lives with someone who smokes, Cigarette Smoking Last 365 Days Yes, Reg Smoking Cessation Counseling No
--- OUTSIDE RECORDS SUMMARY | 2019-03-16 05:18 | XMS REPORT | Summary of Care ---
Author Organization Unknown Address Unknown Phone Unavailable Encounter TRISTEN Chi(TALIA) [id number] Date(s): 04/24/14 - 04/24/14 [facility] [address] [place] Discharge Diagnosis: Acute back pain Discharge Disposition: Home Physician Attending: Jasson Andrade MD Reason for Visit BACK PAIN Vital Signs Most recent to 1 2 oldest [Reference Range]: Height 167.64 cm (04/24/14 11:01 AM) Temperature Oral 98.4 DegF 97.7 DegF [96.4-99.1 DegF] (04/24/14 3:58 PM) (04/24/14 11:01 AM) Systolic Blood 123 mmHg 103 mmHg Pressure [90-140 (04/24/14 3:58 PM) (04/24/14 11:01 AM) mmHg] Diastolic Blood 81 mmHg 69 mmHg Pressure [60-90 (04/24/14 3:58 PM) (04/24/14 11:01 AM) mmHg] Respiratory Rate 18 BRMIN 18 BRMIN [14-20 BRMIN] (04/24/14 3:58 PM) (04/24/14 11:01 AM) Peripheral Pulse 64 bpm 115 bpm Rate [60-100 bpm] (04/24/14 3:58 PM) *HI* (04/24/14 11:01 AM) Weight 82.273 kg (04/24/14 11:01 AM) Body Mass Index 29.28 m2 (04/24/14 11:01 AM) Problem List Condition Effective Dates Status Health [...] Adverse Reactions, Alerts Substance Reaction Severity Status Food Seafood1 Medium Active Imitrex Active Motrin Active Toradol Active Zomig Active 1PATIENT STATES SHE BREAKS OUT Medications acetaminophen-hydrocodone 325 mg-10 mg oral tablet 1 tab, Route: PO, Dosing Weight 82.273, kg, ONCE, STAT, Start date: 04/24/14 14: 47:00, Stop date: 04/24/14 14:47:00 Start Date: 04/24/14 Stop Date: 04/24/14 Status: Completed diazepam 10 mg, Route: PO, ONCE, Dosing Weight 82.273, kg, Priority: STAT, Start date: 13:22:00, Stop date: 04/24/14 13:22:00 Start Date: 04/24/14 Stop Date: 04/24/14 Status: Completed diazepam 10 mg oral tablet 10 mg=1 tab, PO, TID, Anxiety, # 3 tab, 0 Refill(s) Start Date: 04/24/14 Status: Ordered hydromorphone 1 mg, Route: IVP, ONCE, Dosing Weight 82.273, kg, Priority: STAT, Start date: 13:21:00, Stop date: 04/24/14 13:21:00 Start Date: 04/24/14 Stop Date: 04/24/14 Status: Completed [place] 5/325 oral tablet 1 tab, PO, TID, for pain, # 10 tab, 0 Refill(s) Start Date: 04/24/14 Status: Ordered Sodium Chloride 0.9% (Bolus) IV 1,000 mL, 1,000 ml/hr, Infuse Over: 1 hr, Route: IV, ONCE, Priority: STAT, Dosin g Weight 82.273 kg, Start date: 04/24/14 13:22:00, Duration: 1 doses or times, S top date: 04/24/14 13:22:00 Start Date: 04/24/14 Stop Date: 04/24/14 Status: Completed Results ELECTROLYTES Most recent to 1 oldest [Reference Range]: Sodium Lvl [135-145 140 mEq/L mEq/L] (04/24/14 1:58 PM) Potassium Lvl 3.9 mEq/L [3.5-5.1 mEq/L] (04/24/14 1:58 PM) Chloride Lvl [95-109 107 mEq/L mEq/L] (04/24/14 1:58 PM) CO2 [24-32 mEq/L] 27 mEq/L (04/24/14 1:58 PM) AGAP [10.0-20.0 9.9 mEq/L mEq/L] *LOW* (04/24/14 1:58 PM) CHEM PANEL Most recent to 1 oldest [Reference Range]: Creatinine Lvl 0.9 mg/dL [0.5-1.4 mg/dL] (04/24/14 1:58 PM) eGFR 84 mL/min/1.73m2 1 *NA* (04/24/14 1:58 PM) BUN [7-22 mg/dL] 6 mg/dL *LOW* (04/24/14 1:58 PM) B/C Ratio [6-25] 7 (04/24/14 1:58 PM) Glucose Lvl [70-99 93 mg/dL 2 mg/dL] (04/24/14 1:58 PM) Total Protein 6.8 g/dL [6.4-8.4 g/dL] (04/24/14 1:58 PM) Albumin Lvl [3.5-5.0 3.7 g/dL g/dL] (04/24/14 1:58 PM) Globulin [2.0-4.0 3.1 g/dL g/dL] (04/24/14 1:58 PM) A/G Ratio [0.7-1.6] 1.2 (04/24/14 1:58 PM) Calcium Lvl 9.3 mg/dL [8.5-10.5 mg/dL] (04/24/14 1:58 PM) ALT [0-65 unit/L] 18 unit/L (04/24/14 1:58 PM) AST [0-37 unit/L] 16 unit/L (04/24/14 1:58 PM) Alk Phos [39-136 76 unit/L unit/L] (04/24/14 1:58 PM) Bili Total [0.2-1.3 0.3 mg/dL mg/dL] (04/24/14 1:58 PM) 1Result Comment: The eGFR is calculated [...] values reflect the clinical guidelines of the [place] [employer]. CARDIAC ENZYMES Most recent to 1 oldest [Reference Range]: Total CK [12-191 64 unit/L unit/L] (04/24/14 1:58 PM) URINE CHEM Most recent to 1 oldest [Reference Range]: U Preg [Negative] Negative (04/24/14 2:13 PM) URINE AND STOOL Most recent to 1 oldest [Reference Range]: UA Turbidity [Clear] Slight *ABN* (04/24/14 2:13 PM) UA Color Ltyellow *NA* (04/24/14 2:13 PM) UA pH [5.0-8.0] 6.0 (04/24/14 2:13 PM) UA Spec Grav 1.004 [<=1.030] (04/24/14 2:13 PM) UA Glucose [Negative Negative mg/dL mg/dL] *NA* (04/24/14 2:13 PM) UA Blood [Negative] Negative (04/24/14 2:13 PM) UA Ketones [Negative Negative mg/dL mg/dL] *NA* (04/24/14 2:13 PM) UA Protein [Negative Negative mg/dL mg/dL] (04/24/14 2:13 PM) UA Urobilinogen <=1.0 mg/dL [0.1-1.0 mg/dL] *NA* (04/24/14 2:13 PM) UA Bili [Negative] Negative *NA* (04/24/14 2:13 PM) UA Leuk Est Negative [Negative] (04/24/14 2:13 PM) UA Nitrite Negative [Negative] (04/24/14 2:13 PM) UA WBC [0-5 /HPF] <1 /HPF (04/24/14 2:13 PM) UA RBC [0-2 /HPF] <1 /HPF (04/24/14 2:13 PM) UA Sq Epi [Few /LPF] Many /LPF *ABN* (04/24/14 2:13 PM) HEMATOLOGY Most recent to 1 oldest [Reference Range]: WBC [3.7-10.4 K/CMM] 9.7 K/CMM (04/24/14 1:58 PM) RBC [4.20-5.40 4.18 M/CMM M/CMM] *LOW* (04/24/14 1:58 PM) Hgb [12.0-16.0 g/dL] 12.6 g/dL (04/24/14 1:58 PM) Hct [36.0-48.0 %] 36.9 % (04/24/14 1:58 PM) MCV [81.0-99.0 fL] 88.3 fL (04/24/14 1:58 PM) MCH [27.0-31.0 pg] 30.2 pg (04/24/14 1:58 PM) MCHC [32.0-36.0 34.3 g/dL g/dL] (04/24/14 1:58 PM) RDW [11.5-14.5 %] 14.5 % (04/24/14 1:58 PM) Platelet [133-450 238 K/CMM K/CMM] (04/24/14 1:58 PM) MPV [7.4-10.4 fL] 8.7 fL (04/24/14 1:58 PM) Segs [45.0-75.0 %] 74.2 % (04/24/14 1:58 PM) Lymphocytes 19.4 % [20.0-40.0 %] *LOW* (04/24/14 1:58 PM) Monocytes [2.0-12.0 4.2 % %] (04/24/14 1:58 PM) Eosinophils [0.0-4.0 1.7 % %] (04/24/14 1:58 PM) Basophils [0.0-1.0 0.5 % %] (04/24/14 1:58 PM) Segs-Bands # 7.2 K/CMM [1.5-8.1 K/CMM] (04/24/14 1:58 PM) Lymphocytes # 1.9 K/CMM [1.0-5.5 K/CMM] (04/24/14 1:58 PM) Monocytes # [0.0-0.8 0.4 K/CMM K/CMM] (04/24/14 1:58 PM) Eosinophils # 0.2 K/CMM [0.0-0.5 K/CMM] (04/24/14 1:58 PM) Basophils # [0.0-0.2 0.1 K/CMM K/CMM] (04/24/14 1:58 PM) Medications Administered During Your Visit No data available for this section Immunizations No data available for this section Social History Social History Type Response Alcohol Use: Never, Previous treatment: None, Has alcohol use interfered with work or home life? No, Do you ever drink more than intended? No, Has anyone been hurt or at risk by your drinking? No, Ready to change: No, Concerns about alcohol use in household: No Smoking Status Former smoker, Exposure to Tobacco Smoke None, Cigarette Smoking Last 365 Days Yes, Reg Smoking Cessation Counseling No
--- OUTSIDE RECORDS SUMMARY | 2019-03-16 05:18 | XMS REPORT | Summary of Care ---
Author Organization Unknown Address Unknown Phone Unavailable Encounter TRISTEN Chi(TALIA) [id number] Date(s): 02/25/14 - 02/25/[address] Discharge Diagnosis: Abdominal pain Discharge Disposition: Home Physician Attending: Fidel Peñaloza MD Reason for Visit EPIGASTRIC PAIN, VOMITING Vital Signs Most recent to 1 2 oldest [Reference Range]: Height 167.64 cm (02/25/14 7:08 PM) Temperature Oral 98.1 DegF [96.4-99.1 DegF] (02/25/14 7:08 PM) Systolic Blood 112 mmHg 110 mmHg Pressure [90-140 (02/25/14 10:35 PM) (02/25/14 7:08 PM) mmHg] Diastolic Blood 64 mmHg 69 mmHg Pressure [60-90 (02/25/14 10:35 PM) (02/25/14 7:08 PM) mmHg] Respiratory Rate 18 BRMIN 18 BRMIN [14-20 BRMIN] (02/25/14 10:35 PM) (02/25/14 7:08 PM) Peripheral Pulse 88 bpm 98 bpm Rate [60-100 bpm] (02/25/14 10:35 PM) (02/25/14 7:08 PM) Weight 85.909 kg (02/25/14 7:08 PM) Body Mass Index 30.57 m2 (02/25/14 7:08 PM) Problem List Condition Effective Dates Status Health [...] Motrin Active Toradol Active Zomig Active Medications GI cocktail 30 mL, Route: PO, Dosing Weight 85.909, kg, ONCE, STAT, Start date: 02/25/14 20: 28:00, Stop date: 02/25/14 20:28:00 Start Date: 02/25/14 Stop Date: 02/25/14 Status: Completed hydromorphone 1 mg, Route: IVP, ONCE, Dosing Weight 85.909, kg, Priority: STAT, Start date: 20:28:00, Stop date: 02/25/14 20:28:00 Start Date: 02/25/14 Stop Date: 02/25/14 Status: Completed pantoprazole 40 mg, Route: IVP, ONCE, Dosing Weight 85.909, kg, Priority: STAT, Start date: 0 02/25/14 20:28:00, Stop date: 02/25/14 20:28:00 Start Date: 02/25/14 Stop Date: 02/25/14 Status: Completed Saline Flush 0.9% 5 mL, Route: IVP, Drug Form: INJ, Dosing Weight 85.909, kg, PRN, PRN Line Flush, Start date: 02/25/14 19:26:00, Duration: 24 hr, Stop date: 02/26/14 19:25:00 Notes: (Same as: BD Posiflush) Start Date: 02/25/14 Stop Date: 02/26/14 Status: Discontinued Sodium Chloride 0.9% (Bolus) IV - - 1,000 mL, 1000 ml/hr, Infuse Over: 1 hr, Route: IV, 1,000, Drug form: INJ, ONCE, Priority: STAT, Dosing Weight 85.909 kg, Start date: 02/25/14 19:26:00, Duratio n: 1 doses or times, Stop date: 02/25/14 19:26:00 Start Date: 02/25/14 Stop Date: 02/25/14 Status: Completed Results ELECTROLYTES Most recent to 1 oldest [Reference Range]: Sodium Lvl [135-145 140 mEq/L mEq/L] (02/25/14 8:40 PM) Potassium Lvl 3.4 mEq/L [3.5-5.1 mEq/L] *LOW* (02/25/14 8:40 PM) Chloride Lvl [95-109 106 mEq/L mEq/L] (02/25/14 8:40 PM) CO2 [24-32 mEq/L] 25 mEq/L (02/25/14 8:40 PM) AGAP [10.0-20.0 12.4 mEq/L mEq/L] (02/25/14 8:40 PM) CHEM PANEL Most recent to 1 oldest [Reference Range]: Creatinine Lvl 0.8 mg/dL [0.5-1.4 mg/dL] (02/25/14 8:40 PM) eGFR 96 mL/min/1.73m2 1 *NA* (02/25/14 8:40 PM) BUN [7-22 mg/dL] 6 mg/dL *LOW* (02/25/14 8:40 PM) B/C Ratio [6-25] 8 (02/25/14 8:40 PM) Glucose Lvl [70-99 100 mg/dL 2 mg/dL] *HI* (02/25/14 8:40 PM) Total Protein 6.6 g/dL [6.4-8.4 g/dL] (02/25/14 8:40 PM) Albumin Lvl [3.5-5.0 3.7 g/dL g/dL] (02/25/14 8:40 PM) Globulin [2.0-4.0 2.9 g/dL g/dL] (02/25/14 8:40 PM) A/G Ratio [0.7-1.6] 1.3 (02/25/14 8:40 PM) Calcium Lvl 9.6 mg/dL [8.5-10.5 mg/dL] (02/25/14 8:40 PM) ALT [0-65 unit/L] 18 unit/L (02/25/14 8:40 PM) AST [0-37 unit/L] 6 unit/L (02/25/14 8:40 PM) Alk Phos [39-136 68 unit/L unit/L] (02/25/14 8:40 PM) Bili Total [0.2-1.3 0.6 mg/dL mg/dL] (02/25/14 8:40 PM) Lipase Lvl [73-393 150 unit/L unit/L] (02/25/14 8:40 PM) 1Result Comment: The eGFR is calculated [...] values reflect the clinical guidelines of the [place] [employer]. URINE AND STOOL Most recent to 1 oldest [Reference Range]: UA Turbidity [Clear] Clear (02/25/14 8:40 PM) UA Color [Yellow] Yellow *NA* (02/25/14 8:40 PM) UA pH [5.0-8.0] 6.5 (02/25/14 8:40 PM) UA Spec Grav 1.010 [<=1.030] (02/25/14 8:40 PM) UA Glucose [Negative Negative mg/dL mg/dL] *NA* (02/25/14 8:40 PM) UA Blood [Negative] Negative (02/25/14 8:40 PM) UA Ketones [Negative Negative mg/dL mg/dL] *NA* (02/25/14 8:40 PM) UA Protein [Negative Negative mg/dL mg/dL] (02/25/14 8:40 PM) UA Urobilinogen <=1.0 mg/dL [0.1-1.0 mg/dL] *NA* (02/25/14 8:40 PM) UA Bili [Negative] Negative *NA* (02/25/14 8:40 PM) UA Leuk Est Negative [Negative] (02/25/14 8:40 PM) UA Nitrite Negative [Negative] (02/25/14 8:40 PM) UA WBC [0-5 /HPF] <1 /HPF (02/25/14 8:40 PM) UA RBC [0-2 /HPF] <1 /HPF (02/25/14 8:40 PM) UA Sq Epi [Few /LPF] Many /LPF *ABN* (02/25/14 8:40 PM) UA Mucus [None Seen Few /LPF /LPF] *NA* (02/25/14 8:40 PM) HEMATOLOGY Most recent to 1 oldest [Reference Range]: WBC [3.7-10.4 K/CMM] 7.6 K/CMM (02/25/14 8:40 PM) RBC [4.20-5.40 3.87 M/CMM M/CMM] *LOW* (02/25/14 8:40 PM) Hgb [12.0-16.0 g/dL] 11.6 g/dL *LOW* (02/25/14 8:40 PM) Hct [36.0-48.0 %] 34.6 % *LOW* (02/25/14 8:40 PM) MCV [81.0-99.0 fL] 89.4 fL (02/25/14 8:40 PM) MCH [27.0-31.0 pg] 30.1 pg (02/25/14 8:40 PM) MCHC [32.0-36.0 33.7 g/dL g/dL] (02/25/14 8:40 PM) RDW [11.5-14.5 %] 13.4 % (02/25/14 8:40 PM) Platelet [133-450 274 K/CMM K/CMM] (02/25/14 8:40 PM) MPV [7.4-10.4 fL] 8.7 fL (02/25/14 8:40 PM) Segs [45.0-75.0 %] 62.5 % (02/25/14 8:40 PM) Lymphocytes 29.4 % [20.0-40.0 %] (02/25/14 8:40 PM) Monocytes [2.0-12.0 4.8 % %] (02/25/14 8:40 PM) Eosinophils [0.0-4.0 2.8 % %] (02/25/14 8:40 PM) Basophils [0.0-1.0 0.5 % %] (02/25/14 8:40 PM) Segs-Bands # 4.7 K/CMM [1.5-8.1 K/CMM] (02/25/14 8:40 PM) Lymphocytes # 2.2 K/CMM [1.0-5.5 K/CMM] (02/25/14 8:40 PM) Monocytes # [0.0-0.8 0.4 K/CMM K/CMM] (02/25/14 8:40 PM) Eosinophils # 0.2 K/CMM [0.0-0.5 K/CMM] (02/25/14 8:40 PM) Basophils # [0.0-0.2 0.0 K/CMM K/CMM] (02/25/14 8:40 PM) Medications Administered During Your Visit No [...]
--- OUTSIDE RECORDS SUMMARY | 2019-03-16 05:18 | XMS REPORT | Summary of Care ---
Author Organization Unknown Address Unknown Phone Unavailable Encounter TRISTEN Chi(TALIA) [id number] Date(s): 01/23/14 - 01/23/14 [facility] [address] [address] [place] [address] - [facility] Discharge Diagnosis: non cardiac chest pain Discharge Disposition: Home Physician Attending: Willian Stover DO Reason for Visit CHEST PAIN Vital Signs 1 2 3 Most recent to oldest [Reference Range]: 97.6 DegF (01/23/14 10:41 PM) 97.7 DegF (01/23/14 7:41 PM) Temperature Oral [96.4-99.1 DegF] 123 mmHg (01/23/14 10:41 PM) 123 mmHg (01/23/14 10:05 PM) 109 mmHg (01/23/14 8:23 PM) Systolic Blood Pressure [90-140 mmHg] 77 mmHg (01/23/14 10:41 PM) 77 mmHg (01/23/14 10:05 PM) 75 mmHg (01/23/14 8:23 PM) Diastolic Blood Pressure [60-90 mmHg] 15 BRMIN (01/23/14 10:41 PM) 17 BRMIN (01/23/14 10:05 PM) 18 BRMIN (01/23/14 8:23 PM) Respiratory Rate [14-20 BRMIN] 73 bpm (01/23/14 10:41 PM) 101 bpm *HI* (01/23/14 10:05 PM) 91 bpm (01/23/14 8:23 PM) Peripheral Pulse Rate [60-100 bpm] 88.636 kg (01/23/14 7:41 PM) Weight Problem List Condition Effective Dates Status Health [...] Motrin Active Toradol Active Zomig Active Medications Carafate 1 g oral tablet 1 gm=1 tab, PO, QID-Before Meals, # 120 tab, 0 Refill(s) Start Date: 01/23/14 Status: Ordered morphine Sulfate 4 mg, Route: IVP, Drug form: INJ, ONCE, Dosing Weight 88.636, kg, Priority: STAT , Start date: 01/23/14 21:54:00, Stop date: 01/23/14 21:54:00 Start Date: 01/23/14 Stop Date: 01/23/14 Status: Completed Dudley 10/325 oral tablet 1 tab, Route: PO, Dosing Weight 88.636, kg, ONCE, Start date: 01/23/14 21:08:00, Stop date: 01/23/14 21:08:00 Start Date: 01/23/14 Stop Date: 01/23/14 Status: Completed NTG sublingual tablet 0.4 mg, 1 tab, Route: SL, Drug form: TAB, Q5Min, Dosing Weight 88.636, kg, Start date: 01/23/14 21:15:00, Duration: 30 day, Stop date: 02/22/14 21:10:00 Notes: (Same as:Nitroquick, Nitrostat)"Do Not Crush" Sublingual tablet Start Date: 01/23/14 Stop Date: 01/24/14 Status: Discontinued pantoprazole 40 mg oral enteric coated tablet 40 mg=1 tab, PO, Daily, # 30 tab, 0 Refill(s) Start Date: 01/23/14 Status: Ordered Phenergan 12.5 mg, Route: IVPB, ONCE, Dosing Weight 88.636, kg, Priority: STAT, Start date : 01/23/14 21:54:00, Stop date: 01/23/14 21:54:00 Start Date: 01/23/14 Stop Date: 01/23/14 Status: Completed Zofran 4 mg, Route: IVP, Drug form: INJ, ONCE, Dosing Weight 88.636, kg, Priority: STAT , Start date: 01/23/14 21:06:00, Stop date: 01/23/14 21:06:00 Start Date: 01/23/14 Stop Date: 01/23/14 Status: Completed Results ELECTROLYTES Most recent to 1 oldest [Reference Range]: Sodium Lvl [135-145 139 mEq/L mEq/L] (01/23/14 8:30 PM) Potassium Lvl 3.7 mEq/L [3.5-5.1 mEq/L] (01/23/14 8:30 PM) Chloride Lvl [95-109 106 mEq/L mEq/L] (01/23/14 8:30 PM) CO2 [24-32 mEq/L] 25 mEq/L (01/23/14 8:30 PM) AGAP [10.0-20.0 11.7 mEq/L mEq/L] (01/23/14 8:30 PM) CHEM PANEL Most recent to 1 oldest [Reference Range]: Creatinine Lvl 0.8 mg/dL [0.5-1.4 mg/dL] (01/23/14 8:30 PM) eGFR 96 mL/min/1.73m2 1 *NA* (01/23/14 8:30 PM) BUN [7-22 mg/dL] 10 mg/dL (01/23/14 8:30 PM) B/C Ratio [6-25] 12 (01/23/14 8:30 PM) Glucose Lvl [70-99 90 mg/dL 2 mg/dL] (01/23/14 8:30 PM) Total Protein 6.6 g/dL [6.4-8.4 g/dL] (01/23/14 8:30 PM) Albumin Lvl [3.5-5.0 3.3 g/dL g/dL] *LOW* (01/23/14 8:30 PM) Globulin [2.0-4.0 3.3 g/dL g/dL] (01/23/14 8:30 PM) A/G Ratio [0.7-1.6] 1.0 (01/23/14 8:30 PM) Calcium Lvl 9.0 mg/dL [8.5-10.5 mg/dL] (01/23/14 8:30 PM) ALT [0-65 unit/L] 22 unit/L (01/23/14 8:30 PM) AST [0-37 unit/L] 16 unit/L (01/23/14 8:30 PM) Alk Phos [39-136 72 unit/L unit/L] (01/23/14 8:30 PM) Bili Total [0.2-1.3 0.2 mg/dL mg/dL] (01/23/14 8:30 PM) 1Result Comment: The eGFR is calculated [...] values reflect the clinical guidelines of the [place] [employer]. CARDIAC ENZYMES Most recent to 1 oldest [Reference Range]: Total CK [12-191 47 unit/L unit/L] (01/23/14 8:30 PM) Troponin-I <0.02 ng/mL [0.00-0.40 ng/mL] (01/23/14 8:30 PM) HEMATOLOGY Most recent to 1 oldest [Reference Range]: WBC [3.7-10.4 K/CMM] 9.3 K/CMM (01/23/14 8:30 PM) RBC [4.20-5.40 3.79 M/CMM M/CMM] *LOW* (01/23/14 8:30 PM) Hgb [12.0-16.0 g/dL] 11.9 g/dL *LOW* (01/23/14 8:30 PM) Hct [36.0-48.0 %] 35.0 % *LOW* (01/23/14 8:30 PM) MCV [81.0-99.0 fL] 92.2 fL (01/23/14 8:30 PM) MCH [27.0-31.0 pg] 31.5 pg *HI* (01/23/14 8:30 PM) MCHC [32.0-36.0 34.1 g/dL g/dL] (01/23/14 8:30 PM) RDW [11.5-14.5 %] 13.2 % (01/23/14 8:30 PM) Platelet [133-450 283 K/CMM K/CMM] (01/23/14 8:30 PM) MPV [7.4-10.4 fL] 8.1 fL (01/23/14 8:30 PM) Segs [45.0-75.0 %] 65.6 % (01/23/14 8:30 PM) Lymphocytes 23.3 % [20.0-40.0 %] (01/23/14 8:30 PM) Monocytes [2.0-12.0 5.8 % %] (01/23/14 8:30 PM) Eosinophils [0.0-4.0 4.7 % %] *HI* (01/23/14 8:30 PM) Basophils [0.0-1.0 0.6 % %] (01/23/14 8:30 PM) Segs-Bands # 6.1 K/CMM [1.5-8.1 K/CMM] (01/23/14 8:30 PM) Lymphocytes # 2.2 K/CMM [1.0-5.5 K/CMM] (01/23/14 8:30 PM) Monocytes # [0.0-0.8 0.5 K/CMM K/CMM] (01/23/14 8:30 PM) Eosinophils # 0.4 K/CMM [0.0-0.5 K/CMM] (01/23/14 8:30 PM) Basophils # [0.0-0.2 0.1 K/CMM K/CMM] (01/23/14 8:30 PM) Medications Administered During Your Visit No data available for this section Immunizations No data available for this section Social History Social History Type Response Smoking Status Current every day smoker, Type: Cigarettes, Exposure to Tobacco Smoke None, Cigarette Smoking Last 365 Days Yes, Reg Smoking Cessation Counseling No
--- OUTSIDE RECORDS SUMMARY | 2019-03-16 05:18 | XMS REPORT | Summary of Care ---
Author Organization Unknown Address Unknown Phone Unavailable Encounter TRISTEN Chi(TALIA) [id number] Date(s): 02/17/14 - 02/17/14 [facility] [address] [address] Discharge Diagnosis: Phlebitis Discharge Disposition: Home Physician Attending: Satya Minor MD Reason for Visit ARM PAIN SP IV Vital Signs 1 2 3 Most recent to oldest [Reference Range]: 167.64 cm (02/17/14 5:24 PM) Height 98.0 DegF (02/17/14 7:38 PM) 98.2 DegF (02/17/14 6:23 PM) 97.6 DegF (02/17/14 5:24 PM) Temperature Oral [96.4-99.1 DegF] 118 mmHg (02/17/14 7:38 PM) 115 mmHg (02/17/14 6:23 PM) 120 mmHg (02/17/14 5:24 PM) Systolic Blood Pressure [90-140 mmHg] 66 mmHg (02/17/14 7:38 PM) 67 mmHg (02/17/14 6:23 PM) 84 mmHg (02/17/14 5:24 PM) Diastolic Blood Pressure [60-90 mmHg] 18 BRMIN (02/17/14 7:38 PM) 18 BRMIN (02/17/14 6:23 PM) 18 BRMIN (02/17/14 5:24 PM) Respiratory Rate [14-20 BRMIN] 82 bpm (02/17/14 7:38 PM) 87 bpm (02/17/14 6:23 PM) 88 bpm (02/17/14 5:24 PM) Peripheral Pulse Rate [60-100 bpm] 86.364 kg (02/17/14 5:24 PM) Weight 30.73 m2 (02/17/14 5:24 PM) Body Mass Index Problem List Condition [...] Motrin Active Toradol Active Zomig Active Medications acetaminophen-hydrocodone 325 mg-10 mg oral tablet 1 tab, Route: PO, Drug Form: TAB, Dosing Weight 86.364, kg, ONCE, STAT, Start da te: 02/17/14 17:36:00, Stop date: 02/17/14 17:36:00 Notes: Do not exceed 4gm/day of acetaminophen. (Same as: [place] 325/10) Start Date: 02/17/14 Stop Date: 02/17/14 Status: Completed tramadol 100 mg, 2 tab, Route: PO, Drug form: TAB, ONCE, Dosing Weight 86.364, kg, > 50 kg, Priority: STAT, Start date: 02/17/14 19:15:00, Stop date: 02/17/14 19:15:00 Notes: Not to exceed 400mg/day. (Same As: Ultram) Start Date: 02/17/14 Stop Date: 02/17/14 Status: Completed Medications Administered During Your Visit No data [...]
--- OUTSIDE RECORDS SUMMARY | 2019-03-16 05:18 | XMS REPORT | Summary of Care ---
Author Organization Unknown Address Unknown Phone Unavailable Encounter TRISTEN Chi(TALIA) [id number] Date(s): 02/11/14 - 02/16/14 [facility] [id number] [address] Discharge Disposition: Home Physician Attending: Walter Harp MD Physician Admitting: Walter Harp MD Reason for Visit INTRACTABLE VOMITING Vital Signs 1 2 3 Most recent to oldest [Reference Range]: 167.64 cm (02/11/14 8:58 PM) 167.64 cm (02/11/14 1:42 PM) Height 98.1 DegF (02/16/14 12:00 PM) 97.9 DegF (02/16/14 8:00 AM) 97.7 DegF (02/15/14 11:58 PM) Temperature Oral [96.4-99.1 DegF] 133 mmHg (02/16/14 12:00 PM) 118 mmHg (02/16/14 8:00 AM) 117 mmHg (02/16/14 5:05 AM) Systolic Blood Pressure [90-140 mmHg] 90 mmHg (02/16/14 12:00 PM) 79 mmHg (02/16/14 8:00 AM) 79 mmHg (02/16/14 5:05 AM) Diastolic Blood Pressure [60-90 mmHg] 18 BRMIN (02/16/14 12:00 PM) 18 BRMIN (02/16/14 8:00 AM) 18 BRMIN (02/16/14 5:05 AM) Respiratory Rate [14-20 BRMIN] 80 bpm (02/16/14 12:00 PM) 77 bpm (02/16/14 8:00 AM) 74 bpm (02/16/14 5:05 AM) Peripheral Pulse Rate [60-100 bpm] 90.909 kg (02/11/14 8:58 PM) 86.818 kg (02/11/14 1:42 PM) Weight 32.35 m2 (02/11/14 8:58 PM) 30.89 m2 (02/11/14 1:42 PM) Body Mass Index Problem List Condition [...] Toradol Active Zomig Active Medications Carafate 1 g/10 mL oral suspension 1 gm, 10 mL, Route: PO, Drug form: SUSP, QID-Before Meals, Dosing Weight 90.909, kg, Start date: 02/12/14 16:30:00, Duration: 30 day, Stop date: 03/14/14 11:30: 00 Notes: Enteral feeds may interfere with the absorption of this medication. Dk e well. Take 1 hr before or 2 hrs after antacids, dairy pdt, minerals & meals. (Same As: Carafate) Start Date: 02/12/14 Stop Date: 02/16/14 Status: Discontinued Cogentin 0.5 mg, 1 tab, Route: PO, Drug form: TAB, Bedtime, Dosing Weight 90.909, kg, Sta rt date: 02/11/14 22:00:00, Duration: 30 day, Stop date: 03/13/14 21:00:00 Notes: (Same As: Cogentin) Start Date: 02/11/14 Stop Date: 02/16/14 Status: Discontinued Culturelle HS 80 mg, 1 cap, Route: PO, Drug Form: CAP, Dosing Weight 90.909, kg, [id number], Star t date: 02/15/14 14:00:00, Duration: 30 day, Stop date: 03/17/14 2:00:00 Notes: Same as Culturelle Start Date: 02/15/14 Stop Date: 02/16/14 Status: Discontinued Dilaudid 0.5 mg, 0.5 mL, Route: IV, Drug form: INJ, ONCE, Dosing Weight 86.818, kg, Start date: 02/11/14 19:33:00, Stop date: 02/11/14 19:33:00 Start Date: 02/11/14 Stop Date: 02/11/14 Status: Completed Dilaudid 1 mg, 1 mL, Route: IV, Drug form: INJ, Q4H, Dosing Weight 90.909, kg, PRN Pain, Start date: 02/11/14 21:43:00, Duration: 30 day, Stop date: 03/13/14 21:42:00 Start Date: 02/11/14 Stop Date: 02/16/14 Status: Discontinued Dilaudid 0.5 mg, Route: IV, ONCE, Dosing Weight 86.818, kg, Start date: 02/11/14 16:42:00 , Stop date: 02/11/14 16:42:00 Start Date: 02/11/14 Stop Date: 02/11/14 Status: Completed Dilaudid 0.5 mg, 0.5 mL, Route: IV, Drug form: INJ, Q4H, Dosing Weight 86.818, kg, Start date: 02/12/14 0:00:00, Duration: 30 day, Stop date: 03/13/14 20:00:00 Start Date: 02/12/14 Stop Date: 02/11/14 Status: Canceled flumazenil 0.1 mg, 1 mL, Route: IVP, Drug form: INJ, Q5Min, Dosing Weight 90.909, kg, PRN O ther -See Comment, Start date: 02/13/14 13:50:00, Duration: 30 day, Stop date: 0 03/15/14 13:49:00 Notes: (Same as: Romazicon) Start Date: 02/13/14 Stop Date: 02/16/14 Status: Discontinued flumazenil 0.2 mg, 2 mL, Route: IVP, Drug form: INJ, PRN, Dosing Weight 90.909, kg, PRN Oth er -See Comment, Start date: 02/13/14 13:50:00, Duration: 1 doses or times, Stop date: Limited # of times Notes: (Same as: Romazicon) Start Date: 02/13/14 Stop Date: 02/16/14 Status: Discontinued Geodon 160 mg, 2 cap, Route: PO, Drug form: CAP, Bedtime, Dosing Weight 90.909, kg, Sta rt date: 02/11/14 22:00:00, Duration: 30 day, Stop date: 03/13/14 21:00:00 Notes: (Same As: Geodon) Start Date: 02/11/14 Stop Date: 02/16/14 Status: Discontinued Levsin 0.125 mg, 1 tab, Route: PO, Drug form: TAB, QID, Dosing Weight 90.909, kg, PRN S pasm, Start date: 02/13/14 13:54:00, Duration: 30 day, Stop date: 03/15/14 13:53 :00 Start Date: 02/13/14 Stop Date: 02/16/14 Status: Discontinued Levsin SL 0.125 mg, 1 tab, Route: SL, Drug form: TAB, Q4H, Dosing Weight 90.909, kg, PRN P ain, Start date: 02/12/14 12:24:00, Duration: 30 day, Stop date: 03/14/14 12:23: 00 Notes: (Same as: Levsin) Take 30 min before meal Start Date: 02/12/14 Stop Date: 02/13/14 Status: Discontinued morphine Sulfate 4 mg, Route: IVP, Drug form: INJ, ONCE, Dosing Weight 86.818, kg, Priority: STAT , Start date: 02/11/14 14:46:00, Stop date: 02/11/14 14:46:00 Start Date: 02/11/14 Stop Date: 02/11/14 Status: Completed naloxone 0.1 mg, 0.25 mL, Route: IVP, Drug form: INJ, Q2MIN, Dosing Weight 90.909, kg, OH N Narcotic Reversal, Start date: 02/13/14 13:50:00, Duration: 4 doses or times, Stop date: Limited # of times Notes: Same as Narcan Start Date: 02/13/14 Stop Date: 02/16/14 Status: Discontinued NexIUM 40 mg oral delayed release capsule 40 mg=1 cap, PO, BID, 0 Refill(s) Start Date: 02/11/14 Status: Ordered NS (Bolus) IV - - 1,000 mL, 1,000 ml/hr, Infuse Over: 1 hr, Route: IV, ONCE, Priority: STAT, Dosin g Weight 86.818 kg, Start date: 02/11/14 14:46:00, Duration: 1 doses or times, S top date: 02/11/14 14:46:00 Start Date: 02/11/14 Stop Date: 02/11/14 Status: Completed pantoprazole 40 mg, 1 pkt, Route: GT, Drug form: GRAN/REC, Before Dinner, Dosing Weight 90.90 9, kg, Start date: 02/12/14 16:30:00, Duration: 30 day, Stop date: 03/13/14 16:3 0:00 Notes: Same as: Protonix Mix in 5 mL apple juice or applesauce for oral & 10mL apple juice for NG tube Start Date: 02/12/14 Stop Date: 02/13/14 Status: Discontinued Phenergan 25 mg, Route: IVPB, ONCE, Dosing Weight 86.818, kg, Priority: STAT, Start date: 02/11/14 15:33:00, Stop date: 02/11/14 15:33:00 Start Date: 02/11/14 Stop Date: 02/11/14 Status: Completed Phenergan 25 mg, Route: IVPB, ONCE, Dosing Weight 86.818, kg, Priority: STAT, Start date: 02/11/14 17:15:00, Stop date: 02/11/14 17:15:00 Start Date: 02/11/14 Stop Date: 02/11/14 Status: Completed Phenergan + Sodium Chloride 0.9% IV 50 mL 25 mg, 1 mL, Route: IVPB, Q6H, Dosing Weight 86.818, kg, Priority: STAT, Start d ate: 02/11/14 20:39:00, Duration: 30 day, Stop date: 03/13/14 15:00:00 Notes: Do not give IV push. (Same as: Phenergan) Start Date: 02/11/14 Stop Date: 02/16/14 Status: Discontinued Protonix 40 mg, 1 tab, Route: PO, Drug form: ECTAB, Before Dinner, Start date: 02/13/14 1 7:32:00, Duration: 30 day, Stop date: 03/15/14 16:30:00 Notes: Tablet should not be chewed or crushed.(Same as: Protonix) Start Date: 02/13/14 Stop Date: 02/16/14 Status: Discontinued Reglan 10 mg, Route: IVP, Drug form: INJ, ONCE, Dosing Weight 86.818, kg, Priority: STA T, Start date: 02/11/14 14:47:00, Stop date: 02/11/14 14:47:00 Start Date: 02/11/14 Stop Date: 02/11/14 Status: Completed Saline Flush 0.9% 5 ml, Route: IVP, Drug Form: INJ, Dosing Weight 86.818, kg, PRN, PRN Line Flush, Start date: 02/11/14 20:39:00, Duration: 30 day, Stop date: 03/13/14 20:38:00 Notes: (Same as: BD Posiflush) Start Date: 02/11/14 Stop Date: 02/16/14 Status: Discontinued Sodium Chloride 0.9% (Bolus) IV - - 500 mL, 500 ml/hr, Infuse Over: 1 hr, Route: IV, 500, Drug form: INJ, ONCE, Dosi ng Weight 90.909 kg, Start date: 02/13/14 12:26:00, Stop date: 02/13/14 12:26:00 , Bolus Start Date: 02/13/14 Stop Date: 02/13/14 Status: Completed Sodium Chloride 0.9% IV 1,000 mL 1,000 mL, Rate: 125 ml/hr, Infuse over: 8 hr, Route: IV, Dosing Weight 86.818 kg , Total Volume: 1,000, Start date: 02/11/14 20:39:00, Duration: 30 day, Stop gokul e: 03/13/14 20:38:00 Start Date: 02/11/14 Stop Date: 02/16/14 Status: Discontinued temazepam 30 mg, 2 cap, Route: PO, Drug form: CAP, Bedtime, Dosing Weight 90.909, kg, Star t date: 02/11/14 22:00:00, Duration: 30 day, Stop date: 03/13/14 21:00:00 Notes: (Same As: Restoril) Start Date: 02/11/14 Stop Date: 02/16/14 Status: Discontinued trazodone 300 mg, 3 tab, Route: PO, Drug form: TAB, Bedtime, Dosing Weight 90.909, kg, Sta rt date: 02/11/14 22:00:00, Duration: 30 day, Stop date: 03/13/14 21:00:00 Notes: (Same As: Desyrel) Start Date: 02/11/14 Stop Date: 02/16/14 Status: Discontinued Results ELECTROLYTES 1 2 3 Most recent to oldest [Reference Range]: 143 mEq/L (02/15/14 4:17 AM) 142 mEq/L (02/13/14 4:06 AM) 137 mEq/L (02/11/14 2:00 PM) Sodium Lvl [135-145 mEq/L] 3.2 mEq/L *LOW* (02/15/14 4:17 AM) 3.9 mEq/L (02/13/14 4:06 AM) 4.8 mEq/L (02/11/14 2:00 PM) Potassium Lvl [3.5-5.1 mEq/L] 108 mEq/L (02/15/14 4:17 AM) 112 mEq/L *HI* (02/13/14 4:06 AM) 104 mEq/L (02/11/14 2:00 PM) Chloride Lvl [95-109 mEq/L] 24 mEq/L (02/15/14 4:17 AM) 22 mEq/L *LOW* (02/13/14 4:06 AM) 25 mEq/L (02/11/14 2:00 PM) CO2 [24-32 mEq/L] 14.2 mEq/L (02/15/14 4:17 AM) 11.9 mEq/L (02/13/14 4:06 AM) 12.8 mEq/L (02/11/14 2:00 PM) AGAP [10.0-20.0 mEq/L] CHEM PANEL 1 2 3 Most recent to oldest [Reference Range]: 1.0 mg/dL (02/15/14 4:17 AM) 0.8 mg/dL (02/13/14 4:06 AM) 0.7 mg/dL (02/11/14 2:00 PM) Creatinine Lvl [0.5-1.4 mg/dL] 74 mL/min/1.73m2 1 *NA* (02/15/14 4:17 AM) 96 mL/min/1.73m2 2 *NA* (02/13/14 4:06 AM) 113 mL/min/1.73m2 3 *NA* (02/11/14 2:00 PM) eGFR 3 mg/dL *LOW* (02/15/14 4:17 AM) 4 mg/dL *LOW* (02/13/14 4:06 AM) 7 mg/dL (02/11/14 2:00 PM) BUN [7-22 mg/dL] 10 (02/11/14 2:00 PM) B/C Ratio [6-25] 110 mg/dL 4 *HI* (02/15/14 4:17 AM) 84 mg/dL 5 (02/13/14 4:06 AM) 92 mg/dL 6 (02/11/14 2:00 PM) Glucose Lvl [70-99 mg/dL] 7.2 g/dL (02/11/14 2:00 PM) Total Protein [6.4-8.4 g/dL] 3.4 g/dL *LOW* (02/11/14 2:00 PM) Albumin Lvl [3.5-5.0 g/dL] 3.8 g/dL (02/11/14 2:00 PM) Globulin [2.0-4.0 g/dL] 0.9 (02/11/14 2:00 PM) A/G Ratio [0.7-1.6] 8.9 mg/dL (02/15/14 4:17 AM) 9.0 mg/dL (02/13/14 4:06 AM) 9.4 mg/dL (02/11/14 2:00 PM) Calcium Lvl [8.5-10.5 mg/dL] 1.4 mg/dL *LOW* (02/15/14 4:17 AM) 1.6 mg/dL *LOW* (02/13/14 4:06 AM) Magnesium Lvl [1.8-2.4 mg/dL] 25 unit/L (02/11/14 2:00 PM) ALT [0-65 unit/L] 29 unit/L (02/11/14 2:00 PM) AST [0-37 unit/L] 77 unit/L (02/11/14 2:00 PM) Alk Phos [39-136 unit/L] 0.4 mg/dL (02/11/14 2:00 PM) Bili Total [0.2-1.3 mg/dL] 30 unit/L (02/11/14 2:00 PM) Amylase Lvl [25-115 unit/L] 70 unit/L *LOW* (02/11/14 2:00 PM) Lipase Lvl [73-393 unit/L] 1Result Comment: The eGFR is calculated using [...] be mul tiplied by the estimated BMI. 2Result Comment: The eGFR is calculated using [...] be mul tiplied by the estimated BMI. 3Result Comment: The eGFR is calculated using [...] be mul tiplied by the estimated BMI. 4Interpretive Data: Adult reference range values reflect the clinical guidelines of the [place] [employer]. 5Interpretive Data: Adult reference range values reflect the clinical guidelines of the [place] [employer]. 6Interpretive Data: Adult reference range values reflect the clinical guidelines of the [place] [employer]. ENDOCRINOLOGY 1 2 3 Most recent to oldest [Reference Range]: Negative *NA* (02/11/14 2:00 PM) S Preg [Negative] URINE AND STOOL 1 2 3 Most recent to oldest [Reference Range]: Slight *ABN* (02/11/14 2:50 PM) UA Turbidity [Clear] Ltyellow *NA* (02/11/14 2:50 PM) UA Color 6.0 (02/11/14 2:50 PM) UA pH [5.0-8.0] 1.002 (02/11/14 2:50 PM) UA Spec Grav [<=1.030] Negative mg/dL *NA* (02/11/14 2:50 PM) UA Glucose [Negative mg/dL] Negative (02/11/14 2:50 PM) UA Blood [Negative] Negative mg/dL *NA* (02/11/14 2:50 PM) UA Ketones [Negative mg/dL] Negative mg/dL (02/11/14 2:50 PM) UA Protein [Negative mg/dL] <=1.0 mg/dL *NA* (02/11/14 2:50 PM) UA Urobilinogen [0.1-1.0 mg/dL] Negative *NA* (02/11/14 2:50 PM) UA Bili [Negative] Negative (02/11/14 2:50 PM) UA Leuk Est [Negative] Negative (02/11/14 2:50 PM) UA Nitrite [Negative] <1 /HPF (02/11/14 2:50 PM) UA WBC [0-5 /HPF] 2 /HPF (02/11/14 2:50 PM) UA RBC [0-2 /HPF] Occasional /HPF *NA* (02/11/14 2:50 PM) UA Bacteria [None Seen /HPF] Many /LPF *ABN* (02/11/14 2:50 PM) UA Sq Epi [Few /LPF] IMMUNOLOGY 1 2 3 Most recent to oldest [Reference Range]: Negative (02/12/14 4:57 AM) CDC HIV 4th GEN [Negative] HEMATOLOGY 1 2 3 Most recent to oldest [Reference Range]: 5.8 K/CMM (02/15/14 4:17 AM) 4.9 K/CMM (02/13/14 4:06 AM) 9.2 K/CMM (02/11/14 2:00 PM) WBC [3.7-10.4 K/CMM] 3.59 M/CMM *LOW* (02/15/14 4:17 AM) 3.60 M/CMM *LOW* (02/13/14 4:06 AM) 3.95 M/CMM *LOW* (02/11/14 2:00 PM) RBC [4.20-5.40 M/CMM] 11.2 g/dL *LOW* (02/15/14 4:17 AM) 11.2 g/dL *LOW* (02/13/14 4:06 AM) 12.0 g/dL (02/11/14 2:00 PM) Hgb [12.0-16.0 g/dL] 32.7 % *LOW* (02/15/14 4:17 AM) 32.7 % *LOW* (02/13/14 4:06 AM) 36.5 % (02/11/14 2:00 PM) Hct [36.0-48.0 %] 91.0 fL (02/15/14 4:17 AM) 90.9 fL (02/13/14 4:06 AM) 92.5 fL (02/11/14 2:00 PM) MCV [81.0-99.0 fL] 31.1 pg *HI* (02/15/14 4:17 AM) 31.0 pg (02/13/14 4:06 AM) 30.5 pg (02/11/14 2:00 PM) MCH [27.0-31.0 pg] 34.2 g/dL (02/15/14 4:17 AM) 34.1 g/dL (02/13/14 4:06 AM) 33.0 g/dL (02/11/14 2:00 PM) MCHC [32.0-36.0 g/dL] 12.9 % (02/15/14 4:17 AM) 13.3 % (02/13/14 4:06 AM) 13.4 % (02/11/14 2:00 PM) RDW [11.5-14.5 %] 243 K/CMM (02/15/14 4:17 AM) 256 K/CMM (02/13/14 4:06 AM) 328 K/CMM (02/11/14 2:00 PM) Platelet [133-450 K/CMM] 8.3 fL (02/15/14 4:17 AM) 8.2 fL (02/13/14 4:06 AM) 8.7 fL (02/11/14 2:00 PM) MPV [7.4-10.4 fL] 53.7 % (02/15/14 4:17 AM) 43.3 % *LOW* (02/13/14 4:06 AM) 70.8 % (02/11/14 2:00 PM) Segs [45.0-75.0 %] 30.1 % (02/15/14 4:17 AM) 41.7 % *HI* (02/13/14 4:06 AM) 20.7 % (02/11/14 2:00 PM) Lymphocytes [20.0-40.0 %] 7.9 % (02/15/14 4:17 AM) 7.9 % (02/13/14 4:06 AM) 4.7 % (02/11/14 2:00 PM) Monocytes [2.0-12.0 %] 7.6 % *HI* (02/15/14 4:17 AM) 6.4 % *HI* (02/13/14 4:06 AM) 3.3 % (02/11/14 2:00 PM) Eosinophils [0.0-4.0 %] 0.7 % (02/15/14 4:17 AM) 0.7 % (02/13/14 4:06 AM) 0.5 % (02/11/14 2:00 PM) Basophils [0.0-1.0 %] 3.1 K/CMM (02/15/14 4:17 AM) 2.1 K/CMM (02/13/14 4:06 AM) 6.5 K/CMM (02/11/14 2:00 PM) Segs-Bands # [1.5-8.1 K/CMM] 1.7 K/CMM (02/15/14 4:17 AM) 2.1 K/CMM (02/13/14 4:06 AM) 1.9 K/CMM (02/11/14 2:00 PM) Lymphocytes # [1.0-5.5 K/CMM] 0.5 K/CMM (02/15/14 4:17 AM) 0.4 K/CMM (02/13/14 4:06 AM) 0.4 K/CMM (02/11/14 2:00 PM) Monocytes # [0.0-0.8 K/CMM] 0.4 K/CMM (02/15/14 4:17 AM) 0.3 K/CMM (02/13/14 4:06 AM) 0.3 K/CMM (02/11/14 2:00 PM) Eosinophils # [0.0-0.5 K/CMM] 0.0 K/CMM (02/15/14 4:17 AM) 0.0 K/CMM (02/13/14 4:06 AM) 0.1 K/CMM (02/11/14 2:00 PM) Basophils # [0.0-0.2 K/CMM] Medications Administered During Your Visit No data [...] Days Yes, Reg Smoking Cessation Counseling No Assessment and Plan Extracted from: Title: Clinical Document Author: Mary Kay Boyle MD Date: 02/16/14 Progress Note - Daily [facility] Completed: Tuesday, FEBRUARY 16, 2014, 14:14 by Mary Kay Boyle MD RM: 212 - 1P, SE [id number] (: 1980) F Attending: Walter Harphone: Service: Internal Medicine Reason for Admission: INTRACTABLE VOMITING Working DRG: Esophagitis, gastroent & misc digest disorders w/o [facility] Code status: None Specified=FULL CODECurrent diet: Isolation: None Documented Allergies: Motrin, Zomig, Imitrex, Toradol SUBJECTIVE patient seen and examined at bedside with the nurse. chart reviewed and events noted. pt says that she is doing ok and is ready to go home. GI saw her earlier today and cleared her for discharge. pt reports some mild abdominal pain. denies nausea and vomiting. OBJECTIVE General: Alert and Oriented X 3. No acute distress. HEENT: o/p clear, moist mucous membranes Respiratory: clear to auscultation bilaterally, no wheezes, no ronchi, no rales Cardiovascular: regular rate and rhythm, no murmurs, no rubs, GI: soft, non tender, non distended, positive bowel sounds Extremities: no clubbing, cyanosis, or edema bilaterally (no lab data in past 24 hours) Lester still necessary (Yes/No): Line still necessary (Yes/No): VitalsTmp(F)[id number] 02/16 12:[id number]------ 02/16 08:0097.133113/[id number]------ 02/16 05:[id number]/[id number]--- 02/15 23:[id number]--- 02/15 19:[id number]--- 24 Hr Tmax: 98.1F (36.72c) at 02/16 12:00Vital Signs are the last 5 in the past 48 hours. DateWt(kg)Wt(lb)Ht(cm)Ht(in)Method 02/11 (initial) 86.82 [id number] 66.00Stated I&ORecordInOutBal 01/2424hr Tot 73 0 73 01/2324hr Tot 3069 0 3069 Medications (15) Active Scheduled Meds (8): 02/11/14 benztropine (Cogentin) 0.5 mg PO Bedtime 02/15/14 lactobacillus rhamnosus GG (Culturelle HS) 80 mg PO [id number] 02/13/14 pantoprazole (Protonix) 40 mg PO Before Dinner 02/11/14 promethazine + Sodium Chloride 0.9% IV 50 mL (Phenergan + Sodium Chloride 0.9% IV 50 mL) 25 mg IVPB Q6H 204 ml/hr 02/12/14 sucralfate (Carafate 1 g/10 mL oral suspension) 1 gm PO QID-Before Meals 02/11/14 temazepam 30 mg PO Bedtime 02/11/14 trazodone 300 mg PO Bedtime 02/11/14 ziprasidone (Geodon) 160 mg PO Bedtime Unscheduled Meds: None PRN Meds (6): 02/13/14 flumazenil 0.2 mg IVP PRN 02/13/14 flumazenil 0.1 mg IVP Q5Min 02/11/14 hydromorphone (Dilaudid) 1 mg IV Q4H 02/13/14 hyoscyamine (Levsin) 0.125 mg PO QID 02/13/14 naloxone 0.1 mg IVP Q2MIN 02/11/14 sodium chloride (Saline Flush 0.9%) 5 ml IVP PRN One Time Meds: None Continuous Infusions (1): 02/11/14 Sodium Chloride 0.9% IV 1,000 mL 1,000 mL 125 ml/hr ASSESSMENT & PLAN: 1. GI: intractable nausea and vomiting, s/p EGD which shows gastritis. Per GI patient cleared for discharge. advised pt to take OTC tylenol prn pain and OTC omeprazole. 2. Psyche: continue home psyche meds 3. discharge today.
--- OUTSIDE RECORDS SUMMARY | 2019-03-16 05:18 | XMS REPORT | Summary of Care ---
Author Organization Unknown Address Unknown Phone Unavailable Encounter TRISTEN Chi(TALIA) [id number] Date(s): 02/03/14 - 02/03/14 [facility] [address] [address] Discharge Diagnosis: Chest pain with minimal risk of acute coronary syndrome Discharge Diagnosis: Paresthesia Discharge Disposition: Home Physician Attending: Jasson Andrade MD Reason for Visit CHEST PAIN Vital Signs 1 2 3 Most recent to oldest [Reference Range]: 167.64 cm (02/03/14 6:05 PM) Height 97.5 DegF (02/03/14 9:59 PM) 97.7 DegF (02/03/14 6:05 PM) Temperature Oral [96.4-99.1 DegF] 127 mmHg (02/03/14 9:59 PM) 117 mmHg (02/03/14 7:24 PM) 114 mmHg (02/03/14 6:05 PM) Systolic Blood Pressure [90-140 mmHg] 72 mmHg (02/03/14 9:59 PM) 74 mmHg (02/03/14 7:24 PM) 73 mmHg (02/03/14 6:05 PM) Diastolic Blood Pressure [60-90 mmHg] 21 BRMIN *HI* (02/03/14 9:59 PM) 12 BRMIN *LOW* (02/03/14 7:24 PM) 18 BRMIN (02/03/14 6:05 PM) Respiratory Rate [14-20 BRMIN] 95 bpm (02/03/14 6:05 PM) Peripheral Pulse Rate [60-100 bpm] 86.818 kg (02/03/14 6:05 PM) Weight 30.89 m2 (02/03/14 6:05 PM) Body Mass Index Problem List Condition [...] Motrin Active Toradol Active Zomig Active Medications aspirin 324 mg, 4 tab, Route: PO, Drug form: CHEWTAB, ONCE, Dosing Weight 86.818, kg, Pr iority: STAT, Start date: 02/03/14 18:35:00, Stop date: 02/03/14 18:35:00 Notes: Take with food. Start Date: 02/03/14 Stop Date: 02/03/14 Status: Ordered Ativan 1 mg, 0.5 mL, Route: IVP, Drug form: INJ, ONCE, Dosing Weight 86.818, kg, Priori ty: STAT, Start date: 02/03/14 18:36:00, Stop date: 02/03/14 18:36:00 Notes: (Same as: Ativan) Start Date: 02/03/14 Stop Date: 02/03/14 Status: Ordered Dilaudid 0.5 mg, 0.5 mL, Route: IV, Drug form: INJ, ONCE, Dosing Weight 86.818, kg, Start date: 02/03/14 20:06:00, Stop date: 02/03/14 20:06:00 Start Date: 02/03/14 Stop Date: 02/03/14 Status: Completed Saline Flush 0.9% 5 mL, Route: IVP, Drug Form: INJ, Dosing Weight 86.818, kg, Q8H, PRN Line Flush, Start date: 02/03/14 18:35:00, Duration: 30 day, Stop date: 03/05/14 18:34:00, Administer at least once every 8 hours Special Instructions: Administer at least once every 8 hours Notes: (Same as: BD Posiflush) Start Date: 02/03/14 Stop Date: 02/03/14 Status: Discontinued tramadol 50 mg oral tablet 50 mg=1 tab, PO, Q6H, Pain, # 5 tab, 0 Refill(s) Start Date: 02/03/14 Stop Date: 02/13/14 Status: Ordered Results ELECTROLYTES Most recent to 1 oldest [Reference Range]: Sodium Lvl [135-145 140 mEq/L mEq/L] (02/03/14 7:05 PM) Potassium Lvl 4.0 mEq/L [3.5-5.1 mEq/L] (02/03/14 7:05 PM) Chloride Lvl [95-109 108 mEq/L mEq/L] (02/03/14 7:05 PM) CO2 [24-32 mEq/L] 26 mEq/L (02/03/14 7:05 PM) AGAP [10.0-20.0 10.0 mEq/L mEq/L] (02/03/14 7:05 PM) CHEM PANEL Most recent to 1 oldest [Reference Range]: Creatinine Lvl 0.8 mg/dL [0.5-1.4 mg/dL] (02/03/14 7:05 PM) eGFR 96 mL/min/1.73m2 1 *NA* (02/03/14 7:05 PM) BUN [7-22 mg/dL] 6 mg/dL *LOW* (02/03/14 7:05 PM) B/C Ratio [6-25] 8 (02/03/14 7:05 PM) Glucose Lvl [70-99 92 mg/dL 2 mg/dL] (02/03/14 7:05 PM) Total Protein 6.4 g/dL [6.4-8.4 g/dL] (02/03/14 7:05 PM) Albumin Lvl [3.5-5.0 3.2 g/dL g/dL] *LOW* (02/03/14 7:05 PM) Globulin [2.0-4.0 3.2 g/dL g/dL] (02/03/14 7:05 PM) A/G Ratio [0.7-1.6] 1.0 (02/03/14 7:05 PM) Calcium Lvl 8.8 mg/dL [8.5-10.5 mg/dL] (02/03/14 7:05 PM) Phosphorus [2.5-4.5 3.7 mg/dL mg/dL] (02/03/14 7:05 PM) Magnesium Lvl 1.7 mg/dL [1.8-2.4 mg/dL] *LOW* (02/03/14 7:05 PM) ALT [0-65 unit/L] 30 unit/L (02/03/14 7:05 PM) AST [0-37 unit/L] 14 unit/L (02/03/14 7:05 PM) Alk Phos [39-136 70 unit/L unit/L] (02/03/14 7:05 PM) Bili Total [0.2-1.3 0.2 mg/dL mg/dL] (02/03/14 7:05 PM) 1Result Comment: The eGFR is calculated [...] clinical guidelines of the [place] [employer]. CARDIAC ENZYMES Most recent to 1 oldest [Reference Range]: Total CK [12-191 38 unit/L unit/L] (02/03/14 7:05 PM) CK MB [0.5-3.6 0.5 ng/mL ng/mL] (02/03/14 7:05 PM) CK MB Index 1.3 [0.0-2.5] (02/03/14 7:05 PM) Troponin-I <0.02 ng/mL [0.00-0.40 ng/mL] (02/03/14 7:05 PM) BNP [<=100 pg/mL] 9 pg/mL 3 (02/03/14 7:05 PM) 3Interpretive Data: Elevated results are in line with increasing severity of congestive heart failure. Minor elevations between 100 and 300 may be seen with Myocardial Ischemia, Sodium retaining drugs, and compensated/treated heart failure. URINE CHEM Most recent to 1 oldest [Reference Range]: U Preg [Negative] Negative (02/03/14 8:59 PM) URINE AND STOOL Most recent to 1 oldest [Reference Range]: UA Turbidity [Clear] Clear (02/03/14 8:59 PM) UA Color [Yellow] Yellow *NA* (02/03/14 8:59 PM) UA pH [5.0-8.0] 6.0 (02/03/14 8:59 PM) UA Spec Grav <=1.005 [<=1.030] *NA* (02/03/14 8:59 PM) UA Glucose Negative [Negative] (02/03/14 8:59 PM) UA Blood [Negative] Negative (02/03/14 8:59 PM) UA Ketones Negative [Negative] *NA* (02/03/14 8:59 PM) UA Protein Negative [Negative] (02/03/14 8:59 PM) UA Urobilinogen 0.2 EU/dL [0.1-1.0 EU/dL] (02/03/14 8:59 PM) UA Bili [Negative] Negative *NA* (02/03/14 8:59 PM) UA Leuk Est Negative [Negative] (02/03/14 8:59 PM) UA Nitrite Negative [Negative] (02/03/14 8:59 PM) UA WBC [0-5 /HPF] 0-2 /HPF (02/03/14 8:59 PM) UA RBC [0-2 /HPF] 0-2 /HPF (02/03/14 8:59 PM) UA Bacteria [None Few /HPF Seen /HPF] (02/03/14 8:59 PM) UA Sq Epi [Few /LPF] Few /LPF (02/03/14 8:59 PM) Micro? Performed (02/03/14 8:59 PM) HEMATOLOGY Most recent to 1 oldest [Reference Range]: WBC [3.7-10.4 K/CMM] 8.3 K/CMM (02/03/14 7:05 PM) RBC [4.20-5.40 3.83 M/CMM M/CMM] *LOW* (02/03/14 7:05 PM) Hgb [12.0-16.0 g/dL] 11.8 g/dL *LOW* (02/03/14 7:05 PM) Hct [36.0-48.0 %] 35.2 % *LOW* (02/03/14 7:05 PM) MCV [81.0-99.0 fL] 91.8 fL (02/03/14 7:05 PM) MCH [27.0-31.0 pg] 30.7 pg (02/03/14:05 PM) MCHC [32.0-36.0 33.5 g/dL g/dL] (02/03/14 7:05 PM) RDW [11.5-14.5 %] 12.7 % (02/03/14 7:05 PM) Platelet [133-450 285 K/CMM K/CMM] (02/03/14 7:05 PM) MPV [7.4-10.4 fL] 8.5 fL (02/03/14 7:05 PM) Segs [45.0-75.0 %] 62.1 % (02/03/14 7:05 PM) Lymphocytes 25.0 % [20.0-40.0 %] (02/03/14 7:05 PM) Monocytes [2.0-12.0 7.3 % %] (02/03/14 7:05 PM) Eosinophils [0.0-4.0 4.9 % %] *HI* (02/03/14 7:05 PM) Basophils [0.0-1.0 0.7 % %] (02/03/14 7:05 PM) Segs-Bands # 5.2 K/CMM [1.5-8.1 K/CMM] (02/03/14 7:05 PM) Lymphocytes # 2.1 K/CMM [1.0-5.5 K/CMM] (02/03/14 7:05 PM) Monocytes # [0.0-0.8 0.6 K/CMM K/CMM] (02/03/14 7:05 PM) Eosinophils # 0.4 K/CMM [0.0-0.5 K/CMM] (02/03/14 7:05 PM) Basophils # [0.0-0.2 0.1 K/CMM K/CMM] (02/03/14 7:05 PM) PT [12.0-14.7 12.4 seconds seconds] (02/03/14 7:05 PM) INR [0.85-1.17] 0.93 4 (02/03/14 7:05 PM) PTT [22.9-35.8 32.8 seconds 5 seconds] (02/03/14 7:05 PM) 4Interpretive Data: RECOMMENDED RANGES FOR PROTIME INR: 2.0-3.0 for most medical and surgical thromboembolic states. 2.5-3.5 for artificial heart valves and recurrent embolism. INR SHOULD BE USED ONLY FOR PATIENTS ON STABLE ANTICOAGULANT THERAPY. 5Interpretive Data: Heparin Therapeutic Range: 57 - [...]
--- OUTSIDE RECORDS SUMMARY | 2019-03-16 05:19 | XMS REPORT | Summary of Care ---
Author Organization Unknown Address Unknown Phone Unavailable Encounter TRISTEN Chi(TALIA) [id number] Date(s): 04/08/14 - 04/08/14 [facility] [address] Discharge Diagnosis: Nausea & vomiting Discharge Diagnosis: Migraine Discharge Diagnosis: Bronchitis Discharge Disposition: Home Physician Attending: Chandu Simpson MD Reason for Visit CONGESTION Vital Signs 1 2 3 Most recent to oldest [Reference Range]: 167.64 cm (04/08/14 12:54 PM) Height 98.3 DegF (04/08/14 9:21 PM) 98.4 DegF (04/08/14 8:49 PM) 98.3 DegF (04/08/14 12:54 PM) Temperature Oral [96.4-99.1 DegF] 106 mmHg (04/08/14 9:21 PM) 101 mmHg (04/08/14 8:49 PM) 131 mmHg (04/08/14 12:54 PM) Systolic Blood Pressure [90-140 mmHg] 67 mmHg (04/08/14 9:21 PM) 63 mmHg (04/08/14 8:49 PM) 92 mmHg *HI* (04/08/14 12:54 PM) Diastolic Blood Pressure [60-90 mmHg] 18 BRMIN (04/08/14 9:21 PM) 18 BRMIN (04/08/14 8:49 PM) 16 BRMIN (04/08/14 8:01 PM) Respiratory Rate [14-20 BRMIN] 90 bpm (04/08/14 9:21 PM) 87 bpm (04/08/14 8:49 PM) 110 bpm *HI* (04/08/14 12:54 PM) Peripheral Pulse Rate [60-100 bpm] 82.727 kg (04/08/14 12:54 PM) Weight 29.44 m2 (04/08/14 12:54 PM) Body Mass Index Problem List Condition [...] STATES SHE BREAKS OUT Medications acetaminophen-hydrocodone 325 mg-7.5 mg/15 mL oral solution 15 mL, Route: PO, Drug Form: SOLN, Dosing Weight 82.727, kg, ONCE, STAT, Start d ate: 04/08/14 19:44:00, Stop date: 04/08/14 19:44:00 Start Date: 04/08/14 Stop Date: 04/08/14 Status: Completed albuterol 90 mcg/inh inhalation aerosol 1 puff, INHALATION, QID, wheezing, # 1 ea, 0 Refill(s) Start Date: 04/08/14 Status: Ordered Benadryl 12.5 mg, Route: IVP, ONCE, Dosing Weight 82.727, kg, Priority: STAT, Start date: 04/08/14 20:37:00, Stop date: 04/08/14 20:37:00 Start Date: 04/08/14 Stop Date: 04/08/14 Status: Completed DuoNeb inhalation solution 3 ml, Route: INHALATION, Drug Form: SOLN, Dosing Weight 82.727, kg, PRN, PRN Res piratory Protocol, Start date: 04/08/14 19:44:00, Duration: 30 day, Stop date: 0 05/08/14 19:43:00 Notes: (Same as: Duoneb) Start Date: 04/08/14 Stop Date: 04/09/14 Status: Discontinued NS (Bolus) IV 1,000 mL, 1,000 ml/hr, Infuse Over: 1 hr, Route: IV, ONCE, Priority: STAT, Dosin g Weight 82.727 kg, Start date: 04/08/14 20:37:00, Duration: 1 doses or times, S top date: 04/08/14 20:37:00 Start Date: 04/08/14 Stop Date: 04/08/14 Status: Completed Reglan 10 mg, Route: IVP, ONCE, Dosing Weight 82.727, kg, Priority: STAT, Start date: 0 04/08/14 20:37:00, Stop date: 04/08/14 20:37:00 Start Date: 04/08/14 Stop Date: 04/08/14 Status: Completed Zithromax Z-George 250 mg oral tablet 250 mg, PO, Daily, Take 2 tablets by mouth the first day then 1 tablet by mouth days 2-5, # 6 tab, 0 Refill(s) Special Instructions: Take 2 tablets by mouth the first day then 1 tablet by iqra th days 2-5 Start Date: 04/08/14 Stop Date: 04/13/14 Status: Ordered Zofran ODT 4 mg, Route: PO, Drug form: TABDIS, ONCE, Dosing Weight 82.727, kg, Priority: ST AT, Start date: 04/08/14 19:44:00, Stop date: 04/08/14 19:44:00 Start Date: 04/08/14 Stop Date: 04/08/14 Status: Completed Zofran ODT 4 mg oral tablet, disintegrating 4 mg=1 tab, PO, BID, Nausea and Vomiting, Dissolve tab under tongue, # 10 tab, 0 Refill(s) Special Instructions: Dissolve tab under tongue Start Date: 04/08/14 Status: Ordered Results ELECTROLYTES Most recent to 1 oldest [Reference Range]: Sodium Lvl [135-145 138 mEq/L mEq/L] (04/08/14 4:24 PM) Potassium Lvl 3.3 mEq/L [3.5-5.1 mEq/L] *LOW* (04/08/14 4:24 PM) Chloride Lvl [95-109 105 mEq/L mEq/L] (04/08/14 4:24 PM) CO2 [24-32 mEq/L] 25 mEq/L (04/08/14 4:24 PM) AGAP [10.0-20.0 11.3 mEq/L mEq/L] (04/08/14 4:24 PM) CHEM PANEL Most recent to 1 oldest [Reference Range]: Creatinine Lvl 0.9 mg/dL [0.5-1.4 mg/dL] (04/08/14 4:24 PM) eGFR 84 mL/min/1.73m2 1 *NA* (04/08/14 4:24 PM) BUN [7-22 mg/dL] 5 mg/dL *LOW* (04/08/14 4:24 PM) B/C Ratio [6-25] 6 (04/08/14 4:24 PM) Glucose Lvl [70-99 88 mg/dL 2 mg/dL] (04/08/14 4:24 PM) Total Protein 7.0 g/dL [6.4-8.4 g/dL] (04/08/14 4:24 PM) Albumin Lvl [3.5-5.0 3.6 g/dL g/dL] (04/08/14 4:24 PM) Globulin [2.0-4.0 3.4 g/dL g/dL] (04/08/14 4:24 PM) A/G Ratio [0.7-1.6] 1.1 (04/08/14 4:24 PM) Calcium Lvl 9.5 mg/dL [8.5-10.5 mg/dL] (04/08/14 4:24 PM) ALT [0-65 unit/L] 17 unit/L (04/08/14 4:24 PM) AST [0-37 unit/L] 11 unit/L (04/08/14 4:24 PM) Alk Phos [39-136 74 unit/L unit/L] (04/08/14 4:24 PM) Bili Total [0.2-1.3 0.2 mg/dL mg/dL] (04/08/14 4:24 PM) Amylase Lvl [25-115 44 unit/L unit/L] (04/08/14 4:24 PM) Lipase Lvl [73-393 178 unit/L unit/L] (04/08/14 4:24 PM) 1Result Comment: The eGFR is calculated [...] values reflect the clinical guidelines of the [place] [employer]. URINE AND STOOL Most recent to 1 oldest [Reference Range]: UA Turbidity [Clear] Slight *ABN* (04/08/14 7:41 PM) UA Color Ltyellow *NA* (04/08/14 7:41 PM) UA pH [5.0-8.0] 7.0 (04/08/14 7:41 PM) UA Spec Grav 1.008 [<=1.030] (04/08/14 7:41 PM) UA Glucose [Negative Negative mg/dL mg/dL] *NA* (04/08/14 7:41 PM) UA Blood [Negative] Negative (04/08/14 7:41 PM) UA Ketones [Negative Negative mg/dL mg/dL] *NA* (04/08/14 7:41 PM) UA Protein [Negative Negative mg/dL mg/dL] (04/08/14 7:41 PM) UA Urobilinogen <=1.0 mg/dL [0.1-1.0 mg/dL] *NA* (04/08/14 7:41 PM) UA Bili [Negative] Negative *NA* (04/08/14 7:41 PM) UA Leuk Est Small [Negative] *ABN* (04/08/14 7:41 PM) UA Nitrite Negative [Negative] (04/08/14 7:41 PM) UA WBC [0-5 /HPF] 11 /HPF *HI* (04/08/14 7:41 PM) UA RBC [0-2 /HPF] 1 /HPF (04/08/14 7:41 PM) UA Bacteria [None Occasional /HPF Seen /HPF] *NA* (04/08/14 7:41 PM) UA Sq Epi [Few /LPF] Many /LPF *ABN* (04/08/14 7:41 PM) UA Mucus [None Seen Few /LPF /LPF] *NA* (04/08/14 7:41 PM) HEMATOLOGY Most recent to 1 oldest [Reference Range]: WBC [3.7-10.4 K/CMM] 7.2 K/CMM (04/08/14 4:24 PM) RBC [4.20-5.40 4.17 M/CMM M/CMM] *LOW* (04/08/14 4:24 PM) Hgb [12.0-16.0 g/dL] 12.4 g/dL (04/08/14 4:24 PM) Hct [36.0-48.0 %] 36.8 % (04/08/14 4:24 PM) MCV [81.0-99.0 fL] 88.3 fL (04/08/14 4:24 PM) MCH [27.0-31.0 pg] 29.8 pg (04/08/14 4:24 PM) MCHC [32.0-36.0 33.8 g/dL g/dL] (04/08/14 4:24 PM) RDW [11.5-14.5 %] 13.8 % (04/08/14 4:24 PM) Platelet [133-450 263 K/CMM K/CMM] (04/08/14 4:24 PM) MPV [7.4-10.4 fL] 8.2 fL (04/08/14 4:24 PM) Segs [45.0-75.0 %] 57.4 % (04/08/14 4:24 PM) Lymphocytes 33.0 % [20.0-40.0 %] (04/08/14 4:24 PM) Monocytes [2.0-12.0 5.4 % %] (04/08/14 4:24 PM) Eosinophils [0.0-4.0 3.0 % %] (04/08/14 4:24 PM) Basophils [0.0-1.0 1.2 % %] *HI* (04/08/14 4:24 PM) Segs-Bands # 4.1 K/CMM [1.5-8.1 K/CMM] (04/08/14 4:24 PM) Lymphocytes # 2.4 K/CMM [1.0-5.5 K/CMM] (04/08/14 4:24 PM) Monocytes # [0.0-0.8 0.4 K/CMM K/CMM] (04/08/14 4:24 PM) Eosinophils # 0.2 K/CMM [0.0-0.5 K/CMM] (04/08/14 4:24 PM) Basophils # [0.0-0.2 0.1 K/CMM K/CMM] (04/08/14 4:24 PM) Medications Administered During Your Visit No [...] in household: No Smoking Status Former smoker, Type: Cigarettes, Exposure to Tobacco Smoke Lives with someone who smokes, Cigarette Smoking Last 365 Days Yes, Reg Smoking Cessation Counseling No1 1quit smoking "2 weeks ago"
--- OUTSIDE RECORDS SUMMARY | 2019-03-16 05:19 | XMS REPORT | Summary of Care ---
Author Organization Unknown Address Unknown Phone Unavailable Encounter TRISTEN Chi(TALIA) [id number] Date(s): 06/05/14 - 06/05/14 [facility] [address] [address] [place] [address] [place] Discharge Diagnosis: Acute lower urinary tract infection Discharge Disposition: Home Physician Attending: Clary Soni DO Reason for Visit HEADACHE Vital Signs 1 2 3 Most recent to oldest [Reference Range]: 167.64 cm (06/05/14 11:13 AM) Height 97.4 DegF (06/05/14 2:21 PM) 97.4 DegF (06/05/14 1:10 PM) 97.3 DegF (06/05/14 11:13 AM) Temperature Oral [96.4-99.1 DegF] 110 mmHg (06/05/14 2:21 PM) 107 mmHg (06/05/14 1:10 PM) 114 mmHg (06/05/14 12:36 PM) Systolic Blood Pressure [90-140 mmHg] 70 mmHg (06/05/14 2:21 PM) 60 mmHg (06/05/14 1:10 PM) 74 mmHg (06/05/14 12:36 PM) Diastolic Blood Pressure [60-90 mmHg] 18 BRMIN (06/05/14 2:21 PM) 16 BRMIN (06/05/14 1:10 PM) 18 BRMIN (06/05/14 12:36 PM) Respiratory Rate [14-20 BRMIN] 68 bpm (06/05/14 2:21 PM) 70 bpm (06/05/14 1:10 PM) 73 bpm (06/05/14 12:36 PM) Peripheral Pulse Rate [60-100 bpm] 77.273 kg (06/05/14 11:13 AM) Weight 27.5 m2 (06/05/14 11:13 AM) Body Mass Index Problem List Condition Effective [...] Active 1PATIENT STATES SHE BREAKS OUT Medications Bactrim DS oral tablet 1 tab, PO, BID, # 6 tab, 0 Refill(s) Start Date: 06/05/14 Stop Date: 06/08/14 Status: Ordered morphine Sulfate 4 mg, Route: IVP, ONCE, Dosing Weight 77.273, kg, Priority: STAT, Start date: 11:58:00, Stop date: 06/05/14 11:58:00 Start Date: 06/05/14 Stop Date: 06/05/14 Status: Completed Phenergan 12.5 mg, Route: IVPB, ONCE, Dosing Weight 77.273, kg, Priority: STAT, Start date : 06/05/14 12:29:00, Stop date: 06/05/14 12:29:00 Start Date: 06/05/14 Stop Date: 06/05/14 Status: Completed prochlorperazine 10 mg, Route: IVP, ONCE, Dosing Weight 77.273, kg, Priority: STAT, Start date: 0 06/05/14 11:58:00, Stop date: 06/05/14 11:58:00 Start Date: 06/05/14 Stop Date: 06/05/14 Status: Completed Sodium Chloride 0.9% IV 1,000 mL 1,000 mL, Rate: 75 ml/hr, Infuse over: 13.3 hr, Route: IV, Dosing Weight 77.273 kg, Total Volume: 1,000, Priority: STAT, Start date: 06/05/14 11:58:00, Duration : 1 doses or times, Stop date: 06/06/14 1:15:00 Start Date: 06/05/14 Stop Date: 06/05/14 Status: Completed Results ELECTROLYTES Most recent to 1 oldest [Reference Range]: Sodium Lvl [135-145 138 mEq/L mEq/L] (06/05/14 12:15 PM) Potassium Lvl 5.0 mEq/L [3.5-5.1 mEq/L] (06/05/14 12:15 PM) Chloride Lvl [95-109 107 mEq/L mEq/L] (06/05/14 12:15 PM) CO2 [24-32 mEq/L] 24 mEq/L (06/05/14 12:15 PM) AGAP [10.0-20.0 12.0 mEq/L mEq/L] (06/05/14 12:15 PM) CHEM PANEL Most recent to 1 oldest [Reference Range]: Creatinine Lvl 0.5 mg/dL [0.5-1.4 mg/dL] (06/05/14 12:15 PM) eGFR 127 mL/min/1.73m2 1 *NA* (06/05/14 12:15 PM) BUN [7-22 mg/dL] 4 mg/dL *LOW* (06/05/14 12:15 PM) B/C Ratio [6-25] 8 (06/05/14 12:15 PM) Glucose Lvl [70-99 89 mg/dL 2 mg/dL] (06/05/14 12:15 PM) Total Protein 7.0 g/dL [6.4-8.4 g/dL] (06/05/14 12:15 PM) Albumin Lvl [3.5-5.0 3.6 g/dL g/dL] (06/05/14 12:15 PM) Globulin [2.0-4.0 3.4 g/dL g/dL] (06/05/14 12:15 PM) A/G Ratio [0.7-1.6] 1.1 (06/05/14 12:15 PM) Calcium Lvl 9.4 mg/dL [8.5-10.5 mg/dL] (06/05/14 12:15 PM) ALT [0-65 unit/L] 33 unit/L (06/05/14 12:15 PM) AST [0-37 unit/L] 30 unit/L (06/05/14 12:15 PM) Alk Phos [39-136 83 unit/L unit/L] (06/05/14 12:15 PM) Bili Total [0.2-1.3 0.5 mg/dL mg/dL] (06/05/14 12:15 PM) Lipase Lvl [73-393 106 unit/L unit/L] (06/05/14 12:15 PM) Ammonia [<=45.0 37.0 uMol/L uMol/L] (06/05/14 12:15 PM) 1Result Comment: The eGFR is calculated [...] values reflect the clinical guidelines of the [place] [employer]. CARDIAC ENZYMES Most recent to 1 oldest [Reference Range]: Total CK [12-191 171 unit/L unit/L] (06/05/14 12:15 PM) CK MB [0.5-3.6 <0.5 ng/mL ng/mL] (06/05/14 12:15 PM) CK MB Index <0.3 [0.0-2.5] (06/05/14 12:15 PM) Troponin-I <0.02 ng/mL [0.00-0.40 ng/mL] (06/05/14 12:15 PM) DRUG SCREEN Most recent to 1 oldest [Reference Range]: U Amph Scr Negative [Negative] *NA* (06/05/14 12:15 PM) U [place] Scr Negative [Negative] *NA* (06/05/14 12:15 PM) U Benzodia Scr Negative [Negative] *NA* (06/05/14 12:15 PM) U Cocaine Scr Negative [Negative] *NA* (06/05/14 12:15 PM) U Opiate Scr Positive [Negative] *ABN* (06/05/14 12:15 PM) U Phencyc Scr Negative [Negative] *NA* (06/05/14 12:15 PM) U Cannab Scr Negative [Negative] *NA* (06/05/14 12:15 PM) UDS Note See Note 3 (06/05/14 12: PM) 3Interpretive Data: Drugs reported as positive have [...] Methadone 300 ng/mL Urine alcohol 20 mg/dL URINE CHEM Most recent to 1 oldest [Reference Range]: U Preg [Negative] Negative (06/05/14 12:15 PM) URINE AND STOOL Most recent to 1 oldest [Reference Range]: UA Turbidity [Clear] Slight *ABN* (06/05/14: PM) UA Color Ltyellow *NA* (06/05/14 12:15 PM) UA pH [5.0-8.0] 6.0 (06/05/14 12:15 PM) UA Spec Grav 1.004 [<=1.030] (06/05/14 12:15 PM) UA Glucose [Negative Negative mg/dL mg/dL] *NA* (06/05/14:15 PM) UA Blood [Negative] Negative (06/05/14 12:15 PM) UA Ketones [Negative Negative mg/dL mg/dL] *NA* (06/05/14:15 PM) UA Protein [Negative Negative mg/dL mg/dL] (06/05/14 12:15 PM) UA Urobilinogen <=1.0 mg/dL [0.1-1.0 mg/dL] *NA* (06/05/14:15 PM) UA Bili [Negative] Negative *NA* (06/05/1415 PM) UA Leuk Est Trace [Negative] *ABN* (06/05/1415 PM) UA Nitrite Positive [Negative] *ABN* (06/05/1415 PM) UA WBC [0-5 /HPF] 2 /HPF (06/05/14:15 PM) UA RBC [0-2 /HPF] 1 /HPF (06/05/14:15 PM) UA Bacteria [None Occasional /HPF Seen /HPF] *NA* (06/05/1415 PM) UA Sq Epi [Few /LPF] Few /LPF *NA* (06/05/14:15 PM) HEMATOLOGY Most recent to 1 oldest [Reference Range]: WBC [3.7-10.4 K/CMM] 11.1 K/CMM *HI* (06/05/14 12:15 PM) RBC [4.20-5.40 4.13 M/CMM M/CMM] *LOW* (06/05/14:15 PM) Hgb [12.0-16.0 g/dL] 12.3 g/dL (06/05/14:15 PM) Hct [36.0-48.0 %] 37.6 % (06/05/14 12:15 PM) MCV [80.0-98.0 fL] 91.0 fL (06/05/14:15 PM) MCH [27.0-31.0 pg] 29.8 pg (06/05/14:15 PM) MCHC [32.0-36.0 32.7 g/dL g/dL] (06/05/1415 PM) RDW [11.5-14.5 %] 15.8 % *HI* (06/05/14 12:15 PM) Platelet [133-450 251 K/CMM K/CMM] (06/05/14 12:15 PM) MPV [7.4-10.4 fL] 8.9 fL (06/05/14 12:15 PM) Segs [45.0-75.0 %] 73.0 % (06/05/14 12:15 PM) Lymphocytes 19.2 % [20.0-40.0 %] *LOW* (06/05/14 12:15 PM) Monocytes [2.0-12.0 4.2 % %] (06/05/14 12:15 PM) Eosinophils [0.0-4.0 2.3 % %] (06/05/14 12:15 PM) Basophils [0.0-1.0 1.3 % %] *HI* (06/05/14 12:15 PM) Segs-Bands # 8.1 K/CMM [1.5-8.1 K/CMM] (06/05/14 12:15 PM) Lymphocytes # 2.1 K/CMM [1.0-5.5 K/CMM] (06/05/14 12:15 PM) Monocytes # [0.0-0.8 0.5 K/CMM K/CMM] (06/05/14 12:15 PM) Eosinophils # 0.3 K/CMM [0.0-0.5 K/CMM] (06/05/14 12:15 PM) Basophils # [0.0-0.2 0.1 K/CMM K/CMM] (06/05/14 12:15 PM) PT [12.0-14.7 12.4 seconds seconds] (06/05/14 12:15 PM) INR [0.85-1.17] 0.93 4 (06/05/14 12:15 PM) PTT [22.9-35.8 23.5 seconds 5 seconds] (06/05/14 12:15 PM) 4Interpretive Data: RECOMMENDED RANGES FOR PROTIME [...]
--- OUTSIDE RECORDS SUMMARY | 2019-03-16 05:19 | XMS REPORT | Summary of Care ---
Author Organization Unknown Address Unknown Phone Unavailable Encounter [facility]ST[facility] Chi(TALIA) [id number] Date(s): 07/10/14 - 07/11/14 [facility] [address] [address] Discharge Diagnosis: Tremor Discharge Diagnosis: Adverse drug reaction Discharge Disposition: Home Physician Attending: Kody Rubio MD Reason for Visit POSSIBLE ALLERGIC REACTION Vital Signs Most recent to 1 2 oldest [Reference Range]: Temperature Oral 98.0 DegF 97.9 DegF [96.4-99.1 DegF] (07/11/14 2:30 AM) (07/10/14 11:47 PM) Systolic Blood 109 mmHg 127 mmHg Pressure [90-140 (07/11/14 2:30 AM) (07/10/14 11:47 PM) mmHg] Diastolic Blood 58 mmHg 84 mmHg Pressure [60-90 *LOW* (07/10/14 11:47 PM) mmHg] (07/11/14 2:30 AM) Respiratory Rate 16 BRMIN 20 BRMIN [14-20 BRMIN] (07/11/14 2:30 AM) (07/10/14 11:47 PM) Peripheral Pulse 76 bpm 107 bpm Rate [60-100 bpm] (07/11/14 2:30 AM) *HI* (07/10/14 11:47 PM) Weight 80.909 kg (07/10/14 11:47 PM) Problem List Condition Effective Dates Status [...] Active 1PATIENT STATES SHE BREAKS OUT Medications Ativan 1 mg, 0.5 mL, Route: IVP, Drug form: INJ, ONCE, Dosing Weight 80.909, kg, Priori ty: STAT, Start date: 07/11/14 1:27:00, Stop date: 07/11/14 1:27:00 Notes: (Same as: Ativan) Start Date: 07/11/14 Stop Date: 07/11/14 Status: Completed morphine Sulfate 4 mg, Route: IM, ONCE, Dosing Weight 80.909, kg, Priority: STAT, Start date: 2:06:00, Stop date: 07/11/14 2:06:00 Start Date: 07/11/14 Stop Date: 07/11/14 Status: Completed [place] 5/325 oral tablet 1 tab, Route: PO, Drug Form: TAB, Dosing Weight 80.909, kg, ONCE, Start date: 0:31:00, Stop date: 07/11/14 0:31:00 Notes: (Same as: [place] 325/5) Do not exceed 4gm/day of acetaminophen. Start Date: 07/11/14 Stop Date: 07/11/14 Status: Completed Valium 5 mg oral tablet 5 mg=1 tab, PO, QID, tremor, # 10 tab, 0 Refill(s) Start Date: 07/11/14 Status: Ordered Zofran ODT 4 mg, 1 tab, Route: PO, Drug form: TABDIS, ONCE, Dosing Weight 80.909, kg, Prior ity: STAT, Start date: 07/11/14 0:31:00, Stop date: 07/11/14 0:31:00 Notes: (Same as: Zofran ODT) Start Date: 07/11/14 Stop Date: 07/11/14 Status: Completed Medications Administered During Your Visit [...]
--- OUTSIDE RECORDS SUMMARY | 2019-03-16 05:19 | XMS REPORT | Summary of Care ---
Author Organization Unknown Address Unknown Phone Unavailable Encounter TRISTEN Chi(TALIA) [id number] Date(s): 07/02/14 - 07/02/14 [facility] [address] Discharge Disposition: Not Seen Physician Attending: Kody Rubio MD Reason for Visit HEADACHE, LOWER BACK PAIN Vital Signs Most recent to 1 oldest [Reference Range]: Height 167.64 cm (07/02/14 3:55 PM) Temperature Oral 98.1 DegF [96.4-99.1 DegF] (07/02/14 3:55 PM) Systolic Blood 104 mmHg Pressure [90-140 (07/02/14 3:55 PM) mmHg] Diastolic Blood 65 mmHg Pressure [60-90 (07/02/14 3:55 PM) mmHg] Respiratory Rate 20 BRMIN [14-20 BRMIN] (07/02/14 3:55 PM) Peripheral Pulse 103 bpm Rate [60-100 bpm] *HI* (07/02/14 3:55 PM) Weight 80 kg (07/02/14 3:55 PM) Body Mass Index 28.47 m2 (07/02/14 3:55 PM) Problem List Condition Effective Dates Status [...] Active 1PATIENT STATES SHE BREAKS OUT Medications No data available for this section Medications Administered During Your Visit No data [...]
--- OUTSIDE RECORDS SUMMARY | 2019-03-16 05:19 | XMS REPORT | Summary of Care ---
Author Organization Unknown Address Unknown Phone Unavailable Encounter TRISTEN Chi(TALIA) [id number] Date(s): 05/31/14 - 05/31/14 [facility] [address] Discharge Diagnosis: Concussion Discharge Disposition: Home Physician Attending: Michell Sewell DO Reason for Visit SLIP/FALL/BACK PAIN Vital Signs Most recent to 1 oldest [Reference Range]: Height 167.64 cm (05/31/14 4:04 PM) Temperature Oral 98.1 DegF [96.4-99.1 DegF] (05/31/14 4:04 PM) Systolic Blood 117 mmHg Pressure [90-140 (05/31/14 4:04 PM) mmHg] Diastolic Blood 67 mmHg Pressure [60-90 (05/31/14 4:04 PM) mmHg] Respiratory Rate 18 BRMIN [14-20 BRMIN] (05/31/14 4:04 PM) Peripheral Pulse 97 bpm Rate [60-100 bpm] (05/31/14 4:04 PM) Weight 78.182 kg (05/31/14 4:04 PM) Body Mass Index 27.82 m2 (05/31/14 4:04 PM) Problem List Condition Effective Dates Status [...] Active 1PATIENT STATES SHE BREAKS OUT Medications [place] 7.5/325 oral tablet 1 tab, Route: PO, Drug Form: TAB, Dosing Weight 78.182, kg, ONCE, STAT, Start da te: 05/31/14 17:53:00, Stop date: 05/31/14 17:53:00 Notes: Same as [place] 325-7.5mg Do not exceed 4gm/day of acetaminophen. Start Date: 05/31/14 Stop Date: 05/31/14 Status: Completed Tylenol 325 mg oral tablet 325 mg=1 tab, PO, Q4H, Pain, # 20 tab, 0 Refill(s) Start Date: 05/31/14 Status: Ordered Zofran 4 mg oral tablet 4 mg=1 tab, PO, BID, # 10 tab, 0 Refill(s) Start Date: 05/31/14 Status: Ordered Zofran ODT 4 mg, 1 tab, Route: PO, Drug form: TABDIS, ONCE, Dosing Weight 78.182, kg, Prior ity: STAT, Start date: 05/31/14 17:53:00, Stop date: 05/31/14 17:53:00 Notes: (Same as: Zofran ODT) Start Date: 05/31/14 Stop Date: 05/31/14 Status: Completed Medications Administered During Your Visit [...]
--- OUTSIDE RECORDS SUMMARY | 2019-03-16 05:19 | XMS REPORT | Summary of Care ---
Author Organization Unknown Address Unknown Phone Unavailable Encounter TRISTEN Chi(TALIA) [id number] Date(s): 04/19/14 - 04/19/14 [facility] [address] Discharge Diagnosis: Ankle sprain Discharge Disposition: Home Physician Attending: Sen Ventura MD Reason for Visit ANKLE PAIN OR INJURY Vital Signs Most recent to 1 2 oldest [Reference Range]: Height 167.64 cm (04/19/14 4:31 PM) Temperature Oral 97.4 DegF 98.2 DegF [96.4-99.1 DegF] (04/19/14 5:33 PM) (04/19/14 4:31 PM) Systolic Blood 118 mmHg 107 mmHg Pressure [90-140 (04/19/14 5:33 PM) (04/19/14 4:31 PM) mmHg] Diastolic Blood 78 mmHg 70 mmHg Pressure [60-90 (04/19/14 5:33 PM) (04/19/14 4:31 PM) mmHg] Respiratory Rate 18 BRMIN 18 BRMIN [14-20 BRMIN] (04/19/14 5:33 PM) (04/19/14 4:31 PM) Peripheral Pulse 62 bpm 83 bpm Rate [60-100 bpm] (04/19/14 5:33 PM) (04/19/14 4:31 PM) Weight 82.273 kg (04/19/14 4:31 PM) Body Mass Index 29.28 m2 (04/19/14 4:31 PM) Problem List Condition Effective Dates Status [...] Active 1PATIENT STATES SHE BREAKS OUT Medications [place] 5/325 oral tablet 1 tab, Route: PO, Dosing Weight 82.273, kg, ONCE, Start date: 04/19/14 17:22:00, Stop date: 04/19/14 17:22:00 Start Date: 04/19/14 Stop Date: 04/19/14 Status: Completed Ultram 50 mg oral tablet 1 - 2 tabs, PO, Q4-6H, as needed for pain, # 12 tab, 0 Refill(s) Start Date: 04/19/14 Status: Ordered Ultram 50 mg oral tablet 1 tab, Route: PO, Drug form: TAB, ONCE, Dosing Weight 82.273, kg, Start date: 16:35:00, Stop date: 04/19/14 16:35:00 Start Date: 04/19/14 Stop Date: 04/19/14 Status: Discontinued Medications Administered During Your Visit No data [...]
--- OUTSIDE RECORDS SUMMARY | 2019-03-16 05:19 | XMS REPORT | Summary of Care ---
Author Organization Unknown Address Unknown Phone Unavailable Encounter TRISTEN Chi(TALIA) [id number] Date(s): 03/14/14 - 03/14/14 [facility] [address] Discharge Diagnosis: Constipation Discharge Diagnosis: Post-operative pain Discharge Diagnosis: Abdominal pain Discharge Disposition: Home Physician Attending: Kody Rubio MD Reason for Visit INCISION SITE PAIN Vital Signs 1 2 3 Most recent to oldest [Reference Range]: 167.64 cm (03/14/14 7:02 PM) Height 97.9 DegF (03/14/14 11:05 PM) 97.8 DegF (03/14/14 9:41 PM) 97.9 DegF (03/14/14 7:02 PM) Temperature Oral [96.4-99.1 DegF] 122 mmHg (03/14/14 11:05 PM) 123 mmHg (03/14/14 9:41 PM) 97 mmHg (03/14/14 7:02 PM) Systolic Blood Pressure [90-140 mmHg] 72 mmHg (03/14/14 11:05 PM) 70 mmHg (03/14/14 9:41 PM) 65 mmHg (03/14/14 7:02 PM) Diastolic Blood Pressure [60-90 mmHg] 18 BRMIN (03/14/14 11:05 PM) 20 BRMIN (03/14/14 9:41 PM) 18 BRMIN (03/14/14 7:02 PM) Respiratory Rate [14-20 BRMIN] 72 bpm (03/14/14 11:05 PM) 64 bpm (03/14/14 9:41 PM) 92 bpm (03/14/14 7:02 PM) Peripheral Pulse Rate [60-100 bpm] 84.545 kg (03/14/14 7:02 PM) Weight 30.08 m2 (03/14/14 7:02 PM) Body Mass Index Problem List Condition [...] Active 1PATIENT STATES SHE BREAKS OUT Medications morphine Sulfate 4 mg, 2 mL, Route: IVP, Drug form: INJ, ONCE, Dosing Weight 84.545, kg, Priority : STAT, Start date: 03/14/14 20:45:00, Stop date: 03/14/14 20:45:00 Notes: (Same as:MORPhine Sulfate) Start Date: 03/14/14 Stop Date: 03/14/14 Status: Completed Sodium Chloride 0.9% (Bolus) IV - - 1,000 mL, 1,000 ml/hr, Infuse Over: 1 hr, Route: IV, 1,000, Drug form: INJ, ONCE , Priority: STAT, Dosing Weight 84.545 kg, Start date: 03/14/14 20:45:00, Durati on: 1 doses or times, Stop date: 03/14/14 20:45:00 Start Date: 03/14/14 Stop Date: 03/14/14 Status: Completed Zofran 4 mg, 2 mL, Route: IVP, Drug form: INJ, ONCE, Dosing Weight 84.545, kg, Priority : STAT, Start date: 03/14/14 20:45:00, Stop date: 03/14/14 20:45:00 Notes: (Same as: Zofran) Start Date: 03/14/14 Stop Date: 03/14/14 Status: Completed Results ELECTROLYTES Most recent to 1 oldest [Reference Range]: Sodium Lvl [135-145 140 mEq/L mEq/L] (03/14/14 9:32 PM) Potassium Lvl 3.9 mEq/L [3.5-5.1 mEq/L] (03/14/14 9:32 PM) Chloride Lvl [95-109 106 mEq/L mEq/L] (03/14/14 9:32 PM) CO2 [24-32 mEq/L] 28 mEq/L (03/14/14 9:32 PM) AGAP [10.0-20.0 9.9 mEq/L mEq/L] *LOW* (03/14/14 9:32 PM) CHEM PANEL Most recent to 1 oldest [Reference Range]: Creatinine Lvl 0.9 mg/dL [0.5-1.4 mg/dL] (03/14/14 9:32 PM) eGFR 84 mL/min/1.73m2 1 *NA* (03/14/14 9:32 PM) BUN [7-22 mg/dL] 5 mg/dL *LOW* (03/14/14 9:32 PM) B/C Ratio [6-25] 6 (03/14/14 9:32 PM) Glucose Lvl [70-99 91 mg/dL 2 mg/dL] (03/14/14 9:32 PM) Total Protein 5.6 g/dL [6.4-8.4 g/dL] *LOW* (03/14/14 9:32 PM) Albumin Lvl [3.5-5.0 2.8 g/dL g/dL] *LOW* (03/14/14 9:32 PM) Globulin [2.0-4.0 2.8 g/dL g/dL] (03/14/14 9:32 PM) A/G Ratio [0.7-1.6] 1.0 (03/14/14 9:32 PM) Calcium Lvl 8.8 mg/dL [8.5-10.5 mg/dL] (03/14/14 9:32 PM) Magnesium Lvl 1.8 mg/dL [1.8-2.4 mg/dL] (03/14/14 9:32 PM) ALT [0-65 unit/L] 15 unit/L (03/14/14 9:32 PM) AST [0-37 unit/L] 8 unit/L (03/14/14 9:32 PM) Alk Phos [39-136 82 unit/L unit/L] (03/14/14 9:32 PM) Bili Total [0.2-1.3 0.2 mg/dL mg/dL] (03/14/14 9:32 PM) Amylase Lvl [25-115 19 unit/L unit/L] *LOW* (03/14/14 9:32 PM) Lipase Lvl [73-393 107 unit/L unit/L] (03/14/14 9:32 PM) 1Result Comment: The eGFR is calculated [...] values reflect the clinical guidelines of the [place] [employer]. URINE AND STOOL Most recent to 1 oldest [Reference Range]: UA Turbidity [Clear] Clear (03/14/14 9:32 PM) UA Color Ltyellow *NA* (03/14/14 9:32 PM) UA pH [5.0-8.0] 7.0 (03/14/14 9:32 PM) UA Spec Grav 1.004 [<=1.030] (03/14/14 9:32 PM) UA Glucose [Negative Negative mg/dL mg/dL] *NA* (03/14/14 9:32 PM) UA Blood [Negative] Negative (03/14/14 9:32 PM) UA Ketones [Negative Negative mg/dL mg/dL] *NA* (03/14/14 9:32 PM) UA Protein [Negative Negative mg/dL mg/dL] (03/14/14 9:32 PM) UA Urobilinogen <=1.0 mg/dL [0.1-1.0 mg/dL] *NA* (03/14/14 9:32 PM) UA Bili [Negative] Negative *NA* (03/14/14 9:32 PM) UA Leuk Est Negative [Negative] (03/14/14 9:32 PM) UA Nitrite Negative [Negative] (03/14/14 9:32 PM) UA WBC [0-5 /HPF] 1 /HPF (03/14/14 9:32 PM) UA RBC [0-2 /HPF] <1 /HPF (03/14/14 9:32 PM) UA Sq Epi [Few /LPF] Occasional /LPF *NA* (03/14/14 9:32 PM) HEMATOLOGY Most recent to 1 oldest [Reference Range]: WBC [3.7-10.4 K/CMM] 6.5 K/CMM (03/14/14 9:32 PM) RBC [4.20-5.40 3.67 M/CMM M/CMM] *LOW* (03/14/14 9:32 PM) Hgb [12.0-16.0 g/dL] 11.1 g/dL *LOW* (03/14/14 9:32 PM) Hct [36.0-48.0 %] 32.7 % *LOW* (03/14/14 9:32 PM) MCV [81.0-99.0 fL] 89.1 fL (03/14/14 9:32 PM) MCH [27.0-31.0 pg] 30.2 pg (03/14/14 9:32 PM) MCHC [32.0-36.0 33.9 g/dL g/dL] (03/14/14 9:32 PM) RDW [11.5-14.5 %] 13.4 % (03/14/14 9:32 PM) Platelet [133-450 241 K/CMM K/CMM] (03/14/14 9:32 PM) MPV [7.4-10.4 fL] 8.5 fL (03/14/14 9:32 PM) Segs [45.0-75.0 %] 46.4 % (03/14/14 9:32 PM) Lymphocytes 33.6 % [20.0-40.0 %] (03/14/14 9:32 PM) Monocytes [2.0-12.0 8.1 % %] (03/14/14 9:32 PM) Eosinophils [0.0-4.0 11.3 % %] *HI* (03/14/14 9:32 PM) Basophils [0.0-1.0 0.6 % %] (03/14/14 9:32 PM) Segs-Bands # 3.0 K/CMM [1.5-8.1 K/CMM] (03/14/14 9:32 PM) Lymphocytes # 2.2 K/CMM [1.0-5.5 K/CMM] (03/14/14 9:32 PM) Monocytes # [0.0-0.8 0.5 K/CMM K/CMM] (03/14/14 9:32 PM) Eosinophils # 0.7 K/CMM [0.0-0.5 K/CMM] *HI* (03/14/14 9:32 PM) Medications Administered During Your Visit No data available for this section Immunizations No data available for this section Procedures Procedure Type Body Site Date of Procedure Related Diagnosis Hernia repair Social History Social History Type Response Alcohol [...]
--- OUTSIDE RECORDS SUMMARY | 2019-03-16 05:19 | XMS REPORT | Summary of Care ---
Author Organization Unknown Address Unknown Phone Unavailable Encounter [facility]AL[facility]) [id number] Date(s): 03/07/14 - 03/10/[address] Discharge Disposition: Home Physician Attending: Kiko Nielsen MD Physician Admitting: Kiko Nielsen MD Physician_Referring: Kiko Nielsen MD Reason for Visit NAUSEA AND VOMITTING Vital Signs 1 2 3 Most recent to oldest [Reference Range]: 167.64 cm (03/07/14 12:13 PM) Height 98.1 DegF (03/10/14 8:29 AM) 98.1 DegF (03/10/14 4:25 AM) 98.1 DegF (03/09/14 11:35 PM) Temperature Oral [96.4-99.1 DegF] 120 mmHg (03/10/14 8:29 AM) 120 mmHg (03/10/14 4:25 AM) 119 mmHg (03/09/14 11:35 PM) Systolic Blood Pressure [90-140 mmHg] 80 mmHg (03/10/14 8:29 AM) 80 mmHg (03/10/14 4:25 AM) 78 mmHg (03/09/14 11:35 PM) Diastolic Blood Pressure [60-90 mmHg] 16 BRMIN (03/10/14 8:29 AM) 18 BRMIN (03/10/14 4:25 AM) 18 BRMIN (03/09/14 11:35 PM) Respiratory Rate [14-20 BRMIN] 63 bpm (03/10/14 8:29 AM) 76 bpm (03/10/14 4:25 AM) 58 bpm *LOW* (03/09/14 11:35 PM) Peripheral Pulse Rate [60-100 bpm] 87.5 kg (03/07/14 12:13 PM) Weight 31.14 m2 (03/07/14 12:13 PM) Body Mass Index Problem List Condition [...] Active 1PATIENT STATES SHE BREAKS OUT Medications acetaminophen 1,000 mg, 100 mL, Route: IVPB, Drug form: INJ, ONCE, Dosing Weight 87.5, kg, PRN Pain Score 1-3, Start date: 03/08/14 7:35:00, Duration: 1 doses or times, Stop date: Limited # of times Notes: Infuse over 15 minutes Do not exceed 4gm/day of acetaminophen Start Date: 03/08/14 Stop Date: 03/08/14 Status: Discontinued acetaminophen 650 mg, 1 supp, Route: FL, Drug form: SUPP, Q4H, Dosing Weight 87.5, kg, PRN For Temp > 100.4 F, Start date: 03/08/14 13:42:00, Duration: 30 day, Stop date: 04/07/14 13:41:00 Notes: Max [id number]=0947 mg/day (4 gm/day). (Same as: Tylenol) Start Date: 03/08/14 Stop Date: 03/10/14 Status: Discontinued acetaminophen-hydrocodone 325 mg-7.5 mg/15 mL oral solution 15 ml, PO, Q4H, Pain, # 240 mL, 0 Refill(s) Start Date: 03/10/14 Status: Ordered acetaminophen-hydrocodone 325 mg-7.5 mg/15 mL oral solution 15 ml, Route: PO, Drug Form: SOLN, Dosing Weight 87.5, kg, Q4H, PRN Pain, Start date: 03/07/14 14:30:00, Duration: 30 day, Stop date: 04/06/14 14:29:00 Notes: Do not exceed 4gm/day of acetaminophen. (Same as: Hutchins 325/7.5) Start Date: 03/07/14 Stop Date: 03/07/14 Status: Discontinued acetaminophen-hydrocodone 325 mg-7.5 mg/15 mL oral solution 15 ml, Route: PO, Drug Form: SOLN, Dosing Weight 87.5, kg, Q4H, PRN Pain, Start date: 03/08/14 13:42:00, Duration: 30 day, Stop date: 04/07/14 13:41:00 Notes: Do not exceed 4gm/day of acetaminophen. (Same as: Hutchins 325/7.5) Start Date: 03/08/14 Stop Date: 03/10/14 Status: Discontinued acetaminophen-hydrocodone 325 mg-7.5 mg/15 mL oral solution 15 ml, Route: PO, Drug Form: SOLN, Dosing Weight 87.5, kg, Q4H, PRN Pain, Start date: 03/07/14 14:53:00, Duration: 30 day, Stop date: 04/06/14 14:52:00 Notes: Do not exceed 4gm/day of acetaminophen. (Same as: Hutchins 325/7.5) Start Date: 03/07/14 Stop Date: 03/10/14 Status: Discontinued albuterol 0.083% inhalation solution 2.49 mg, 3 mL, Route: NEB, Drug form: SOLN, PRN, Dosing Weight 87.5, kg, PRN Res piratory Protocol, Start date: 03/08/14 7:35:00, Duration: 30 day, Stop date: 7:34:00 Notes: SEE RT DOCUMENTATION (Same as: Isaias) Start Date: 03/08/14 Stop Date: 03/08/14 Status: Discontinued albuterol 0.083% inhalation solution 2.49 mg, 3 mL, Route: NEB, Drug form: SOLN, Q20Min, Dosing Weight 87.5, kg, PRN Wheezing, Priority: STAT, Start date: 03/08/14 7:35:00, Duration: 30 day, Stop d ate: 04/07/14 7:34:00 Notes: SEE RT DOCUMENTATION (Same as: Proventil) Start Date: 03/08/14 Stop Date: 03/08/14 Status: Discontinued albuterol 90 mcg/inh inhalation aerosol 2 puff, Route: INHALER, Drug Form: AERO/A, Dosing Weight 87.5, kg, Q5Min, PRN Wh eezing, Start date: 03/08/14 7:35:00, Duration: 4 doses or times, Stop date: Orozco ited # of times Notes: Same as: Ventolin HFA Start Date: 03/08/14 Stop Date: 03/08/14 Status: Discontinued ceFAZolin 2 gm, 100 mL, Route: IVPB, Drug form: INJ, PRE OP, Start date: 03/07/14 15:00:00 , Duration: 1 doses or times Notes: Same as: Ancef Start Date: 03/07/14 Stop Date: 03/08/14 Status: Completed ceFAZolin 2 gm, 100 mL, Route: IVPB, Drug form: INJ, PRE OP, Start date: 03/07/14 13:00:00 , Duration: 1 doses or times, Stop date: 03/07/14 18:00:00 Notes: Same as: Ancef Start Date: 03/07/14 Stop Date: 03/07/14 Status: Discontinued dexamethasone 4 mg, 1 mL, Route: IVP, Drug form: INJ, ONCE, Dosing Weight 87.5, kg, PRN Nausea & Vomiting, Start date: 03/08/14 7:35:00 Notes: Concentration: 4mg/ml Start Date: 03/08/14 Stop Date: 03/08/14 Status: Discontinued Dilaudid 0.5 mg, 0.25 mL, Route: IV, Drug form: INJ, ONCE, Dosing Weight 87.5, kg, PRN Pa in, Start date: 03/09/14 9:16:00, Stop date: 04/08/14 9:15:00 Notes: (Same as: Dilaudid) Start Date: 03/09/14 Stop Date: 03/09/14 Status: Completed Dilaudid 0.5 mg, 0.5 mL, Route: IV, Drug form: INJ, Q4H, Dosing Weight 87.5, kg, PRN Pain , Start date: 03/10/14 8:21:00, Duration: 30 day, Stop date: 04/09/14 8:20:00 Notes: Same as: Dilaudid Start Date: 03/10/14 Stop Date: 03/10/14 Status: Discontinued Dilaudid 0.2 mg/ml BREAD PACKER (6 mg/30 mL) INJ Syringe 6 mg 6 mg, 30 mL, Route: IV, BREAD PACKER Dose: 0.2 mg, BREAD PACKER Lockout: 8 minutes, 4 Hour Limit ( In MG): 5, Drug Form: INJ, Continuous, Start date: 03/08/14 14:00:00, Duration: 30 day, Stop date: 04/07/14 13:59:00 Start Date: 03/08/14 Stop Date: 03/10/14 Status: Discontinued diphenhydrAMINE 12.5 mg, 0.25 mL, Route: IVP, Drug form: INJ, Q6H, Dosing Weight 87.5, kg, PRN I tching, Start date: 03/08/14 7:35:00, Duration: 30 day, Stop date: 04/07/14 7:34 :00 Notes: (Same as: Benadryl) Start Date: 03/08/14 Stop Date: 03/08/14 Status: Discontinued enoxaparin 30 mg, 0.3 mL, Route: SUB-Q, Drug form: INJ, [id number], Dosing Weight 87.5, kg, S tart date: 03/09/14 1:45:00, Duration: 30 day, Stop date: 04/07/14 13:45:00 Notes: (Same as: Lovenox) Start Date: 03/09/14 Stop Date: 03/10/14 Status: Discontinued ePHEDrine 5 mg, 0.1 mL, Route: IVP, Drug form: INJ, Q5Min, Dosing Weight 87.5, kg, PRN Low Blood Pressure, Start date: 03/08/14 7:35:00, Duration: 30 day, Stop date: 03/26 12/07 7:34:00 Notes: (Same as: ePHEDrine Sulfate) Start Date: 03/08/14 Stop Date: 03/08/14 Status: Discontinued fentaNYL 25 microgram, 0.5 mL, Route: IVP, Drug form: INJ, Q5Min, Dosing Weight 87.5, kg, PRN Pain Score 4-6, Start date: 03/08/14 7:35:00, Duration: 4 doses or times, S top date: Limited # of times Notes: (Same as: Sublimaze) Preservative free. Start Date: 03/08/14 Stop Date: 03/08/14 Status: Discontinued fentaNYL patch 25 mcg/hr 1 patch, Route: TOP, Drug Form: ERFILM, Dosing Weight 87.5, kg, Q72H, Start date : 03/09/14 10:00:00, Duration: 30 day, Stop date: 04/05/14 10:00:00 Notes: (Same as: Duragesic)Check for product integrity. Apply to intact skin"Re move old patch before application of new patch" Start Date: 03/09/14 Stop Date: 03/10/14 Status: Discontinued glycopyrrolate 0.2 mg, 1 mL, Route: IVP, Drug form: INJ, Q5Min, Dosing Weight 87.5, kg, PRN Bra dycardia, Start date: 03/08/14 7:35:00, Duration: 3 doses or times, Stop date: L imited # of times Notes: (Same as: Giuliana) Start Date: 03/08/14 Stop Date: 03/08/14 Status: Discontinued hydrALAZINE 10 mg, 0.5 mL, Route: IVP, Drug form: INJ, Q20Min, Dosing Weight 87.5, kg, PRN E levated BP, Start date: 03/08/14 7:35:00, Duration: 2 doses or times, Stop date: Limited # of times Notes: (Same as: Apresoline)Push over 5 minutes Start Date: 03/08/14 Stop Date: 03/08/14 Status: Discontinued hydromorphone 0.5 mg, 0.25 mL, Route: IVP, Drug form: INJ, Q5Min, Dosing Weight 87.5, kg, PRN Pain Score 7-10, Start date: 03/08/14 7:35:00, Duration: 4 doses or times, Stop date: Limited # of times Notes: (Same as: Dilaudid) Start Date: 03/08/14 Stop Date: 03/08/14 Status: Completed labetalol 10 mg, 2 mL, Route: IVP, Drug form: INJ, Q5Min, Dosing Weight 87.5, kg, PRN Elev ated BP, Start date: 03/08/14 7:35:00, Duration: 5 doses or times, Stop date: Courtney rea # of times Notes: (Same as: Normodyne, Trandate)Push over 2 minutes Give bolus over 2-3 mi nutes. Start Date: 03/08/14 Stop Date: 03/08/14 Status: Discontinued Lactated Ringers Injection IV 1,000 mL 1,000 mL, Rate: 125 ml/hr, Infuse over: 8 hr, Route: IV, Dosing Weight 87.5 kg, Total Volume: 1,000, Start date: 03/07/14 14:51:00, Duration: 30 day, Stop date: 04/06/14 14:50:00 Start Date: 03/07/14 Stop Date: 03/08/14 Status: Discontinued Lactated Ringers Injection IV 1,000 mL 1,000 mL, Rate: 125 ml/hr, Infuse over: 8 hr, Route: IV, Dosing Weight 87.5 kg, Total Volume: 1,000, Start date: 03/08/14 13:42:00, Duration: 30 day, Stop date: 04/07/14 13:41:00 Start Date: 03/08/14 Stop Date: 03/09/14 Status: Discontinued Lactated Ringers IV 1,000 mL 1,000 mL, Rate: 80 ml/hr, Infuse over: 12.5 hr, Route: IV, Dosing Weight 87.5 kg , Total Volume: 1,000, Priority: STAT, Start date: 03/08/14 13:42:00, Duration: 30 day, Stop date: 04/07/14 13:41:00 Start Date: 03/08/14 Stop Date: 03/10/14 Status: Discontinued meperidine 12.5 mg, 0.25 mL, Route: IVP, Drug form: INJ, Q30Min, Dosing Weight 87.5, kg, FL N Other -See Comment, For shivering, Start date: 03/08/14 7:35:00, Duration: 2 d oses or times, Stop date: Limited # of times Notes: (Same As: Demerol) Start Date: 03/08/14 Stop Date: 03/08/14 Status: Discontinued midazolam 1 mg, 1 mL, Route: IVP, Drug form: INJ, Q5Min, Dosing Weight 87.5, kg, PRN Anxie ty, Start date: 03/08/14 7:35:00, Duration: 2 doses or times, Stop date: Limited # of times Notes: (Same as: Versed) Start Date: 03/08/14 Stop Date: 03/08/14 Status: Discontinued morphine Sulfate 2 mg, 1 mL, Route: IVP, Drug form: INJ, Q5Min, Dosing Weight 87.5, kg, PRN Pain Score 4-6, Start date: 03/08/14 7:35:00, Duration: 5 doses or times, Stop date: Limited # of times Notes: (Same as:MORPhine Sulfate) Start Date: 03/08/14 Stop Date: 03/08/14 Status: Discontinued naloxone 0.04 mg, 0.1 mL, Route: IVP, Drug form: INJ, Q2MIN, Dosing Weight 87.5, kg, PRN Narcotic Reversal, Start date: 03/08/14 7:35:00, Duration: 8 doses or times, Sto p date: Limited # of times Notes: Same as Narcan Start Date: 03/08/14 Stop Date: 03/08/14 Status: Discontinued Ofirmev 1,000 mg, 100 mL, Route: IV, Drug form: INJ, Q6H, Dosing Weight 87.5, kg, for > or=50 kg, Start date: 03/08/14 18:00:00, Duration: 30 day, Stop date: 04/07/14 12:00:00 Notes: Infuse over 15 minutes Do not exceed 4gm/day of acetaminophen Start Date: 03/08/14 Stop Date: 03/10/14 Status: Discontinued ondansetron 4 mg, 2 mL, Route: IVP, Drug form: INJ, ONCE, Dosing Weight 87.5, kg, PRN Nausea & Vomiting, Start date: 03/08/14 7:35:00 Notes: (Same as: Zofran) Start Date: 03/08/14 Stop Date: 03/08/14 Status: Discontinued ondansetron 4 mg, 2 mL, Route: IVP, Drug form: INJ, Q6H, Dosing Weight 87.5, kg, PRN Nausea & Vomiting, Start date: 03/07/14 14:51:00, Duration: 30 day, Stop date: 04/06/14 14:50:00 Notes: (Same as: Zofran) Start Date: 03/07/14 Stop Date: 03/10/14 Status: Discontinued ondansetron 4 mg, 2 mL, Route: IVP, Drug form: INJ, Q12H, Dosing Weight 87.5, kg, PRN Nausea & Vomiting, Start date: 03/08/14 13:42:00, Duration: 30 day, Stop date: 04/07/14 13:41:00 Notes: (Same as: Zofran) Start Date: 03/08/14 Stop Date: 03/10/14 Status: Discontinued promethazine 12.5 mg, 0.5 mL, Route: IM, Drug form: INJ, Q4H, Dosing Weight 87.5, kg, PRN Mehdi sea & Vomiting, Start date: 03/08/14 13:42:00, Duration: 30 day, Stop date: 04/07/14 13:41:00 Notes: Do not give IV push. (Same as: Phenergan) Start Date: 03/08/14 Stop Date: 03/10/14 Status: Discontinued promethazine + Sodium Chloride 0.9% IV 50 mL 6.25 mg, 0.25 mL, Route: IVPB, ONCE, Dosing Weight 87.5, kg, PRN Nausea & Vomiting, Start date: 03/08/14 7:35:00 Notes: Do not give IV push. (Same as: Phenergan) Start Date: 03/08/14 Stop Date: 03/08/14 Status: Discontinued promethazine + Sodium Chloride 0.9% IV 50 mL 12.5 mg, 0.5 mL, Route: IVPB, Q4H, Dosing Weight 87.5, kg, PRN Nausea & Vomiting, Start date: 03/07/14 14:51:00, Duration: 30 day, Stop date: 04/06/14 14:50:00 Notes: Do not give IV push. (Same as: Phenergan) Start Date: 03/07/14 Stop Date: 03/10/14 Status: Discontinued racepinephrine 11.25 mg, 0.5 mL, Route: NEB, Drug Form: SOLN, Dosing Weight 87.5, kg, PRN, PRN Shortness of breath, Start date: 03/08/14 7:35:00, Duration: 30 day, Stop date: 04/07/14 7:34:00 Notes: (racepinephrine *2.25% inh 0.5ml SOLN) (Same as:S2) Start Date: 03/08/14 Stop Date: 03/08/14 Status: Discontinued Sodium Chloride 0.9% IV 1,000 mL 1,000 mL, Rate: 125 ml/hr, Infuse over: 8 hr, Route: IV, Dosing Weight 87.5 kg, Total Volume: 1,000, Start date: 03/08/14 7:35:00, Duration: 30 day, Stop date: 04/07/14 7:34:00 Start Date: 03/08/14 Stop Date: 03/08/14 Status: Discontinued Results ELECTROLYTES 1 2 3 Most recent to oldest [Reference Range]: 141 mEq/L (03/10/14 4:13 AM) 141 mEq/L (03/09/14 4:33 AM) 141 mEq/L (03/07/14 2:09 PM) Sodium Lvl [135-145 mEq/L] 3.6 mEq/L (03/10/14 4:13 AM) 3.8 mEq/L (03/09/14 4:33 AM) 3.7 mEq/L (03/07/14 2:09 PM) Potassium Lvl [3.5-5.1 mEq/L] 107 mEq/L (03/10/14 4:13 AM) 108 mEq/L (03/09/14 4:33 AM) 109 mEq/L (03/07/14 2:09 PM) Chloride Lvl [95-109 mEq/L] 28 mEq/L (03/10/14 4:13 AM) 25 mEq/L (03/09/14 4:33 AM) 27 mEq/L (03/07/14 2:09 PM) CO2 [24-32 mEq/L] 9.6 mEq/L *LOW* (03/10/14 4:13 AM) 11.8 mEq/L (03/09/14 4:33 AM) 8.7 mEq/L *LOW* (03/07/14 2:09 PM) AGAP [10.0-20.0 mEq/L] CHEM PANEL 1 2 3 Most recent to oldest [Reference Range]: 0.7 mg/dL (03/10/14 4:13 AM) 0.7 mg/dL (03/09/14 4:33 AM) 0.8 mg/dL (03/08/14 3:30 PM) Creatinine Lvl [0.5-1.4 mg/dL] 113 mL/min/1.73m2 1 *NA* (03/10/14 4:13 AM) 113 mL/min/1.73m2 2 *NA* (03/09/14 4:33 AM) 96 mL/min/1.73m2 3 *NA* (03/08/14 3:30 PM) eGFR 5 mg/dL *LOW* (03/10/14 4:13 AM) 6 mg/dL *LOW* (03/09/14 4:33 AM) 3 mg/dL *LOW* (03/07/14 2:09 PM) BUN [7-22 mg/dL] 4 *LOW* (03/07/14 2:09 PM) B/C Ratio [6-25] 76 mg/dL 4 (03/10/14 4:13 AM) 97 mg/dL 5 (03/09/14 4:33 AM) 90 mg/dL 6 (03/07/14 2:09 PM) Glucose Lvl [70-99 mg/dL] 5.5 g/dL *LOW* (03/07/14 2:09 PM) Total Protein [6.4-8.4 g/dL] 3.0 g/dL *LOW* (03/07/14 2:09 PM) Albumin Lvl [3.5-5.0 g/dL] 2.5 g/dL (03/07/14 2:09 PM) Globulin [2.0-4.0 g/dL] 1.2 (03/07/14 2:09 PM) A/G Ratio [0.7-1.6] 8.3 mg/dL *LOW* (03/10/14 4:13 AM) 8.8 mg/dL (03/09/14 4:33 AM) 8.7 mg/dL (03/07/14 2:09 PM) Calcium Lvl [8.5-10.5 mg/dL] 18 unit/L (03/07/14 2:09 PM) ALT [0-65 unit/L] 10 unit/L (03/07/14 2:09 PM) AST [0-37 unit/L] 69 unit/L (03/07/14 2:09 PM) Alk Phos [39-136 unit/L] 0.2 mg/dL (03/07/14 2:09 PM) Bili Total [0.2-1.3 mg/dL] 1Result Comment: The eGFR is calculated using [...] values reflect the clinical guidelines of the [place] [employer]. 5Interpretive Data: Adult reference range values reflect the clinical guidelines of the [place] [employer]. 6Interpretive Data: Adult reference range values reflect the clinical guidelines of the [place] [employer]. URINE CHEM 1 2 3 Most recent to oldest [Reference Range]: Negative (03/07/14 8:50 PM) U Preg [Negative] HEMATOLOGY 1 2 3 Most recent to oldest [Reference Range]: 6.4 K/CMM (03/10/14 4:13 AM) 12.7 K/CMM *HI* (03/09/14 4:33 AM) 6.4 K/CMM (03/07/14 2:09 PM) WBC [3.7-10.4 K/CMM] 3.33 M/CMM *LOW* (03/10/14 4:13 AM) 3.63 M/CMM *LOW* (03/09/14 4:33 AM) 3.89 M/CMM *LOW* (03/07/14 2:09 PM) RBC [4.20-5.40 M/CMM] 9.7 g/dL *LOW* (03/10/14 4:13 AM) 10.6 g/dL *LOW* (03/09/14 4:33 AM) 11.7 g/dL *LOW* (03/07/14 2:09 PM) Hgb [12.0-16.0 g/dL] 29.7 % *LOW* (03/10/14 4:13 AM) 32.6 % *LOW* (03/09/14 4:33 AM) 34.5 % *LOW* (03/07/14 2:09 PM) Hct [36.0-48.0 %] 89.1 fL (03/10/14 4:13 AM) 89.9 fL (03/09/14 4:33 AM) 88.9 fL (03/07/14 2:09 PM) MCV [81.0-99.0 fL] 29.2 pg (03/10/14 4:13 AM) 29.3 pg (03/09/14 4:33 AM) 30.0 pg (03/07/14 2:09 PM) MCH [27.0-31.0 pg] 32.8 g/dL (03/10/14 4:13 AM) 32.6 g/dL (03/09/14 4:33 AM) 33.8 g/dL (03/07/14 2:09 PM) MCHC [32.0-36.0 g/dL] 13.4 % (03/10/14 4:13 AM) 13.1 % (03/09/14 4:33 AM) 13.2 % (03/07/14 2:09 PM) RDW [11.5-14.5 %] 194 K/CMM (03/10/14 4:13 AM) 227 K/CMM (03/09/14 4:33 AM) 251 K/CMM (03/08/14 3:30 PM) Platelet [133-450 K/CMM] 8.6 fL (03/10/14 4:13 AM) 8.4 fL (03/09/14 4:33 AM) 8.9 fL (03/07/14 2:09 PM) MPV [7.4-10.4 fL] 57.2 % (03/10/14 4:13 AM) 81.1 % *HI* (03/09/14 4:33 AM) 49.5 % (03/07/14 2:09 PM) Segs [45.0-75.0 %] 31.8 % (03/10/14 4:13 AM) 13.2 % *LOW* (03/09/14 4:33 AM) 37.2 % (03/07/14 2:09 PM) Lymphocytes [20.0-40.0 %] 7.0 % (03/10/14 4:13 AM) 5.5 % (03/09/14 4:33 AM) 7.2 % (03/07/14 2:09 PM) Monocytes [2.0-12.0 %] 3.7 % (03/10/14 4:13 AM) 0.0 % (03/09/14 4:33 AM) 5.3 % *HI* (03/07/14 2:09 PM) Eosinophils [0.0-4.0 %] 0.3 % (03/10/14 4:13 AM) 0.2 % (03/09/14 4:33 AM) 0.8 % (03/07/14 2:09 PM) Basophils [0.0-1.0 %] 3.6 K/CMM (03/10/14 4:13 AM) 10.3 K/CMM *HI* (03/09/14 4:33 AM) 3.2 K/CMM (03/07/14 2:09 PM) Segs-Bands # [1.5-8.1 K/CMM] 2.0 K/CMM (03/10/14 4:13 AM) 1.7 K/CMM (03/09/14 4:33 AM) 2.4 K/CMM (03/07/14 2:09 PM) Lymphocytes # [1.0-5.5 K/CMM] 0.4 K/CMM (03/10/14 4:13 AM) 0.7 K/CMM (03/09/14 4:33 AM) 0.5 K/CMM (03/07/14 2:09 PM) Monocytes # [0.0-0.8 K/CMM] 0.2 K/CMM (03/10/14 4:13 AM) 0.0 K/CMM (03/09/14 4:33 AM) 0.3 K/CMM (03/07/14 2:09 PM) Eosinophils # [0.0-0.5 K/CMM] 0.0 K/CMM (03/10/14 4:13 AM) 0.1 K/CMM (03/07/14 2:09 PM) Basophils # [0.0-0.2 K/CMM] Normal (03/10/14 4:13 AM) Normal (03/09/14 4:33 AM) RBC Morph Normal (03/10/14 4:13 AM) Normal (03/09/14 4:33 AM) Plt Morph 13.3 seconds (03/10/14 4:13 AM) 13.7 seconds (03/09/14 4:33 AM) 12.6 seconds (03/07/14 2:09 PM) PT [12.0-14.7 seconds] 1.02 7 (03/10/14 4:13 AM) 1.06 8 (03/09/14 4:33 AM) 0.95 9 (03/07/14 2:09 PM) INR [0.85-1.17] 38.3 seconds 10 *HI* (03/10/14 4:13 AM) 34.2 seconds 11 (03/09/14 4:33 AM) 36.5 seconds 12 *HI* (03/07/14 2:09 PM) PTT [22.9-35.8 seconds] 7Interpretive Data: RECOMMENDED RANGES FOR PROTIME INR: 2.0-3.0 for most medical and surgical thromboembolic states. 2.5-3.5 for artificial heart valves and recurrent embolism. INR SHOULD BE USED ONLY FOR PATIENTS ON STABLE ANTICOAGULANT THERAPY. 8Interpretive Data: RECOMMENDED RANGES FOR PROTIME INR: 2.0-3.0 for most medical and surgical thromboembolic states. 2.5-3.5 for artificial heart valves and recurrent embolism. INR SHOULD BE USED ONLY FOR PATIENTS ON STABLE ANTICOAGULANT THERAPY. 9Interpretive Data: RECOMMENDED RANGES FOR PROTIME INR: 2.0-3.0 for most medical and surgical thromboembolic states. 2.5-3.5 for artificial heart valves and recurrent embolism. INR SHOULD BE USED ONLY FOR PATIENTS ON STABLE ANTICOAGULANT THERAPY. 10Interpretive Data: Heparin Therapeutic Range: 57 - 92 Seconds 11Interpretive Data: Heparin Therapeutic Range: 57 - 92 Seconds 12Interpretive Data: Heparin Therapeutic Range: 57 - 92 Seconds Medications Administered During Your Visit No data available for this section Immunizations No data available for this section Procedures Procedure Type Body Site Date of Procedure Related Diagnosis Abdominal hysterectomy 2009 Laparoscopic sleeve 01/09/13 12:00 AM gastrectomy Social History Social History Type Response Alcohol [...] Counseling No1 1quit smoking "2 weeks ago" Assessment and Plan Extracted from: Title: Clinical Document Author: Kiko Nielsen MD Date: 03/10/14 Progress Note - Daily [facility] Completed: Feb, 08:48 by Kiko Nielsen MD RM: [phone] - 00, [id number] BOYER [id number] (: 1980) F Attending: Kiko Nielsen MDPhone: Service: General Surgery Service Reason for Admission: NAUSEA AND VOMITTING Working DRG: Other factors influencing health status Code status: Full Code [Ordered]Current diet: Isolation: None Documented Allergies: Food Seafood, Motrin, Zomig, Imitrex, Toradol SUBJECTIVE/ OBJECTIVE No evenmts. Pain controlled. Tolerating diet. Ambulating well 24hr Labs 03/10 0413 Glucose Lvl76 BUN5 L Creatinine Lvl0.7 Sodium Kme205 Potassium Lvl3.6 Chloride Eha500 CO228 AGAP9.6 L Calcium Lvl8.3 L [id number] PT13.3 INR1.02 PTT38.3 H WBC6.4 RBC3.33 L Hgb9.7 L Hct29.7 L MCV89.1 MCH29.2 MCHC32.8 RDW13.4 Lhydethh632 MPV8.6 Lester still necessary (Yes/No): Line still necessary (Yes/No): VitalsTmp(F)[id number] 03/10 08:[id number]--- 03/10 04:2598.330691/8018------ 03/09 23:[id number]/7818------ 03/09 20:16 97 21% 03/09 19:4098.941629/009887 2.0L/m 24 Hr Tmax: 98.3F (36.83c) at 03/09 19:40Vital Signs are the last 5 in the past 48 hours. DateWt(kg)Wt(lb)Ht(cm)Ht(in)Method 03/07 (initial) 87.50 [id number] 66.00Stated I&ORecordInOutBal 1424hr Tot 2053 3119-2796 1324hr Tot 4126 2780 1346 Medications (12) Active Scheduled Meds (3): 03/08/14 acetaminophen (Ofirmev) 1,000 mg IV Q6H 03/09/14 enoxaparin 30 mg SUB-Q [id number] 03/09/14 fentaNYL (fentaNYL patch 25 mcg/hr) 1 patch TOP Q72H Unscheduled Meds: None PRN Meds (8): 03/07/14 acetaminophen-hydrocodone (acetaminophen-hydrocodone 325 mg-7.5 mg/15 mL oral solution) 15 ml PO Q4H 03/08/14 acetaminophen-hydrocodone (acetaminophen-hydrocodone 325 mg-7.5 mg/15 mL oral solution) 15 ml PO Q4H 03/08/14 acetaminophen 650 mg FL Q4H 03/10/14 hydromorphone (Dilaudid) 0.5 mg IV Q4H 03/07/14 ondansetron 4 mg IVP Q6H 03/08/14 ondansetron 4 mg IVP Q12H 03/07/14 promethazine + Sodium Chloride 0.9% IV 50 mL 12.5 mg IVPB Q4H 151.5 ml/hr 03/08/14 promethazine 12.5 mg IM Q4H One Time Meds: None Continuous Infusions (1): 03/08/14 Lactated Ringers Injection IV 1,000 mL (Lactated Ringers IV 1,000 mL) 1,000 mL 80 ml/hr ASSESSMENT & EXAM NAD RRR Soft, ND, appr TTP, wounds c/d/i, ZORAIDA serosang PLAN & TREATMENT Cont protocol. ZORAIDA d/c Ready for Discharge (Yes/No)? 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
--- OUTSIDE RECORDS SUMMARY | 2019-03-16 05:20 | XMS REPORT ---
Author Author Cecy Rush Organization [employer] Address Unknown Phone Unavailable Care Team Providers Care Tipple Boss Name Role Phone Cecy Rush CP Unavailable Allergies, Adverse Reactions, Alerts Substance Reaction Event Type tramadol Info Not Available Non Drug Allergy imitrex Info Not Available Non Drug Allergy toradol Info Not Available Non Drug Allergy motrin Info Not Available Non Drug Allergy Problems Problem Type Condition Code Onset Dates Condition Status Assessment Right knee pain M25.561 Active Assessment Inflammatory arthritis M19.90 Active Assessment Fibromyalgia M79.7 Active Problem Chronic pain disorder G89.4 Active Problem Fibromyalgia M79.7 Active Problem 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 Problem Meniscus, medial, derangement, left M23.304 Active Assessment 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 Problem Inflammatory arthritis M19.90 Active Problem Chronic fatigue R53.82 Active Assessment Right anterior shoulder pain M25.511 Active Assessment 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 Assessment Chronic fatigue R53.82 Active Assessment Left medial knee pain M25.562 Active Assessment Counseling NOS Z71.9 Active Assessment Chronic pain disorder G89.4 Active Assessment Rheumatoid factor positive R76.8 Active Medications Medication Code System Code Instructions Start Date End Date Status Dosage Klonopin [facility] 59778484247 0.5 MG Orally Three times a day Active 1 tablet Zorvolex [facility] 53130705383 35 MG Orally Twice a day Nov 15, 2017 Active 1 tab(s) with food as needed Hydroxychloroquine Sulfate [facility] 83060260092 200 MG Orally Once a day Active 2 tabs Trileptal ND 92977534476 300 MG Orally Active not defined Folic Acid ND 82385514926 1 mg Orally Once a day Nov 15, 2017 Active 1 tablet Trazodone HCl [facility] 44423099227 50 MG Orally Once a day Active 1 tablet at bedtime as needed Protonix [facility] 13799264629 40 MG Orally Twice a day Active 1 tablet Depakote [facility] 00239050871 250 MG Orally Twice a day Active 1 tab in AM, 2 tabs in PM Naproxen [facility] 83296443185 500 MG Orally every 12 hrs prn with food January 13, 2017 Active 1 tablet as needed Geodon [facility] 50837485873 80 MG Orally Twice a day Active 1 capsule with food Methotrexate [facility] 81604886733 2.5 mg Orally Once a week Nov 15, 2017 Active 4 tabs Prozac [facility] 64123628840 20 MG Orally Once a day Active 1 capsule in the morning Vital Signs Date/Time: Nov 15, 2017 Height 66 in Blood Pressure Diastolic 88 mm Hg Blood Pressure Systolic 128 mm Hg Weight 194.6 lbs Results No Known Results Summary Purpose eClinicalWorks Submission
--- OUTSIDE RECORDS SUMMARY | 2019-03-16 05:20 | XMS REPORT ---
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 Problem Meniscus, medial, derangement, left M23.304 Active Assessment Pain in left knee M25.562 Active Problem Inflammatory arthritis M19.90 Active Problem Chronic fatigue R53.82 Active Medications Medication Code System Code Instructions Start Date End Date Status Dosage Klonopin ND 53659938623 0.5 MG Orally Three times a day Active 1 tablet Methotrexate ND 27809199100 2.5 mg Orally Once a week Nov 15, 2017 Active 4 tabs Folic Acid ND 66909919486 1 mg Orally Once a day Nov 15, 2017 Active 1 tablet Prozac ND 46849284255 20 MG Orally Once a day Active 1 capsule in the morning Trazodone HCl ND 18516512617 50 MG Orally Once a day Active 1 tablet at bedtime as needed Nalfon ND 19874513776 400 MG Orally Twice a day Nov 21, 2017 Active 1 tab(s) with food as needed Geodon ND 37897929058 80 MG Orally Twice a day Active 1 capsule with food Trileptal ND 79152045919 300 MG Orally Active not defined Protonix ND 33386213681 40 MG Orally Twice a day Active 1 tablet Vital Signs Date/Time: Nov 23, 2017 Height 66 in Blood Pressure Diastolic 88 mm Hg Blood Pressure Systolic 128 mm Hg Weight 194.6 lbs Results No Known Results Summary Purpose eClinicalWorks Submission
--- OUTSIDE RECORDS SUMMARY | 2019-03-16 05:20 | XMS REPORT ---
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
--- OUTSIDE RECORDS SUMMARY | 2019-03-16 05:20 | XMS REPORT ---
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 Problem Meniscus, medial, derangement, left M23.304 Active Assessment Right knee pain M25.561 Active Problem Inflammatory arthritis M19.90 Active Problem Chronic fatigue R53.82 Active Medications Medication Code System Code Instructions Start Date End Date Status Dosage Klonopin ND 89995283525 0.5 MG Orally Three times a day Active 1 tablet Methotrexate ND 79921158696 2.5 mg Orally Once a week Nov 15, 2017 Active 4 tabs Geodon ND 19115643748 80 MG Orally Twice a day Active 1 capsule with food Prozac [facility] 68524430993 20 MG Orally Once a day Active 1 capsule in the morning Protonix ND 80553346718 40 MG Orally Twice a day Active 1 tablet Folic Acid ND 45479016426 1 mg Orally Once a day Nov 15, 2017 Active 1 tablet Zorvolex [facility] 11207389608 35 MG Orally Twice a day Nov 15, 2017 Active 1 tab(s) with food as needed Trileptal ND 60935274548 300 MG Orally Active not defined Trazodone HCl ND 95824420953 50 MG Orally Once a day Active 1 tablet at bedtime as needed Vital Signs Date/Time: Nov 17, 2017 Height 66 in Blood Pressure Diastolic 88 mm Hg Blood Pressure Systolic 128 mm Hg Weight 194.6 lbs Results No Known Results Summary Purpose eClinicalWorks Submission
--- OUTSIDE RECORDS SUMMARY | 2019-03-16 05:20 | XMS REPORT | Summary of Care ---
Author Organization Unknown Address Unknown Phone Unavailable Encounter TRISTEN Chi(TALIA) [id number] Date(s): 07/28/14 - 07/28/14 [facility] [address] Discharge Diagnosis: Headache Discharge Disposition: Home Physician Attending: Mervin Crump MD Reason for Visit MIGRAINE Vital Signs Most recent to 1 2 oldest [Reference Range]: Height 167.64 cm (07/28/14 1:50 PM) Temperature Oral 97.7 DegF 98.6 DegF [96.4-99.1 DegF] (07/28/14 4:52 PM) (07/28/14 1:50 PM) Systolic Blood 111 mmHg 148 mmHg Pressure [90-140 (07/28/14 4:52 PM) *HI* mmHg] (07/28/14 1:50 PM) Diastolic Blood 71 mmHg 70 mmHg Pressure [60-90 (07/28/14 4:52 PM) (07/28/14 1:50 PM) mmHg] Respiratory Rate 16 BRMIN 18 BRMIN [14-20 BRMIN] (07/28/14 4:52 PM) (07/28/14 1:50 PM) Peripheral Pulse 72 bpm 60 bpm Rate [60-100 bpm] (07/28/14 4:52 PM) (07/28/14 1:50 PM) Weight 80.909 kg (07/28/14 1:50 PM) Body Mass Index 28.79 m2 (07/28/14 1:50 PM) Problem List Condition Effective Dates Status [...] Active 1PATIENT STATES SHE BREAKS OUT Medications dexamethasone 8 mg, Route: IVP, ONCE, Dosing Weight 80.909, kg, Priority: STAT, Start date: 15:47:00, Stop date: 07/28/14 15:47:00 Start Date: 07/28/14 Stop Date: 07/28/14 Status: Completed diphenhydrAMINE 25 mg, Route: IVP, ONCE, Dosing Weight 80.909, kg, Priority: STAT, Start date: 09/27/13 15:48:00, Stop date: 07/28/14 15:48:00 Start Date: 07/28/14 Stop Date: 07/28/14 Status: Completed Fioricet 300 mg-50 mg-40 mg oral capsule 1-2 cap, PO, Q6H, Headache, # 30 cap, 0 Refill(s) Start Date: 07/28/14 Status: Ordered Fioricet 300 mg-50 mg-40 mg oral capsule 2 tab, Route: PO, Dosing Weight 80.909, kg, ONCE, Start date: 07/28/14 16:32:00, Stop date: 07/28/14 16:32:00 Start Date: 07/28/14 Stop Date: 07/28/14 Status: Completed metoclopramide 10 mg, Route: IVP, Drug form: INJ, ONCE, Dosing Weight 80.909, kg, Priority: STA T, Start date: 07/28/14 15:47:00, Stop date: 07/28/14 15:47:00 Start Date: 07/28/14 Stop Date: 07/28/14 Status: Completed Sodium Chloride 0.9% (Bolus) IV 1,000 mL, 1,000 ml/hr, Infuse Over: 1 hr, Route: IV, ONCE, Priority: STAT, Dosin g Weight 80.909 kg, Start date: 07/28/14 15:48:00, Duration: 1 doses or times, S top date: 07/28/14 15:48:00 Start Date: 07/28/14 Stop Date: 07/28/14 Status: Completed Medications Administered During Your Visit [...]
--- OUTSIDE RECORDS SUMMARY | 2019-03-16 05:20 | XMS REPORT ---
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 Assessment Inflammatory arthritis M19.90 Active Problem Chronic pain disorder G89.4 Active [...] Instructions Start Date End Date Status Dosage Trileptal [facility] 49241373392 300 MG Orally Active not defined Methotrexate ND 14343216724 2.5 mg Orally Once a week Active 4 tabs Protonix ND 71751603093 40 MG Orally Twice a day Active 1 tablet Prozac ND 76235339488 20 MG Orally Once a day Active 1 capsule in the morning Klonopin ND 05003192945 0.5 MG Orally Three times a day Active 1 tablet Nalfon [facility] 70106164815 400 MG Orally Twice a day Nov 21, 2017 Inactive 1 tab(s) with food as needed Trazodone HCl [facility] 82592540321 50 MG Orally Once a day Active 1 tablet at bedtime as needed Geodon [facility] 21536361430 80 MG Orally Twice a day Active 1 capsule with food Nabumetone [facility] 84064413915 750 MG Orally bid November 24, 2017 March 24, 2018 Active 1 tab(s) with food as needed Folic Acid [facility] 94875871672 1 mg Orally Once a day Active 1 tablet Vital Signs Date/Time: November 24, 2017 Height 66 in Blood Pressure Diastolic 68 mm Hg Blood Pressure Systolic 114 mm Hg Weight 192 lbs Results No Known Results Summary Purpose eClinicalWorks Submission
--- OUTSIDE RECORDS SUMMARY | 2019-03-16 05:20 | XMS REPORT ---
Author Author Cecy Rush Organization [employer] Address Unknown Phone Unavailable Care Team Providers Care Construction Trades Contractor Name Role Phone Cecy Rush CP Unavailable Allergies, Adverse Reactions, Alerts Substance Reaction Event Type toradol Info Not Available Non Drug Allergy motrin Info Not Available Non Drug Allergy tramadol Info Not Available Non Drug Allergy imitrex Info Not Available Non Drug Allergy Problems Problem Type Condition Code Onset Dates Condition Status Assessment Fibromyalgia M79.7 Active Assessment Right knee pain M25.561 Active Assessment Inflammatory arthritis M19.90 Active Problem [...] Start Date End Date Status Dosage Klonopin [facility] 58863179901 0.5 MG Orally Three times a day Active 1 tablet Prozac [facility] 83685977294 20 MG Orally Once a day Active 1 capsule in the morning Trileptal [facility] 80563193561 300 MG Orally Active not defined Celecoxib ND 04865153494 200 MG Orally Twice a day Active 1 capsule with food Protonix [facility] 46398503851 40 MG Orally Twice a day Active 1 tablet Trazodone HCl [facility] 45259351846 50 MG Orally Once a day Active 1 tablet at bedtime as needed Folic Acid [facility] 42513029460 1 mg Orally Once a day Active 1 tablet Methotrexate [facility] 59926635493 2.5 mg Orally Once a week Active 4 tabs Enbrel SureClpal [facility] 03276246674 50 MG/ML Subcutaneous Once a week Active 1 ml Geosudarshan [facility] 68548800150 80 MG Orally Twice a day Active 1 capsule with food Vital Signs Date/Time: January 04, 2018 Height 66 in Blood Pressure Diastolic 80 mm Hg Blood Pressure Systolic 128 mm Hg Weight 185.6 lbs Results No Known Results Summary Purpose eClinicalWorks Submission
--- OUTSIDE RECORDS SUMMARY | 2019-03-16 05:20 | XMS REPORT ---
Author Author Cecy Rush Organization [employer] Address Unknown Phone Unavailable Care Team Providers Care Tv Production Assistant Name Role Phone RenucapoCecy CP Unavailable Allergies, [...] Instructions Start Date End Date Status Dosage Trazodone HCl ND 07430949446 50 MG Orally Once a day Active 1 tablet at bedtime as needed Celecoxib ND 31598221213 200 MG Orally Twice a day Active 1 capsule with food Geodon ND 64502414670 80 MG Orally Twice a day Active 1 capsule with food Enbrel SureClick [facility] 56169042168 50 MG/ML Subcutaneous Once a week December 28, 2017 January 27, 2018 Active 1 ml Prozac ND 13557938264 20 MG Orally Once a day Active 1 capsule in the morning Protonix ND 00288691801 40 MG Orally Twice a day Active 1 tablet Folic Acid ND 17693656061 1 mg Orally Once a day Active 1 tablet Trileptal [facility] 29311619095 300 MG Orally Active not defined Methotrexate [facility] 65224836427 2.5 mg Orally Once a week Active 4 tabs Klonopin [facility] 25418902432 0.5 MG Orally Three times a day Active 1 tablet Vital Signs Date/Time: December 28, 2017 Height 66 in Blood Pressure Diastolic 80 mm Hg Blood Pressure Systolic 116 mm Hg Weight 184.6 lbs Results No Known Results Summary Purpose eClinicalWorks Submission
--- OUTSIDE RECORDS SUMMARY | 2019-03-16 05:20 | XMS REPORT ---
Author Author Cecy Rush Organization [employer] Address Unknown Phone Unavailable Care Team Providers Care Concrete Wall Grinder Operator Name Role Phone Cecy Rush CP Unavailable [...]
--- OUTSIDE RECORDS SUMMARY | 2019-03-16 05:20 | XMS REPORT ---
Author Author Cecy Rush Organization [employer] Address Unknown Phone Unavailable Care Team Providers Care Commodity Broker Name Role Phone Cecy Rush CP Unavailable [...] Instructions Start Date End Date Status Dosage Nalfon [facility] 08627966421 400 MG Orally Twice a day Nov 21, 2017 Active 1 tab(s) with food as needed Results No Known Results Summary Purpose eClinicalWorks Submission
--- OUTSIDE RECORDS SUMMARY | 2019-03-16 05:20 | XMS REPORT ---
Author Author Cecy Rush Organization [employer] Address Unknown Phone Unavailable Care Team Providers Care Flat Folding Machine Operator Name Role Phone Cecy Rush CP [...] Date End Date Status Dosage Trileptal [facility] 46625393994 300 MG Orally Active not defined Nabumetone [facility] 02358192934 750 MG Orally bid November 24, 2017 March 24, 2018 Active 1 tab(s) with food as needed Folic Acid ND 38358740356 1 mg Orally Once a day April 19, 2018 Active 1 tablet Prozac [facility] 57279049395 20 MG Orally Once a day Active 1 capsule in the morning Geodon [facility] 97038285007 80 MG Orally Twice a day Active 1 capsule with food Trazodone HCl [facility] 13294712079 50 MG Orally Once a day Active 1 tablet at bedtime as needed Celecoxib [facility] 96875602067 200 MG Orally Twice a day December 20, 2017 April 19, 2018 Active 1 capsule with food Klonopin [facility] 19394663594 0.5 MG Orally Three times a day Active 1 tablet Methotrexate [facility] 62049157204 2.5 mg Orally Once a week Active 4 tabs Protonix [facility] 91743450094 40 MG Orally Twice a day Active 1 tablet Vital Signs Date/Time: December 20, 2017 Height 66 in Blood Pressure Diastolic 73 mm Hg Blood Pressure Systolic 109 mm Hg Weight 178 lbs Results No Known Results Summary Purpose eClinicalWorks Submission
--- OUTSIDE RECORDS SUMMARY | 2019-03-16 05:20 | XMS REPORT ---
Author Author Cecy Rush Organization [employer] Address Unknown Phone Unavailable Care Team Providers Care Service Center Appraiser Name Role Phone Cecy Rush CP Unavailable [...]
--- OUTSIDE RECORDS SUMMARY | 2019-03-16 05:20 | XMS REPORT ---
Author Author Cecy Rush Organization [employer] Address Unknown Phone Unavailable Care Team Providers Care Follow Up Rep Name Role Phone Cecy Rush CP Unavailable [...]
--- OUTSIDE RECORDS SUMMARY | 2019-03-16 05:20 | XMS REPORT ---
Author Author Cecy Rush Organization [employer] Address Unknown Phone Unavailable Care Team Providers Care Diabetes Specialist Name Role Phone Cecy Rush CP Unavailable [...] Instructions Start Date End Date Status Dosage Folic Acid [facility] 98011766803 1 mg Orally Once a day Nov 15, 2017 Active 1 tablet Methotrexate [facility] 19459777670 2.5 mg Orally Once a week Nov 15, 2017 Active 4 tabs Results No Known Results Summary Purpose eClinicalWorks Submission
--- OUTSIDE RECORDS SUMMARY | 2019-03-16 05:20 | XMS REPORT ---
Author Author Cecy Rush Organization [employer] Address Unknown Phone Unavailable Care Team Providers Care Embroidery Patternmaker Name Role Phone Cecy Rush CP Unavailable [...] Instructions Start Date End Date Status Dosage Zorvolex [facility] 34844245641 35 MG Orally Twice a day Nov 15, 2017 Inactive 1 tab(s) with food as needed Nalfon [facility] 84306745326 400 MG Orally Twice a day Nov 21, 2017 March 21, 2018 Active 1 tab(s) with food as needed Results No Known Results Summary Purpose eClinicalWorks Submission
--- OUTSIDE RECORDS SUMMARY | 2019-03-16 05:21 | XMS REPORT ---
Author Author Cecy Rush Organization [employer] Address Unknown Phone Unavailable Care Team Providers Care Nurse Advisor Name Role Phone Cecy Rush CP Unavailable Encounters Encounter Location Date F/U [facility] Aug [facility], 2016 lab results [facility] Oct 18, 2016 Unknown [facility] Oct 19, 2016 LETTER\BLOOD WORK RESULTS - needs direction [facility] Oct 20, 2016 Right Wrist MRI [facility] Jul 10, 2015 rt knee MRI [facility] Jul 18, 2015 Follow Up MRI Results [facility] Jul 25, 2015 MRI CD REQUEST [facility] Nov 10, 2016 medication not working [facility] Nov 09, 2016 MEDICATION - FYI [facility] Nov 10, 2016 Problems Problem Type Condition ICD-9 Code Onset Dates Condition Status Problem Fibromyalgia M79.7 Active Problem Chronic fatigue R53.82 Active Problem Inflammatory arthritis M19.90 Active Problem Meniscus, medial, derangement, left M23.304 Active Social History Social History Element Qualifiers Date Reported Smoking status: . Are you a: Current Smoker Nov 09, 2016 alcohol no. Nov 09, 2016 Summary Purpose eClinicalWorks Submission
--- OUTSIDE RECORDS SUMMARY | 2019-03-16 05:21 | XMS REPORT ---
Author Author Cecy Rush Organization [employer] Address Unknown Phone Unavailable Care Team Providers Care Powder Cutting Operator Name Role Phone Cecy Rush CP Unavailable Encounters Encounter Location Date F/U [facility] Aug 30, 2016 lab results [facility] Oct 18, 2016 Unknown [facility] Oct 19, 2016 Right Wrist MRI [facility] Jul 10, 2015 rt knee MRI [facility] Jul 18, 2015 Follow Up MRI Results [facility] Jul 25, 2015 Problems Problem Type Condition ICD-9 Code Onset Dates Condition Status Problem Meniscus, medial, derangement, left M23.304 Active Problem Chronic fatigue R53.82 Active Social History Social History Element Qualifiers Date Reported Smoking status: . Are you a: Current Smoker Oct 19, 2016 alcohol no. Oct 19, 2016 Summary Purpose eClinicalWorks Submission
--- OUTSIDE RECORDS SUMMARY | 2019-03-16 05:21 | XMS REPORT ---
Author Author Cecy Rush Organization [employer] Address Unknown Phone Unavailable Care Team Providers Care Marketing Traffic Coordinator Name Role Phone Cecy Rush CP Unavailable [...]
--- OUTSIDE RECORDS SUMMARY | 2019-03-16 05:21 | XMS REPORT ---
Author Author Cecy Rush Organization [employer] Address Unknown Phone Unavailable Care Team Providers Care Oncologist Name Role Phone Cecy Rush CP Unavailable [...]
--- OUTSIDE RECORDS SUMMARY | 2019-03-16 05:21 | XMS REPORT ---
Author Author Cecy Rush Organization [employer] Address Unknown Phone Unavailable Care Team Providers Care Spring Assembler Supervisor Name Role Phone Franciscamulu Cecy CP Unavailable Allergies, Adverse Reactions, Alerts Substance Reaction Event Type toradol Info Not Available Non Drug Allergy motrin Info Not Available Non Drug Allergy tramadol Info Not Available Non Drug Allergy imitrex Info Not Available Non Drug Allergy Encounters Encounter Location Date F/U [facility] Aug 30, 2016 Right Wrist MRI [facility] Jul 10, 2015 rt knee MRI [facility] Jul 18, 2015 Follow Up MRI Results [facility] Jul 25, 2015 Problems Problem Type Condition ICD-9 Code Onset Dates Condition Status Assessment Chronic fatigue R53.82 Active Assessment Monocytosis D72.821 Active Problem Meniscus, medial, derangement, left M23.304 Active Assessment Pain, joint, multiple sites M25.50 Active Problem Chronic fatigue R53.82 Active Assessment Rheumatoid factor positive R76.8 Active Assessment Counseling NOS Z71.9 Active Assessment Right knee pain M25.561 Active Assessment Meniscus, medial, derangement, left M23.304 Active Medications Medication Code System Code Instructions Start Date End Date Status Dosage Tylenol/Codeine #4 [facility] [address]-49 300-60 MG Orally every 6 hrs Active 1 tablet as needed [place] [facility] [address]-32 10-325 MG Orally every 6 hrs Active 1 tablet as needed Prozac [facility] [address]-73 40 MG Orally Once a day Active 1 capsule in the morning Thorazine Unknown 0 Oral Active 1 tab Lamictal [facility] [address]-33 100 MG Orally daily Active 2 tablets Klonopin [facility] [address]-55 1 mg Orally daily Active 1 tablet Social History Social History Element Qualifiers Date Reported Smoking status: . Are you a: Current Smoker Aug 30, 2016 alcohol no. Aug 30, 2016 Vital Signs Date/Time: Aug 30, 2016 Height 66 in Blood Pressure Diastolic 86 mm Hg Blood Pressure Systolic 131 mm Hg Weight 206.4 lbs Summary Purpose [employer]Works Submission
--- OUTSIDE RECORDS SUMMARY | 2019-03-16 05:21 | XMS REPORT ---
Author Author Cecy Rush Organization [employer] Address Unknown Phone Unavailable Care Team Providers Care Pig Machine Operator Helper Name Role Phone Cecy Rush CP Unavailable [...] Wrist [facility] Jul 10, 2015 PT ORDER REQUEST [facility] Nov 11, 2016 rt knee MRI [facility] Jul 18, 2015 discuss worsening symptoms [facility] Nov 18, 2016 Follow Up MRI Results [facility] Jul 25, 2015 MRI CD REQUEST [facility] Nov 10, 2016 medication not working [facility] Nov 09, 2016 MEDICATION - FYI [facility] Nov 10, 2016 Problems Problem Type Condition ICD-9 Code Onset Dates Condition Status Assessment Rheumatoid factor positive R76.8 Active Assessment Right knee pain M25.561 Active Assessment Meniscus, medial, derangement, left M23.304 Active Problem Inflammatory arthritis M19.90 Active Problem Fibromyalgia M79.7 Active Problem Chronic pain disorder G89.4 Active Assessment Inflammatory arthritis M19.90 Active Assessment Fibromyalgia M79.7 Active Problem Chronic fatigue R53.82 Active Problem Meniscus, medial, derangement, left M23.304 Active Assessment Nausea R11.0 Active Assessment 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 [address]-70 50 MG Orally Once a day Active 1 tablet at bedtime as needed Protonix [facility] [address]-68 40 MG Orally Twice a day Active [address] [facility] [address]-29 20 MG Orally Once a day Active 1 capsule in the morning Promethazine HCl [facility] [address]-72 25 MG Orally every 12 hrs for nausea Active 1 tablet as needed Hydroxychloroquine Sulfate [facility] [address]-72 200 MG Orally Once a day Active 2 tabs Geodon [facility] [address]-82 80 MG Orally Twice a day Active 1 capsule with food Depakote [facility] [address]-61 250 MG Orally Twice a day Active 1 tab in AM, 2 tabs in PM Klonopin [facility] [address]-68 0.5 MG Orally Three times a day Active 1 tablet Social History Social History Element Qualifiers Date Reported Smoking status: . Are you a: Current Smoker Nov 18, 2016 alcohol no. Nov 18, 2016 Vital Signs Date/Time: Nov 18, 2016 Height 66 in Blood Pressure Diastolic 70 mm Hg Blood Pressure Systolic 103 mm Hg Weight 191.8 lbs Summary Purpose [employer] Submission
--- OUTSIDE RECORDS SUMMARY | 2019-03-16 05:21 | XMS REPORT ---
Author Author Cecy Rush Organization [employer] Address Unknown Phone Unavailable Care Team Providers Care Programming Specialist Name Role Phone Cecy Rush CP [...] MRI Results [facility] Jul 25, 2015 medication not working [facility] Nov 09, 2016 MEDICATION - FYI [facility] Nov 10, 2016 Problems Problem Type Condition ICD-9 Code Onset Dates Condition Status Problem Fibromyalgia M79.7 Active Problem Chronic fatigue R53.82 Active Problem Inflammatory arthritis M19.90 Active Assessment Nausea R11.0 Active Problem Meniscus, medial, derangement, left M23.304 Active Assessment Inflammatory arthritis M19.90 Active Medications Medication Code System Code Instructions Start Date End Date Status Dosage Promethazine HCl [facility] [address]-67 25 MG Orally every 12 hrs for nausea Nov 09, 2016 January 09, 2017 Active 1 tablet as needed Hydroxychloroquine Sulfate [facility] [address]-45 200 MG Orally Once a day January 09, 2017 Active 2 tabs Social History Social History Element Qualifiers Date Reported Smoking status: . Are you a: Current Smoker Nov 09, 2016 alcohol no. Nov 09, 2016 Summary Purpose [employer] Submission
--- OUTSIDE RECORDS SUMMARY | 2019-03-16 05:21 | XMS REPORT ---
Author Author Cecy Rush Organization [employer] Address Unknown Phone Unavailable Care Team Providers Care Rat Poisoner Name Role Phone Cecy Rush CP Unavailable [...]
--- OUTSIDE RECORDS SUMMARY | 2019-03-16 05:21 | XMS REPORT ---
Author Author Cecy Rush Organization [employer] Address Unknown Phone Unavailable Care Team Providers Care Operations Officer Afloat Name Role Phone Cecy Rush CP Unavailable [...] not working [facility] Nov 09, 2016 Problems Problem Type Condition ICD-9 Code Onset Dates Condition Status Assessment Counseling NOS Z71.9 Active Assessment Meniscus, medial, derangement, left M23.304 Active Assessment Rheumatoid factor positive R76.8 Active Problem Fibromyalgia M79.7 Active Problem Chronic fatigue R53.82 Active Problem Inflammatory arthritis M19.90 Active Assessment Fibromyalgia M79.7 Active Assessment Right knee pain M25.561 Active Problem Meniscus, medial, derangement, left M23.304 Active Assessment Inflammatory arthritis M19.90 Active Assessment Nausea R11.0 Active Assessment 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 Assessment Chronic fatigue R53.82 Active Medications Medication Code System Code Instructions Start Date End Date Status Dosage [place] [facility] [address]-92 10-325 MG Orally every 6 hrs Active 1 tablet as needed Prozac [facility] [address]-64 20 MG Orally Once a day Active 1 capsule in the morning Depakote [facility] [address]-43 250 MG Orally Twice a day Active 1 tab in AM, 2 tabs in PM Trazodone HCl [facility] [address]-09 50 MG Orally Once a day Active 1 tablet at bedtime as needed Tylenol/Codeine #4 [facility] [address]-60 300-60 MG Orally every 6 hrs Active 1 tablet as needed Lamictal [facility] [address]-16 100 MG Orally daily Active 2 tablets Klonopin [facility] [address]-17 0.5 MG Orally Three times a day Active 1 tablet Geodon [facility] [address]-42 80 MG Orally Twice a day Active 1 capsule with food Hydroxychloroquine Sulfate [facility] [address]-82 200 MG Orally Once a day Active 2 tabs Protonix [facility] [address]-25 40 MG Orally Twice a day Active 1 tablet Promethazine HCl [facility] [address]-20 25 MG Orally every 12 hrs for nausea Nov 09, 2016 February 07, 2017 Active 1 tablet as needed Thorazine Unknown 0 Oral Active 1 tab Social History Social History Element Qualifiers Date Reported Smoking status: . Are you a: Current Smoker Nov 09, 2016 alcohol no. Nov 09, 2016 Vital Signs Date/Time: Nov 09, 2016 Height 66 in Blood Pressure Diastolic 66 mm Hg Blood Pressure Systolic 110 mm Hg Weight 197.3 lbs Summary Purpose [employer]Works Submission
--- OUTSIDE RECORDS SUMMARY | 2019-03-16 05:21 | XMS REPORT ---
Author Author Cecy Rush Organization [employer] Address Unknown Phone Unavailable Care Team Providers Care Field Talent Qualification Specialist Name Role Phone Cecy Rush CP [...]
--- OUTSIDE RECORDS SUMMARY | 2019-03-16 05:21 | XMS REPORT ---
Author Author Cecy Rush Organization [employer] Address Unknown Phone Unavailable Care Team Providers Care Pharmacy Innovation Assistant Name Role Phone Cecy Rush CP Unavailable [...] Instructions Start Date End Date Status Dosage Enbrel Debora [facility] 18220503670 50 MG/ML Subcutaneous Once a week Active 1 ml Results No Known Results Summary Purpose [employer]Works Submission
--- OUTSIDE RECORDS SUMMARY | 2019-03-16 05:21 | XMS REPORT ---
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 Assessment Chronic fatigue R53.82 Active Problem Fibromyalgia M79.7 Active Problem Chronic fatigue R53.82 Active Problem Inflammatory arthritis M19.90 Active Assessment Fibromyalgia M79.7 Active Assessment Right knee pain M25.561 Active Problem Meniscus, medial, derangement, left M23.304 Active Assessment Inflammatory arthritis M19.90 Active Medications Medication Code System Code Instructions Start Date End Date Status Dosage [facility] [address]-38 1 mg Orally daily Active 1 tablet Prozac [facility] [address]-64 40 MG Orally Once a day Active 1 capsule in the morning Lamictal [facility] [address]-38 100 MG Orally daily Active 2 tablets Tylenol/Codeine #4 [facility] [address]-95 300-60 MG Orally every 6 hrs Active 1 tablet as needed Hydroxychloroquine Sulfate [facility] [address]-57 200 MG Orally Once a day Oct 19, 2016 February 16, 2017 Active 2 tabs Thorazine Unknown 0 Oral Active [address] [place] [facility] [address]-12 10-325 MG Orally every 6 hrs Active 1 tablet as needed Social History Social History Element Qualifiers Date Reported Smoking status: . Are you a: Current Smoker Oct 19, 2016 alcohol no. Oct 19, 2016 Vital Signs Date/Time: Oct 19, 2016 Height 66 in Blood Pressure Diastolic 76 mm Hg Blood Pressure Systolic 119 mm Hg Weight 214.4 lbs Summary Purpose eClinicalWorks Submission
--- OUTSIDE RECORDS SUMMARY | 2019-03-16 05:21 | XMS REPORT ---
Author Author Brooke Snow Organization [employer] Address Unknown Phone Unavailable Care Team Providers Care Patient Support Representative Name Role Phone Brooke Snow CP Unavailable Allergies, Adverse Reactions, Alerts Substance Reaction Event Type toradol Info Not Available Non Drug Allergy motrin Info Not Available Non Drug Allergy tramadol Info Not Available Non Drug Allergy imitrex Info Not Available Non Drug Allergy Encounters Encounter Location Date Right Wrist MRI [facility] Jul 10, 2015 rt knee MRI [facility] Jul 18, 2015 Follow Up MRI Results [facility] Jul 25, 2015 Problems Problem Type Condition ICD-9 Code Onset Dates Condition Status Assessment Right knee pain M25.561 Active Assessment Meniscus, medial, derangement, left M23.304 Active Problem Meniscus, medial, derangement, left M23.304 Active Assessment Pain, joint, hand, right M79.641 Active Assessment Counseling NOS Z71.9 Active Assessment Rheumatoid factor positive R76.8 Active Assessment Pain, joint, hand, left M79.642 Active Medications Medication Code System Code Instructions Start Date End Date Status Dosage [facility] [address]-82 300-60 MG Orally every 6 hrs Jul 01, 2015 Active 1 tablet as needed Thorazine Unknown 0 Oral Active 1 tab Plaquenil [facility] [address]-51 200 MG Orally 2 tabs once daily Jul 25, 2015 Sep 23, 2015 Active 1 tablet with food or milk [place] [facility] [address]-04 10-325 MG Orally every 6 hrs Active 1 tablet as needed Nabumetone [facility] [address]-77 750 MG Orally Twice a day as needed Jun 17, 2015 Aug 16, 2015 Active 1 tablet Lamictal [facility] [address]-06 100 MG Orally daily Active 2 tablets Prozac [facility] [address]-32 40 MG Orally Once a day Active 1 capsule in the morning Klonopin [facility] [address]-63 1 mg Orally daily Active 1 tablet Social History Social History Element Qualifiers Date Reported Smoking status: . Are you a: Current Smoker Jul 25, 2015 alcohol no. Jul 25, 2015 Vital Signs Date/Time: Jul 25, 2015 Height 66 in Blood Pressure Diastolic 81 mm Hg Blood Pressure Systolic 115 mm Hg Weight 185.2 lbs Summary Purpose eClinicalWorks Submission
--- OUTSIDE RECORDS SUMMARY | 2019-03-16 05:21 | XMS REPORT ---
Author Author Cecy Rush Organization [employer] Address Unknown Phone Unavailable Care Team Providers Care Cylinder Press Operator Apprentice Name Role Phone Cecy Rush CP Unavailable Allergies, Adverse Reactions, Alerts Substance Reaction Event Type imitrex Info Not Available Non Drug Allergy toradol Info Not Available Non Drug Allergy motrin Info Not Available Non Drug Allergy tramadol Info Not Available Non Drug Allergy Problems Problem Type Condition Code Onset Dates Condition Status Assessment Rheumatoid [...] Date End Date Status Dosage Klonopin [facility] [address]-29 0.5 MG Orally Three times a day Active 1 tablet Hydroxychloroquine Sulfate [facility] 72581852728 200 MG Orally Once a day Active 2 tabs Protonix [facility] [address]-86 40 MG Orally Twice a day Active 1 tablet Prozac [facility] [address]-38 20 MG Orally Once a day Active 1 capsule in the morning Hydroxychloroquine Sulfate [facility] [address]-05 200 MG Orally Once a day January 13, 2017 Inactive 2 tabs Naproxen [facility] [address]-48 500 MG Orally every 12 hrs prn with food January 13, 2017 Active 1 tablet as needed Depakote [facility] [address]-09 250 MG Orally Twice a day Active 1 tab in AM, 2 tabs in PM Trazodone HCl [facility] [address]-69 50 MG Orally Once a day Active 1 tablet at bedtime as needed [place] [facility] [address]-64 80 MG Orally Twice a day Active 1 capsule with food Promethazine HCl [facility] [address]-91 25 MG Orally every 12 hrs for nausea February 12, 2017 Active 1 tablet as needed Vital Signs Date/Time: January 13, 2017 Height 66 in Blood Pressure Diastolic 74 mm Hg Blood Pressure Systolic 104 mm Hg Weight 190 lbs Results No Known Results Summary Purpose eClinicalWorks Submission
--- OUTSIDE RECORDS SUMMARY | 2019-03-16 05:21 | XMS REPORT ---
Author Author Cecy Rush Organization [employer] Address Unknown Phone Unavailable Care Team Providers Care Counter Person Name Role Phone Cecy Rush CP Unavailable [...]
--- OUTSIDE RECORDS SUMMARY | 2019-03-16 05:21 | XMS REPORT ---
Author Author Cecy Rush Organization [employer] Address Unknown Phone Unavailable Care Team Providers Care Carpenter Mate Name Role Phone Cecy Rush CP Unavailable Allergies No Known Allergies Problems Problem Type Condition Code Onset Dates Condition Status Problem Inflammatory arthritis M19.90 Active Problem Fibromyalgia M79.7 Active Problem Chronic pain disorder G89.4 Active Problem Chronic fatigue R53.82 Active Problem Meniscus, medial, derangement, left M23.304 Active Medications No Known Medications Results No Known Results Summary Purpose [employer]Works Submission
--- OUTSIDE RECORDS SUMMARY | 2019-03-16 05:22 | XMS REPORT ---
Author Author [facility] Address Unknown Phone Unavailable Care Team Providers Care Insole And Heel Stiffener Name Role Phone ADELA DEL RIO Unavailable Unavailable JUAN C RAMIREZ Unavailable Unavailable Payers Payer Name Policy Type Policy Number Effective Date Expiration Date Problems This patient has no known problems. Allergies, Adverse Reactions, Alerts Allergy Name Allergy Type Status Severity Reaction(s) Onset Date Inactive Date Treating Clinician Comments dicyclomine DA Active RI 2019-02-26 00:00:00 sumatriptan succinate DA Active RI 2019-02-23 00:00:00 Iodinated Contrast- Oral and IV Dye DA Active 2019-02-23 00:00:00 NSAIDS (Non-Steroidal Anti-Inflamma DA Active U 2019-02-23 00:00:00 Fish Containing Products DA Active 2019-02-23 00:00:00 sumatriptan DA Active U 2019-02-23 00:00:00 tramadol DA Active [place] 2019-02-23 00:00:00 cyclobenzaprine DA Active U 2019-02-23 00:00:00 ketorolac DA Active [place] 2019-02-23 00:00:00 zolmitriptan DA Active [place] 2019-02-23 00:00:00 Iodinated Contrast- Oral and IV Dye DA Active SV 2018-09-23 00:00:00 sumatriptan succinate DA Active MO 2018-03-24 00:00:00 zolmitriptan DA Active MO 2018-03-24 00:00:00 ketorolac DA Active [place] 2018-01-05 00:00:00 cyclobenzaprine DA Active U 2017-10-05 00:00:00 NSAIDS (Non-Steroidal Anti-Inflamma DA Active U 2017-10-04 00:00:00 sumatriptan DA Active U 2017-10-04 00:00:00 Fish Containing Products DA Active SV 2017-08-03 00:00:00 tramadol DA Active [place] 2017-08-03 00:00:00 Medications This patient has no known medications. Encounters Start Date/Time End Date/Time Encounter Type Admission Type Attending [facility] Facility Care Department Encounter ID 2019-02-20 07:11:46 Outpatient [facility] PUL [id number] 2019-02-12 10:40:16 Outpatient [facility] PUL [id number] 2019-02-19 19:13:00 2019-02-19 19:13:00 Emergency E [facility]SE [facility]SE [id number] 2019-02-13 19:22:00 2019-02-13 19:22:00 Emergency E [facility]SE [id number] 2019-02-13 14:07:00 2019-02-13 14:07:00 Emergency E [facility]SE [facility]SE 7605 2019-02-11 16:54:00 2019-02-11 16:54:00 Emergency E [facility]SE [facility]SE [id number] 2019-02-03 15:51:00 2019-02-03 15:51:00 Emergency E [facility]SE 7602 2019-01-31 04:25:00 2019-01-31 04:25:00 Emergency E [facility]SE [facility]SE [id number] 2019-01-30 03:01:00 2019-01-30 03:01:00 Outpatient E [facility] MED 7600 2019-01-12 21:18:00 2019-01-12 21:18:00 Emergency E [facility]SE [facility]SE [id number] 2019-01-02 20:44:00 2019-01-02 20:44:00 Emergency E [facility]SE [facility]SE [id number] Results Test Description Test Time Test Comments Text Results Atomic Results Result Comments MRI ANKLE RIGHT WO 2019-03-08 15:39:00 [place] [address] Patient Name: ADARSH BOYER MR #: [id number] : 1980 Age/Sex: 38/F Req #: [id number] Adm Physician: Ordered by: ADLEA DEL RIO MD Report #: [id number] Location: MRI Room/Bed: Procedure: [id number] MRI/MRI ANKLE RIGHT WO Exam Date: Exam Time: REPORT STATUS: Signed TECHNIQUE: Magnetic resonance imaging of the RIGHT ANKLE was performed WITHOUT injected contrast. Motion artifact partially limits sensitivity and specificity of the exam. HISTORY: EFFUSION/PAIN/CONTUSION/SPRAIN , fall COMPARISON: None available. FINDINGS: LIGAMENTS: Medial Complex: Intact Lateral Complex: Intact, including the tibiofibular ligaments. TENDONS: Medial: Intact Lateral: Complex partial tearing of the distal peroneus brevis tendon. Anterior: Intact Achilles: Intact BONES: No focal or infiltrative bone marrow replacing abnormality. No acute fracture or osteonecrosis. Varus configuration of the foot. Small plantar and moderate dorsal calcaneal enthesophytes. Focal edema within the lateral aspect of the lateral malleolus with a central subtle irregular linear hypointensity. JOINTS: Cartilage: No focal defect involving the tibiotalar joint. Other: Trace subtalar effusion. SOFT TISSUES: Moderate nonspecific superficial soft tissue edema, most notably the medial aspect of the ankle and the lateral aspect of the ankle. IMPRESSION: 1. Nondisplaced, incomplete, fracture of the lateral malleolus with adjacent bone marrow contusion. 2. Moderate nonspecific soft tissue edema. 3. Degenerative partial tearing of the distal peroneus brevis tendon. Signed by: Dr. Edinson Washington D.O., M.M.M. on 03/08/2019 3:50 PM Dictated By: EDINSON WASHINGTON DO 49 Transcribed By: BEATRICE on 03/08/191549 COPY TO: ADELA DEL RIO MD MRI RIGHT KNEE WO 2019-03-08 14:55:00 [place] [address] Patient Name: ADARSH BOYER MR #: [id number] : 1980 Age/Sex: 38/F Req #: [id number] Adm Physician: Ordered by: ADELA DEL RIO MD Report #: [id number] Location: MRI Room/Bed: Procedure: [id number] MRI/MRI RIGHT KNEE WO Exam Date: Exam Time: REPORT STATUS: Signed TECHNIQUE: Magnetic resonance imaging of the RIGHT KNEE was pe rformed WITHOUT injected contrast. HISTORY: EFFUSION/PAIN/CONTUSION/SPRAIN , fall, twisted, pain COMPARISON: None available. FINDINGS: LIGAMENTS AND TENDONS: ACL: Intact, minimal intrasubstance degeneration of the distal ligament. PCL: Intact Collateral ligaments: Intact Iliotibial band: Unremarkable Popliteal tendon: Intact Extensor mechanism: Intact JOINT: Menisci: Medial: Intrasubstance degeneration of the anterior horn near the tibial insertion. Lateral: Intact Articular Cartilage: Medial Compartment: No focal defect. Lateral Compartment: No focal defect. Patellofemoral Compartment: No focal defect. Joint Fluid: Trace effusion and minimally distended lobulated Carranza's cyst. BONES: No focal or infiltrative bone marrow replacing abnormality. No acute fracture. SOFT TISSUES: Mild medial and lateral nonspecific superficial soft tissue edema. IMPRESSION: 1. Trace effusion and minimally distended Carranza's cyst. 2. No acute internal derangement. Signed by: Dr. Edisnon Washington D.O., M.M.M. on 03/08/2019 3:07 PM Dictated By: EDINSON WASHINGTON DO 06 Transcribed By: BEATRICE on 03/08/191506 COPY TO: ADELA DEL RIO MD COMPREHENSIVE METABOLIC PANEL 2019-03-01 02:09:00 SODIUM (test code=NA) 140 mEq/L 134-147 POTASSIUM (test code=K) 3.2 mEq/L 3.4-5.0 CHLORIDE (test code=CL) 110 mEq/L 100-108 CARBON DIOXIDE (test code=CO2) 24 mEq/L 21-33 ANION GAP (test code=GAP) 9 0-20 GLUCOSE (test code=GLU) 116 mg/dL 70-110 BLOOD UREA NITROGEN (test code=BUN) 6 mg/dL 7-18 GLOMERULAR FILTRATION RATE (test code=GFR) 79.9 105-110 Units of measure=ml/min/1.73 m2 CREATININE (test code=CREAT) 0.8 mg/dL 0.6-1.3 TOTAL PROTEIN (test code=PROT) 6.8 g/dL 6.4-8.2 ALBUMIN (test code=ALB) 3.80 g/dL 3.4-5.0 CALCIUM (test code=CA) 8.3 mg/dL 8.0-10.5 BILIRUBIN TOTAL (test code=BILT) 0.20 mg/dL 0.0-1.0 SGOT/AST (test code=AST) 22 IUnit/L 15-37 SGPT/ALT (test code=ALT) 38 IUnit/L 15-65 ALKALINE PHOSPHATASE TOTAL (test code=ALKP) 78 IUnit/L 20-125 [id number] 02:09:00* Test Item Value Reference Range Comments LIPASE (test code=LIP) 179 IUnit/L 73-393 CBC W/AUTO [id number] 01:58:00* Test Item Value Reference Range Comments WHITE BLOOD CELL (test code=WBC) 6.19 x10 3/uL 4.5-11.0 RED BLOOD CELL (test code=RBC) 3.53 x10 6/uL 3.54-5.02 HEMOGLOBIN (test code=HGB) 10.9 g/dL 11.0-15.0 HEMATOCRIT (test code=HCT) 33.2 % 33.0-45.0 MEAN CELL VOLUME (test code=MCV) 94.1 fL 81.0-99.0 MEAN CELL HGB (test code=MCH) 30.9 pg 27.0-33.0 MEAN CELL HGB CONCETRATION (test code=MCHC) 32.8 g/dL 33.0-37.0 RED CELL DISTRIBUTION WIDTH CV (test code=RDW) 13.4 % 11.5-14.5 RED CELL DISTRIBUTION WIDTH SD (test code=RDW-SD) 46.1 fL 37.0-54.0 PLATELET COUNT (test code=PLT) 278 x10 3/uL 150-400 MEAN PLATELET VOLUME (test code=MPV) 9.6 fL 7.0-9.0 NEUTROPHIL % (test code=NT%) 41.7 % 56.0-77.0 IMMATURE GRANULOCYTE % (test code=IG%) 0.8 % 0.0-2.0 LYMPHOCYTE % (test code=LY%) 43.8 % 14.0-32.0 MONOCYTE % (test code=MO%) 10.3 % 4.8-9.0 EOSINOPHIL % (test code=EO%) 2.9 % 0.3-3.7 BASOPHIL % (test code=BA%) 0.5 % 0.0-2.0 NUCLEATED RBC % (test code=NRBC%) 0.0 % 0-0 NEUTROPHIL # (test code=NT#) 2.58 x10 3/uL 2.0-7.6 IMMATURE GRANULOCYTE # (test code=IG#) 0.05 x10 3/uL 0.00-0.03 LYMPHOCYTE # (test code=LY#) 2.71 x10 3/uL 1.0-3.8 MONOCYTE # (test code=MO#) 0.64 x10 3/uL 0.1-0.8 EOSINOPHIL # (test code=EO#) 0.18 x10 3/uL 0.0-0.2 BASOPHIL # (test code=BA#) 0.03 x10 3/uL 0.0-0.2 NUCLEATED RBC # (test code=NRBC#) 0.00 x10 3/uL 0.0-0.1 MANUAL DIFF REQUIRED (test code=MDIFF) NO SLIDE REVIEWED, CONSISTENT WITH AUTO DIFF. URINALYSIS [id number] 01:45:00* Test Item Value Reference Range Comments UA COLOR (test code=COLU) STRAW YEL/STRAW UA APPEARANCE (test code=APPU) CLEAR CLEAR UA GLUCOSE DIPSTICK (test code=DGLUU) NEGATIVE NEGATIVE UA BILIRUBIN DIPSTICK (test code=BILU) NEGATIVE NEGATIVE UA KETONE DIPSTICK (test code=KETU) NEGATIVE NEGATIVE UA SPECIFIC GRAVITY (test code=SGU) 1.002 1.005-1.030 UA BLOOD DIPSTICK (test code=CHI) NEGATIVE NEGATIVE UA PH DIPSTICK (test code=KATHRYN) 6.0 5.0-7.0 UA PROTEIN DIPSTICK (test code=PROU) NEGATIVE NEGATIVE UA UROBILINIOGEN DIPSTICK (test code=URO) 0.2 mg/dL 0.2-1.0 UA NITRITE DIPSTICK (test code=VANDANA) NEGATIVE NEGATIVE UA LEUKOCYTE ESTERASE DIPSTICK (test code=LEUU) TRACE NEGATIVE UA WBC (test code=WBCU) 4-9 WBC/HPF 0-3 UA RBC (test code=RBCU) 0-3 RBC/HPF 0-3 UA BACTERIA (test code=BACU) TRACE /HPF NONE SEEN UA SQUAMOUS CELLS (test code=SQU) 6-10 /HPF NONE SEEN COMMENTS: Clean CatchCBC W/AUTO [id number] 01:38:00* Test Item Value Reference Range Comments WHITE BLOOD CELL (test code=WBC) 6.19 x10 3/uL 4.5-11.0 RED BLOOD CELL (test code=RBC) 3.53 x10 6/uL 3.54-5.02 HEMOGLOBIN (test code=HGB) 10.9 g/dL 11.0-15.0 HEMATOCRIT (test code=HCT) 33.2 % 33.0-45.0 MEAN CELL VOLUME (test code=MCV) 94.1 fL 81.0-99.0 MEAN CELL HGB (test code=MCH) 30.9 pg 27.0-33.0 MEAN CELL HGB CONCETRATION (test code=MCHC) 32.8 g/dL 33.0-37.0 RED CELL DISTRIBUTION WIDTH CV (test code=RDW) 13.4 % 11.5-14.5 RED CELL DISTRIBUTION WIDTH SD (test code=RDW-SD) 46.1 fL 37.0-54.0 PLATELET COUNT (test code=PLT) 278 x10 3/uL 150-400 MEAN PLATELET VOLUME (test code=MPV) 9.6 fL 7.0-9.0 LYMPHOCYTE % (test code=LY%) % 14.0-32.0 MANUAL DIFF REQUIRED (test code=MDIFF) SURGICAL [id number] 13:53:00 RUN DATE: 02/27/19 [facility] *LIVE* PAGE 1 RUN TIME: 1353 Specimen Inqui ry RUN USER: INTERFACE PATIENT: ADARSH BOYER ACCT #: [id number] LOC: [id number] U #: [id number] AGE/SX: 38/F ROOM: [facility] RE02/22/19[facility] DR: Chase Bland MD : [birth year] BED: 1 DIS: 02/23/19 STATUS: DIS Albin TLOC: SPEC #: [id number] RECD: 02/23/19 STATUS: YANE BRUNSON #: [id number] BAHMAN: 02/23/[address]: Chase Bland MD ENTERED: 02/27/19 SP TYPE: SURG SPEC OTHR DR: Kota R eferred Surjit Gee MD, Donald R DOORDERED: GM LEVEL 4 CODES: [id number] - ESOPHAGUS, NOS [id number] - STOMACH, NOS COPIES TO: Self Referred Surjit Gee MD [address] [place], [place] [id number] OTHER PHONE [phone] ( CELL) Edmond Villalobos DO [address] [place], [place] [id number] Chase Bland MD [address] [place], [place] [id number] PROCEDURES: GM LEVEL 4 (Incomplete) TISSUES: 1. STOMACH, NOS - Sto mach, antrum, bx. 2. ESOPHAGUS, NOS - Esophagus, lower third, bx. FINAL DIAGNOSIS Stomach, antrum, bx.: Chronic gastritis, no Helicobacter o rganisms identified. Esophagus, lower third, bx.: Changes suggestive of reflux esophagitis, no intestinal metaplasia identified. CONTINUED ON NEXT PAGE RUN DATE: 02/27/19 [facility] *LIVE* PAGE 2 RUN TIME: 1 353 Specimen Inquiry RUN USER: RYLEE PULIDO VERNELL Camp[place] #: [id number] PATIENT: ADARSH BOYER #[id number] (Katheryn ontamitaued) GROSS AND MICROSCOPIC GROSS EXAMINATION: Receive d in formalin labeled antrum biopsy are 2 garcia tissue fragments measuring up to 0.4 cm (A). Received in formalin labeled esop hagus biopsy are 4 garcia tissue fragments measuring up to 0.3 cm (B). MICROSCOPIC EXAMINATION: Sections of the antral biopsy show changes of chronic gastritis. The lamina propria is mild fibrosis and a chronic inflammatory infiltrate. The glands show s ome reactive changes coiling. No intestinal metaplasia identified with Alci an blue-PAS staining. No Helicobacter organisms identified by immunostai miky. Sections of the esophagus biopsy shows reactive fra gments of squamous mucosa with acanthosis and a mild inflammatory infilt rate imposed of lymphocytes with rare neutrophil and eosinophil area no intestinal metaplasia is identified with Alcian blue-PAS staining. No fungal elements are identified with GMS stain. (When special stains have been reviewed, the appropriate positi ve/negative controls have been reviewed and are appropriately positive/negati ve). POST-OP DIAGNOSIS Yessi esophagitis PRE-OP DIAGNO SIS Abdominal pain, vomiting Signed SIGNATURE ON FILE Rosalinda Martinez DO 02/27/19 1353 END OF REPORT CBC W/AUTO [id number] 19:21:00* Test Item Value Reference Range Comments WHITE BLOOD CELL (test code=WBC) 4.55 x10 3/uL 4.5-11.0 RED BLOOD CELL (test code=RBC) 3.23 x10 6/uL 3.54-5.02 HEMOGLOBIN (test code=HGB) 9.9 g/dL 11.0-15.0 HEMATOCRIT (test code=HCT) 30.9 % 33.0-45.0 MEAN CELL VOLUME (test code=MCV) 95.7 fL 81.0-99.0 MEAN CELL HGB (test code=MCH) 30.7 pg 27.0-33.0 MEAN CELL HGB CONCETRATION (test code=MCHC) 32.0 g/dL 33.0-37.0 RED CELL DISTRIBUTION WIDTH CV (test code=RDW) 13.3 % 11.5-14.5 RED CELL DISTRIBUTION WIDTH SD (test code=RDW-SD) 47.2 fL 37.0-54.0 PLATELET COUNT (test code=PLT) 267 x10 3/uL 150-400 MEAN PLATELET VOLUME (test code=MPV) 9.5 fL 7.0-9.0 NEUTROPHIL % (test code=NT%) 43.2 % 56.0-77.0 IMMATURE GRANULOCYTE % (test code=IG%) 0.2 % 0.0-2.0 LYMPHOCYTE % (test code=LY%) 39.8 % 14.0-32.0 MONOCYTE % (test code=MO%) 12.7 % 4.8-9.0 EOSINOPHIL % (test code=EO%) 3.7 % 0.3-3.7 BASOPHIL % (test code=BA%) 0.4 % 0.0-2.0 NUCLEATED RBC % (test code=NRBC%) 0.7 % 0-0 NEUTROPHIL # (test code=NT#) 1.96 x10 3/uL 2.0-7.6 IMMATURE GRANULOCYTE # (test code=IG#) 0.01 x10 3/uL 0.00-0.03 LYMPHOCYTE # (test code=LY#) 1.81 x10 3/uL 1.0-3.8 MONOCYTE # (test code=MO#) 0.58 x10 3/uL 0.1-0.8 EOSINOPHIL # (test code=EO#) 0.17 x10 3/uL 0.0-0.2 BASOPHIL # (test code=BA#) 0.02 x10 3/uL 0.0-0.2 NUCLEATED RBC # (test code=NRBC#) 0.03 x10 3/uL 0.0-0.1 MANUAL DIFF REQUIRED (test code=MDIFF) NO COMPREHENSIVE METABOLIC [id number] 19:06:00* Test Item Value Reference Range Comments SODIUM (test code=NA) 140 mEq/L 134-147 POTASSIUM (test code=K) 3.6 mEq/L 3.4-5.0 CHLORIDE (test code=CL) 107 mEq/L 100-108 CARBON DIOXIDE (test code=CO2) 24 mEq/L 21-33 ANION GAP (test code=GAP) 13 0-20 GLUCOSE (test code=GLU) 93 mg/dL 70-110 BLOOD UREA NITROGEN (test code=BUN) 6 mg/dL 7-18 GLOMERULAR FILTRATION RATE (test code=GFR) 79.9 105-110 Units of measure=ml/min/1.73 m2 CREATININE (test code=CREAT) 0.8 mg/dL 0.6-1.3 TOTAL PROTEIN (test code=PROT) 6.1 g/dL 6.4-8.2 ALBUMIN (test code=ALB) 3.00 g/dL 3.4-5.0 CALCIUM (test code=CA) 8.3 mg/dL 8.0-10.5 BILIRUBIN TOTAL (test code=BILT) 0.20 mg/dL 0.0-1.0 SGOT/AST (test code=AST) 13 IUnit/L 15-37 SGPT/ALT (test code=ALT) 29 IUnit/L 15-65 ALKALINE PHOSPHATASE TOTAL (test code=ALKP) 83 IUnit/L 20-125 [id number] 19:06:00* Test Item Value Reference Range Comments LIPASE (test code=LIP) 75 IUnit/L 73-393 HCG SERUM [id number] 19:06:00* Test Item Value Reference Range Comments HCG SERUM QUAL (test code=HCGQL) SERUM NEGATIVE NEGATIVE [id number] 19:06:00* Test Item Value Reference Range Comments TROPONIN-I (test code=TROPI) < 0.015 ng/mL 0.000-0.045 Negative: <=0.045 Positive: >=0.046 Correlation with serial results, other cardiac markers andclinical findings is necessary to determine the clinicalsignificance of this result. Results using different methodologies should not be comparedto one another as quantitative results may vary by method. URINALYSIS [id number] 19:03:00* Test Item Value Reference Range Comments UA COLOR (test code=COLU) YELLOW YEL/STRAW UA APPEARANCE (test code=APPU) CLEAR CLEAR UA GLUCOSE DIPSTICK (test code=DGLUU) NEGATIVE NEGATIVE UA BILIRUBIN DIPSTICK (test code=BILU) NEGATIVE NEGATIVE UA KETONE DIPSTICK (test code=KETU) NEGATIVE NEGATIVE UA SPECIFIC GRAVITY (test code=SGU) 1.005 1.005-1.030 UA BLOOD DIPSTICK (test code=CHI) NEGATIVE NEGATIVE UA PH DIPSTICK (test code=KATHRYN) 7.0 5.0-7.0 UA PROTEIN DIPSTICK (test code=PROU) NEGATIVE NEGATIVE UA UROBILINIOGEN DIPSTICK (test code=URO) 0.2 mg/dL 0.2-1.0 UA NITRITE DIPSTICK (test code=VADNANA) NEGATIVE NEGATIVE UA LEUKOCYTE ESTERASE DIPSTICK (test code=LEUU) NEGATIVE NEGATIVE UA WBC (test code=WBCU) 0-3 WBC/HPF 0-3 UA RBC (test code=RBCU) 0-3 RBC/HPF 0-3 UA BACTERIA (test code=BACU) NONE SEEN /HPF NONE SEEN UA SQUAMOUS CELLS (test code=SQU) 6-10 /HPF NONE SEEN COMMENTS: Clean CatchURINALYSIS [id number] 19:02:00* Test Item Value Reference Range Comments UA COLOR (test code=COLU) YELLOW YEL/STRAW UA APPEARANCE (test code=APPU) CLEAR CLEAR UA GLUCOSE DIPSTICK (test code=DGLUU) NEGATIVE NEGATIVE UA BILIRUBIN DIPSTICK (test code=BILU) NEGATIVE NEGATIVE UA KETONE DIPSTICK (test code=KETU) NEGATIVE NEGATIVE UA SPECIFIC GRAVITY (test code=SGU) 1.005 1.005-1.030 UA BLOOD DIPSTICK (test code=CHI) NEGATIVE NEGATIVE UA PH DIPSTICK (test code=KATHRYN) 7.0 5.0-7.0 UA PROTEIN DIPSTICK (test code=PROU) NEGATIVE NEGATIVE UA UROBILINIOGEN DIPSTICK (test code=URO) 0.2 mg/dL 0.2-1.0 UA NITRITE DIPSTICK (test code=VANDANA) NEGATIVE NEGATIVE UA LEUKOCYTE ESTERASE DIPSTICK (test code=LEUU) NEGATIVE NEGATIVE UA WBC (test code=WBCU) WBC/HPF 0-3 UA RBC (test code=RBCU) RBC/HPF 0-3 COMMENTS: Clean CatchCOMPREHENSIVE METABOLIC [id number] 18:57:00* Test Item Value Reference Range Comments SODIUM (test code=NA) mEq/L 134-147 POTASSIUM (test code=K) mEq/L 3.4-5.0 CHLORIDE (test code=CL) mEq/L 100-108 CARBON DIOXIDE (test code=CO2) mEq/L 21-33 ANION GAP (test code=GAP) 0-20 GLUCOSE (test code=GLU) mg/dL 70-110 BLOOD UREA NITROGEN (test code=BUN) mg/dL 7-18 GLOMERULAR FILTRATION RATE (test code=GFR) 105-110 CREATININE (test code=CREAT) mg/dL 0.6-1.3 TOTAL PROTEIN (test code=PROT) g/dL 6.4-8.2 ALBUMIN (test code=ALB) g/dL 3.4-5.0 CALCIUM (test code=CA) mg/dL 8.0-10.5 BILIRUBIN TOTAL (test code=BILT) mg/dL 0.0-1.0 SGOT/AST (test code=AST) IUnit/L 15-37 SGPT/ALT (test code=ALT) IUnit/L 15-65 ALKALINE PHOSPHATASE TOTAL (test code=ALKP) IUnit/L 20-125 [id number] 18:57:00* Test Item Value Reference Range Comments LIPASE (test code=LIP) IUnit/L 73-393 HCG SERUM [id number] 18:57:00* Test Item Value Reference Range Comments HCG SERUM QUAL (test code=HCGQL) SERUM NEGATIVE NEGATIVE [id number] 18:57:00* Test Item Value Reference Range Comments TROPONIN-I (test code=TROPI) ng/mL 0.000-0.045 - CT ABD PELVIS W/O [id number] 18:55:00 Name: ADARSH BOEYR [facility] : 1980 Age/S: 38 / F [address] [place] [address] Unit #: [id number] Loc: [place] [address] Phys: Rhina Calhoun DO Acct: [id number] Dis Date: Status: REG ER PHONE #: [phone] Exam Date: 02/23/2019 1839 FAX #: [phone] Reason: diffused abdominal pain EXAMS: CPT CODE: [id number] CT ABD PELVIS W/O CONT 71747 CT ABDOMEN AND PELVIS WITHOUT CONTRAST Clinical Indication: Diffuse abdominal pain. Comparison: CT 02/22/2019. TECHNIQUE: Helical imaging was performed diaphragm through the symphysis with multiplanar reconstructions. Images reviewed in 3 planes. IV CONTRAST: None. GI CONTRAST: None. DLP: 754 mGy-cm FINDINGS: This examination is limited for the evaluation of solid organs and vascular structures due to lack of intravenous contrast. Mild atelectatic changes are demonstrated within each lung base. No pleural abnormality. Included mediastinum is grossly normal. Normal noncontrast appearance of the liver, pancreas, spleen, adrenal glands and kidneys. No urinary calculus or obstruction. No perinephric edema. There is evidence of gastric surgery and cholecystectomy. No evidence of acute bowel pathology. The appendix is not visualized. Postoperative changes are suggested at the cecal apex. The urinary bladder is unremarkable. No adnexal mass. Absent uterus. Incidental retroperitoneal phlebolith is demonstrated within the right lower abdominal quadrant. No adenopathy, inflammatory change or free fluid is demonstrated. No acute skeletal process or focal bone lesion is apparent. IMPRESSION: No acute finding. SL: [id number] PAGE 1 Signed Report (CONTINUED) Name: ADARSH BOYER [facility] : 1980 Age/S: 38 / F [address] [place] [address] Unit #: [id number] Loc: [place] [address] Phys: Yanely Calhounalise HARRINGTON Acct: [id number] Dis Date: Status: REG ER PHONE #: [phone] Exam Date: 02/23/2019 1839 FAX #: [phone] Reason: diffused abdominal pain EXAMS: CPT CODE: [id number] CT ABD PELVIS W/O CONT 80461 <Continued> at 1855 Reported and signed by: Malcolm Parker M.D. CC: Rhina Calhoun DO; Edmond Villalobos DO Technologist:Carie Santiago, RT(R) CTDI: DLP: Trnscb Date/Time: 02/23/2019 (1854) [email or web address] Orig Print D/T: S: 02/23/2019 (1857) PAGE 2 Signed Report - XR CHEST 1 [id number] 18:07:00 FAX: Rhina Johns DO [phone] [place]: St: REG FAX: Edmond Penn DO [phone] Name: ADARSH BOYER [facility] : 1980 Age/S: 38/F [address] [place] [address] Unit #: [id number] Loc: [place] [address] Phys: Yanely Calhounalise HARRINGTON Acct: [id number] Dis Date: Status: REG ER PHONE #: [phone] Exam Date: 02/23/2019 1759 FAX #: [phone] Reason: Abdominal Pain EXAMS: CPT CODE: [id number] XR CHEST 1 V 45294 Clinical Indication: Abdominal Pain Comparison: January 05, 2019 FINDINGS: The frontal chest radiograph shows normal lung volumes. No interstitial or airspace opacities are seen. No pleural effusions are present. No pneumothorax is seen. The heart is normal in size. The trachea is midline. There are no clinically significant osseous abnormalities noted. IMPRESSION: No chest radiographic evidence of acute cardiopulmonary disease. SL: [id number] at 1807 Reported and signed by: Krystian Galicia M.D. CC: Rhina Calhoun DO; Edmond Villalobos DO Technologist: Isha Landaverde, RT(R); Tamra Deutsch RT(R) Trnscrd Date/Time/By: 02/23/2019 (180) : By: DaliLNV Orig Print D/T: S: 02/23/2019 (1810) PAGE 1 Signed Report CBC W/AUTO [id number] 08:31:00* Test Item Value Reference Range Comments WHITE BLOOD CELL (test code=WBC) 4.40 x10 3/uL 4.5-11.0 RED BLOOD CELL (test code=RBC) 3.28 x10 6/uL 3.54-5.02 HEMOGLOBIN (test code=HGB) 10.2 g/dL 11.0-15.0 HEMATOCRIT (test code=HCT) 32.6 % 33.0-45.0 MEAN CELL VOLUME (test code=MCV) 99.4 fL 81.0-99.0 MEAN CELL HGB (test code=MCH) 31.1 pg 27.0-33.0 MEAN CELL HGB CONCETRATION (test code=MCHC) 31.3 g/dL 33.0-37.0 RED CELL DISTRIBUTION WIDTH CV (test code=RDW) 13.3 % 11.5-14.5 RED CELL DISTRIBUTION WIDTH SD (test code=RDW-SD) 49.1 fL 37.0-54.0 PLATELET COUNT (test code=PLT) 260 x10 3/uL 150-400 MEAN PLATELET VOLUME (test code=MPV) 9.8 fL 7.0-9.0 NEUTROPHIL % (test code=NT%) 48.5 % 56.0-77.0 IMMATURE GRANULOCYTE % (test code=IG%) 0.2 % 0.0-2.0 LYMPHOCYTE % (test code=LY%) 36.8 % 14.0-32.0 MONOCYTE % (test code=MO%) 9.8 % 4.8-9.0 EOSINOPHIL % (test code=EO%) 4.5 % 0.3-3.7 BASOPHIL % (test code=BA%) 0.2 % 0.0-2.0 NUCLEATED RBC % (test code=NRBC%) 0.0 % 0-0 NEUTROPHIL # (test code=NT#) 2.13 x10 3/uL 2.0-7.6 IMMATURE GRANULOCYTE # (test code=IG#) 0.01 x10 3/uL 0.00-0.03 LYMPHOCYTE # (test code=LY#) 1.62 x10 3/uL 1.0-3.8 MONOCYTE # (test code=MO#) 0.43 x10 3/uL 0.1-0.8 EOSINOPHIL # (test code=EO#) 0.20 x10 3/uL 0.0-0.2 BASOPHIL # (test code=BA#) 0.01 x10 3/uL 0.0-0.2 NUCLEATED RBC # (test code=NRBC#) 0.00 x10 3/uL 0.0-0.1 MANUAL DIFF REQUIRED (test code=MDIFF) NO BASIC METABOLIC [id number] 07:56:00* Test Item Value Reference Range Comments SODIUM (test code=NA) 143 mEq/L 134-147 POTASSIUM (test code=K) 4.1 mEq/L 3.4-5.0 CHLORIDE (test code=CL) 113 mEq/L 100-108 CARBON DIOXIDE (test code=CO2) 26 mEq/L 21-33 ANION GAP (test code=GAP) 8 0-20 GLUCOSE (test code=GLU) 89 mg/dL 70-110 BLOOD UREA NITROGEN (test code=BUN) 5 mg/dL 7-18 GLOMERULAR FILTRATION RATE (test code=GFR) 79.9 105-110 Units of measure=ml/min/1.73 m2 CREATININE (test code=CREAT) 0.8 mg/dL 0.6-1.3 CALCIUM (test code=CA) 8.5 mg/dL 8.0-10.5 PROTHROMBIN [id number] 05:19:00* Test Item Value Reference Range Comments PROTHROMBIN TIME PATIENT (test code=PTP) 11.2 SECONDS 9.3-12.9 INTERNATIONAL NORMAL RATIO (test code=INR) 1.0 0.8-1.2 TARGET INR BY INDICATION Indication INR1. Prophylaxis of venous thrombosis 2.0 - 3.0 (orthopedic surgery), Prophylaxis of venous thrombosis (other than high-risk surgery), Treatment of Deep Vein Thrombosis/Pulmonary Embolism, Prevention of systemic embolism - Tissue heart valves, Acute Myocardial Infarction (to prevent systemic embolism), Valvular heart disease, Atrial Fibrillation, Bileaflet mechanical valve in aortic position.2. Mechanical prosthetic valves (high risk), 2.5 - 3.5 Presence of Lupus Anticoagulant or Antiphospholipid Antibodies, Prevention of systemic embolism - Acute Myocardial Infarction (to prevent recurrent infarct). THROMBOPLASTIN TIME [id number] 05:19:00* Test Item Value Reference Range Comments THROMBOPLASTIN TIME PARTIAL (test code=PTT) 34.7 Seconds 25.0-39.5 Therapeutic Range: 50.4 - 88.3 Seconds Effective 01/09/2019 CHEMISTRY 8 [id number] 05:23:00* Test Item Value Reference Range Comments ISTAT-SODIUM (test code=NAP) MMOL/L 134-147 ISTAT-POTASSIUM (test code=KP) MMOL/L 3.4-5.0 ISTAT-CHLORIDE (test code=CLP) MMOL/L 100-108 ISTAT CARBON DIOXIDE (test code=ISTAT-CO2) mmol/L 21-33 ISTAT CALCIUM IONIZED (test code=ISTAT-TAISHA) MG/DL 1.12-1.32 ISTAT-GLUCOSE (test code=GLUP) MG/DL 70-110 ISTAT-BUN (test code=BUNP) MG/DL 7-18 BEDSIDE CREATININE (test code=CREATBED) MG/DL 0.6-1.3 GLOMERULAR FILTRATION RATE POC (test code=GFRBED) 99 ML/MIN CHEMISTRY 8 [id number] 05:23:00* Test Item Value Reference Range Comments ISTAT-SODIUM (test code=NAP) 140 MMOL/L 134-147 ISTAT-POTASSIUM (test code=KP) 3.5 MMOL/L 3.4-5.0 ISTAT-CHLORIDE (test code=CLP) 105 MMOL/L 100-108 Performed by certified forest fire equipment operator at [facility] ISTAT CARBON DIOXIDE (test code=ISTAT-CO2) 22.0 mmol/L 21-33 ISTAT CALCIUM IONIZED (test code=ISTAT-TAISHA) 1.29 MG/DL 1.12-1.32 ISTAT-GLUCOSE (test code=GLUP) 115 MG/DL 70-110 ISTAT-BUN (test code=BUNP) < 3 MG/DL 7-18 BEDSIDE CREATININE (test code=CREATBED) 0.7 MG/DL 0.6-1.3 GLOMERULAR FILTRATION RATE POC (test code=GFRBED) 99 ML/MIN URINALYSIS [id number] 03:54:00* Test Item Value Reference Range Comments UA COLOR (test code=COLU) YELLOW YEL/STRAW UA APPEARANCE (test code=APPU) CLEAR CLEAR UA GLUCOSE DIPSTICK (test code=DGLUU) NEGATIVE NEGATIVE UA BILIRUBIN DIPSTICK (test code=BILU) NEGATIVE NEGATIVE UA KETONE DIPSTICK (test code=KETU) NEGATIVE NEGATIVE UA SPECIFIC GRAVITY (test code=SGU) 1.004 1.005-1.030 UA BLOOD DIPSTICK (test code=CHI) NEGATIVE NEGATIVE UA PH DIPSTICK (test code=KATHRYN) 6.0 5.0-7.0 UA PROTEIN DIPSTICK (test code=PROU) NEGATIVE NEGATIVE UA UROBILINIOGEN DIPSTICK (test code=URO) 0.2 mg/dL 0.2-1.0 UA NITRITE DIPSTICK (test code=VANDANA) NEGATIVE NEGATIVE UA LEUKOCYTE ESTERASE DIPSTICK (test code=LEUU) NEGATIVE NEGATIVE UA WBC (test code=WBCU) 0-3 WBC/HPF 0-3 UA RBC (test code=RBCU) 0-3 RBC/HPF 0-3 UA BACTERIA (test code=BACU) NONE SEEN /HPF NONE SEEN UA SQUAMOUS CELLS (test code=SQU) 11-25 /HPF NONE SEEN COMMENTS: Clean CatchLACTIC [id number] 03:41:00* Test Item Value Reference Range Comments LACTIC ACID (test code=LACT) 0.8 mmol/L 0.4-1.9 CBC W/AUTO [id number] 02:49:00* Test Item Value Reference Range Comments WHITE BLOOD CELL (test code=WBC) 4.63 x10 3/uL 4.5-11.0 RED BLOOD CELL (test code=RBC) 3.37 x10 6/uL 3.54-5.02 HEMOGLOBIN (test code=HGB) 10.4 g/dL 11.0-15.0 HEMATOCRIT (test code=HCT) 31.9 % 33.0-45.0 MEAN CELL VOLUME (test code=MCV) 94.7 fL 81.0-99.0 MEAN CELL HGB (test code=MCH) 30.9 pg 27.0-33.0 MEAN CELL HGB CONCETRATION (test code=MCHC) 32.6 g/dL 33.0-37.0 RED CELL DISTRIBUTION WIDTH CV (test code=RDW) 13.6 % 11.5-14.5 RED CELL DISTRIBUTION WIDTH SD (test code=RDW-SD) 47.2 fL 37.0-54.0 PLATELET COUNT (test code=PLT) 272 x10 3/uL 150-400 MEAN PLATELET VOLUME (test code=MPV) 9.4 fL 7.0-9.0 NEUTROPHIL % (test code=NT%) 36.8 % 56.0-77.0 IMMATURE GRANULOCYTE % (test code=IG%) 0.4 % 0.0-2.0 LYMPHOCYTE % (test code=LY%) 43.6 % 14.0-32.0 MONOCYTE % (test code=MO%) 12.3 % 4.8-9.0 EOSINOPHIL % (test code=EO%) 6.3 % 0.3-3.7 BASOPHIL % (test code=BA%) 0.6 % 0.0-2.0 NUCLEATED RBC % (test code=NRBC%) 0.0 % 0-0 NEUTROPHIL # (test code=NT#) 1.70 x10 3/uL 2.0-7.6 IMMATURE GRANULOCYTE # (test code=IG#) 0.02 x10 3/uL 0.00-0.03 LYMPHOCYTE # (test code=LY#) 2.02 x10 3/uL 1.0-3.8 MONOCYTE # (test code=MO#) 0.57 x10 3/uL 0.1-0.8 EOSINOPHIL # (test code=EO#) 0.29 x10 3/uL 0.0-0.2 BASOPHIL # (test code=BA#) 0.03 x10 3/uL 0.0-0.2 NUCLEATED RBC # (test code=NRBC#) 0.00 x10 3/uL 0.0-0.1 MANUAL DIFF REQUIRED (test code=MDIFF) NO SLIDE REVIEWED, CONSISTENT WITH AUTO DIFF. COMPREHENSIVE METABOLIC [id number] 02:49:00* Test Item Value Reference Range Comments SODIUM (test code=NA) 141 mEq/L 134-147 POTASSIUM (test code=K) 3.5 mEq/L 3.4-5.0 CHLORIDE (test code=CL) 111 mEq/L 100-108 CARBON DIOXIDE (test code=CO2) 25 mEq/L 21-33 ANION GAP (test code=GAP) 9 0-20 GLUCOSE (test code=GLU) 114 mg/dL 70-110 BLOOD UREA NITROGEN (test code=BUN) 6 mg/dL 7-18 GLOMERULAR FILTRATION RATE (test code=GFR) 79.9 105-110 Units of measure=ml/min/1.73 m2 CREATININE (test code=CREAT) 0.8 mg/dL 0.6-1.3 TOTAL PROTEIN (test code=PROT) 6.2 g/dL 6.4-8.2 ALBUMIN (test code=ALB) 3.20 g/dL 3.4-5.0 CALCIUM (test code=CA) 8.5 mg/dL 8.0-10.5 BILIRUBIN TOTAL (test code=BILT) 0.10 mg/dL 0.0-1.0 SGOT/AST (test code=AST) 12 IUnit/L 15-37 SGPT/ALT (test code=ALT) 36 IUnit/L 15-65 ALKALINE PHOSPHATASE TOTAL (test code=ALKP) 80 IUnit/L 20-125 [id number] 02:49:00* Test Item Value Reference Range Comments LIPASE (test code=LIP) 111 IUnit/L 73-393 HCG SERUM [id number] 02:49:00* Test Item Value Reference Range Comments HCG SERUM QUAL (test code=HCGQL) SERUM NEGATIVE NEGATIVE COMPREHENSIVE METABOLIC [id number] 02:42:00* Test Item Value Reference Range Comments SODIUM (test code=NA) 141 mEq/L 134-147 POTASSIUM (test code=K) 3.5 mEq/L 3.4-5.0 CHLORIDE (test code=CL) 111 mEq/L 100-108 CARBON DIOXIDE (test code=CO2) 25 mEq/L 21-33 ANION GAP (test code=GAP) 9 0-20 GLUCOSE (test code=GLU) 114 mg/dL 70-110 BLOOD UREA NITROGEN (test code=BUN) 6 mg/dL 7-18 GLOMERULAR FILTRATION RATE (test code=GFR) 79.9 105-110 Units of measure=ml/min/1.73 m2 CREATININE (test code=CREAT) 0.8 mg/dL 0.6-1.3 TOTAL PROTEIN (test code=PROT) g/dL 6.4-8.2 ALBUMIN (test code=ALB) 3.20 g/dL 3.4-5.0 CALCIUM (test code=CA) 8.5 mg/dL 8.0-10.5 BILIRUBIN TOTAL (test code=BILT) mg/dL 0.0-1.0 SGOT/AST (test code=AST) 12 IUnit/L 15-37 SGPT/ALT (test code=ALT) 36 IUnit/L 15-65 ALKALINE PHOSPHATASE TOTAL (test code=ALKP) IUnit/L 20-125 [id number] 02:42:00* Test Item Value Reference Range Comments LIPASE (test code=LIP) 111 IUnit/L 73-393 HCG SERUM [id number] 02:42:00* Test Item Value Reference Range Comments HCG SERUM QUAL (test code=HCGQL) SERUM NEGATIVE NEGATIVE - CT ABD PELVIS W/O [id number] 02:37:00 Name: ADARSH BOYER [facility] : 1980 Age/S: 38 / F [address] [place] [address] Unit #: [id number] Loc: [place] [address] Phys: Dhiraj Shahid MD Acct: [id number] Dis Date: Status: REG ER PHONE #: [phone] Exam Date: 02/22/2019 0213 FAX #: [phone] Reason: RIGHT FLANK PAIN, EVALUATE FOR RENAL STONE EXAMS: CPT CODE: [id number] CT ABD PELVIS W/O CONT 52576 CT abdomen pelvis without IV or oral contrast Technique: Axial images were obtained from the lung bases to the pubic symphysis without IV or oral contrast. Coronal and sagittal reformats were provided. Lack of contrast limits evaluation of the solid organs and hollow viscera. This exam was performed according to our departmental dose optimization program which includes automated exposure control, adjustment of the mA and/or kV according to patient size and/or use of iterative reconstruction technique. DLP 689.29 History: Right flank pain. Evaluate for renal stone. Comparison: CT abdomen pelvis 01/05/2019 Findings: Lower chest: Clear lung bases. Liver: The liver is enlarged measuring 21 cm in craniocaudal direction. Gallbladder and biliary tree: Cholecystectomy. No biliary dilatation. Spleen: The spleen is at the upper limits of normal for size. Adrenal Glands: No signi ficant findings. Pancreas: The pancreas is slightly atrophic and o therwise unremarkable. Kidneys and ureters: The kidneys are normal in shape and contour without evidence of hydronephrosis. No obstru cting urolithiasis. A right ovarian vein phlebolith is noted. No nonobst ructing renal stones. Bowel: Post surgical changes of sleeve gastrectomy. No evidence of an obstructing pattern or bowel wall thicken ing. Appendix: The appendix is not identified. Pericecal linear d ensity may represent prior appendectomy changes. Bladder: No significant findings. PAGE 1 Signed Report (CONTINUED) Name: ADARSH BOYER [facility] : 1980 Age/S: 38 / F [address] [facility] Unit #: [id number] Loc: [place] [address] Phys: Dhiraj Shahid MD Acct: [id number] Dis Date: Status: REG ER PHONE #: [phone] Exam Date: 02/22/2019 0213 FAX #: [phone] Reason: RIGHT FLANK PAIN, EVALUATE FOR RENAL STONE EXAMS: CPT CODE: [id number] CT ABD PELVIS W/O CONT 38718 < Continued> Major vascular structures: No significant findings. Reproductive organs: The uterus is not visualized. No adnexal masses. Other: No free air, fluid or adenopathy. Skeleton: No acute bony abnormality. IMPRESSION: Limited noncontrast study. No evidence of obstructing urolithiasis. No hydronephrosis. Postsurgical changes of sleeve gastrectomy, hysterectomy and cholecystectomy. Suspected prior appendectomy changes. at 0237 Reported and signed by: Sebastian Stockton M.D. CC: Dhiraj Shahid MD; Harshil Blandon Technologist:Gillian Strong RT(R) CTDI: DLP: Trnscb Date/Time: 02/22/2019 (0237) [email or web address] Orig Print D/T: S: 02/22/2019 (5271) PAGE 2 Signed Report COMPREHENSIVE METABOLIC [id number] 02:35:00* Test Item Value Reference Range Comments SODIUM (test code=NA) mEq/L 134-147 POTASSIUM (test code=K) mEq/L 3.4-5.0 CHLORIDE (test code=CL) mEq/L 100-108 CARBON DIOXIDE (test code=CO2) mEq/L 21-33 ANION GAP (test code=GAP) 0-20 GLUCOSE (test code=GLU) mg/dL 70-110 BLOOD UREA NITROGEN (test code=BUN) mg/dL 7-18 GLOMERULAR FILTRATION RATE (test code=GFR) 105-110 CREATININE (test code=CREAT) mg/dL 0.6-1.3 TOTAL PROTEIN (test code=PROT) g/dL 6.4-8.2 ALBUMIN (test code=ALB) g/dL 3.4-5.0 CALCIUM (test code=CA) mg/dL 8.0-10.5 BILIRUBIN TOTAL (test code=BILT) mg/dL 0.0-1.0 SGOT/AST (test code=AST) IUnit/L 15-37 SGPT/ALT (test code=ALT) IUnit/L 15-65 ALKALINE PHOSPHATASE TOTAL (test code=ALKP) IUnit/L 20-125 [id number] 02:35:00* Test Item Value Reference Range Comments LIPASE (test code=LIP) IUnit/L 73-393 HCG SERUM [id number] 02:35:00* Test Item Value Reference Range Comments HCG SERUM QUAL (test code=HCGQL) SERUM NEGATIVE NEGATIVE CBC W/AUTO [id number] 02:29:00* Test Item Value Reference Range Comments WHITE BLOOD CELL (test code=WBC) 4.63 x10 3/uL 4.5-11.0 RED BLOOD CELL (test code=RBC) 3.37 x10 6/uL 3.54-5.02 HEMOGLOBIN (test code=HGB) 10.4 g/dL 11.0-15.0 HEMATOCRIT (test code=HCT) 31.9 % 33.0-45.0 MEAN CELL VOLUME (test code=MCV) 94.7 fL 81.0-99.0 MEAN CELL HGB (test code=MCH) 30.9 pg 27.0-33.0 MEAN CELL HGB CONCETRATION (test code=MCHC) 32.6 g/dL 33.0-37.0 RED CELL DISTRIBUTION WIDTH CV (test code=RDW) 13.6 % 11.5-14.5 RED CELL DISTRIBUTION WIDTH SD (test code=RDW-SD) 47.2 fL 37.0-54.0 PLATELET COUNT (test code=PLT) 272 x10 3/uL 150-400 MEAN PLATELET VOLUME (test code=MPV) 9.4 fL 7.0-9.0 LYMPHOCYTE % (test code=LY%) % 14.0-32.0 MANUAL DIFF REQUIRED (test code=MDIFF) - CT ABD PELVIS W/O [id number] 11:07:00 Name: ADARSH BOYERICE [facility] : 1980 Age/S: 38 / F [address] [place] [address] Unit #: [id number] Loc: [place] [address] Phys: Avni Sanchez Acct: [id number] Dis Date: Status: REG ER PHONE #: [phone] Exam Date: 01/05/2019 1048 FAX #: [phone] Reason: Abdominal Tenderness, vomiting/ diarrhea EXAMS: CPT CODE: [id number] CT ABD PELVIS W/O CONT 46429 Clinical Indication: Generalized abdominal pain Abdominal Tenderness, vomiting/ diarrhea, DATE: 01/05/2019 9:30 AM : 1980; Age: 38 years y/o Female Comparison: September 23, 2018 TECHNIQUE: Volumetric CT acquisition of the abdomen and pelvis without contrast. Axial, coronal and sagittal reconstructions. DLP: 706 mGy-cm [address] imaging performed at this location utilizes radiation dose optimization techniques which include one or more of the following: -Automated exposure control - Adjustment of the mA and/or kV according to patient size -Use of iterative reconstruction technique FINDINGS: Evaluation of the solid organs and vascular structures is limited without intravenous contrast. Lower thorax: Clear. Liver: Normal. Gallbladder: Surgically absent. Adrenals: Normal. Kidneys and ureters: Normal. Spleen: Normal. Pancreas: Normal. Gastrointestinal tract: Stomach: Prior gastric sleeve. Small bowel: Normal. Appendix: Surgicall y absent. No inflammation. Colon: Normal. Peritoneum, mesent armen and retroperitoneum: No free air, lymphadenopathy, ascites or loculate d fluid. Reproductive organs: Uterus is surgically absent. No adne xal PAGE 1 Signed Report (CONTINUE D) Name: ADARSH BOYER [facility] : 1980 Age/S: 38 / F [address] [place] [address] Unit #: [id number] Loc: [place] [address] Phys: Avni Sanchez Acct: [id number] Dis Date: Status: REG ER PHONE #: [phone] Exam Date: 01/05/2019 1048 FAX #: Reason: Abdominal Tenderness, vomiting/ diarrhea EXAMS: CPT CODE: [id number] CT ABD PEL VIS W/O CONT 05950 <Continued> abnormalities. Bladder: Normal. Soft tissues: Normal. Bones: No acute abnormality. Age-related degenerative fi ndings. IMPRESSION: 1. No acute intra-abdomina l process. 2. Prior hysterectomy, gastric sleeve, appendectomy and cholecystectomy. SL: [id number] E lectronically Signed by Hedy Noble on 12/25 at 1107 Reported and signed by: Kimberly Noble D.O. CC: Avni MOJICA; Harshil Blandon Technologist:RT Sonido(R)(CT) CTDI: DLP: Trnscb Date/Time: 01/05/2019 (1107) [email or web address] Orig Print D/T: S: 01/05/2019 (1111) CTDI: DLP: PAGE 2 Signed Report LACTIC ACID POC 2019-01-05 10:35:00* Test Item Value Reference Range Comments LACTIC ACID POC (test code=LACTP) 1.3 MMOL/L 0.90-1.70 Performed by certified forest fire equipment operator at [facility] COMPREHENSIVE METABOLIC [id number] 10:21:00* Test Item Value Reference Range Comments SODIUM (test code=NA) 138 mEq/L 134-147 POTASSIUM (test code=K) 3.4 mEq/L 3.4-5.0 CHLORIDE (test code=CL) 108 mEq/L 100-108 CARBON DIOXIDE (test code=CO2) 23 mEq/L 21-33 ANION GAP (test code=GAP) 10 0-20 GLUCOSE (test code=GLU) 108 mg/dL 70-110 BLOOD UREA NITROGEN (test code=BUN) 7 mg/dL 7-18 GLOMERULAR FILTRATION RATE (test code=GFR) 61.7 105-110 Units of measure=ml/min/1.73 m2 CREATININE (test code=CREAT) 1.0 mg/dL 0.6-1.3 TOTAL PROTEIN (test code=PROT) 6.6 g/dL 6.4-8.2 ALBUMIN (test code=ALB) 3.30 g/dL 3.4-5.0 CALCIUM (test code=CA) 8.6 mg/dL 8.0-10.5 BILIRUBIN TOTAL (test code=BILT) 0.20 mg/dL 0.0-1.0 SGOT/AST (test code=AST) 6 IUnit/L 15-37 SGPT/ALT (test code=ALT) 19 IUnit/L 15-65 ALKALINE PHOSPHATASE TOTAL (test code=ALKP) 63 IUnit/L 20-125 [id number] 10:21:00* Test Item Value Reference Range Comments LIPASE (test code=LIP) 243 IUnit/L 73-393 [id number] 10:21:00* Test Item Value Reference Range Comments TROPONIN-I (test code=TROPI) < 0.015 ng/mL 0.000-0.045 Negative: <=0.045 Positive: >=0.046 Correlation with serial results, other cardiac markers andclinical findings is necessary to determine the clinicalsignificance of this result. Results using different methodologies should not be comparedto one another as quantitative results may vary by method. PROTHROMBIN [id number] 10:03:00* Test Item Value Reference Range Comments PROTHROMBIN TIME PATIENT (test code=PTP) 10.5 SECONDS 9.3-12.9 INTERNATIONAL NORMAL RATIO (test code=INR) 0.9 0.8-1.2 TARGET INR BY INDICATION Indication INR1. Prophylaxis of venous thrombosis 2.0 - 3.0 (orthopedic surgery), Prophylaxis of venous thrombosis (other than high-risk surgery), Treatment of Deep Vein Thrombosis/Pulmonary Embolism, Prevention of systemic embolism - Tissue heart valves, Acute Myocardial Infarction (to prevent systemic embolism), Valvular heart disease, Atrial Fibrillation, Bileaflet mechanical valve in aortic position.2. Mechanical prosthetic valves (high risk), 2.5 - 3.5 Presence of Lupus Anticoagulant or Antiphospholipid Antibodies, Prevention of systemic embolism - Acute Myocardial Infarction (to prevent recurrent infarct). CBC W/AUTO [id number] 09:59:00* Test Item Value Reference Range Comments WHITE BLOOD CELL (test code=WBC) 9.01 x10 3/uL 4.5-11.0 RED BLOOD CELL (test code=RBC) 3.99 x10 6/uL 3.54-5.02 HEMOGLOBIN (test code=HGB) 12.7 g/dL 11.0-15.0 HEMATOCRIT (test code=HCT) 37.3 % 33.0-45.0 MEAN CELL VOLUME (test code=MCV) 93.5 fL 81.0-99.0 MEAN CELL HGB (test code=MCH) 31.8 pg 27.0-33.0 MEAN CELL HGB CONCETRATION (test code=MCHC) 34.0 g/dL 33.0-37.0 RED CELL DISTRIBUTION WIDTH CV (test code=RDW) 13.4 % 11.5-14.5 RED CELL DISTRIBUTION WIDTH SD (test code=RDW-SD) 45.8 fL 37.0-54.0 PLATELET COUNT (test code=PLT) 266 x10 3/uL 150-400 MEAN PLATELET VOLUME (test code=MPV) 9.1 fL 7.0-9.0 NEUTROPHIL % (test code=NT%) 62.6 % 56.0-77.0 IMMATURE GRANULOCYTE % (test code=IG%) 0.3 % 0.0-2.0 LYMPHOCYTE % (test code=LY%) 27.0 % 14.0-32.0 MONOCYTE % (test code=MO%) 8.0 % 4.8-9.0 EOSINOPHIL % (test code=EO%) 1.7 % 0.3-3.7 BASOPHIL % (test code=BA%) 0.4 % 0.0-2.0 NUCLEATED RBC % (test code=NRBC%) 0.0 % 0-0 NEUTROPHIL # (test code=NT#) 5.64 x10 3/uL 2.0-7.6 IMMATURE GRANULOCYTE # (test code=IG#) 0.03 x10 3/uL 0.00-0.03 LYMPHOCYTE # (test code=LY#) 2.43 x10 3/uL 1.0-3.8 MONOCYTE # (test code=MO#) 0.72 x10 3/uL 0.1-0.8 EOSINOPHIL # (test code=EO#) 0.15 x10 3/uL 0.0-0.2 BASOPHIL # (test code=BA#) 0.04 x10 3/uL 0.0-0.2 NUCLEATED RBC # (test code=NRBC#) 0.00 x10 3/uL 0.0-0.1 MANUAL DIFF REQUIRED (test code=MDIFF) NO - XR CHEST 1 [id number] 09:52:00 FAX: Avni Sanchez [phone] [place]: St: [facility] FAX: Harshil Valdez MD [phone] Name: ADARSH BOYER [facility] : 1980 Age/S: 38/F [address] [place] [address] Unit #: [id number] Loc: [place] [address] Phys: Avni Sanchez Acct: [id number] Dis Date: Status: REG ER PHONE #: [phone] Exam Date: 01/05/2019 0950 FAX #: [phone] Reason: Abdominal Pain EXAMS: CPT CODE: [id number] XR CHEST 1 V 81983 CHEST 1 VIEW: 01/05/2019 COMPARISON: August 27, 2018 CLINICAL HISTORY: Abdominal Pain FINDINGS: The cardiovascular silhouette is normal in size. No infiltrates or pulmonary edema is present. No pleural effusions are seen. IMPRESSION: No acute pulmonary disease. [place] ctronically Signed by Matthew Kirkland on 01/05/2019 at 0952 Reported and signed by: Maurice Kirkland M.D. CC: Rich Blandon Technologist: WALDEMAR Garcia) Trnscrd Date/Time/By: 01/05/2019 (0952) : By: [email or web address] Orig Print D/T: S: 01/05/2019 (0944) PAGE 1 Signed Report MRI SPINE LUMBAR [id number] 14:21:00 [place] [address] Patient Name: ADARSH BOYER MR #: [id number] : 1980 Age/Sex: 37/F Req #: [id number] Adm Physician: Ordered by: VANDA MEAD MD Report #: [id number] Location: OR Room/Bed: Procedure: [id number] MRI/MRI SPINE LUMBAR WO Exam Date: Exam Time: REPORT STATUS: Signed EXAMINATION: M RI of the lumbar spine without contrast HISTORY: Low back pain for last 3 years COMPARISON: Lumbar spine MRI and 09/13/2017 TECHNIQUE: Sagittal T1, T 2, STIR; axial T2 and proton density. FINDINGS: It is assumed atiya t there are 5 lumbar vertebrae. Curvature/Alignment: Normal lordosis. Vertebrae: No evidence of recent fracture, infection, or neoplasm. Con us: Normal, terminating at L1 Cauda equina: Unremarkable. Lower th oracic: Unremarkable. Paraspinal soft tissues: Unremarkable. Degenera tive changes: L1-L2: Unremarkable. L2-L3: Unremarkable. L3-L4 : Unremarkable. L4-L5: Persistent minimal disc bulge and facet arthrosis w ithout stenosis. L5-S1: Unchanged tiny central disc protrusion with annula r fissure and mild facet arthrosis. No stenoses. IMPRESSION: Unchang ed minimal degenerative changes at L4-5 and L5-S1 without spinal canal or fora merlyn stenoses. No evidence of nerve root compression. Signed by: Dr. Miko Mike M.D. on 08/11/2018 2:25 PM Dictated By: MIKO kapadia Signed By: MIKO MIKE MD on 08/11/181424 Transcribed By: BEATRICE on 1424 COPY TO: VANDA MEAD MD MRI SHOULDER RIGHT WO 2018-08-11 14:15:00 [place] [address] Patient Name: ADARSH BOYER MR #: [id number] : 1980 Age/Sex: 37/F Req #: [id number] Adm Physician: Ordered by: ADELA DEL RIO MD Report #: [id number] Location: OR Room/Bed: Procedure: 1116-000 6 MRI/MRI SHOULDER RIGHT WO Exam Date: Exam Time: REPORT STATUS: Signed TECHNIQUE: Magnetic resonance imaging of the RIGHT SHOULDER was performed WITHOUT injected contrast. HISTORY: Sprain, limited motion COMPARISON: None availa ble. FINDINGS: Some minimal artifacts due to partially limits evaluation. MUSCLES AND TENDONS: Rotator Cuff: Tendons: Supraspinatus and Infr aspinatus: Focal low-grade articular sided partial-thickness tear of the ante rior supraspinatus. No high-grade tear or complete tendon retraction. Teres Minor: Intact Subscapularis: Intact Muscles: No focal muscle atrophy. Biceps Tendon: The long head of the biceps tendon is intact and within t he intertubercular groove. GLENOHUMERAL JOINT: Glenoid Labrum: Attenua tion and complex tearing of the posterior superior labrum. Trace amount of flu id partially undercutting the labral-osseous junction at the posterior inferio r glenoid. Articular Cartilage: Intermediate to high-grade erosion of the sup erior glenoid cartilage. Joint Fluid: No effusion. ACROMIOCLAVICULAR PRAMOD INT: Mild hypertrophic degenerative changes of the acromioclavicular joint. Synovitis and trace effusion. BONE: The acromion is unremarkable. The bone marrow signal is heterogeneous, compatible with red marrow conversion, no specific evidence of a focal bone marrow replacing abnormality. No acute fracture. SOFT TISSUES: Moderate volume of fluid and synovitis within t he subacromial/subdeltoid bursa. IMPRESSION: 1. Subacromial/subdelto id bursitis. 2. Acromioclavicular and glenohumeral degenerative changes, incl uding degenerative tearing of the labrum. 3. Low-grade articular sided part ial-thickness tearing of the supraspinatus tendon. Signed by: Dr. Edinson marquez D.O., M.M.M. on 08/11/2018 2:23 PM Dictated By: EDINSON WASHINGTON DO [place] ctronically Signed By: EDINSON WASHINGTON DO on 08/11/18 1423 Transcribed By: BEATRICE on 08/11/18 1423 COPY TO: ADELA DEL RIO MD MRI BRAIN [place] [address] Patient Name: ADARSH BOYER MR #: [id number] : 1980 Age/Sex: 36/F Req #: [id number] Adm Physician: Ordered by: JUAN C RAMIREZ MD Report #: [id number] Location: MRI Room/Bed: Procedure: [id number] MRI/MRI BRAIN MICHELLE scanlon Date: 09/13/17 Exam Time: 0920 REPORT STATUS: Signed Exam: Brain MRI without IV contrast History: Headache Comparis on studies: No prior exams are available for comparison the time of dictation. Technique: Axial DWI, axial T2*GRE, axial and coronal T2 FLAIR, and axi al T1 FLAIR. Intravenous contrast: None Findings: Scalp: Normal in s ignal . No masses . Bone marrow: Normal in signal intensity. Brain sulci: Appropriate for age. Ventricles: Normal in size. No hydrocephalus. Extra ax ial spaces: No mass, no fluid collection. Parenchyma: No abnormal signal intensities. No masses, hemorrhage, acute or chronic vascular insults. Gilbert prasellar region: No abnormalities. Craniocervical junction: Patent foramen ma gnum. No Chiari malformation. Vessels: Normal flow-voids in the arteries and sinuses. Incidental findings: Mild nonspecific inflammatory mucosal thicken ing in the left superior frontal sinus. IMPRESSION: No intracranial abnormalities. Signed by: Dr. Rosalinda Miller M.D. on 09/13/2017 12:34 PM Dictated By: ROSALINDA MILLER MD [id number] Transcribed By: BEATRICE on 09/13/17 1234 COPY TO: JUAN C SANTOS MD MRI SPINE LUMBAR WO [place] [address] Patient Name: ADARSH BOYER MR #: [id number] : 1980 Age/Sex: 36/F Req #: [id number] Adm Physician: Ordered by: JUAN C RAMIREZ MD Report #: [id number] Location: MRI Room/Bed: Procedure: [id number] MRI/MRI SPINE LUMBAR WO Exam Date: 09/13/17 Exam Time: 949 REPORT STATUS: Signed Examination: MRI SPINE LUMBAR WITHOUT CONTRAST History: [age]-year-old female with 3 months of low back pain radiating down the left lower extremity. Comparison studies: None Technique: Sagittal, coronal and axial T2 , sagittal T1 and STIR; axial spin density oblique. Findings: Number of lumbar vertebral bodies: Five. Alignment: Normal lordosis. No scoliosis. Soft tissues: No T2 hyperintense inflammatory changes. Posterior paraspinal soft tissues and muscles: No abnormality. Lower thoracic cord: N ormal in signal and morphology. The tip of the conus is at T12-L1. Cauda equ lucie: No masses. No arachnoiditis. Vertebrae: No fractures, infection or neoplasm. Degenerative changes: L1-L2 through L3-L4: No abnormaliti es. L4-L5: Small central disc protrusion. No foraminal or canal stenosi s. L5-S1: Small central disc protrusion with associated annular fissure. No foraminal or canal stenosis. IMPRESSION: 1. Minimal degenerative changes at L4-L5 and L5-S1. 2. Small central annular fissure at L5-S1. 3. No foraminal or canal stenosis. Signed by: Dr. Luke Rowland M.D. on 09/13/2017 1:06 PM Dictated By: LUKE FERRELL MD Electronical ly Signed By: LUKE FERRELL MD on 09/13/17 1306 Transcribed By: GARLAND CONTI on 09/13/17 1306 COPY TO: JUAN C RAMIREZ MD
--- NOTE | 2019-03-16 06:50 | Diagnostic Imaging Report ---
EXAMINATION: CHEST 2 VIEWS INDICATION: ^PREOP ^[id number] ^[id number] COMPARISON: None available FINDINGS: PA and lateral views TUBES and LINES: None. LUNGS: Limited by body habitus and low lung volumes. There is no evidence of pneumonia or pulmonary edema. PLEURA: No pleural effusion or pneumothorax. HEART AND MEDIASTINUM: The cardiac silhouette is mildly enlarged, accentuated by low lung volumes. BONES AND SOFT TISSUES: No acute osseous lesion. Soft tissues are unremarkable. UPPER ABDOMEN: No free air under the diaphragm. Upper abdomen surgical clips. IMPRESSION: No acute thoracic abnormality. Signed by: Dr. Aly Gomez MD on 03/16/2019 6:47 AM
--- NOTE | 2019-03-16 08:16 | Operative Report ---
DATE OF PROCEDURE: 03/16/2019 SURGEON: Rhina Solorzano DPM PREOPERATIVE DIAGNOSIS: Right peroneus brevis tendon rupture. POSTOPERATIVE DIAGNOSIS: Right peroneus brevis tendon rupture. PLANNED PROCEDURE: Right peroneus brevis tendon repair. DOMESTIC VIOLENCE COUNSELOR: Farhana Raymundo DPM ([place]) ANESTHESIA: General with a postoperative block consisting of 20 mL of 0.5% Marcaine plain. HEMOSTASIS: Pneumatic thigh tourniquet set at 350 mmHg for a total time of approximately 30 minutes. MATERIALS: 3-0 nylon 4-0 nylon 3-0 Vicryl. ESTIMATED BLOOD LOSS: Less than 10 mL. PATHOLOGY: None. PROCEDURE NOTE: The patient was seen in the preoperative waiting room where the correct procedure and site was identified. The patient was brought into the operating room and placed on the operating table in the supine position. General anesthesia was initiated. At this time, a well-padded pneumatic tourniquet was placed about the patient's right thigh. The right foot, ankle, and leg were then scrubbed, prepped, and draped in the usual aseptic manner. The right foot, ankle, and leg were exsanguinated with an Esmarch bandage and the pneumatic thigh tourniquet was inflated to 350 mmHg for a total time of approximately 30 minutes. Attention was directed to the lateral aspect of the patient's right ankle where a 6 cm curvilinear incision was made at the distal inferior aspect of the fibula extending toward the 5th metatarsal base. The incision was carried through subcutaneous tissue it from deeper underlying structures. All vital neurovascular structures were identified, retracted medial and lateral and all bleeders were cauterized or ligated as deemed necessary. At this time, the incision was carried down to the peroneal retinaculum, which was incised to allow for good visualization. The peroneus longus tendon was examined and it was noted to be intact with no pathology. The dissection was carried deeper into the peroneal groove where the peroneus brevis retinaculum was identified, incised to allow for good visualization of the peroneus brevis tendon. There was noted to be a long interstitial longitudinal split-thickness tear to the peroneus brevis tendon at the level of the lateral malleolus extending to the level of the 5th metatarsal base. The degenerative tissue was debrided and passed off to the back table and the longitudinal split-thickness tear was reapproximated utilizing a simple continuous interlocking suture with 3-0 Prolene. Next, the wound was copiously irrigated with sterile saline. The tendon was found to be functioning appropriately within the peroneal groove. The deep low-lying muscle belly was excised and passed off to the back table. The retinaculum was reapproximated utilizing 4-0 Vicryl. The remainder of the deep tissues were reapproximated with 3-0 Vicryl and the skin was closed utilizing simple interrupted sutures with 4-0 Prolene. The patient tolerated the procedure and anesthesia well. The patient was transferred to the postoperative recovery unit with vital signs stable and vascular status intact. The patient was monitored there for a short period of time before being sent home with the following written and oral instructions: 1. Keep the dressing clean, dry, and intact. 2. The patient is to remain nonweightbearing in a posterior splint to avoid any ambulation until being seen in the office. 3. The patient was given the office number to try to contact us if any problems should arise. VASILIY Franklin/WILLIAM /[id number]
[2019-03-16 08:37] VITALS: BP 120/70
== END | disposition home or self-care (01) ==
LOC: OR 05:00
PROVIDERS: ATTEND Podiatrist Foot & Ankle Surgery
DX: M76.71 Peroneal tendinitis, right leg (principal); J44.9 Chronic obstructive pulmonary disease, unspecified; F31.9 Bipolar disorder, unspecified; F17.210 Nicotine dependence, cigarettes, uncomplicated; Z88.8 Allergy status to other drugs, medicaments and biological substances; Z88.6 Allergy status to analgesic agent; Z91.041 Radiographic dye allergy status; Z01.812 Encounter for preprocedural laboratory examination; Z01.818 Encounter for other preprocedural examination; Z01.810 Encounter for preprocedural cardiovascular examination; Z99.81 Dependence on supplemental oxygen
CPT/HCPCS: 27658; 36415; 71046; 80048; 85025; 93005; J0690; J1100; J1170; J2001; J2250; J2270; J2405; J2704; J2765; J3010

== ENCOUNTER 2019-04-09 23:31 | Emergency (ER) | payer MEDICARE, OTHER ==
[~2019-04-09] VITALS: Ht 167.6 cm; Wt 85.7 kg
[~2019-04-09 23:31] MED LIST changes: -BUPIVACAINE HCL 0.5% INJ 30 ML VIAL INJ ONE; -CEFAZOLIN SOD 1 GM/NS 50ML 50 ML IV ONE; -DEXAMETHASONE SOD PHOS INJ 4 MG/ML VIAL ONE; -FENTANYL CITRATE/PF 100MCG/2 ML INJ ONE; -HYDROMORPHONE 2MG/ML 2 MG/ML ML ONE; -LIDOCAINE HCL 2% LOCAL INJ 5 ML SDV VIAL INJ ONE; -METOCLOPRAMIDE HCL 10 MG/2ML VIAL ONE; -MIDAZOLAM HCL 2 MG/2 ML VIAL ONE; -MORPHINE SULFATE INJ 4 MG/ML INJ 1ML ONE; -ONDANSETRON HCL INJ 2MG/ML 2ML 2 MG/ML VIAL ONE; -PROPOFOL IV EMULSION 10 MG/ML 20 ML VIAL ONE; -SEVOFLURANE INHAL SOLN 250 ML PEN BTL ONE
--- OUTSIDE RECORDS SUMMARY | 2019-04-09 23:38 | XMS REPORT | Clinical Summary ---
Author Author [facility] Organization [facility] [employer] Address Unknown Phone Unavailable Care Team Providers Care Director Global Medical Affairs Name Role Phone Davon Villalobos MD PCP [...] 02/21/2019 Emergency Emergency Medicine - 02/22/2019 Danny Dotsno DO Eloped from emergency department (Primary Dx) [...] breath); Chronic pain of left knee 01/25/2019 [facility] General Internal Medicine - Encounter 01/28/2019 Pastor [...] 09/20/2018 Emergency Emergency Medicine Elías Vang II, [facility] Larisa Sifuentes MD Contusion of left foot, [...] Emergency Emergency Medicine - 05/04/2018 Elías Vang II [facility] Dorian Espinal Jr., MD Foot pain, left (Primary Dx) 05/01/2018 Emergency Emergency Medicine - 05/02/2018 Sukumar Alvarez MD Post-op pain (Primary Dx) 05/01/2018 Emergency Emergency Medicine Sukumar Alvarez MD Post-operative pain (Primary Dx) 04/30/2018 Emergency Emergency Medicine after 04/08/2018 Immunizations Name Dates Previously Given Next Due [...] STONE PROTOCOL STAT 02/21/2019 10:35 PM CDT TN DRAIN SKIN ABSCESS Routine 02/15/2019 SIMPLE 7:43 PM CDT TN PUNCTURE DRAINAGE OF Routine 02/15/2019 LESION 7:43 PM CDT XR FOOT 3+ VW [...] VW PORTABLE STAT 01/25/2019 10:25 PM CDT TN CRITICAL CARE, E/M Routine 01/25/2019 30-74 MINUTES [...] STAT 09/23/2018 MICROSCOPY, WITH REFLEX 1:40 AM BAG END SEWER TO CULTURE GRAM STAIN STAT 09/23/2018 1:40 AM [facility] END [facility]WER URINE CULTURE STAT 09/23/2018 1:40 AM [facility]WER ESTIMATED GFR STAT 09/23/2018 1:30 AM [facility]WER COMPREHENSIVE METABOLIC STAT 09/23/2018 PANEL 1:30 AM BAG END SEWER HC COMPLETE BLD COUNT STAT 09/23/2018 W/AUTO DIFF 1:30 AM [facility] SEWER LACTIC ACID LEVEL, SEPSIS Timed 09/22/2018 - NOW AND REPEAT 2X EVERY 3:56 AM [facility]WER 3 HOURS XR CHEST 1 VW PORTABLE STAT 09/22/2018 3:[address] ABDOMEN PELVIS W STAT 09/22/2018 CONTRAST 2:27 AM [facility]WER BLOOD CULTURE, AEROBIC & Routine 09/22/2018 ANAEROBIC 2:13 AM [facility] SEWER BLOOD CULTURE, AEROBIC & Routine 09/22/2018 ANAEROBIC 2:04 AM [facility]WER HCG QUALITATIVE, URINE STAT 09/22/2018 SCREEN 1:27 AM BAG END SEWER URINALYSIS SCREEN AND STAT 09/22/2018 MICROSCOPY, WITH REFLEX 1:27 AM BAG END SEWER TO CULTURE URINE CULTURE STAT 09/22/2018 1:27 AM BAG END SEWER ESTIMATED GFR STAT 09/22/2018 1:14 AM BAG END SEWER LIPASE LEVEL STAT 09/22/2018 1:14 AM BAG END SEWER LACTIC ACID LEVEL, SEPSIS STAT 09/22/2018 - NOW AND REPEAT 2X EVERY 1:14 AM BAG END SEWER 3 HOURS COMPREHENSIVE METABOLIC STAT 09/22/2018 PANEL 1:14 AM BAG END SEWER PARTIAL THROMBOPLASTIN STAT 09/22/2018 TIME (PTT) 1:14 AM BAG [facility] SEWER PROTHROMBIN TIME WITH INR STAT 09/22/2018 1:14 AM BAG END SEWER HC COMPLETE BLD COUNT STAT 09/22/2018 W/AUTO DIFF 1:14 AM BAG END SEWER ESTIMATED GFR STAT 09/20/2018 6:08 PM BAG END SEWER LIPASE LEVEL STAT 09/20/2018 6:08 PM [facility]AG END SEWER COMPREHENSIVE METABOLIC STAT 09/20/2018 PANEL 6:08 PM BAG END SEWER HC COMPLETE BLD COUNT STAT 09/20/2018 W/AUTO DIFF 6:08 PM BAG END SEWER XR FOOT 3+ VW LEFT STAT 08/30/2018 8:50 PM BAG END SEWER ECG ED PRELIMINARY Routine 08/25/2018 INTERPRETATION 12:54 PM BAG END SEWER XR CHEST 2 VW STAT 08/25/2018 11:58 AM BAG END SEWER ESTIMATED GFR STAT 08/25/2018 11:42 AM BAG END SEWER B NATRIURETIC PEPTIDE STAT 08/25/2018 11:42 AM BAG END SEWER TROPONIN STAT 08/25/2018 11:42 AM [facility]AG END SEWER COMPREHENSIVE METABOLIC STAT 08/25/2018 PANEL 11:42 AM BAG END SEWER HC COMPLETE BLD COUNT STAT 08/25/2018 W/AUTO DIFF 11:42 AM BAG END SEWER ECG 12-LEAD STAT 08/25/2018 11:26 [address] RENAL STONE PROTOCOL STAT 08/24/2018 3:11 AM BAG END SEWER HCG QUALITATIVE, URINE STAT 08/24/2018 SCREEN 2:28 AM BAG END SEWER URINALYSIS SCREEN AND STAT 08/24/2018 MICROSCOPY, WITH REFLEX 2:28 AM BAG END SEWER TO CULTURE GRAM STAIN STAT 08/24/2018 2:28 AM BAG END SEWER URINE CULTURE STAT 08/24/2018 2:28 AM BAG END SEWER ESTIMATED GFR STAT 08/24/2018 1:23 AM BAG END SEWER LIPASE LEVEL STAT 08/24/2018 1:23 AM BAG END SEWER COMPREHENSIVE METABOLIC STAT 08/24/2018 PANEL 1:23 AM BAG END SEWER HC COMPLETE BLD COUNT STAT 08/24/2018 W/AUTO DIFF 1:23 AM BAG END SEWER URINALYSIS SCREEN AND Routine 08/21/2018 MICROSCOPY, WITH REFLEX 1:48 AM BAG END SEWER TO CULTURE GRAM STAIN Routine 08/21/2018 1:48 AM BAG END SEWER URINE CULTURE Routine 08/21/2018 1:48 AM BAG END SEWER ESTIMATED GFR STAT 08/21/2018 12:53 AM BAG END SEWER LIPASE LEVEL STAT 08/21/2018 12:53 AM BAG END SEWER LACTIC ACID LEVEL, SEPSIS STAT 08/21/2018 - NOW AND REPEAT 2X EVERY 12:53 AM BAG END SEWER 3 HOURS COMPREHENSIVE METABOLIC STAT 08/21/2018 PANEL 12:53 AM BAG END SEWER HC COMPLETE BLD COUNT STAT 08/21/2018 W/AUTO DIFF 12:53 AM BAG END SEWER HCG QUALITATIVE, URINE STAT 08/08/2018 SCREEN 8:24 PM BAG END SEWER URINALYSIS SCREEN AND STAT 08/08/2018 MICROSCOPY, WITH REFLEX 8:24 PM BAG END SEWER TO CULTURE CT HEAD WO CONTRAST STAT [...] VW LEFT STAT 05/03/2018 11:28 PM CDT TN APPLY LOWER LEG SPLINT Routine 05/03/2018 10:54 PM CDT TN APPLY LOWER LEG SPLINT Routine 05/01/2018 11:32 PM CDT SPLINT APPLICATION Routine 04/30/2018 4:26 AM CDT after 04/08/2018 Results * Estimated GFR (03/06/2019 8:51 AM CDT) Only the most recent of 20 results within the time period is included. [facility] Estimated GFR 71 mL/min/1.73 m2 [place] Comment: [facility] G1 >=90 Normal or high G2 60-89Mildly decreased G1e00-59 Mildly to moderately decreased [id number] Moderately to severely decreased G4 15-29Severely decreased G5 <15Kidney failure The eGFR was calculated using the Chronic Kidney Disease Epidemiology Collaboration (CKD-EPI) equation. Interpretation is based on recommendations of the National Kidney Foundation-Kidney Disease Outcomes Quality Initiative (NKF-KDOQI) published in 2014. Specimen Plasma specimen Performing Organization Address City/Va Hospital/Zipcode Phone Number [facility] [address] * Troponin (03/06/2019 8:51 AM CDT) Only the most recent of 10 results within the time period is included. [facility] Troponin <0.006 0.000 - 0.040 ng/mL [place] Comment: [facility] changed methodology effective: HOSPITAL 01/30/2019 at 10:00 am The new method has a 99th percentile cutoff of 0.040 ng/mL Specimen Plasma specimen Performing Organization Address City/[facility] Hospital/[facility] Phone Number [facility] [address] [place] [address] * CBC with platelet and differential (03/06/2019 8:51 AM CDT) Only the most recent of 19 results within the time period is included. WBC 4.3 4.2 - 11.0 k/uL [facility] RBC 3.66 (L) 4.04 - 5.86 m/uL [facility] HGB 11.1 (L) 11.5 - 15.3 g/dL [facility] HCT 35.9 34.0 - 45.0 % [facility] MCV 98.1 (H) 80.0 - 98.0 fL [facility] MCH 30.3 27.0 - 34.0 pg [facility] MCHC 30.9 (L) 31.5 - 36.5 g/dL [facility] RDW - SD 47.0 37.0 - 51.0 fL [facility] MPV 9.8 7.4 - 10.4 fL [facility] Platelet count 222 150 - 400 k/uL [facility] Nucleated RBC 0.00 /100 WBC [facility] Neutrophils 50.2 36.0 - 66.0 % [facility] Lymphocytes 38.1 24.0 - 44.0 % [facility] Monocytes 8.2 (H) 0.0 - 6.0 % [facility] Eosinophils 2.8 0.0 - 6.0 % [facility] Basophils 0.5 0.0 - 1.2 % [facility] Immature 0.2 0.0 - 1.0 % [place] granulocytes [facility] Specimen Blood Performing Organization Address City/Va Hospital/Zipcode Phone Number [place] [phone] PATHOLOGY [place] [address] HOSPITAL * B natriuretic peptide (03/06/2019 8:51 AM CDT) Only the most recent of 7 results within the time period is included. BNP 25 0 - 100 pg/mL [facility] Specimen Blood Performing Organization Address City/Va Hospital/Zipcode Phone Number [address] [address] PATHOLOGY AND GENOMIC MEDICINE [facility] [address] * Venous blood gas (03/06/2019 8:51 AM CDT) Pig Machine Operator Helper LAUREN [facility] Collection site RAC [facility] O2 therapy NC [facility] pH, venous 7.304 (L) 7.320 - 7.420 units [facility] pCO2, venous 48.9 45.0 - 51.0 mmHg [facility] pO2, venous 34.0 25.0 - 40.0 mmHg [facility] O2 saturation, 64.6 40.0 - 70.0 % [facility] Base excess, -2.1 (L) -2.0 - 2.0 mEq/L [facility] Bicarbonate 24.3 21.0 - 28.0 mEq/L [facility] O2 content 9.5 VOL% [facility] FiO2, inspired 21.0 % [place] O2% [facility] Carboxyhemoglob 5.9 (H) 0.0 - 1.4 % [place] in Comment: EPISCOPAL Reference Ranges: [facility] Non smoker: 0.0 - 2.0% Smoker: 2.1 - 5.0% Heavy smoker: 5.1 - 9% Methemoglobin 1.6 (H) 0.0 - 1.0 % [facility] Hemoglobin, 11.3 (L) 12.0 - 16.0 g/dL [place] blood gas [facility] Specimen Blood Performing Organization Address City/State/Zipcode Phone Number [facility] [address] [place] [address] PATHOLOGY AND GENOMIC MEDICINE [place] [address] [address] * Comprehensive metabolic panel (03/06/2019 8:51 AM CDT) Only the most recent of 12 results within the time period is included. Sodium 140 135 - 150 mEq/L [facility] Potassium 3.3 (L) 3.5 - 5.0 mEq/L [facility] Chloride 106 98 - 112 mEq/L [facility] CO2 23 (L) 24 - 31 mmol/L [facility] Anion gap 11@ANIO 7 - 15 mEq/L [facility] BUN 5 (L) 7 - 18 mg/dL [facility] Creatinine 1.00 (H) 0.50 - 0.90 mg/dL [facility] Glucose 155 (H) 65 - 100 mg/dL [facility] Calcium 9.7 8.3 - 10.2 mg/dL [facility] Protein 6.3 6.3 - 8.3 g/dL [facility] Albumin 3.2 (L) 3.5 - 5.0 g/dL [facility] A/G ratio 1.0 0.7 - 3.8 [facility] Alkaline 83 0 - 104 U/L [place] phosphatase [facility] AST 21 10 - 35 U/L [facility] ALT 25 5 - 50 U/L [facility] Total bilirubin <0.3 0.2 - 1.2 mg/dL [facility] Specimen Plasma specimen Performing Organization Address City/State/Zipcode Phone Number [facility] [address] [place] [address] PATHOLOGY AND GENOMIC MEDICINE [address] * XR Chest 1 Vw (03/06/2019 8:43 AM CDT) Specimen Narrative Performed At EXAMINATION:XR CHEST 1 VW HM [facility] CLINICAL HISTORY:Shortness of breath COMPARISON:02/25/2019 IMPRESSION: 1. The lungs are clear of acute infiltrate, consolidation, or pleural effusion. 2. The cardiac silhouette is not enlarged. Pulmonary vasculature is within normal limits. 3. The visualized osseous structures are intact. [facility]-[id number] Procedure Note Hm Interface, Radiology Results Incoming - 03/06/2019 8:48 AM CDT EXAMINATION: XR CHEST 1 VW CLINICAL HISTORY: Shortness of breath COMPARISON: 02/25/2019 IMPRESSION: 1. The lungs are clear of acute infiltrate, consolidation, or pleural effusion. 2. The cardiac silhouette is not enlarged. Pulmonary vasculature is within normal limits. 3. The visualized osseous structures are intact. [facility]-[id number] Performing Organization Address City/Va Hospital/[facility] Phone Number [facility] [address] [place] [address] * ECG ED Preliminary Interpretation - Not an Order (03/06/2019 8:25 AM CDT) Only the most recent of 5 results within the time period is included. Narrative Performed At Gabriel Dotson MD 03/06/2019 10:21 AM ECG ED Preliminary Interpretation - Not an Order Performed by: Gabriel Dotson MD Authorized by: Gabriel Dotson MD ECG reviewed by ED Physician in the absence of a hall director: yes Interpretation: Interpretation: abnormal Rate: ECG rate:101 ECG rate assessment: tachycardic Rhythm: Rhythm: sinus tachycardia QRS: QRS axis:Normal Conduction: Conduction: normal T waves: T waves: flattening Flattening:V4, V5 and V6 * ECG 12 lead (03/06/2019 8:13 AM CDT) Only the most recent of 5 results within the time period is included. Ventricular 101 [facility] rate Atrial rate 101 [facility] TN interval 182 [facility] QRSD interval 84 [facility] QT interval 344 [facility] QTC interval 446 [facility] P axis 1 56 [facility] QRS axis 1 28 [facility] T wave axis 41 [facility] EKG impression Sinus tachycardia-Nonspecific [facility] MUSE T wave abnormality-Abnormal ECG-In automated comparison with ECG of 25-FEB-2019 21:53,-ST no longer elevated in Inferior leads-Nonspecific T wave abnormality, worse in Anterolateral leads- Specimen Narrative Performed At Performing Organization Address [facility] Phone Number [facility] [address] [place] [address] * Partial thromboplastin time, activated (03/01/2019 11:09 PM CDT) Only the most recent of 2 results within the time period is included. Pathologist [facility] PTT 30.9 23.0 - 36.0 sec [place] Comment: EPISCOPAL [facility] PTT therapeutic range for SHANELL unfractionated heparin is HOSPITAL 61.0-112.0 seconds which corresponds to Anti-Xa 0.3-0.7 U/ml. Note:Change in Panic Value The PTT Panic Value is changing from 110 sec. to 100 sec. due to new instrumentation and reagents. Correlation studies have been performed to validate this result. Specimen Blood Performing Organization Address City/[facility] Hospital/[facility] Phone Number [facility] [address] [place] [address] * Prothrombin time with INR (03/01/2019 11:09 PM CDT) Only the most recent of 3 results within the time period is included. Pathologist [facility] Prothrombin 12.5 11.5 - 14.5 sec [place] time [facility] INR 0.96 [place] Comment: EPISCOPAL [facility] For patients on anticoagulant SHANELL therapy, reference ranges HOSPITAL below: Indication: INR Value Treatment of Venous Thrombosis, 2.0-3.0 pulmonary emboli, or prophylaxis of a venous thrombosis, or systemic emboli. High dose, high risk patients 3.0-4.5 with mechanical valves. NOTE:INR values over 3.0 are sometimes associated with gastrointestinal hemorrhage, especially values over 4.0. Specimen Blood Performing Organization Address City/Va Hospital/[facility] Phone Number [address] * Us duplex venous lower extremity [...] is no evidence of deep venous thrombosis. [id number] Procedure Note Interface, Radiology Results Incoming - [...] is no evidence of deep venous thrombosis. [facility][id number] Performing Organization Address [facility] HospitalPowerCardca Phone Number [facility] [address] [place] [address] * XR Chest 2 Vw (02/25/2019 9:51 PM CDT) Only the most recent of 3 results within the time period is included. Specimen Narrative Performed At EXAMINATION:XR CHEST 2 VW [facility] CLINICAL HISTORY: chest pain COMPARISON:02/04/2019. FINDINGS: Two views of the chest demonstrate normal cardiomediastinal silhouette. Pulmonary vasculature is within normal limits. Both lungs are clear. No pleural disease is identified. Regional osseous structures is unremarkable. IMPRESSION: No radiographic evidence of acute cardiopulmonary process or active disease of the chest. [id number] Procedure Note Interface, Radiology Results Incoming - [...] process or active disease of the chest. [id number] Performing Organization Address [facility]/Va Hospital/Zipcode Phone Number [place] [address] [place] [address] * hCG qualitative, serum screen (02/21/2019 11:15 PM CDT) Only the most recent of 2 results within the time period is included. Pathologist [facility] hCG Negative [place] qualitative, Comment: [facility] serum The manufacturers stated [facility] sensitivity of HcG test for HOSPITAL serum is >/=10 mIU/ml and urine is >/=20mIU/ml. Specimen Blood Performing Organization Address City/[facility] Hospital/[facility] [place] [address] PATHOLOGY AND [facility] MEDICINE [address] * Lipase level (02/21/2019 11:15 PM CDT) Only the most recent of 8 results within the time period is included. [facility] Lipase 19 13 - 60 U/L [facility] Specimen Plasma specimen Performing Organization Address [facility] [place] [address] PATH[address] * Urinalysis screen and microscopy, with reflex to culture (02/21/2019 10:38 PM CDT) Only the most recent of 11 results within the time period is included. Pathologist [facility] Specimen site Clean catch [facility] Color, UA Yellow [facility] Appearance, UA Clear [facility] Specific 1.017 1.001 - 1.035 [place] gravity, [facility] pH, UA 5.0 5.0 - 8.5 [facility] Protein, UA Negative Negative [facility] Glucose, UA Negative Negative [facility] Ketones, UA Negative Negative [facility] Bilirubin, UA Negative Negative [facility] Blood, UA Negative Negative [facility] Nitrite, UA Negative Negative [facility] Urobilinogen, Negative <2.0 [facility] Leukocyte Negative Negative [place] esterase, UA [facility] Epithelial Many /HPF [place] cells, UA [facility] WBC, UA 2 0 - 5 /HPF [facility] RBC, UA 3 0 - 5 /HPF [facility] Bacteria, UA None seen None seen [facility] Yeast, UA None seen [facility] Yeast with None seen [place] [facility] Specimen Urine Performing Organization Address City/State/Zipcode Phone Number [facility] [address] [place] [address] PATHOLOGY AND GENOMIC MEDICINE [address] * Urine culture (02/21/2019 10:38 PM CDT) Only the most recent of 9 results within the time period is included. Urine culture SEE COMMENTComment: [place] Bacteriuria screen negative. [facility] Specimen Urine Performing Organization Address City/[facility] Hospital/[facility] Phone Number [facility] [place] [address] PATHOLOGY AND GENOMIC MEDICINE [address] * CT Renal Stone Protocol (02/21/2019 [...] abnormality identified in the abdomen or pelvis. [facility]-[id number] Procedure Note Hm Interface, Radiology Results Incoming - 02/21/2019 10:47 [...] abnormality identified in the abdomen or pelvis. [facility]-[id number] Performing Organization Address City/State/Zipcode Phone Number [facility] [address] [place] [address] * I&D/Aspiration/Amputation (02/15/2019 7:43 PM CDT) Narrative Performed At Fernando Gutierrez MD 03/20/20199:29 AM I&D/Aspiration/Amputation Performed by: Ayaz Cornell NP Authorized by: Fernando Gutierrez MD Consent: Consent obtained:Verbal Consent given by:Patient Risks discussed:Bleeding, incomplete drainage, pain, infection and damage to other organs Alternatives discussed:No treatment Location: Type:Abscess Location:Upper extremity Upper extremity location: rt axilla. Pre-procedure details: Skin preparation:Chloraprep Anesthesia (see MAR for exact dosages): Anesthesia method:Local infiltration Local anesthetic:Lidocaine 1% w/o epi Procedure details: Complexity:Simple Needle aspiration: Yes Needle size:18 G Size (cm):2 Drainage:Bloody Drainage amount:Scant Packing materials:None Post-procedure details: Patient tolerance of procedure:Tolerated well, no immediate complications * XR Foot 3+ Vw Right (02/13/2019 5:54 PM CDT) Only the most recent of 2 results within the time period is included. Specimen Narrative Performed At EXAMINATION:XR FOOT 3VW RIGHT HM [facility] CLINICAL HISTORY:traumafall COMPARISON:None available at this time. IMPRESSION: 1. No fracture, malalignment, or osseous destructive lesion of the right foot. 2. Joint spaces are maintained. No significant degenerative changes. 3. Soft tissues are unremarkable. [facility]-[id number] Procedure Note Interface, Radiology Results Incoming - 02/13/2019 6:00 PM CDT EXAMINATION: XR FOOT 3 VW RIGHT CLINICAL HISTORY: trauma fall COMPARISON: None available at this time. IMPRESSION: 1. No fracture, malalignment, or osseous destructive lesion of the right foot. 2. Joint spaces are maintained. No significant degenerative changes. 3. Soft tissues are unremarkable. [facility]-[id number] Performing Organization Address [facility] Phone Number [facility] [address] [place] [address] * XR Ankle 3+ Vw Right (02/13/2019 5:54 PM CDT) Only the most recent of 2 results within the time period is included. Specimen Narrative Performed At EXAMINATION:XR ANKLE 3VW RIGHT HM [facility] CLINICAL HISTORY:Ankle paininitial exam COMPARISON:None available at this time. IMPRESSION: No fracture or dislocation. Soft tissues are unremarkable. [facility]-[id number] Procedure Note Interface, Radiology Results Incoming - 02/13/2019 6:01 PM CDT EXAMINATION: XR ANKLE 3 VW RIGHT CLINICAL HISTORY: Ankle pain initial exam COMPARISON: None available at this time. IMPRESSION: No fracture or dislocation. Soft tissues are unremarkable. [facility]-[id number] Performing Organization Address City/Va Hospital/[facility] Phone Number [facility] [address] [place] [address] * POC glucose (02/05/2019 6:06 AM CDT) Only the most recent of 12 results within the time period is included. POC glucose 149 (H) 65 - 100 mg/dL [place] Comment: KAY GARCIA Meter ID: [id number] SHANELL Pig Machine Operator Helper: Mago [facility] Specimen Performing Organization Address City/Va Hospital/Zipcode Phone Number [facility] [address] [place] [address] PATHOLOGY AND GENOMIC MEDICINE [address] [place]. [address] * Lactic acid level, SEPSIS - Now and repeat 2x every 3 hours (02/05/2019 3:22 AM CDT) Only the most recent of 7 results within the time period is included. Pathologist [facility] Lactic acid 2.0 0.5 - 2.2 mmol/L [facility] Specimen Plasma specimen Performing Organization Address City/Va Hospital/[facility] Phone Number [address] [place] [address] PATHOLOGY AND [facility] [address] * Basic metabolic panel (02/05/2019 3:22 AM CDT) Only the most recent of 8 results within the time period is included. [facility] Sodium 141 135 - 150 mEq/L [facility] Potassium 4.1 3.5 - 5.0 mEq/L [facility] Chloride 102 98 - 112 mEq/L [facility] CO2 31 24 - 31 mmol/L [facility] Anion gap 8@ANIO 7 - 15 mEq/L [facility] BUN 9 7 - 18 mg/dL [facility] Creatinine 0.60 0.50 - 0.90 mg/dL [facility] Glucose 163 (H) 65 - 100 mg/dL [facility] Calcium 9.1 8.3 - 10.2 mg/dL [facility] Specimen Plasma specimen Performing Organization Address City/[facility] Phone Number [place] [id number] [facility] [place] [address] PATHOLOGY AND [facility] MEDICINE [address] * Respiratory pathogen panel (02/05/2019 12:11 AM CDT) Only the most recent of 3 results within the time period is included. [facility] Respiratory Positive for [place] pathogen panel Rhinovirus/Enterovirus [facility] Negative for all other pathogens tested: [...] Specimen Nares - Left Performing Organization Address [facility] Hospital[facility] [place] [address] PATHOLOGY AND [facility] [address] * Gram stain (02/04/2019 5:00 PM CDT) Only the most recent of 6 results within the time period is included. Gram stain No WBC's or organisms seen. [place] result Comment: EPISCOPAL Specimen Information HOSPITAL Specimen Source: Urine Specimen Site: Clean catch Specimen Urine Performing Organization Address [facility] Phone Number [facility] [place] [address] PATHOLOGY AND [facility] [place] [address] * hCG qualitative, urine screen (02/04/2019 4:47 PM CDT) Only the most recent of 8 results within the time period is included. hCG Negative Negative VELIZ qualitative, Comment: KAY GARCIA urine The manufacturers stated SHANELL sensitivity of HcG test for HOSPITAL serum is >/=10 mIU/ml and urine is >/=20mIU/ml. Specimen Urine Performing Organization Address City/[facility] Phone Number [facility] [address] [place] [address] PATHOLOGY AND GENOMIC MED[facility]INE [place] [address] [place] [address] [facility] * XR Chest 1 Vw Portable (02/04/2019 3:47 PM CDT) Only the most recent of 3 results within the time period is included. Specimen Narrative Performed At EXAMINATION:XR CHEST 1 VW PORTABLE [facility] CLINICAL HISTORY:SOB COMPARISON:January 25 IMPRESSION: The lungs are clear. No nodules or infiltrates present. The heart is not enlarged. The regional skeletalstructures are within normal limits. [facility]-[id number] Procedure Note Hm Interface, Radiology Results Incoming - 02/04/2019 3:51 PM CDT EXAMINATION: XR CHEST 1 VW PORTABLE CLINICAL HISTORY: SOB COMPARISON: January 25 IMPRESSION: The lungs are clear. No nodules or infiltrates present. The heart is not enlarged. The regional skeletal structures are within normal limits. [facility]-[id number] Performing Organization Address City/[facility] Hospital/Zipcode Phone Number [facility] [address] [place] [address] * Blood culture, aerobic & anaerobic (02/04/2019 3:40 PM CDT) Only the most recent of 4 results within the time period is included. [facility] Blood culture No growth after 5 days of [place] isolate incubation. EPISCOPAL Comment: HOSPITAL Specimen Information Specimen Source: Blood Specimen Site: left ac Specimen Blood Performing Organization Address City/[facility]/Zipcode Phone Number [facility] DEPARTMENT OF [address] [place] [address] PATHOLOGY AND GENOMIC MEDICINE [address] * Hepatic function panel (02/04/2019 3:40 PM CDT) Only the most recent of 2 results within the time period is included. Albumin 2.9 (L) 3.5 - 5.0 g/dL [facility] Total bilirubin <0.3 0.2 - 1.2 mg/dL [facility] Bilirubin <0.2 0.0 - 0.4 mg/dL [place] direct [facility] Alkaline 61 0 - 104 U/L [place] phosphatase [facility] Protein 6.4 6.3 - 8.3 g/dL [facility] ALT 22 5 - 50 U/L [facility] AST 19 10 - 35 U/L [facility] Specimen Plasma specimen Performing Organization Address City/[facility] Hospital/Zipcode Phone Number [facility] [address] [place] [phone] PATHOLOGY AND GENOMIC MEDICINE [address] * Hemoglobin A1c (01/26/2019 6:56 AM CDT) Hemoglobin A1C 5.8 (H) 4.0 - 5.6 % [place] Comment: [facility] HbA1c cutoffs for diagnosing [facility] diabetes: HOSPITAL 4.0% - 5.6%=normal 5.7% - 6.4%=increased risk for diabetes (prediabetes) >=6.5%=diabetes Goals for glycemic control (ADA 2016) < 7.0%Target for non adults with diabetes. More or less stringent targets may be appropriate for individual patients. <7.5% Target for Children and adolescents with type 1 diabetes. Specimen Blood Performing Organization Address City/[facility] Hospital/Zipcode Phone Number [facility] [address] [place] [phone] PATHOLOGY AND GENOMIC MEDICINE [address] * CRITICAL CARE (01/25/2019 9:40 PM [...] Strep screen culture (01/21/2019 8:00 AM CDT) Pathologist [facility] Strep screen No beta hemolytic Streptococci [place] culture isolate isolated EPISCOPAL Comment: HOSPITAL Specimen Information Specimen Source: Throat Specimen Site: Not otherwise specified Specimen Throat - Not otherwise specified Performing Organization Address City/State/Zipcode Phone Number [facility] DEPARTMENT OF [address] [place] [address] PATHOLOGY [place] [address] HOSPITAL * Group A strep, rapid antigen (01/21/2019 7:31 AM CDT) Pathologist [facility] Group A strep, Negative for Group A [place] rapid antigen Streptococcus antigen. All [facility] result negative Group A [facility] Streptococcus antigen screens HOSPITAL are confirmed by culture. Comment: Specimen Information Specimen Source: Throat Specimen Site: Not otherwise specified Specimen Throat - Not otherwise specified Performing Organization Address City/[facility] Phone Number [facility] OF [address] [place] [address] PATHOLOGY AND GENOMIC MEDICINE [facility] [address] * CBC hemogram (01/21/2019 7:15 AM CDT) [facility] WBC 6.8 4.2 - 11.0 k/uL [facility] RBC 3.63 (L) 4.04 - 5.86 m/uL [facility] HGB 11.4 (L) 11.5 - 15.3 g/dL [facility] HCT 35.3 34.0 - 45.0 % [facility] MCV 97.2 80.0 - 98.0 fL [facility] MCH 31.4 27.0 - 34.0 pg [facility] MCHC 32.3 31.5 - 36.5 g/dL [facility] RDW - SD 48.5 37.0 - 51.0 fL [facility] MPV 9.6 7.4 - 10.4 fL [facility] Platelet count 216 150 - 400 k/uL [facility] Nucleated RBC 0.00 /100 WBC [facility] Specimen Blood Performing Organization Address City/State/Zipcode Phone Number [facility] OF [address] [facility] [place] [phone] PATHOLOGY AND [facility] [place] [id number] [address] * Influenza antigen test, reflex negative to RPP (01/21/2019 5:30 AM CDT) Only the most recent of 2 results within the time period is included. Influenza Negative for Influenza A/B [place] antigen antigen. [facility] Comment: [facility] Specimen Information HOSPITAL Specimen Source: Nares Specimen Site: Left Specimen Nares - Left Performing Organization Address [facility] Phone Number [facility] OF [address] [place] [address] PATHOLOGY AND [facility] [address] * CT Abdomen Pelvis Wo Contrast (01/03/2019 [...] sleeve gastrectomy, cholecystectomy, hysterectomy and probable appendectomy. [id number] Procedure Note Hm Interface, Radiology Results Incoming - 01/03/2019 6:06 [...] sleeve gastrectomy, cholecystectomy, hysterectomy and probable appendectomy. [id number] Performing Organization Address City/State/Zipcode Phone Number [facility] [address] [place] [address] * XR Hips Bilateral Ap Lateral W [...] There is no acute fracture or subluxation. [id number] Procedure Note Interface, Radiology Results Incoming - [...] There is no acute fracture or subluxation. [id number] Performing Organization Address City/State/Zipcode Phone Number [facility] [address] [place] [address] * CT Abdomen Pelvis W Contrast (09/22/2018 2:27 AM [facility]) Specimen Narrative Performed At CT ABDOMEN PELVIS W CONTRAST [facility] CLINICAL INDICATION:lower abd pain TECHNIQUE: Multidetector CT [...] acute pathology within the abdomen and pelvis. [facility]-[id number] Procedure Note Hm Interface, Radiology Results Incoming - 09/22/2018 2:[address] ABDOMEN PELVIS W CONTRAST CLINICAL INDICATION: [...] acute pathology within the abdomen and pelvis. [facility]-[id number] Performing Organization Address City/State/Zipcode Phone Number [facility] [address] [place] [address] * XR Foot 3+ Vw Left (08/30/2018 8:50 PM [facility]) Only the most recent of 2 results within the time period is included. Specimen Narrative Performed At EXAMINATION:XR FOOT 3VW LEFT [facility] CLINICAL HISTORY:pain COMPARISON:To previous examination from 05/03/2018. IMPRESSION: 1.There is no evidence of acute left foot fracture or dislocation. There are no radiopaque foreign bodies. 2.There are no focal bony erosions or periostitis. Internal fixation anchor is noted in the navicular. [facility]-[id number] Procedure Note Interface, Radiology Results Incoming - 08/30/2018 9:07 PM [facility] EXAMINATION: XR FOOT 3 VW LEFT CLINICAL HISTORY: pain COMPARISON: To previous examination from 05/03/2018. IMPRESSION: 1. There is no evidence of acute left foot fracture or dislocation. There are no radiopaque foreign bodies. 2. There are no focal bony erosions or periostitis. Internal fixation anchor is noted in the navicular. [facility]-[id number] Performing Organization Address [facility] Phone Number [facility] [address] [place] [address] * CT Head Wo Contrast (07/10/2018 11:07 [...] No CT evidence for acute intracranial abnormality. [facility]-[id number] Procedure Note Interface, Radiology Results Incoming - 07/10/2018 11:14 [...] No CT evidence for acute intracranial abnormality. [facility]-[id number] Performing Organization Address City/State/Zipcode Phone Number [facility] [address] [place] [address] * CT Maxillofacial Wo Contrast (07/10/2018 11:07 PM CDT) Specimen Narrative Performed At EXAMINATION:CT MAXILLOFACIAL WO CONTRAST [facility] CT IMAGING WAS PERFORMED WITH ITERATIVE RECONSTRUCTION [...] the right side. IMPRESSION: No significant abnormality. [facility]-[id number] Procedure Note [facility], Radiology Results [facility] - 07/10/2018 11:17 PM CDT EXAMINATION: CT [...] the right side. IMPRESSION: No significant abnormality. [facility]-[id number] Performing Organization Address City/State/Zipcode Phone Number [facility] [address] [place] [address] * XR Shoulder 2+ Vw Right (07/06/2018 9:39 PM CDT) Specimen Narrative Performed At Examination: XR SHOULDER 2VW RIGHT [facility] Clinical history: Shoulder paininitial exam Comparison: None Impression: 1. No fracture or acute osseous pathology is identified. 2. AC and glenohumeral relationships are within normal limits. [facility]-[id number] Procedure Note Hm Interface, Radiology Results Incoming - 07/06/2018 9:47 PM CDT Examination: XR SHOULDER 2 VW RIGHT Clinical history: Shoulder pain initial exam Comparison: None Impression: 1. No fracture or acute osseous pathology is identified. 2. AC and glenohumeral relationships are within normal limits. [facility]-[id number] Performing Organization Address City/State/Zipcode Phone Number [facility] [address] [place] [address] * GC By ProbeTe (06/12/2018 11:25 PM CDT) Pathologist [facility], [employer]be[employer] Negative for Neisseria [facility] DEPARTMENT gonorrhoeae. OF PATHOLOGY Comment: AND GENOMIC Specimen Information MEDICINE Specimen Source: Cervical Specimen Site: Other Specimen Cervical - Other- Detailed Description Required Performing Organization Address City/[facility] Hospital/Zipcode Phone Number [facility] DEPARTMENT OF [address] [place] [address] PATHOLOGY AND GENOMIC MEDICINE * Chlamydia by ProbeTe (06/12/2018 11:25 PM CDT) Pathologist [facility] Chlamydia, Negative for Chlamydia [facility] DEPARTMENT [employer] trachomatis. OF PATHOLOGY Comment: AND GENOMIC Specimen Information MEDICINE Specimen Source: Cervical Specimen Site: Other Specimen Cervical - Other- Detailed Description Required Performing Organization Address City/State/Zipcode Phone Number [facility] DEPARTMENT OF [address] [place] [address] PATHOLOGY AND GENOMIC MEDICINE * Wet prep (06/12/2018 11:25 PM CDT) Pathologist [facility] Wet prep result No Trichomonas vaginalis or [facility] budding yeast seen OF PATHOLOGY No Clue cells seen AND GENOMIC Comment: MEDICINE Specimen Information Specimen Source: Vaginal Specimen Site: Other Specimen Vaginal - Other- Detailed Description Required Performing Organization Address City/State/Zipcode Phone Number [facility] OF [address] [place] [address] PATHOLOGY AND GENOMIC MEDICINE * SPLINT APPLICATION [...] (05/01/2018 11:32 PM CDT) Narrative Performed At Elaís Vang II [facility] 05/02/20182:21 AM Splint Application Performed by: ELÍAS [...] 04/30/20185:58 AM Splint Application Performed by: LEFTY EBACH Authorized by: LEFTY BEACH Consent: Consent obtained:Verbal Consent given by:Patient Risks discussed:Discoloration, numbness, pain and swelling Alternatives discussed:No treatment Pre-procedure details: Sensation:Normal Skin color:Hugo Procedure details: Laterality:Left Location:Leg Leg:L lower leg Cast type:Short leg Supplies:Ortho-Glass, adhesive tape, elastic bandage and cotton padding Post-procedure details: Pain:Improved Sensation:Normal Skin color:Hugo Patient tolerance of procedure:Tolerated well, no immediate complications after 04/08/2018 Insurance Type Payer Benefit Subscriber ID Effective Phone Address Plan / Dates Group HMO [employer] MEDICARE C DUAL xxxxxxxxx 2016- COMPLETE Present [facility] Medicaid MEDICAID MEDICAID xxxxxxxxx 2015- Present Advance Directives Patient has advance care planning documents, and code status on file. For more i nformation, please contact: Jose Alfredo Youngblood [address] [place] [address] Date Inactivated Comments Code Status Date Activated 01/28/2019 3:40 PM Full Code 01/25/2019 11:58 PM Code Status decision reached by: Patient
[2019-04-10] MEDS ORDERED: ONDANSETRON HCL 4 MG ORAL DISINTEGRATING TAB PO ONE (00:45)
[2019-04-10] MEDS ORDERED: KETOROLAC TROMETHAMINE 60 MG/2 ML VIAL IM ONE (00:45)
[2019-04-10] MEDS ORDERED: ONDANSETRON HCL 4 MG ORAL DISINTEGRATING TAB ONE (00:46)
[2019-04-10] MEDS ORDERED: KETOROLAC TROMETHAMINE 60 MG/2 ML VIAL ONE (00:46)
[2019-04-10] MEDS ORDERED: MORPHINE SULFATE INJ 4 MG/ML INJ 1ML ONE (01:07)
--- NOTE | 2019-04-10 01:22 | Diagnostic Imaging Report ---
EXAM: CT of the abdomen and pelvis WITHOUT contrast HISTORY: Back pain, bilateral flank pain COMPARISON: None available. TECHNIQUE: The abdomen and pelvis were scanned utilizing a multidetector helical scanner. Coronal and sagittal reformats are available. PROTOCOL: Renal colic IV CONTRAST: None, which limits sensitivity and specificity of evaluation of the soft tissues and vascular structures. ORAL CONTRAST: None, which limits sensitivity and specificity of evaluation of the bowel. [facility] DOSE: Total DLP: 807.05 mGy*cm Estimated effective dose: (DLP x 0.015 x size factor) Dose modulation, iterative reconstruction, and/or weight based adjustment of the mA/kV was utilized to reduce the radiation dose to as low as reasonably achievable. COMPLICATIONS: None FINDINGS: LOWER THORAX: Unremarkable. HEPATOBILIARY: No definite focal hepatic lesions. No biliary ductal dilatation. Metallic clips in the right upper quadrant of the abdomen are compatible with prior cholecystectomy. SPLEEN: No splenomegaly. PANCREAS: No focal masses or ductal dilatation. Diffuse parenchymal atrophy. ADRENALS: No adrenal nodule. KIDNEYS/URETERS: No hydronephrosis, stones, or solid mass lesion identified. PELVIC ORGANS/BLADDER: The urinary bladder is predominantly decompressed, which does limit the evaluation; however, no abnormality is identified. PERITONEUM / RETROPERITONEUM: No free air or fluid. GI TRACT: On limited evaluation of the gastrointestinal tract, no dilation or wall thickening identified. Postsurgical changes adjacent to the cecum, correlate for prior appendectomy. Postsurgical changes at the gastroesophageal junction and greater curvature of the stomach. LYMPH NODES: No pathologically enlarged lymph nodes. VESSELS: Diffuse scattered atherosclerotic vascular calcifications. BONES: No aggressive osseous lesion or acute fracture. SOFT TISSUES: Unremarkable. IMPRESSION: 1. No acute CT abnormality. 2. No CT abnormality to explain the bilateral flank pain. Signed by: Dr. Edinson Walton D.O., M.M.M. on 04/10/2019 1:18 AM
[2019-04-10] MEDS ORDERED: MORPHINE SULFATE 2 MG/ML SYR 1ML IM STA (01:27)
== END 2019-04-10 02:00 | disposition home or self-care (01) ==
LOC: FSED 23:31
DX: R10.9 Unspecified abdominal pain (principal); M54.5 Low back pain; S39.012A Strain of muscle, fascia and tendon of lower back, initial encounter; J44.9 Chronic obstructive pulmonary disease, unspecified; F41.9 Anxiety disorder, unspecified; F31.9 Bipolar disorder, unspecified; M06.9 Rheumatoid arthritis, unspecified; Z98.84 Bariatric surgery status
CPT/HCPCS: 74176; 81003; 99283; J1885; J2270; Q0162

== ENCOUNTER → 2019-07-05 | Outpatient (CLI) | payer MEDICARE, OTHER ==
[~2019-07-05] MED LIST changes: +FENTANYL CITRATE/PF 100MCG/2 ML INJ ONE; +GADOBENATE DIMEGLUMINE 1 ML IV ONE; +MIDAZOLAM HCL 2 MG/2 ML VIAL ONE; +SODIUM CHLORIDE 0.9% 500ML 500 ML ONE
--- NOTE | 2019-07-05 13:58 | Diagnostic Imaging Report ---
MRI SPINE LUMBAR WOW HISTORY: Low back and left leg pain COMPARISON: CT of the abdomen and pelvis 04/10/2019 TECHNIQUE: Multiplanar, multisequence MRI of the lumbar spine was performed without and with intravenous contrast. DISCUSSION: Number of non-rib bearing lumbar vertebral bodies: 5. Alignment: Normal lordosis. No scoliosis. Vertebrae: No fractures, infection or neoplasm. Conus medullaris: Normal, ends at L1. Cauda equina: No masses or arachnoiditis. Posterior paraspinal muscles: Well preserved. No signal abnormalities. Soft tissues: There is a small T2 hyperintense cyst in the right kidney. There may be a focal cortical scar in the left kidney. There is mild disc degeneration at L5-S1 with possible small posterior annular fissure. T12-L1: Patent canal and foramina. L1-L2: Patent canal and foramina. L2-L3: Patent canal and foramina. L3-L4: Minimal disc bulge without significant canal or foraminal stenosis. There is mild periarticular edema and enhancement along the bilateral L3-L4 facet joints. L4-L5: Minimal disc bulge without significant canal or foraminal stenosis. There is mild periarticular edema and enhancement along the left L4-L5 facet joint. L5-S1: Mild bilateral foraminal stenoses due to disc bulge and facet arthrosis. No significant canal stenosis. IMPRESSION: 1. Mild L5-S1 disc degeneration without significant canal stenosis. 2. Mild bilateral L5-S1 degenerative foraminal stenoses. 3. Possible mild bilateral L3-L4 and left L4-L5 facet synovitis. Signed by: Dr. Dandy Chavez M.D. on 07/05/2019 1:54 PM
== END ==
LOC: MRI 10:53
PROVIDERS: ATTEND Pain Medicine Interventional Pain Medicine
DX: M54.5 Low back pain (principal); M54.17 Radiculopathy, lumbosacral region; M48.061 Spinal stenosis, lumbar region without neurogenic claudication
CPT/HCPCS: 72158; A9577; J2250; J3010; J7040

== ENCOUNTER → 2020-09-02 | Outpatient (CLI) | payer MEDICARE, OTHER ==
[~2020-09-02] MED LIST changes: -GADOBENATE DIMEGLUMINE 1 ML IV ONE; +LACTATED RINGER'S 1,000 ML ONE; +MIDAZOLAM HCL 5 MG/ML VIAL ONE; +PROPOFOL IV EMULSION 10 MG/ML 20 ML VIAL ONE; +SODIUM CHLORIDE 0.9% 100 ML ONE; -SODIUM CHLORIDE 0.9% 500ML 500 ML ONE
== END ==
LOC: MRI 09:42
PROVIDERS: ATTEND Family Medicine Sports Medicine
DX: M25.512 Pain in left shoulder (principal); M75.42 Impingement syndrome of left shoulder; M75.52 Bursitis of left shoulder
CPT/HCPCS: 73221; J7050; J7121; U0002; J2250; J3010

== ENCOUNTER → 2022-08-02 | Outpatient (CLI) | payer MEDICARE, OTHER ==
[~2022-08-02] MED LIST changes: -LACTATED RINGER'S 1,000 ML ONE; -MIDAZOLAM HCL 5 MG/ML VIAL ONE; +ONDANSETRON HCL INJ 2MG/ML 2ML 2 MG/ML VIAL ONE; -PROPOFOL IV EMULSION 10 MG/ML 20 ML VIAL ONE; -SODIUM CHLORIDE 0.9% 100 ML ONE
== END ==
LOC: MRI 11:48
PROVIDERS: ATTEND Anesthesiology Pain Medicine
DX: M96.1 Postlaminectomy syndrome, not elsewhere classified (principal)
CPT/HCPCS: 72148; J2405; J2250; J3010

== ENCOUNTER → 2024-05-04 | Outpatient (REF) | payer MEDICARE ==
[~2024-05-04] MED LIST changes: -FENTANYL CITRATE/PF 100MCG/2 ML INJ ONE; -MIDAZOLAM HCL 2 MG/2 ML VIAL ONE; -ONDANSETRON HCL INJ 2MG/ML 2ML 2 MG/ML VIAL ONE
== END ==
LOC: NM 08:34
PROVIDERS: ATTEND Internal Medicine Rheumatology
DX: R74.8 Abnormal levels of other serum enzymes (principal)
CPT/HCPCS: 78306; A9503